=== PATIENT | female | born 1950 | race Caucasian/White ===

== ENCOUNTER 2019-11-24 20:51 | Inpatient (IN) | payer MEDICARE, SELFPAY ==
[2019-11-24 20:53] VITALS: BP 109/80; BP 123/68; PULSE 79; PULSE 89; RESP 24; TEMP 35.9; O2SAT 100; O2SAT 96; BMI 34.1
--- NOTE | 2019-11-24 21:02 | EKG12_ITS ---
Test Reason : SOB Blood Pressure : / mmHG Vent. Rate : 091 BPM Atrial Rate : 070 BPM P-R Int : 000 ms QRS Dur : 078 ms QT Int : 456 ms P-R-T Axes : 000 -06 016 degrees QTc Int : 560 ms Normal Sinus Rhythm With First Degree AV Block Low voltage QRS Nonspecific ST and T wave abnormality Prolonged QT Abnormal ECG Confirmed by FLYNN FRIED ([id number]), editorial director DARRION GARCIA ([id number]) on 11/28/2019 9:44:36 AM Referred By: SEAN Confirmed By:FLYNN FRIED
--- NOTE | 2019-11-24 21:03 | ED.DCSUM_ITS ---
History of Present Illness Chief Complaint: Shortness of Breath Informant: Patient Onset: - - For a while Narrative: Patient presents via EMS for evaluation for shortness of breath. Patient is a poor historian but states her shortness of breath is been ongoing for some time. Per EMS they made multiple runs to her home with weakness, shortness of breath, and falls. It sounds as though the asked EMS to bring the patient here tonight for evaluation as she has not been getting better where they normally take her. Patient is not able to tell me which hospital she normally goes to. Patient denies any pain. She denies having fever or chills. She does report shortness of breath with mild cough. She did bring a long a note from a recent doctor's visit that reports she is being treated for MRSA infection in her right ankle. She was also treated for acute kidney injury with hyperkalemia. Past Medical History - Allergies and Home Meds Allergies/Adverse Reactions: Allergies doxycycline Allergy (Verified 11/24/19 21:02) Rash lisinopril Allergy (Verified 11/24/19 21:02) Rash Primary Care Physician: NOT,DEFINED [NON-STAFF] - Past Medical History: - - MRSA infection, unable to obtain complete history as patient does not know. Lives: Spouse/ Significant Other Review of Systems General: Denies: Chills, Fever Eyes: Denies: Visual changes - bilaterally ENT: Denies: Bilateral ear pain Cardiovascular: Denies: Chest pain Respiratory: Reports: Dyspnea, Cough Gastrointestinal: Denies: Vomiting, Diarrhea Musculoskeletal: Denies: Back pain Skin: Reports: Wounds Neurological: Reports: Weakness - Generalized weakness. Denies: Headache Endocrine: Denies: Polyuria, Polydipsia Hematologic: Denies: Easy bruising Allergy: Denies: Uticaria Physical Exam Vital Signs/Narrative: Vital Signs Temp Pulse Resp BP Pulse Ox 11/24/19 20:53 96.6 F L 79 24 H 123/68 H 96 Inital Vital Signs reviewed: Yes General: Well nourished, Well developed Head: Normocephalic ENT: Moist mucous membranes Neck: Supple Cardiovascular: Regular rate, Regular rhythm Respiratory: No distress, - - Mildly coarse breath sounds bilaterally. Abdomen: Soft, Nontender Extremities: - - 1 cm round pressure ulcer on the lateral malleolus of the right ankle. 4 x 1 cm skin tear to left forearm. Neurological: Alert, Oriented x3 Psychological: Tearful Diagnostic/Tx/Re-eval Impressions Chest X-Ray 11/24/19 21:05 IMPRESSION: Elevated right hemidiaphragm. No definite acute or significant abnormality seen. Electronically Signed: Edvin Ngo MD at 21:22 EST , Service support , 11/24/19 21:05 Chest 1 View (Portable) [RAD] Stat Laboratory Results 11/24/19 11/24/19 11/24/19 21:38 21:38 21:38 WBC 7.5 RBC 2.53 L Hgb 8.4 L Hct 27.8 L MCV 109.9 H MCH 33.2 H MCHC 30.2 L RDW Std Deviation 82.0 H RDW Coeff of Dominic 20.8 H Plt Count 334 MPV 11.2 Immature Gran % (Auto) 1.100 H Neut % (Auto) 85.2 H Lymph % (Auto) 7.9 L Cloud % (Auto) 4.7 Eos % (Auto) 0.8 Baso % (Auto) 0.3 Absolute Neuts (auto) 6.4 Absolute Lymphs (auto) 0.59 L Nucleated RBC % 1.2 Differential Comment SCANNED Hypochromasia 1+ Anisocytosis 1+ Target Cells 1+ Crenated Cell RARE Sodium Cancelled Potassium Cancelled Chloride Cancelled Carbon Dioxide Cancelled Anion Gap Cancelled BUN Cancelled Creatinine Cancelled Estim Creat Clear Calc Cancelled Est GFR (MDRD) Af Amer Cancelled Est GFR (MDRD) Non-Af Cancelled BUN/Creatinine Ratio Cancelled Glucose Cancelled Calcium Cancelled Troponin I Cancelled B-Natriuretic Peptide Cancelled 11/24/19 11/24/19 22:35 22:35 WBC RBC Hgb Hct MCV MCH MCHC RDW Std Deviation RDW Coeff of Dominic Plt Count MPV Immature Gran % (Auto) Neut % (Auto) Lymph % (Auto) Cloud % (Auto) Eos % (Auto) Baso % (Auto) Absolute Neuts (auto) Absolute Lymphs (auto) Nucleated RBC % Differential Comment Hypochromasia Anisocytosis Target Cells Crenated Cell Sodium 144 Potassium 6.8 H* Chloride 124 H Carbon Dioxide 16.0 L Anion Gap 4 L BUN 64 H Creatinine 1.66 H Estim Creat Clear Calc 30.79 Est GFR (MDRD) Af Amer 40 L Est GFR (MDRD) Non-Af 33 L BUN/Creatinine Ratio 38.6 H Glucose 91 Calcium 9.2 Troponin I < 0.015 B-Natriuretic Peptide 604.1 H - EKG Initial EKG Interpretation: Sinus Rhythm - Sinus arrhythmia with first-degree AV block. No acute ST change. - Medical Decision Making I attempted to find old records on the patient. She is never been to this facility before. There are no records available to review in [facility]. Patient has been stable throughout her ED stay. Blood work does return with significantly elevated potassium at 6.8. The paperwork from the doctor's office she brought in does comment that she had recently been treated for hyperkalemia. At this time she is ordered albuterol, Kayexalate, insulin, and glucose. Patient be admitted for further treatment and evaluation. ED Disposition - Plan for ED Patient: Disposition: Acute Care Hospital [facility] Diagnosis: Hyperkalemia, Dyspnea Referrals: NOT,DEFINED [NON-STAFF] -
--- NOTE | 2019-11-24 21:05 | RAD_ITS ---
STUDY: X-RAY CHEST REASON FOR EXAM: Female, 69 years old. Short of breath. TECHNIQUE: Single AP portable view of the chest. COMPARISON: None. FINDINGS: Marked elevation of the right hemidiaphragm. Otherwise normal lung volumes. No infiltrates. No effusions. Normal size heart. Normal mediastinum and amandeep. Normal visualized pulmonary arteries. Normal visualized aortic arch and descending thoracic aorta. Normal visualized thoracic spine. There is degenerative osteoarthritis of the bilateral shoulders. There is no demonstrated abnormality of the visualized soft tissue structures of the upper abdomen. RAD/Chest 1 View (Portable) IMPRESSION: Elevated right hemidiaphragm. No definite acute or significant abnormality seen. Electronically Signed: Edvin Ngo MD at 21:22 EST , Service support ,
--- NOTE | 2019-11-24 21:06 | ED.RN ---
NO OLD EKGS IN MUSE
[2019-11-24 21:15] VITALS: BP 109/80; PULSE 83; RESP 22; O2SAT 96
[2019-11-24 21:46] LABS: Absolute Lymphocyte Count 0.59 X10^3/uL (0.83-4.51); Absolute Neutrophil Count 6.4 X10^3/uL (2.0-7.7); Basophil# 0.02 X10^3/uL; Basophil% 0.3 % (0-1); Eosinophil# 0.06 X10^3/uL; Eosinophils% 0.8 % (0-5); Hematocrit 27.8 % (37-47); Hemoglobin 8.4 g/dL (12.0-15.0); Lymphocyte # 0.59 X10^3/ul (4.0); Lymphocyte % 7.9 % (19-41); Mean Corp Hgb Conc 30.2 g/dL (32-36); Mean Corpuscular Hgb 33.2 pg (27.0-32.0); Mean Corpuscular Volume 109.9 fL (81-99); Mean Platelet Vol. 11.2 fl (6.2-12.0); Monocyte# 0.35 X10^3/uL; Monocyte% 4.7 % (0-10); NRBC Flagged by Analyzer 1.2 % (0-5); Neutrophil # 6.37 X10^3/uL (2.7-7.7); Neutrophil % 85.2 % (47-70); POSITIVE DIFFERENTIAL YES; POSITIVE MORPHOLOGY YES; Platelet Count 334 K/mm3 (150-450); RBC Distribution Width CV 20.8 % (11.6-14.6); Red Blood Count 2.53 M/mm3 (4.2-5.4); White Blood Count 7.5 K/mm3 (4.4-11.0)
[2019-11-24 22:10] LABS: Differential Indicated SCAN CRITERIA MET
[2019-11-24 22:15] VITALS: BP 130/68; PULSE 89; RESP 22; O2SAT 99
[2019-11-24 22:25] VITALS: BP 138/68; PULSE 84; RESP 18; TEMP 35.7; O2SAT 96
[2019-11-24 22:33] LABS: Anisocytosis 1+; Crenated RBC RARE; Differential Comment SCANNED; Hypochromasia 1+; Target Cells 1+
[2019-11-24 23:18] LABS: Anion Gap 4 (5-15); BUN 64 mg/dL (7-18); BUN/Creat Ratio 38.6 RATIO (10-20); Calcium,Total 9.2 mg/dL (8.5-10.1); Chloride 124 mmol/L (98-107); Creatinine, Serum 1.66 mg/dL (0.55-1.02); EST Glomerular Filtration Rate 33 mL/min (>60); Est Glom Filt Rate - Afr Amer 40 mL/min (>60); Estimated Creatinine Clearance 30.79 ml/min; Glucose 91 mg/dL (74-106); Potassium 6.8 mmol/L (3.5-5.1); Sodium Level 144 mmol/L (136-145)
--- NOTE | 2019-11-24 23:22 | ED.RN ---
CRITICAL POTASSIUM PER LAB CALL, AND PRIMARY RN AWARE
--- NOTE | 2019-11-24 23:27 | HP.PCM_ITS ---
Problem List (1) Hyperkalemia Status: Acute (2) TENZIN (acute kidney injury) Status: Acute (3) Dyspnea Status: Acute Qualifiers: Dyspnea type: unspecified Qualified Code(s): R06.00 - Dyspnea, unspecified (4) CHF (congestive heart failure) Status: Chronic Qualifiers: Heart failure type: unspecified Heart failure chronicity: chronic Qualified Code(s): I50.9 - Heart failure, unspecified (5) HTN (hypertension) Status: Chronic Qualifiers: Hypertension type: essential hypertension Qualified Code(s): I10 - Essential (primary) hypertension (6) HLD (hyperlipidemia) Status: Chronic Qualifiers: Hyperlipidemia type: unspecified Qualified Code(s): E78.5 - Hyperlipidemia, unspecified (7) Anxiety and depression Status: Chronic (8) Wound of right ankle Status: Chronic Qualifiers: Encounter type: subsequent encounter Qualified Code(s): S91.001D - Unspecified open wound, right ankle, subsequent encounter (9) Obesity (BMI 30.0-34.9) Status: Chronic History of Present Illness Date of Admission: 11/24/19 Chief Complaint: Recent hospital dx, recurrent dyspnea, weakness The patient is a 69 y/o F w/ PMHx: Obesity, GERD, Anxiety and Depression, HTN, HLD, Allergic Rhinitis, CHF Unclear type, R Ankle MRSA Ulcer, Chronic anemia who presents to the [facility] ED on 11/24/19 with history of several home visits per EMS secondary to falls, weakness and debility with a recent right ankle MRSA infection currently on Bactrim therapy as well as recent treatment for acute kidney injury and hyperkalemia with ongoing complaints of dyspnea and general malaise as well as weakness and fatigue prompting evaluation at [facility] although she normally presents to [facility] and specifically notes transition as she is not been improving and is very frustrated. Work-up in the ED included T 96.6, heart rate 79, BP 123/68, respiratory rate 24, 96% on room air, CBC with WC 7.5, hemoglobin 8.7, MCV 109.9, platelet 334 with mild left shift, BMP with potassium 6.8, chloride 124, carbon oxide 16, BUN/creatinine 64/1.66, troponin less than 0.015, BNP 604.1, chest x-ray with no obvious infiltrates or effusions, elevated right hemidiaphragm, no acute cardiopulmonary finding, EKG w/ sinus rhythm with 1 AVB with no concerning T wave changes given K level. In the ED patient administered Kayexalate, insulin, dextrose and albuterol therapy. Past Medical History Past Medical History (Chronic Problems): Chronic Problems CHF (congestive heart failure) (Chronic) HTN (hypertension) (Chronic) HLD (hyperlipidemia) (Chronic) Anxiety and depression (Chronic) Wound of right ankle (Chronic) Obesity (BMI 30.0-34.9) (Chronic) Allergies doxycycline Allergy (Verified 11/24/19 21:02) Rash lisinopril Allergy (Verified 11/24/19 21:02) Rash Home Medications: Ambulatory Orders Medication Instructions Recorded Albuterol Inhaler [Ventolin Hfa 2 puff INHALATION Q4H PRN PRN 11/24/19 (SP)] Atorvastatin Calcium [Lipitor] 20 mg PO QHS 11/24/19 Bumetanide 1 mg PO DAILY 11/24/19 Calcium Carbonate/Vitamin D3 1 ea PO DAILY 11/24/19 [Calcium 600-Vit D3 800 Caplet] Fluoxetine HCl 40 mg PO BID 11/24/19 Fluticasone 0.05% [Flonase Nasal 2 spray NASAL DAILY 11/24/19 New Site] Folic Acid 1 mg PO DAILY 11/24/19 Isosorbide Mononitrate [Imdur] 30 mg PO DAILY 11/24/19 Lactobacillus Acidophilus 1 ea PO TID 11/24/19 [Acidophilus] Montelukast [Singulair] 10 mg PO DAILY 11/24/19 Multivitamin with Minerals 1 ea PO DAILY 11/24/19 [Multiple Vitamin] Omeprazole 40 mg PO DAILY 11/24/19 Oxybutynin [Ditropan] 2.5 mg PO DAILY 11/24/19 Prednisone 2.5 mg PO DAILY 11/24/19 Sulfamethoxazole/Trimethoprim 1 ea PO BID 11/24/19 [Bactrim Ds Tablet] Surgical History: - - x1. 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 Denies: Chills, Fever, Weight Change HEENT: Denies: Head Aches, Sinus Congestion, Sinus Drainage Cardiovascular: Reports: Orthopnea. Denies: Chest Pain, Chest Pressure, Chest Tightness, Light Headedness, Palpitations, Syncope Respiratory: Reports: Cough, Shortness of Breath, Shortness of breath at rest, Shortness of breath upon exertion, Sputum production. Denies: Wheezing Gastrointestinal: Reports: Nausea. Denies: Abdominal Pain, Vomiting Genitourinary: Denies: Dysuria Musculoskeletal: Reports: Back Pain, Joint Pain, Muscle pain. Denies: Joint Tenderness Skin: Reports: Skin Changes, Wounds. Denies: Rash Neurological: Denies: Numbness, Tingling, Focal weakness Psychiatric: Reports: Anxiety, Depression. Denies: Homicidal Ideations, Suicidal Ideations Hematologic/ Lymphatic: Reports: Anemia. Denies: Easy Bruising, Easy Bleeding VTE Information - Inpt Only VTE Present on Admission: No VTE Mechan Device Prophylaxis: SCD's VTE Pharm Prophylaxis ordered?: Yes Patient Problems: Active and Suspected Problems Hyperkalemia (Acute) Dyspnea (Acute) TENZIN (acute kidney injury) (Acute) Subjective: Seated upright in the bed, fatigued appearance, very anxious and tearful with discussions. Objective: Physical Examination: General: awake, alert, oriented x 3, remains cooperative, seated upright in the ED bed, very tearful and anxious with discussions. Skin: normal color, turgor, no icterus, cyanosis except noted right lateral ankle wound, slough noted, no market well-appearing granulation tissue but no specific foul odor or discharge. HEENT: AT/NC, EOMI, PERRLA, dry MM, no carotid bruits or JVD noted. Lungs: Diminished breath sounds bilaterally, greater bases, mildly increased effort, occasional coughing during examination, no obvious rales, wheezing or rhonchi. Heart: Regular rate and rhythm; no gallop, rub audible. Abdomen: soft, obese, NTTP, ND, normal BS, no HSM. Extremities: no cyanosis, clubbing, mild bilateral ankle nonpitting. Neurological: patient awake, alert, oriented as noted; cognitive function suspect near baseline intact although very quiet and had to urge patient into discussion; pupils equally reactive to light and accomodation; cranial nerves II-XII grossly normal, moving all 4 extremities, no focal deficits, strength severely global decrease. Psychiatric: affect appears fatigued, anxious, tearful, history of depression and anxiety. - Physical Exam Vitals/I&O's: Vital Signs Temp Pulse Resp BP Pulse Ox 96.3 F L 84 18 138/68 H 96 11/24/19 22:25 11/24/19 22:25 11/24/19 22:25 11/24/19 22:25 11/24/19 22:25 Oxygen Flow Rate (L/min) 2 Oxygen Delivery Method Room Air Weight: 211 lb 10.3 oz Body Mass Index (BMI) 34.1 Laboratory Results 11/24/19 21:38: WBC 7.5, RBC 2.53 L, Hgb 8.4 L, Hct 27.8 L, MCV 109.9 H, MCH 33.2 H, MCHC 30.2 L, RDW Std Deviation 82.0 H, RDW Coeff of Dominic 20.8 H, Plt Count 334, MPV 11.2, Immature Gran % (Auto) 1.100 H, Neut % (Auto) 85.2 H, Lymph % (Auto) 7.9 L, Nash % (Auto) 4.7, Eos % (Auto) 0.8, Baso % (Auto) 0.3, Absolute Neuts (auto) 6.4, Absolute Lymphs (auto) 0.59 L, Nucleated RBC % 1.2, Differential Comment SCANNED, Hypochromasia 1+, Anisocytosis 1+, Target Cells 1+, Crenated Cell RARE 11/24/19 21:38: Sodium Cancelled, Potassium Cancelled, Chloride Cancelled, Carbon Dioxide Cancelled, Anion Gap Cancelled, BUN Cancelled, Creatinine Cancelled, Estim Creat Clear Calc Cancelled, Est GFR (MDRD) Af Amer Cancelled, Est GFR (MDRD) Non-Af Cancelled, BUN/Creatinine Ratio Cancelled, Glucose Cancelled, Calcium Cancelled, Troponin I Cancelled 11/24/19 21:38: B-Natriuretic Peptide Cancelled 11/24/19 22:35: Sodium 144, Potassium 6.8 H*, Chloride 124 H, Carbon Dioxide 16.0 L, Anion Gap 4 L, BUN 64 H, Creatinine 1.66 H, Estim Creat Clear Calc 30.79, Est GFR (MDRD) Af Amer 40 L, Est GFR (MDRD) Non-Af 33 L, BUN/Creatinine Ratio 38.6 H, Glucose 91, Calcium 9.2, Troponin I < 0.015 11/24/19 22:35: B-Natriuretic Peptide Pending Assessment/Plan All Active Problems Hyperkalemia (Acute) Dyspnea (Acute) TENZIN (acute kidney injury) (Acute) The patient is a 69 y/o F w/ PMHx: Obesity, GERD, Anxiety and Depression, HTN, HLD, Allergic Rhinitis, CHF Unclear type, R Ankle MRSA Ulcer, Chronic anemia who presents to the [facility] ED on 11/24/19 with history of several home visits per EMS secondary to falls, weakness and debility with a recent right ankle MRSA infection currently on Bactrim therapy as well as recent treatment for acute kidney injury and hyperkalemia with ongoing complaints of dyspnea and general malaise as well as weakness and fatigue. 1. Acute Hyperkalemia: Potassium 6.8, administered insulin, glucose, albuterol and Kayexalate in the ED, given recent history noted on scant records pending medical records from [place], will admit to the ICU, maintain on telemetry, request automatic nailing machine operator consultation, request Nephrology consultation, initiation on bicarb drip, continue serial BMPs. 2. Possible TENZIN versus chronic kidney disease stage III: Admission BUN/creatinine 64/1.66, unclear baseline, creatinine clearance 30.79, given acute presentation, will cautiously hydrate, obtain FeNa, obtain UA and renal US, as noted nephrology also consulted given concurrent #1. 3. Dyspnea, unclear specific etiology, possibly secondary to metabolic alterations as noted: Patient upon transition to the ICU did have significantly discolored appearing sputum upon coughing although chest x-ray with no acute findings, will request sputum culture as well as antigens and initiate regimen if significant findings. 4. CHF, unclear type: Chest x-ray with no acute cardiopulmonary findings with no obvious significant effusions, BNP elevated 604.1, troponin less than 0.015, no obvious appearance of CHF exacerbation, given acute presentation as noted #2 we will temporarily hold patient bumetanide but may need IV Lasix if progressively worsening #1, 5. Right MRSA ankle stasis ulcer: Currently on regimen of Bactrim, will hold especially given unclear renal baseline, unclear alternate susceptibilities, request facility records from prior admissions, wound nursing consultation, c ontinue dressing care, transition to Vanc with adjustment for renal function pending records, request consultation with podiatry given appearance. 6. Macrocytic anemia, unclear if chronic: Admission hemoglobin 8.4, MCV 109.9, will obtain vitamin B12, folic acid, iron panel and ferritin level, trend CBC. 7. Anxiety and depression: We will continue patient home fluoxetine regimen however if worsening renal function may necessitate alternate renal dosing. 8. Hypertension: Continue home regimen including isosorbide, holding bumetanide given suspected TENZIN, PRN hydralazine. 9. Hyperlipidemia: Continue home statin regimen. 10. DVT Prophylaxis: SCDs, heparin. 11. CODE status: Patient DINA is her and living will is currently in place per her report. Discussed CODE status at length including difference between FULL code, DNR-CCA and DNR-CC status. Following discussions about the differences in these status, requested DNR CCA, no intubation status. Advanced Care Planning Face to Face Time: 16 minutes. Code Visit Inpatient E&M: 88070 Init Hosp L3 Procedures: 11564 Advncd Care Plan 30 Min
[2019-11-24 23:28] LABS: BNP,B-Type NATRIURETIC PEPTIDE 604.1 pg/mL (0-100)
[2019-11-24 23:46] VITALS: PULSE 84; RESP 18
[2019-11-24] MEDS: Insulin Lispro 5 UNIT in Syringe 0 ML 3 UNIT IV (23:58)
[2019-11-24] MEDS: Dextrose 10%-Water 250 ML 999 ML IV (23:58)
[2019-11-24] MEDS: Sodium Polystyrene Sulfonate 15 GM/60 ML UDC 45 GM PO (23:59)
[2019-11-25] VITALS (35 sets, daily range): BP systolic 95–164; BP diastolic 51–105; PULSE 79–101; RESP 13–25; TEMP 35.9–36.4; O2SAT 94–99; BMI 32.7
--- NOTE | 2019-11-25 00:53 | US_ITS ---
STUDY: RENAL ULTRASOUND - COMPLETE REASON FOR EXAM: Female, 69 years old. TENZIN TECHNIQUE: Ultrasound evaluation of the kidneys was performed with real-time and static chavis-scale imaging. COMPARISON: None. FINDINGS: RIGHT KIDNEY: Normal location of the right kidney, which is normal in size. The right kidney measures 9.5 cm x 4.8 cm x 4.9 cm. There is a normal cortex of the right kidney. The renal cortex measures cm. There is a 2.3 cm x 2.3 cm x 2.2 cm renal cyst. There are no right renal calculi. There is no right hydronephrosis. DISTAL RIGHT URETER: There is non-visualization of the distal right ureter. There is no demonstrated right ureterovesical junction calculus. There is a visualized right ureteral jet. LEFT KIDNEY: Normal location of the left kidney, which is normal in size. The left kidney measures 10.5 cm x 5.8 cm x 5.3 cm. There is a normal cortex of the left kidney. The renal cortex measures 1.1 cm. There is no left renal mass or cyst. There are no left renal calculi. There is no left hydronephrosis. DISTAL LEFT URETER: There is non-visualization of the distal left ureter. There is no demonstrated left ureterovesical junction calculus. There is no demonstrated left ureteral jet. BLADDER: The distended urinary bladder has a volume of 290 ml. There is a normal wall thickness of the distended urinary bladder. There is no demonstrated mass within the urinary bladder. There are no demonstrated bladder calculi. US/Kidney and Bladder IMPRESSION: 2.3 cm x 2.3 cm x 2.2 cm right renal cyst. Electronically Signed: Richar Bird, at 10:30 EST , Service support ,
--- NOTE | 2019-11-25 02:03 | PCM.RX.CS ---
Consult Pharmacy has been consulted to manage selected antiobiotic: Vancomycin Type of Consult: New start Labs: Sodium 144 mmol/L (136-145) 11/24/19 22:35 Potassium 6.8 mmol/L (3.5-5.1) H* 11/24/19 22:35 Chloride 124 mmol/L (98-107) H 11/24/19 22:35 Carbon Dioxide 16.0 mmol/L (21.0-32.0) L 11/24/19 22:35 Anion Gap 4 (5-15) L 11/24/19 22:35 BUN 64 mg/dL (7-18) H 11/24/19 22:35 Creatinine 1.66 mg/dL (0.55-1.02) H 11/24/19 22:35 Est GFR (MDRD) Af Amer 40 mL/min (>60) L 11/24/19 22:35 Est GFR (MDRD) Non-Af 33 mL/min (>60) L 11/24/19 22:35 BUN/Creatinine Ratio 38.6 RATIO (10-20) H 11/24/19 22:35 Glucose 91 mg/dL (74-106) 11/24/19 22:35 Weight used for dosin.9 kg Estimated Creatinine Clearance: 37.56 Goal Trough: 10-15 mcg/mL Pharmacy Plan for Drug Dosing: Pharmacy Service will continue to monitor and adjust dosing as required. Medications Vancomycin HCl (Vancomycin) 1,000 mg in 200 mls @ 200 mls/hr IV Q24H MARKEL Vancomycin HCl 1,250 mg/ (Sodium Chloride) 275 mls @ 167 mls/hr IV X1 ONE Stop: 11/25/19 03:08 Last Admin: 11/25/19 01:56 Dose: 167 mls/hr Documented by:
[2019-11-25 03:19] LABS: Anion Gap 9 (5-15); BUN 65 mg/dL (7-18); BUN/Creat Ratio 38.7 RATIO (10-20); Calcium,Total 8.7 mg/dL (8.5-10.1); Chloride 125 mmol/L (98-107); Creatinine, Serum 1.68 mg/dL (0.55-1.02); EST Glomerular Filtration Rate 32 mL/min (>60); Est Glom Filt Rate - Afr Amer 39 mL/min (>60); Estimated Creatinine Clearance 30.42 ml/min; Glucose 80 mg/dL (74-106); Magnesium 2.2 mg/dL (1.6-2.6); Potassium 6.6 mmol/L (3.5-5.1); Sodium Level 149 mmol/L (136-145)
[2019-11-25] MEDS: Albuterol 2.5 MG/3 ML VIAL.NEB. INHALATION (04:26)
[2019-11-25] MEDS: Sodium Polystyrene Sulfonate 15 GM/60 ML UDC 30 GM PO (04:30)
[2019-11-25] MEDS: Insulin Lispro 100 UNIT/ML INSULN.PEN SC (04:31)
[2019-11-25] MEDS: Dextrose 10%-Water 250 ML 999 ML IV (04:50)
[2019-11-25 08:09] LABS: Ferritin 1694 ng/mL (8-252); Iron 44 ug/dL (50-170); Iron Binding Capacity,Total 126 ug/dL (250-450); PERCENT IRON SATURATION 34.9 % (15.0-55.0)
--- NOTE | 2019-11-25 08:13 | PCM.PN.HOSP ---
Patient Problems: Active and Suspected Problems Hyperkalemia (Acute) Dyspnea (Acute) TENZIN (acute kidney injury) (Acute) Reason for Visit: The patient is poor historian. To every question, she answers I do not know. She does not know the duration of ulcer, shortness of breath, or other symptoms. No medical record. It is hard to make clinical evaluation. Vitals/I&O's: Vital Signs Temp Pulse Resp BP Pulse Ox 96.9 F L 101 H 17 164/105 H 97 11/25/19 03:00 11/25/19 06:00 11/25/19 06:00 11/25/19 06:00 11/25/19 06:00 Oxygen Flow Rate (L/min) 2 Oxygen Delivery Method Nasal Cannula Weight: 202 lb 9.677 oz Body Mass Index (BMI) 32.7 Intake and Output for Last 24 Hours 11/23/19 11/24/19 11/25/19 23:59 23:59 23:59 Intake Total 400 / 400 Output Total 400 / 400 Balance 0 / 0 General: Oriented x3, Cooperative, Lethargic HEENT: Atraumatic, PERRLA, EOMI, Normocephalic Oral: Dry Mucosa Neck: Supple, No JVD, Negative Carotid Bruits Lungs: Diminished - Air entry is diminished in both lungs., Rales - Coarse crepitation present, Short of Breath Cardiovascular: Regular rate, Regular Rhythm, Normal S1, Normal S2, No murmurs Abdomen: Bowel Sounds Present, Soft, Non Tender, Non-Distended Extremities: Capillary Refill Less than 3 Seconds, Edema Skin: Ulcer/ Wound - Ulcer present over right leg, lateral malleolus. Seems chronic with sinus tract. Mild purulent drainage. Multiple bruises present over both lower legs. Musculoskeletal: Arthritic Changes, Muscle Wasting Neurological: Cranial nerves II-XII grossly intact, Deep Tendon Reflexes 2+/4 and Symmetrical, Neuro grossly intact Microbiology Past 72 Hours 11/25/19 01:00 Sputum, Expectorated/Coughed Gram Stain - Preliminary Laboratory Results 11/24/19 21:38: WBC 7.5, RBC 2.53 L, Hgb 8.4 L, Hct 27.8 L, MCV 109.9 H, MCH 33.2 H, MCHC 30.2 L, RDW Std Deviation 82.0 H, RDW Coeff of Dominic 20.8 H, Plt Count 334, MPV 11.2, Immature Gran % (Auto) 1.100 H, Neut % (Auto) 85.2 H, Lymph % (Auto) 7.9 L, [place] % (Auto) 4.7, Eos % (Auto) 0.8, Baso % (Auto) 0.3, Absolute Neuts (auto) 6.4, Absolute Lymphs (auto) 0.59 L, Nucleated RBC % 1.2, Differential Comment SCANNED, Hypochromasia 1+, Anisocytosis 1+, Target Cells 1+, Crenated Cell RARE 11/24/19 21:38: Sodium Cancelled, Potassium Cancelled, Chloride Cancelled, Carbon Dioxide Cancelled, Anion Gap Cancelled, BUN Cancelled, Creatinine Cancelled, Estim Creat Clear Calc Cancelled, Est GFR (MDRD) Af Amer Cancelled, Est GFR (MDRD) Non-Af Cancelled, BUN/Creatinine Ratio Cancelled, Glucose Cancelled, Calcium Cancelled, Troponin I Cancelled 11/24/19 21:38: B-Natriuretic Peptide Cancelled 11/24/19 22:35: Sodium 144, Potassium 6.8 H*, Chloride 124 H, Carbon Dioxide 16.0 L, Anion Gap 4 L, BUN 64 H, Creatinine 1.66 H, Estim Creat Clear Calc 30.79, Est GFR (MDRD) Af Amer 40 L, Est GFR (MDRD) Non-Af 33 L, BUN/Creatinine Ratio 38.6 H, Glucose 91, Calcium 9.2, Troponin I < 0.015 11/24/19 22:35: B-Natriuretic Peptide 604.1 H 11/25/19 02:35: Sodium 149 H, Potassium 6.6 H*, Chloride 125 H, Carbon Dioxide 15.0 L, Anion Gap 9, BUN 65 H, Creatinine 1.68 H, Estim Creat Clear Calc 30.42, Est GFR (MDRD) Af Amer 39 L, Est GFR (MDRD) Non-Af 32 L, BUN/Creatinine Ratio 38.7 H, Glucose 80, Calcium 8.7, Magnesium 2.2 11/25/19 02:35: Vitamin B12 Pending 11/25/19 02:35: Troponin I < 0.015 11/25/19 05:15: Iron 44 L, TIBC 126 L, Iron Saturation 34.9, Ferritin 1694 H, Folate 65.90 H 11/25/19 05:15: Troponin I < 0.015 Current Medications Acetaminophen (Tylenol) 650 mg PO Q6H PRN PRN PRN Reason: Pain Score 1-10/Temp > 100.7 F Al Hydroxide/Mg Hydroxide (Mylanta Ii) 30 ml PO Q6H PRN PRN PRN Reason: Gastric Burning Albuterol Sulfate (Ventolin Aerosols) 2.5 mg INHALATION Q2H PRN PRN PRN Reason: SOB/Wheezing Atorvastatin Calcium (Lipitor) 20 mg PO QHS MARKEL Fluoxetine HCl (Prozac) 40 mg PO BID MARKEL Fluticasone Propionate (Flonase Nasal [place]) 2 spray NASAL DAILY MARKEL Folic Acid (Folic Acid) 1 mg PO DAILYCM MARKEL Glucagon () 1 mg IM .X1 PRN PRN Reason: Hypoglycemia Guaifenesin (Robitussin) 10 ml PO Q4H PRN PRN PRN Reason: COUGH Heparin Sodium (Beef Lung) () 50 units IV UD PRN PRN Reason: PICC Line Heparin Flush Heparin Sodium (Porcine) (Heparin Na) 5,000 unit SC Q12 [facility] Hydralazine HCl (Apresoline Iv) 10 mg IV Q4H PRN PRN PRN Reason: SBP > 160 Dextrose (Dextrose 10%-Water) 250 mls @ 999 mls/hr IV .Q16M PRN; Protocol PRN Reason: HYPOGLYCEMIA Last Admin: 11/24/19 23:58 Dose: 999 mls/hr Documented by: Sodium Bicarbonate 100 meq/ (Dextrose) 1,100 mls @ 100 mls/hr IV .Q11H [facility] Last Admin: 11/25/19 01:56 Dose: 100 mls/hr Documented by: Vancomycin IV Pharmacy to Dose (1 ea/ Sodium Chloride) 500 mls @ 250 mls/hr IV X1 PRN; Protocol PRN Reason: Rx to Dose Sodium Chloride () 250 mls @ 15 mls/hr IV .[id number] PRN PRN Reason: Saline Flush Sodium Chloride () 250 mls @ 15 mls/hr IV .[id number] PRN PRN Reason: Additional IVPB Infusion Piperacillin Sod/Tazobactam (Sod 3.375 gm/ Sodium Chloride) 50 mls @ 12.5 mls/hr IV Q8 [facility] Last Admin: 11/25/19 05:17 Dose: 12.5 mls/hr Documented by: Vancomycin HCl (Vancomycin) 1,000 mg in 200 mls @ 200 mls/hr IV Q24H [facility] Dextrose (Dextrose 10%-Water) 250 mls @ 999 mls/hr IV .Q16M PRN; Protocol PRN Reason: HYPOGLYCEMIA Isosorbide Mononitrate (Imdur) 30 mg PO DAILY [facility] Lactobacillus Acidophilus (Acidophilus) 1 tablet PO TID [facility] Last Admin: 11/25/19 05:34 Dose: 1 tablet Documented by: Magnesium Hydroxide (Milk Of Magnesia) 30 ml PO DAILY PRN PRN PRN Reason: Constipation Melatonin (Melatonin) 3 mg PO QHS PRN PRN PRN Reason: INSOMNIA Montelukast Sodium (Singulair) 10 mg PO DAILY [facility] Morphine Sulfate () 2 mg IV Q3H PRN PRN PRN Reason: Pain Score 6-10/10 Nitroglycerin (Nitrostat) 0.4 mg SUBLINGUAL Q5M PRN PRN Reason: CARDIAC/CHEST PAIN Ondansetron HCl (Zofran) 4 mg IV Q8H PRN PRN PRN Reason: NAUSEA/VOMITING Oxybutynin Chloride (Ditropan) 2.5 mg PO DAILY [facility] Oxycodone HCl (Oxyir) 5 mg PO Q4H PRN PRN PRN Reason: Pain Score 4-5/10 Pantoprazole Sodium (Protonix) 40 mg PO DAILY [facility] () [facility] Prochlorperazine Edisylate (Compazine Iv) 5 mg IV Q4H PRN PRN PRN Reason: Breakthrough Nausea/Vomiting Psyllium Hydrophilic Mucilloid (Metamucil) 1 packet PO DAILY PRN PRN PRN Reason: Constipation Senna/Docusate Sodium (Senokot-S, Jane-Colace) 2 tablet PO BID PRN PRN PRN Reason: Constipation Sodium Chloride () 10 - 40 ml IV UD PRN PRN Reason: Open End PICC Flush Sodium Chloride (0.9% Nacl (Sterile) Posiflush) 10 - 40 ml IV UD PRN PRN Reason: Port access or dressing change Sodium Chloride () 10 - 40 ml IV UD PRN PRN Reason: SALINE FLUSH Throat Lozenges (Cepacol Sore Throat Lozenge) 1 lozenge MUCOUS MEM Q2H PRN PRN PRN Reason: SORE THROAT STROKE Vital Signs/Narrative: Vital Signs Pulse Resp BP Pulse Ox 11/25/19 06:00 101 H 17 164/105 H 97 11/25/19 05:00 91 23 H 95/52 L 95 11/25/19 04:25 85 25 H Medical Necessity - Tobacco Use Smoking Status: Never smoker Tobacco Use: Non-smoker Assessment/Plan All Active Problems Hyperkalemia (Acute) Dyspnea (Acute) TENZIN (acute kidney injury) (Acute) The patient is a 69 y/o F history of HTN, HLD, CHF Unclear type, R Ankle MRSA Ulcer on lateral malleolar, Chronic anemia, obesity was admitted with dyspnea, falls, generalized weakness and debility with recent right MRSA infection on Bactrim therapy. She was found to have hyperkalemia and acute kidney injury. Probably she had recent treatment for acute kidney injury. Telemetry shows low amplitude QRS waves. 1. Acute Hyperkalemia: Patient had cocktail for acute hyperkalemia. Patient also had Kayexalate. Nephrology consult appreciated not much change in potassium, 6.8, 6.6. Patient not on hemodialysis. On bicarb drip. Monitor serial BMP. 2. Possible TENZIN versus chronic kidney disease stage III with normal anion gap metabolic acidosis: Admission BUN/creatinine 64/1.66, unclear baseline, Last BUN/creatinine 65/1.68. UA, urine culture or Fena are pending. 3. Dyspnea most likely to CHF exacerbation, exact etiology and type unclear: Chest x-ray independently reviewed. Shows right hemidiaphragm elevation almost to the level of half of left hemidiaphragm. No pleural effusion but cephalization of upper lobes. BNP elevated 604. 2D echo is done in the morning. Report pending. Sputum culture pending. 4. Right MRSA ankle, possible venous ulcer, on lateral malleolus: Patient does not give history of duration, severity and course of ulcer. [employer] [place] [employer] on consult. On vancomycin. Monitor Vanco trough level. Bactrim was discontinued. Wound care consult. 6. Macrocytic anemia, most probably inflammatory anemia: Admission hemoglobin 8.4, MCV 109.9. Iron profile suggestive of anemia of chronic disease/chronic kidney disease. Ferritin 1694. Iron saturation 34%. 7. Anxiety and depression: It seems patient is depressed and does not give good response to questions. Continue fluoxetine 8. Hypertension, uncontrolled, labile: Last blood pressure 164/105. It fluctuates between 164/105 to 95/52. Continue home regimen including isosorbide, holding bumetanide given suspected TENZIN, PRN hydralazine. 9. Hyperlipidemia: Continue home statin regimen. 10. DVT Prophylaxis: SCDs, heparin. Total time of the visit including total time spent in counseling or coordination of care, (more than 50% of the total time, spent in obtaining medical information from nurses and other ancillary care providers), , review of labs and imaging is 40 minutes Code Visit Inpatient E&M: 99000 Subs Hosp L3
[2019-11-25 09:09] LABS: Vitamin B12 > 2000 pg/mL (211-911)
[2019-11-25 09:37] LABS: Absolute Neutrophil Count 7.1 X10^3/uL (2.0-7.7); Basophil# 0.03 X10^3/uL; Basophil% 0.4 % (0-1); Eosinophil# 0.08 X10^3/uL; Hematocrit 26.5 % (37-47); Hemoglobin 8.3 g/dL (12.0-15.0); Mean Corp Hgb Conc 31.3 g/dL (32-36); Mean Corpuscular Hgb 33.9 pg (27.0-32.0); Mean Corpuscular Volume 108.2 fL (81-99); Mean Platelet Vol. 11.2 fl (6.2-12.0); Monocyte# 0.54 X10^3/uL; Monocyte% 6.5 % (0-10); NRBC Flagged by Analyzer 1.4 % (0-5); Neutrophil % 85.3 % (47-70); POSITIVE DIFFERENTIAL YES; POSITIVE MORPHOLOGY YES; Platelet Count 264 K/mm3 (150-450); RBC Distribution Width CV 20.5 % (11.6-14.6); RBC Distribution Width SD 78.7 fl (35.1-43.9); Red Blood Count 2.45 M/mm3 (4.2-5.4); White Blood Count 8.3 K/mm3 (4.4-11.0)
[2019-11-25 09:52] LABS: Anion Gap 5 (5-15); BUN 66 mg/dL (7-18); BUN/Creat Ratio 41.2 RATIO (10-20); Calcium,Total 8.9 mg/dL (8.5-10.1); Chloride 124 mmol/L (98-107); EST Glomerular Filtration Rate 34 mL/min (>60); Est Glom Filt Rate - Afr Amer 41 mL/min (>60); Estimated Creatinine Clearance 31.94 ml/min; Glucose 75 mg/dL (74-106); Potassium 5.4 mmol/L (3.5-5.1); Sodium Level 147 mmol/L (136-145)
[2019-11-25 10:04] LABS: Differential Indicated SCAN CRITERIA MET
--- NOTE | 2019-11-25 10:13 | CASEMGMT ---
Social Work: ICU rounds attended. Will follow to assist as needed withe D/C planning and support to patient and family. LATONIA Garcia
--- NOTE | 2019-11-25 10:17 | PCM.CON.CC ---
Problem List (1) Hyperkalemia Status: Acute (2) TENZIN (acute kidney injury) Status: Acute (3) CHF (congestive heart failure) Status: Chronic Qualifiers: Heart failure type: unspecified Heart failure chronicity: chronic Qualified Code(s): I50.9 - Heart failure, unspecified (4) HTN (hypertension) Status: Chronic Qualifiers: Hypertension type: essential hypertension Qualified Code(s): I10 - Essential (primary) hypertension (5) HLD (hyperlipidemia) Status: Chronic Qualifiers: Hyperlipidemia type: unspecified Qualified Code(s): E78.5 - Hyperlipidemia, unspecified (6) Anxiety and depression Status: Chronic (7) Wound of right ankle Status: Chronic Qualifiers: Encounter type: subsequent encounter Qualified Code(s): S91.001D - Unspecified open wound, right ankle, subsequent encounter (8) Obesity (BMI 30.0-34.9) Status: Chronic Reason for Consult Date of Consultation: 11/25/19 Reason for Consultation: Hyperkalemia History of Present Illness: The patient is a 69 year old F, with past medical history listed below, who presented to [facility] on 11/24/2019 secondary to shortness of breath. Patient was a very poor historian on presentation. Patient's reportedly did not come to the hospital with her initially. Patient had not reported any pain, fever or chills. Patient had reported progressive shortness of breath with a mild cough. Patient reportedly was being treated for MRSA of a wound on her right ankle. Today, patient's was contacted but via phone. Patient reportedly had had decreased p.o. intake for the last 2 to 3 days. Patient was recently admitted at [facility] and had seen her routine physicians in the last week or 2. Patient was reportedly back to normal. In the ER, patient was noted to be in acute renal insufficiency with an elevated potassium of 6.8. Patient was given albuterol, Kayexalate, insulin and glucose and admitted to the intensive care unit. Patient was noted to have an elevated BNP at 604, but troponins were negative. Asked x-ray does show an elevated right hemidiaphragm. No significant leukocytosis, but a relative anemia at 8.4 was noted. Since being in the intensive care unit, patient's hemodynamic status is somewhat improved. Patient's respiratory status has improved with bicarbonate drip. Patient is currently on room air and breathing 16-20 times per minute. Patient is currently in contact precautions secondary to reported MRSA in the ankle, but this has not been confirmed. Patient's has just informed us of her last hospitalization and records are still pending. Patient is not able to provide much history and spends most of her responses moaning. Patient will occasionally shake her head yes or no, but this is unclear if she is adequately communicating the correct answer. Patient's states he will not be coming up to the hospital today. Unable to obtain a review of systems secondary to patient's mental status and lack of family at the bedside. Past Medical History Past Medical History (Chronic Problems): Chronic Problems CHF (congestive heart failure) (Chronic) HTN (hypertension) (Chronic) HLD (hyperlipidemia) (Chronic) Anxiety and depression (Chronic) Wound of right ankle (Chronic) Obesity (BMI 30.0-34.9) (Chronic) Allergies doxycycline Allergy (Verified 11/24/19 21:02) Rash lisinopril Allergy (Verified 11/24/19 21:02) Rash Home Medications: Ambulatory Orders Medication Instructions Recorded Albuterol Inhaler [Ventolin Hfa 2 puff INHALATION Q4H PRN PRN 11/24/19 (SP)] Atorvastatin Calcium [Lipitor] 20 mg PO QHS 11/24/19 Bumetanide 1 mg PO DAILY 11/24/19 Calcium Carbonate/Vitamin D3 1 ea PO DAILY 11/24/19 [Calcium 600-Vit D3 800 Caplet] Fluoxetine HCl 40 mg PO BID 11/24/19 Fluticasone 0.05% [Flonase Nasal 2 spray NASAL DAILY 11/24/19 [place]] Folic Acid 1 mg PO DAILY 11/24/19 Isosorbide Mononitrate [Imdur] 30 mg PO DAILY 11/24/19 Lactobacillus Acidophilus 1 ea PO TID 11/24/19 [Acidophilus] Montelukast [Singulair] 10 mg PO DAILY 11/24/19 Multivitamin with Minerals 1 ea PO DAILY 11/24/19 [Multiple Vitamin] Omeprazole 40 mg PO DAILY 11/24/19 Oxybutynin [Ditropan] 2.5 mg PO DAILY 11/24/19 Prednisone 2.5 mg PO DAILY 11/24/19 Sulfamethoxazole/Trimethoprim 1 ea PO BID 11/24/19 [Bactrim Ds Tablet] Surgical History: - - x1. 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 Lives: Spouse/ Significant Other Smoking Status: Never smoker Tobacco Use: Non-smoker Alcohol: None Drugs: None - *Family History Maternal History Items: High Cholesterol, Heart Disease, Hypertension Paternal History Items: High Cholesterol, Heart Disease, Hypertension Review of Systems Unable to obtain accurate/complete ROS d/t: See HPI Patient Problems: Active and Suspected Problems Hyperkalemia (Acute) Dyspnea (Acute) TENZIN (acute kidney injury) (Acute) - Physical Exam Vitals/I&O's: Vital Signs Temp Pulse Resp BP Pulse Ox 36.1 C L 101 H 17 164/105 H 97 11/25/19 03:00 11/25/19 06:00 11/25/19 06:00 11/25/19 06:00 11/25/19 06:00 Oxygen Flow Rate (L/min) 2 Oxygen Delivery Method Nasal Cannula Weight: 91.9 kg Body Mass Index (BMI) 32.7 Intake and Output for Last 24 Hours 11/23/19 11/24/19 11/25/19 23:59 23:59 23:59 Intake Total 1225.05 / 1225.05 Output Total 400 / 400 Balance 825.05 / 825.05 General: Alert, Confused, Disoriented, - - Obese. Does interact intermittently. HEENT: Atraumatic, PERRLA, EOMI, Normocephalic, - - No scleral icterus or injection noted Oral: No Gingival or Mucosal Lesions/ Ulcerations, Dry Mucosa Neck: Supple, No JVD, No Nodes, Trachea Midline Lungs: No rhonchi, No wheeze, No rales, Diminished, - - Symmetric expansion. No dullness to percussion. Cardiovascular: Regular rate, Regular Rhythm, Normal S1, Normal S2, No murmurs, No rub noted, No Gallop Abdomen: Bowel Sounds Present, Soft, Non Tender, Non-Distended Extremities: No clubbing, No cyanosis, Edema Skin: - - Multiple skin tears noted of the upper extremities. Patient does have a thin coccidial crease noted. Patient also has an ankle decubitus ulcer. See nursing documentation for exact measurements. Musculoskeletal: No Tenderness to Palpation of Joints or Extremities Lymphatic: No Cervical, Supraclavicular, or Inguinal Adenopathy Neurological: Cranial nerves II-XII grossly intact, Neuro grossly intact Psych/Mental Status: Anxious, Restless Microbiology Past 72 Hours 11/25/19 01:00 Sputum, Expectorated/Coughed Gram Stain - Preliminary Laboratory Results 11/24/19 21:38: WBC 7.5, RBC 2.53 L, Hgb 8.4 L, Hct 27.8 L, MCV 109.9 H, MCH 33.2 H, MCHC 30.2 L, RDW Std Deviation 82.0 H, RDW Coeff of Dominic 20.8 H, Plt Count 334, MPV 11.2, Immature Gran % (Auto) 1.100 H, Neut % (Auto) 85.2 H, Lymph % (Auto) 7.9 L, [place] % (Auto) 4.7, Eos % (Auto) 0.8, Baso % (Auto) 0.3, Absolute Neuts (auto) 6.4, Absolute Lymphs (auto) 0.59 L, Nucleated RBC % 1.2, Differential Comment SCANNED, Hypochromasia 1+, Anisocytosis 1+, Target Cells 1+, Crenated Cell RARE 11/24/19 21:38: Sodium Cancelled, Potassium Cancelled, Chloride Cancelled, Carbon Dioxide Cancelled, Anion Gap Cancelled, BUN Cancelled, Creatinine Cancelled, Estim Creat Clear Calc Cancelled, Est GFR (MDRD) Af Amer Cancelled, Est GFR (MDRD) Non-Af Cancelled, BUN/Creatinine Ratio Cancelled, Glucose Cancelled, Calcium Cancelled, Troponin I Cancelled 11/24/19 21:38: B-Natriuretic Peptide Cancelled 11/24/19 22:35: Sodium 144, Potassium 6.8 H*, Chloride 124 H, Carbon Dioxide 16.0 L, Anion Gap 4 L, BUN 64 H, Creatinine 1.66 H, Estim Creat Clear Calc 30.79, Est GFR (MDRD) Af Amer 40 L, Est GFR (MDRD) Non-Af 33 L, BUN/Creatinine Ratio 38.6 H, Glucose 91, Calcium 9.2, Troponin I < 0.015 11/24/19 22:35: B-Natriuretic Peptide 604.1 H 11/25/19 02:35: Sodium 149 H, Potassium 6.6 H*, Chloride 125 H, Carbon Dioxide 15.0 L, Anion Gap 9, BUN 65 H, Creatinine 1.68 H, Estim Creat Clear Calc 30.42, Est GFR (MDRD) Af Amer 39 L, Est GFR (MDRD) Non-Af 32 L, BUN/Creatinine Ratio 38.7 H, Glucose 80, Calcium 8.7, Magnesium 2.2 11/25/19 02:35: Vitamin B12 > 2000 H 11/25/19 02:35: Troponin I < 0.015 11/25/19 05:15: Iron 44 L, TIBC 126 L, Iron Saturation 34.9, Ferritin 1694 H, Folate 65.90 H 11/25/19 05:15: Troponin I < 0.015 11/25/19 09:25: WBC 8.3, RBC 2.45 L, Hgb 8.3 L, Hct 26.5 L, MCV 108.2 H, MCH 33.9 H, MCHC 31.3 L, RDW Std Deviation 78.7 H, RDW Coeff of Dominic 20.5 H, Plt Count 264, MPV 11.2, Immature Gran % (Auto) 0.800, Neut % (Auto) 85.3 H, Lymph % (Auto) 6.0 L, [place] % (Auto) 6.5, Eos % (Auto) 1.0, Baso % (Auto) 0.4, Absolute Neuts (auto) 7.1, Absolute Lymphs (auto) 0.50 L, Nucleated RBC % 1.4 11/25/19 09:25: Sodium 147 H, Potassium 5.4 H, Chloride 124 H, Carbon Dioxide 18.0 L, Anion Gap 5, BUN 66 H, Creatinine 1.60 H, Estim Creat Clear Calc 31.94, Est GFR (MDRD) Af Amer 41 L, Est GFR (MDRD) Non-Af 34 L, BUN/Creatinine Ratio 41.2 H, Glucose 75, Calcium 8.9 Current Medications Acetaminophen (Tylenol) 650 mg PO Q6H PRN PRN PRN Reason: Pain Score 1-10/Temp > 100.7 F Albuterol Sulfate (Ventolin Aerosols) 2.5 mg INHALATION Q2H PRN PRN PRN Reason: SOB/Wheezing Atorvastatin Calcium (Lipitor) 20 mg PO QHS [facility] Fluticasone Propionate (Flonase Nasal [place]) 2 spray NASAL DAILY [facility] Folic Acid (Folic Acid) 1 mg PO DAILYCM [facility] Glucagon () 1 mg IM .X1 PRN PRN Reason: Hypoglycemia Guaifenesin (Robitussin) 10 ml PO Q4H PRN PRN PRN Reason: COUGH Heparin Sodium (Beef Lung) () 50 units IV UD PRN PRN Reason: PICC Line Heparin Flush Heparin Sodium (Porcine) (Heparin Na) 5,000 unit SC Q12 [facility] Hydralazine HCl (Apresoline Iv) 10 mg IV Q4H PRN PRN PRN Reason: SBP > 160 Dextrose (Dextrose 10%-Water) 250 mls @ 999 mls/hr IV .Q16M PRN; Protocol PRN Reason: HYPOGLYCEMIA Last Infusion: 11/25/19 08:14 Dose: Infused Documented by: Sodium Bicarbonate 100 meq/ (Dextrose) 1,100 mls @ 100 mls/hr IV .Q11H [facility] Last Admin: 11/25/19 01:56 Dose: 100 mls/hr Documented by: Vancomycin IV Pharmacy to Dose (1 ea/ Sodium Chloride) 500 mls @ 250 mls/hr IV X1 PRN; Protocol PRN Reason: Rx to Dose Sodium Chloride () 250 mls @ 15 mls/hr IV .[id number] PRN PRN Reason: Saline Flush Sodium Chloride () 250 mls @ 15 mls/hr IV .[id number] PRN PRN Reason: Additional IVPB Infusion Piperacillin Sod/Tazobactam (Sod 3.375 gm/ Sodium Chloride) 50 mls @ 12.5 mls/hr IV Q8 [facility] Last Infusion: 11/25/19 09:31 Dose: Infused Documented by: Vancomycin HCl (Vancomycin) 1,000 mg in 200 mls @ 200 mls/hr IV Q24H [facility] Dextrose (Dextrose 10%-Water) 250 mls @ 999 mls/hr IV .Q16M PRN; Protocol PRN Reason: HYPOGLYCEMIA Isosorbide Mononitrate (Imdur) 30 mg PO DAILY [facility] Lactobacillus Acidophilus (Acidophilus) 1 tablet PO TID [facility] Last Admin: 11/25/19 05:34 Dose: 1 tablet Documented by: Melatonin (Melatonin) 3 mg PO QHS PRN PRN PRN Reason: INSOMNIA Montelukast Sodium (Singulair) 10 mg PO DAILY [facility] Morphine Sulfate () 2 mg IV Q3H PRN PRN PRN Reason: Pain Score 6-10/10 Nitroglycerin (Nitrostat) 0.4 mg SUBLINGUAL Q5M PRN PRN Reason: CARDIAC/CHEST PAIN Nutritional Formula ([place] - [place] Flavor) 1 packet PO BIDCM [facility] Ondansetron HCl (Zofran) 4 mg IV Q8H PRN PRN PRN Reason: NAUSEA/VOMITING Oxybutynin Chloride (Ditropan) 2.5 mg PO DAILY [facility] Oxycodone HCl (Oxyir) 5 mg PO Q4H PRN PRN PRN Reason: Pain Score 4-5/10 Pantoprazole Sodium (Protonix) 40 mg PO DAILY [facility] Paroxetine HCl (Paxil) 40 mg PO DAILY [facility] Prochlorperazine Edisylate (Compazine Iv) 5 mg IV Q4H PRN PRN PRN Reason: Breakthrough Nausea/Vomiting Psyllium Hydrophilic Mucilloid (Metamucil) 1 packet PO DAILY PRN PRN PRN Reason: Constipation Senna/Docusate Sodium (Senokot-S, Jane-Colace) 2 tablet PO BID PRN PRN PRN Reason: Constipation Sodium Chloride (0.9% Nacl (Sterile) Posiflush) 10 - 40 ml IV UD PRN PRN Reason: Port access or dressing change Throat Lozenges (Cepacol Sore Throat Lozenge) 1 lozenge MUCOUS MEM Q2H PRN PRN PRN Reason: SORE THROAT Clinical Impression(s) from Imaging Studies Chest X-Ray 11/24/19 21:05 IMPRESSION: Elevated right hemidiaphragm. No definite acute or significant abnormality seen. Electronically Signed: Edvin Ngo MD at 21:22 EST , Service support , Assessment/Plan Active and Suspected Problems Hyperkalemia (Acute) Dyspnea (Acute) TENZIN (acute kidney injury) (Acute) RECOMMENDATIONS: 1. Continue bicarbonate drip for now 2. Appreciate renal input 3. Increase activity as tolerated 4. Wound nurse for decubitus ulcers 5. Attempt to obtain old hospital records IMPRESSIONS: 1. Acute hyperkalemia secondary to acute kidney injury versus chronic kidney disease stage III Unclear baseline renal function. 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 Patient has had decreased p.o. intake and is on Bumex at home. Prerenal etiology for renal failure would explain current findings. Patient is not on an MAK inhibitor at baseline. Patient does take prednisone at baseline, so there may be an element of hypotension secondary to adrenal insufficiency leading to renal failure. Patient does appear to be improving with conservative therapy with bicarbonate administration. Nephrology has been consulted. 2. Dyspnea Unclear etiology. Patient did have a metabolic acidosis on presentation, which may be leading to dyspnea for compensation. Sputum cultures have been ordered. Patient does have right hemidiaphragm elevation, which may be chronic. This may also be secondary to atelectasis. 3. Probable congestive heart failure No old records are available for review. Will obtain old records from [facility]. Patient does have an elevated BNP at 604, but troponins are negative. No ectopy noted on telemetry. 4. 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 Wound nurse to address current findings. 5. Anxiety/depression/hypertension/hyperlipidemia/poor historian/obesity Complicates care, management, recovery and prognosis. Patient is reportedly a DNR Comfort Care arrest without intubation. Patient okay to continue with baseline medications. Blood pressure has been marginal at times, but overall acceptable. Code Visit Inpatient E&M: 54701 Init Hosp L3
[2019-11-25 10:20] LABS: Anisocytosis 2+; Differential Comment SCANNED; Hypochromasia 2+; Macrocytosis 2+; Target Cells 1+
--- NOTE | 2019-11-25 10:21 | CON.PCM_ITS ---
Consultation - Renal 11/25/19 PCP/ Referring MD: Requesting physician: Shahla Kohler Primary care physician: Dr Pollack Reason for Consultation:: TENZIN, hyperkalemia - History of Present Illness History of Present Illness: The patient is a 69 year old F who presented to ED via squad for increased weakness, frequent falls, and shortness of breath. She remains confused since admission and is not able to provide any history. Her spouse provided history. She has deterioration of bere past 9 months. She was discharged to home from [facility] in [place] about 3 weeks ago with home health. She has been in and out of four [place] past nine months and continues to get weaker. She was seen in [place] ER prior to transfer to [facility] with collapsed lung. CXR on admission to [facility] showed elevated right hemidiaphragm. He is unclear on what she was treated for at [facility] in [place]. Note from recent dr vargas reports treatment for MRSA right ankle infection with Bactrim. She was also on prednisone and bumex according to home med list. Pt spouse states she has been in and out of the hospital with pneumonia in the past. She was handling her medications at home as well as her husbands prior to hospitalization until recently. She reports to be more lucid in the past than what she appears to be now. She has been able to stand and pivot but progressively weak past several months. She has a history of diabetes diet controlled, hypertension, anxiety, depression. According to the spouse, she has no history of heart disease. She has a history of hyperkalemia on Veltassa. Potassium was elevated at 6.8 on admit improved to 5.4 with medical mgmt. She has been seen by a indoor landscaper/gardener in [place] Dr Brady. He does not know any details of her kidney disease. Baseline creatinine unknown. Creatinine on admit 1.68 to 1.60 today with iv hydration. Respiratory panel negative. She has metabolic acidosis with hypernatremia. Renal US pending, - Allergies Allergies: Allergies doxycycline Allergy (Verified 11/24/19 21:02) Rash lisinopril Allergy (Verified 11/24/19 21:02) Rash - Current Medications Current Medications: Current Medications Acetaminophen (Tylenol) 650 mg PO Q6H PRN PRN PRN Reason: Pain Score 1-10/Temp > 100.7 F Albuterol Sulfate (Ventolin Aerosols) 2.5 mg INHALATION Q2H PRN PRN PRN Reason: SOB/Wheezing Atorvastatin Calcium (Lipitor) 20 mg PO QHS [facility] Fluticasone Propionate (Flonase Nasal [place]) 2 spray NASAL DAILY MARKEL Folic Acid (Folic Acid) 1 mg PO DAILYCM [facility] Glucagon () 1 mg IM .X1 PRN PRN Reason: Hypoglycemia Guaifenesin (Robitussin) 10 ml PO Q4H PRN PRN PRN Reason: COUGH Heparin Sodium (Beef Lung) () 50 units IV UD PRN PRN Reason: PICC Line Heparin Flush Heparin Sodium (Porcine) (Heparin Na) 5,000 unit SC Q12 MARKEL Hydralazine HCl (Apresoline Iv) 10 mg IV Q4H PRN PRN PRN Reason: SBP > 160 Dextrose (Dextrose 10%-Water) 250 mls @ 999 mls/hr IV .Q16M PRN; Protocol PRN Reason: HYPOGLYCEMIA Last Infusion: 11/25/19 08:14 Dose: Infused Documented by: Sodium Bicarbonate 100 meq/ (Dextrose) 1,100 mls @ 100 mls/hr IV .Q11H [facility] Last Admin: 11/25/19 01:56 Dose: 100 mls/hr Documented by: Vancomycin IV Pharmacy to Dose (1 ea/ Sodium Chloride) 500 mls @ 250 mls/hr IV X1 PRN; Protocol PRN Reason: Rx to Dose Sodium Chloride () 250 mls @ 15 mls/hr IV .[id number] PRN PRN Reason: Saline Flush Sodium Chloride () 250 mls @ 15 mls/hr IV .[id number] PRN PRN Reason: Additional IVPB Infusion Piperacillin Sod/Tazobactam (Sod 3.375 gm/ Sodium Chloride) 50 mls @ 12.5 mls/hr IV Q8 [facility] Last Infusion: 11/25/19 09:31 Dose: Infused Documented by: Vancomycin HCl (Vancomycin) 1,000 mg in 200 mls @ 200 mls/hr IV Q24H [facility] Dextrose (Dextrose 10%-Water) 250 mls @ 999 mls/hr IV .Q16M PRN; Protocol PRN Reason: HYPOGLYCEMIA Isosorbide Mononitrate (Imdur) 30 mg PO DAILY [facility] Lactobacillus Acidophilus (Acidophilus) 1 tablet PO TID [facility] Last Admin: 11/25/19 05:34 Dose: 1 tablet Documented by: Melatonin (Melatonin) 3 mg PO QHS PRN PRN PRN Reason: INSOMNIA Montelukast Sodium (Singulair) 10 mg PO DAILY [facility] Morphine Sulfate () 2 mg IV Q3H PRN PRN PRN Reason: Pain Score 6-10/10 Nitroglycerin (Nitrostat) 0.4 mg SUBLINGUAL Q5M PRN PRN Reason: CARDIAC/CHEST PAIN Nutritional Formula (Jameson - Odum Flavor) 1 packet PO BIDCM [facility] Ondansetron HCl (Zofran) 4 mg IV Q8H PRN PRN PRN Reason: NAUSEA/VOMITING Oxybutynin Chloride (Ditropan) 2.5 mg PO DAILY [facility] Oxycodone HCl (Oxyir) 5 mg PO Q4H PRN PRN PRN Reason: Pain Score 4-5/10 Pantoprazole Sodium (Protonix) 40 mg PO DAILY [facility] Paroxetine HCl (Paxil) 40 mg PO DAILY [facility] Prednisone () [facility] Prochlorperazine Edisylate (Compazine Iv) 5 mg IV Q4H PRN PRN PRN Reason: Breakthrough Nausea/Vomiting Psyllium Hydrophilic Mucilloid (Metamucil) 1 packet PO DAILY PRN PRN PRN Reason: Constipation Senna/Docusate Sodium (Senokot-S, Jane-Colace) 2 tablet PO BID PRN PRN PRN Reason: Constipation Sodium Chloride (0.9% Nacl (Sterile) Posiflush) 10 - 40 ml IV UD PRN PRN Reason: Port access or dressing change Throat Lozenges (Cepacol Sore Throat Lozenge) 1 lozenge MUCOUS MEM Q2H PRN PRN PRN Reason: SORE THROAT - Past Medical History Past Medical History (Chronic Problems): Chronic Problems CHF (congestive heart failure) (Chronic) HTN (hypertension) (Chronic) HLD (hyperlipidemia) (Chronic) Anxiety and depression (Chronic) Wound of right ankle (Chronic) Obesity (BMI 30.0-34.9) (Chronic) - Past Surgical History Surgical History: - - x1. - Social History Marital Status: Smoking Status: Never smoker Alcohol: None Drugs: None - Family History Maternal History Items: High Cholesterol, Heart Disease, Hypertension Paternal History Items: High Cholesterol, Heart Disease, Hypertension Review of Systems Constitutional: Reports: Anorexia, Weakness, Fatigue. Denies: Chills, Fever Cardiovascular: Denies: Chest Pain, Syncope Gastrointestinal: Denies: Abdominal Pain, Diarrhea, Nausea, Vomiting Musculoskeletal: Reports: - - rt ankle infection on bactrim Neurological: Reports: Balance problems, - - gen weakness, falls Psychiatric: Reports: Anxiety, Depression Hematologic/ Lymphatic: Reports: Anemia, Hx of blood clot Unable to obtain accurate/complete ROS d/t: history obtained from pt spouse Patient Problems: Active and Suspected Problems Hyperkalemia (Acute) Dyspnea (Acute) TENZIN (acute kidney injury) (Acute) - Physical Exam Vitals/I&O's: Vital Signs Temp Pulse Resp BP Pulse Ox 96.9 F L 101 H 17 164/105 H 97 11/25/19 03:00 11/25/19 06:00 11/25/19 06:00 11/25/19 06:00 11/25/19 06:00 Oxygen Flow Rate (L/min) 2 Oxygen Delivery Method Nasal Cannula Weight: 91.9 kg Body Mass Index (BMI) 32.7 Intake and Output for Last 24 Hours 11/23/19 11/24/19 11/25/19 23:59 23:59 23:59 Intake Total 1225.05 / 1225.05 Output Total 400 / 400 Balance 825.05 / 825.05 General: No apparent distress, Confused, Disoriented, Non-Cooperative Oral: Dry Mucosa Lungs: Clear to auscultation Cardiovascular: Irregular Rate Abdomen: Bowel Sounds Present, Soft, Non Tender, Non-Distended Extremities: No edema Skin: - - rt ankle lesion Musculoskeletal: No Muscle Wasting Neurological: - - no tremor, confused Psych/Mental Status: - - confused, poor historian Microbiology Past 72 Hours 11/25/19 01:00 Sputum, Expectorated/Coughed Gram Stain - Preliminary Laboratory Results 11/24/19 21:38: WBC 7.5, RBC 2.53 L, Hgb 8.4 L, Hct 27.8 L, MCV 109.9 H, MCH 33.2 H, MCHC 30.2 L, RDW Std Deviation 82.0 H, RDW Coeff of Dominic 20.8 H, Plt Count 334, MPV 11.2, Immature Gran % (Auto) 1.100 H, Neut % (Auto) 85.2 H, Lymph % (Auto) 7.9 L, Brule % (Auto) 4.7, Eos % (Auto) 0.8, Baso % (Auto) 0.3, Absolute Neuts (auto) 6.4, Absolute Lymphs (auto) 0.59 L, Nucleated RBC % 1.2, Differential Comment SCANNED, Hypochromasia 1+, Anisocytosis 1+, Target Cells 1+, Crenated Cell RARE 11/24/19 21:38: Sodium Cancelled, Potassium Cancelled, Chloride Cancelled, Carbon Dioxide Cancelled, Anion Gap Cancelled, BUN Cancelled, Creatinine Cancelled, Estim Creat Clear Calc Cancelled, Est GFR (MDRD) Af Amer Cancelled, Est GFR (MDRD) Non-Af Cancelled, BUN/Creatinine Ratio Cancelled, Glucose Cancelled, Calcium Cancelled, Troponin I Cancelled 11/24/19 21:38: B-Natriuretic Peptide Cancelled 11/24/19 22:35: Sodium 144, Potassium 6.8 H*, Chloride 124 H, Carbon Dioxide 16.0 L, Anion Gap 4 L, BUN 64 H, Creatinine 1.66 H, Estim Creat Clear Calc 30.79, Est GFR (MDRD) Af Amer 40 L, Est GFR (MDRD) Non-Af 33 L, BUN/Creatinine Ratio 38.6 H, Glucose 91, Calcium 9.2, Troponin I < 0.015 11/24/19 22:35: B-Natriuretic Peptide 604.1 H 11/25/19 02:35: Sodium 149 H, Potassium 6.6 H*, Chloride 125 H, Carbon Dioxide 15.0 L, Anion Gap 9, BUN 65 H, Creatinine 1.68 H, Estim Creat Clear Calc 30.42, Est GFR (MDRD) Af Amer 39 L, Est GFR (MDRD) Non-Af 32 L, BUN/Creatinine Ratio 38.7 H, Glucose 80, Calcium 8.7, Magnesium 2.2 11/25/19 02:35: Vitamin B12 > 2000 H 11/25/19 02:35: Troponin I < 0.015 11/25/19 05:15: Iron 44 L, TIBC 126 L, Iron Saturation 34.9, Ferritin 1694 H, Folate 65.90 H 11/25/19 05:15: Troponin I < 0.015 11/25/19 09:25: WBC 8.3, RBC 2.45 L, Hgb 8.3 L, Hct 26.5 L, MCV 108.2 H, MCH 33.9 H, MCHC 31.3 L, RDW Std Deviation 78.7 H, RDW Coeff of Dominic 20.5 H, Plt Count 264, MPV 11.2, Immature Gran % (Auto) 0.800, Neut % (Auto) 85.3 H, Lymph % (Auto) 6.0 L, Brule % (Auto) 6.5, Eos % (Auto) 1.0, Baso % (Auto) 0.4, Absolute Neuts (auto) 7.1, Absolute Lymphs (auto) 0.50 L, Nucleated RBC % 1.4, Differential Comment SCANNED, Hypochromasia 2+, Anisocytosis 2+, Macrocytosis 2+, Target Cells 1+ 11/25/19 09:25: Sodium 147 H, Potassium 5.4 H, Chloride 124 H, Carbon Dioxide 18.0 L, Anion Gap 5, BUN 66 H, Creatinine 1.60 H, Estim Creat Clear Calc 31.94, Est GFR (MDRD) Af Amer 41 L, Est GFR (MDRD) Non-Af 34 L, BUN/Creatinine Ratio 41.2 H, Glucose 75, Calcium 8.9 Clinical Impression(s) from Imaging Studies Chest X-Ray 11/24/19 21:05 IMPRESSION: Elevated right hemidiaphragm. No definite acute or significant abnormality seen. Electronically Signed: Edvin Ngo MD at 21:22 EST , Service support , Ankle X-Ray 11/25/19 10:22 IMPRESSION: Osteopenia of the visualized bony structures. Soft tissue swelling with a soft tissue ulceration overlying the lateral malleolus measuring 8.7 mm x 4 mm. Electronically Signed: Richar Bird at 15:33 EST , Service support , Current Medications Acetaminophen (Tylenol) 650 mg PO Q6H PRN PRN PRN Reason: Pain Score 1-10/Temp > 100.7 F Albuterol Sulfate (Ventolin Aerosols) 2.5 mg INHALATION Q2H PRN PRN PRN Reason: SOB/Wheezing Atorvastatin Calcium (Lipitor) 20 mg PO QHS [facility] Fluticasone Propionate (Flonase Nasal [place]) 2 spray NASAL DAILY MARK[facility] Folic Acid (Folic Acid) 1 mg PO DAILYCM [facility] Glucagon () 1 mg IM .X1 PRN PRN Reason: Hypoglycemia Guaifenesin (Robitussin) 10 ml PO Q4H PRN PRN PRN Reason: COUGH Heparin Sodium (Beef Lung) () 50 units IV UD PRN PRN Reason: PICC Line Heparin Flush Heparin Sodium (Porcine) (Heparin Na) 5,000 unit SC Q12 [facility] Hydralazine HCl (Apresoline Iv) 10 mg IV Q4H PRN PRN PRN Reason: SBP > 160 Dextrose (Dextrose 10%-Water) 250 mls @ 999 mls/hr IV .Q16M PRN; Protocol PRN Reason: HYPOGLYCEMIA Last Infusion: 11/25/19 08:14 Dose: Infused Documented by: Sodium Bicarbonate 100 meq/ (Dextrose) 1,100 mls @ 100 mls/hr IV .Q11H [facility] Last Admin: 11/25/19 01:56 Dose: 100 mls/hr Documented by: Vancomycin IV Pharmacy to Dose (1 ea/ Sodium Chloride) 500 mls @ 250 mls/hr IV X1 PRN; Protocol PRN Reason: Rx to Dose Sodium Chloride () 250 mls @ 15 mls/hr IV .[id number] PRN PRN Reason: Saline Flush Sodium Chloride () 250 mls @ 15 mls/hr IV .[id number] PRN PRN Reason: Additional IVPB Infusion Piperacillin Sod/Tazobactam (Sod 3.375 gm/ Sodium Chloride) 50 mls @ 12.5 mls/hr IV Q8 [facility] Last Infusion: 11/25/19 09:31 Dose: Infused Documented by: Vancomycin HCl (Vancomycin) 1,000 mg in 200 mls @ 200 mls/hr IV Q24H [facility] Dextrose (Dextrose 10%-Water) 250 mls @ 999 mls/hr IV .Q16M PRN; Protocol PRN Reason: HYPOGLYCEMIA Isosorbide Mononitrate (Imdur) 30 mg PO DAILY [facility] Lactobacillus Acidophilus (Acidophilus) 1 tablet PO TID [facility] Last Admin: 11/25/19 05:34 Dose: 1 tablet Documented by: Melatonin (Melatonin) 3 mg PO QHS PRN PRN PRN Reason: INSOMNIA Montelukast Sodium (Singulair) 10 mg PO DAILY [facility] Morphine Sulfate () 2 mg IV Q3H PRN PRN PRN Reason: Pain Score 6-10/10 Nitroglycerin (Nitrostat) 0.4 mg SUBLINGUAL Q5M PRN PRN Reason: CARDIAC/CHEST PAIN Nutritional Formula (Jameson - Odum Flavor) [facility] Ondansetron HCl (Zofran) 4 mg IV Q8H PRN PRN PRN Reason: NAUSEA/VOMITING Oxybutynin Chloride (Ditropan) 2.5 mg PO DAILY [facility] Oxycodone HCl (Oxyir) 5 mg PO Q4H PRN PRN PRN Reason: Pain Score 4-5/10 Pantoprazole Sodium (Protonix) 40 mg PO DAILY [facility] Paroxetine HCl (Paxil) 40 mg PO DAILY [facility] Prednisone () 2.[facility] Prochlorperazine Edisylate (Compazine Iv) 5 mg IV Q4H PRN PRN PRN Reason: Breakthrough Nausea/Vomiting Psyllium Hydrophilic Mucilloid (Metamucil) 1 packet PO DAILY PRN PRN PRN Reason: Constipation Senna/Docusate Sodium (Senokot-S, Jane-Colace) 2 tablet PO BID PRN PRN PRN Reason: Constipation Sodium Chloride (0.9% Nacl (Sterile) Posiflush) 10 - 40 ml IV UD PRN PRN Reason: Port access or dressing change Throat Lozenges (Cepacol Sore Throat Lozenge) 1 lozenge MUCOUS MEM Q2H PRN PRN PRN Reason: SORE THROAT Assessment/Plan All Active Problems Hyperkalemia (Acute) Dyspnea (Acute) TENZIN (acute kidney injury) (Acute) 1. TENZIN with unknown baseline creatinine. Check UA, FENA. Continue with iv hydration. Renal US pending. Creatinine 1.68 on admit improved to 1.60 today. Suspect TENZIN from dehydration with hx poor intake at home, diuretics on bumex at home according to medication list. 2. Acute hyperkalemia. Questionable history of chronic hyperkalemia on Veltassa in the past. Will try to contact primary indoor landscaper/gardener DR. Encarnacion in [place]. 3. Diet controlled diabetes 4. Confusion primary service mgmt 5. Rt ankle infection podiatry consulted 6. iron def anemia consider iv iron 7. NAG metabolic acidosis.
--- NOTE | 2019-11-25 10:22 | RAD_ITS ---
STUDY: X-RAY - RIGHT ANKLE REASON FOR EXAM: Female, 69 years old. Ulcer. TECHNIQUE: 3 view(s) of the ankle. COMPARISON: None. FINDINGS: Demineralization of the tibia and fibula. Normal medial and lateral malleoli. Normal tibiotalar articulation and ankle mortise. Plantar spur. The visualized subtalar, talonavicular, calcaneocuboid and tarsal articulations are normal. Soft tissue swelling. There is a 8.7 mm x 4 mm soft tissue defect overlying the lateral malleolus. Atherosclerotic calcification. RAD/Ankle min 3 Views IMPRESSION: Osteopenia of the visualized bony structures. Soft tissue swelling with a soft tissue ulceration overlying the lateral malleolus measuring 8.7 mm x 4 mm. Electronically Signed: Richar Bird, at 15:33 EST , Service support ,
--- NOTE | 2019-11-25 10:24 | CASEMGMT ---
Addendum entered by Manish Waggoner 11/25/19 15:02: Call received from Monisha @ [facility]. They can resume SN/PT/OT on dc. will need dc instructions faxed, or if dc plan changes to notify them. Kandy ROBERTSON Original Note: RN CM Assessment Note Presentation: Hyperkalemia, TENZIN, Dyspnea Intro role of CM and purpose of RN CM assessment to patient's via phone. Demographics, PCP and Pharmacy verified. states pt has been disabled since 2012 and he has taken care of her since. States she only stands/pivots and he does all care taking for her. Per , pt is confused at baseline. Pt's seems to have mild difficulty with memory and repeats himself frequently. Reviewed case with Dr Melendez. PCP: Dr. Diane Pollack, [facility] . Specialists: states pt sees [facility] not sure of names Preferred Pharmacy: [facility] Retail Insurance: [facility] Prescription Benefit: yes LNOK: [employer] grant Living Arrangements: Lives in one story home with ramp. has been caregiver since 2012. states pt only pivots, stands. Uses BSC, wheelchair and does not walk. assists pt to shower using shower bench and is able to pivot pt from WC to car. Pt needs assistance with ADL's, cookig, cleaning. Transportation: drives DME: BSC, transfer bench for shower, wheelchair, grab bars, walker, lift chair, bedpan, cooking, cleaning, sliding board for car. No oxygen or Cpap [facility]: [facility]- SN PT/OT. call to agency to notify of admission. Requested DC instructions from last hospitalization be faxed. PH: FX: Patient DC goals: undetermined DC PLAN: undetermined. Pt is disabled at baseline, but may benefit from SNF placement for PT/OT, wound care. Awaiting PT/OT notes. Kandy ROBERTSON
[2019-11-25] MEDS: Fluticasone 0.05% 1 SPRAY NASAL.SRY 2 SPRAY NASAL (10:49)
[2019-11-25] MEDS: Pantoprazole Sodium 40 MG Tablet PO (10:50)
[2019-11-25] MEDS: Oxybutynin 5 MG Tablet 2.5 MG PO (10:50)
[2019-11-25] MEDS: Montelukast 10 MG Tablet PO (10:50)
[2019-11-25] MEDS: predniSONE 5 MG Tablet 2.5 MG PO (10:50)
[2019-11-25] MEDS: Folic Acid 1 MG Tablet PO (10:50)
[2019-11-25] MEDS: Isosorbide Mononitrate 30 MG Tablet PO (10:50)
[2019-11-25] MEDS: Heparin Injection (Vial) 5,000 UNIT/ML VIAL 5000 UNIT SC ×2 (10:51→21:09)
[2019-11-25] MEDS: Paroxetine 20 MG Tablet 40 MG PO (11:06)
[2019-11-25 12:46] LABS: Mucous, Urine 0 SEEN /hpf (<or=2+); Red Blood Cells-Urine 0 SEEN /hpf (0-5); Squamous Epithelial Cells - UA 0 SEEN /hpf (5-10); White Blood Cells 0 SEEN /hpf (0-5)
[2019-11-25 12:48] LABS: Color, Urine Yellow (Yellow); Glucose, Dipstick Normal (Normal); Ketone-Dipstick Negative (Negative); Leukocyte Esterase-Dipstick Negative /ul (Negative); Nitrite-Dipstick Positive (Negative); Occult Blood-Urine 25 /ul (Negative); Protein-Dipstick Negative (Negative); Urine Clarity Sl. Cloudy (Clear); Urine Urobilinogen Normal (Normal)
[2019-11-25 12:52] LABS: Urine Bilirubin Dipstick 1 mg/dL (Negative)
[2019-11-25 12:56] LABS: Urine Sodium 104 mmol/L (Not Establ.)
[2019-11-25 13:09] LABS: Bacteria 3+ /hpf (None Seen)
--- NOTE | 2019-11-25 14:17 | RAD_ITS ---
STUDY: X-RAY - LEFT FOOT CLINICAL: Female, 69 years old. ULCER LEFT THIRD TOE TECHNIQUE: 4 view(s) of the foot. COMPARISON: None. FINDINGS: Diffuse moderate degenerative changes. Diffuse demineralization. Forefoot soft tissue swelling. No definitive evidence of osteomyelitis. No acute fracture or dislocation. RAD/Foot min 3 Views IMPRESSION: As above Electronically Signed: Merrick Cmaargo DO at 16:18 EST Tel , Service support ,
--- NOTE | 2019-11-25 14:20 | CON.PCM_ITS ---
Reason for Consult Date of Consultation: 11/25/19 Reason for Consultation: Foot/ankle ulcers History of Present Illness: The patient is a 69 year old female w/ multiple medical problems including but not limited to hyperkalemia, TENZIN vs chronic kidney disease, CHF, anemia, DVT, and pressure ulcerations, was seen today for right ankle ulcer as well as left 3rd toe ulceration. Patient not able to answer questions at this time. I spoke with patient's . Patient's relates right ankle ulcer and left 3rd toe ulcer has been present for ~8 months, he relates wounds are getting better. He relates home nursing has been coming out for dressing changes. He relates patient saw Infectious Disease, Dr. Cespedes, for right ankle MRSA infection and was started on Bactrim this past Monday. WBC normal. Right ankle xrays and left foot xrays pending. Patient afebrile. Past Medical History Past Medical History (Chronic Problems): Chronic Problems CHF (congestive heart failure) (Chronic) HTN (hypertension) (Chronic) HLD (hyperlipidemia) (Chronic) Anxiety and depression (Chronic) Wound of right ankle (Chronic) Obesity (BMI 30.0-34.9) (Chronic) Allergies doxycycline Allergy (Verified 11/24/19 21:02) Rash lisinopril Allergy (Verified 11/24/19 21:02) Rash Home Medications: Ambulatory Orders Medication Instructions Recorded Albuterol Inhaler [Ventolin Hfa 2 puff INHALATION Q4H PRN PRN 11/24/19 (SP)] Atorvastatin Calcium [Lipitor] 20 mg PO QHS 11/24/19 Bumetanide 1 mg PO DAILY 11/24/19 Calcium Carbonate/Vitamin D3 1 ea PO DAILY 11/24/19 [Calcium 600-Vit D3 800 Caplet] Fluoxetine HCl 40 mg PO BID 11/24/19 Fluticasone 0.05% [Flonase Nasal 2 spray NASAL DAILY 11/24/19 [place]] Folic Acid 1 mg PO DAILY 11/24/19 Isosorbide Mononitrate [Imdur] 30 mg PO DAILY 11/24/19 Lactobacillus Acidophilus 1 ea PO TID 11/24/19 [Acidophilus] Montelukast [Singulair] 10 mg PO DAILY 11/24/19 Multivitamin with Minerals 1 ea PO DAILY 11/24/19 [Multiple Vitamin] Omeprazole 40 mg PO DAILY 11/24/19 Oxybutynin [Ditropan] 2.5 mg PO DAILY 11/24/19 Prednisone 2.5 mg PO DAILY 11/24/19 Sulfamethoxazole/Trimethoprim 1 ea PO BID 11/24/19 [Bactrim Ds Tablet] Surgical History: - - x1. Psychiatric History: Anxiety, Depression ANIMAL TECH History: No pertinent ANIMAL TECH history Lives: Spouse/ Significant Other Smoking Status: Never smoker Tobacco Use: Non-smoker Alcohol: None Drugs: None - *Family History Maternal History Items: High Cholesterol, Heart Disease, Hypertension Paternal History Items: High Cholesterol, Heart Disease, Hypertension Review of Systems Gastrointestinal: Reports: Diarrhea. Denies: Nausea, Vomiting Musculoskeletal: Reports: Foot Pain, Muscle pain Skin: Reports: Wounds Patient Problems: Active and Suspected Problems Hyperkalemia (Acute) Dyspnea (Acute) TENZIN (acute kidney injury) (Acute) - Physical Exam Vitals/I&O's: Vital Signs Temp Pulse Resp BP Pulse Ox 97.1 F L 91 16 112/60 98 11/25/19 12:00 11/25/19 13:00 11/25/19 13:00 11/25/19 13:00 11/25/19 13:30 Oxygen Flow Rate (L/min) 2 Oxygen Delivery Method Room Air Weight: 91.9 kg Body Mass Index (BMI) 32.7 Intake and Output for Last 24 Hours 11/23/19 11/24/19 11/25/19 23:59 23:59 23:59 Intake Total 2525.05 / 2525.05 Output Total 750 / 750 Balance 1775.05 / 1775.05 General: - - Patient laying in bed, unable to answer questions Extremities: No cyanosis, Capillary Refill Less than 3 Seconds, No Calf Tenderness, Peripheral Pulses Normal, - - Ulceration to the lateral ankle with granular tissue, down to deep subcutaneous tissue, no probe to bone or deeper tissue, margins intact w/ no undermining. Ulceration dorsal 3rd toe left foot with some superficial nonviable tissue, this ulceration is down to bone and joint of the 3rd toe, otherwise margins viable and intact. There is no maloder, no fluctuance, no purulence, no crepitus, no visible abscess, no cellulitis to the ulceration sites or rest of the foot/ankle bilateral. Skin: No rashes - to the foot/ankle bilateral. Musculoskeletal: No Tenderness to Palpation of Joints or Extremities - foot/ankle bilateral, No Muscle Wasting - foot/ankle bilateral, Tenderness - tenderness to the ulceration left 3rd toe, - - contracture of lesser toes c/w hammer toes bilateral. Neurological: - Microbiology Past 72 Hours 11/25/19 12:35 Urine Catheter - Catheter Streptococcus pneumoniae Antigen (M - Final 11/25/19 12:35 Urine Catheter - Catheter Legionella Antigen - Final 11/25/19 01:00 Sputum, Expectorated/Coughed Gram Stain - Final Laboratory Results 11/24/19 21:38: WBC 7.5, RBC 2.53 L, Hgb 8.4 L, Hct 27.8 L, MCV 109.9 H, MCH 33.2 H, MCHC 30.2 L, RDW Std Deviation 82.0 H, RDW Coeff of Dominic 20.8 H, Plt Count 334, MPV 11.2, Immature Gran % (Auto) 1.100 H, Neut % (Auto) 85.2 H, Lymph % (Auto) 7.9 L, [place] % (Auto) 4.7, Eos % (Auto) 0.8, Baso % (Auto) 0.3, Absolute Neuts (auto) 6.4, Absolute Lymphs (auto) 0.59 L, Nucleated RBC % 1.2, Differential Comment SCANNED, Hypochromasia 1+, Anisocytosis 1+, Target Cells 1+, Crenated Cell RARE 11/24/19 21:38: Sodium Cancelled, Potassium Cancelled, Chloride Cancelled, Carbon Dioxide Cancelled, Anion Gap Cancelled, BUN Cancelled, Creatinine Cancelled, Estim Creat Clear Calc Cancelled, Est GFR (MDRD) Af Amer Cancelled, Est GFR (MDRD) Non-Af Cancelled, BUN/Creatinine Ratio Cancelled, Glucose Cancelled, Calcium Cancelled, Troponin I Cancelled 11/24/19 21:38: B-Natriuretic Peptide Cancelled 11/24/19 22:35: Sodium 144, Potassium 6.8 H*, Chloride 124 H, Carbon Dioxide 16.0 L, Anion Gap 4 L, BUN 64 H, Creatinine 1.66 H, Estim Creat Clear Calc 30.79, Est GFR (MDRD) Af Amer 40 L, Est GFR (MDRD) Non-Af 33 L, BUN/Creatinine Ratio 38.6 H, Glucose 91, Calcium 9.2, Troponin I < 0.015 11/24/19 22:35: B-Natriuretic Peptide 604.1 H 11/25/19 02:35: Sodium 149 H, Potassium 6.6 H*, Chloride 125 H, Carbon Dioxide 15.0 L, Anion Gap 9, BUN 65 H, Creatinine 1.68 H, Estim Creat Clear Calc 30.42, Est GFR (MDRD) Af Amer 39 L, Est GFR (MDRD) Non-Af 32 L, BUN/Creatinine Ratio 38.7 H, Glucose 80, Calcium 8.7, Magnesium 2.2 11/25/19 02:35: Vitamin B12 > 2000 H 11/25/19 02:35: Troponin I < 0.015 11/25/19 05:15: Iron 44 L, TIBC 126 L, Iron Saturation 34.9, Ferritin 1694 H, Folate 65.90 H 11/25/19 05:15: Troponin I < 0.015 11/25/19 09:25: WBC 8.3, RBC 2.45 L, Hgb 8.3 L, Hct 26.5 L, MCV 108.2 H, MCH 33.9 H, MCHC 31.3 L, RDW Std Deviation 78.7 H, RDW Coeff of Dominic 20.5 H, Plt Count 264, MPV 11.2, Immature Gran % (Auto) 0.800, Neut % (Auto) 85.3 H, Lymph % (Auto) 6.0 L, [place] % (Auto) 6.5, Eos % (Auto) 1.0, Baso % (Auto) 0.4, Absolute Neuts (auto) 7.1, Absolute Lymphs (auto) 0.50 L, Nucleated RBC % 1.4, Differenti al Comment SCANNED, Hypochromasia 2+, Anisocytosis 2+, Macrocytosis 2+, Target Cells 1+ 11/25/19 09:25: Sodium 147 H, Potassium 5.4 H, Chloride 124 H, Carbon Dioxide 18.0 L, Anion Gap 5, BUN 66 H, Creatinine 1.60 H, Estim Creat Clear Calc 31.94, Est GFR (MDRD) Af Amer 41 L, Est GFR (MDRD) Non-Af 34 L, BUN/Creatinine Ratio 41.2 H, Glucose 75, Calcium 8.9 11/25/19 12:35: Urine Creatinine 43.10 11/25/19 12:35: Ur Random Sodium 104 11/25/19 12:35: Urine Color Yellow, Urine Clarity Sl. Cloudy, Urine pH 5.0, Ur Specific [place] 1.010, Urine Protein Negative, Urine Glucose (UA) Normal, Urine Ketones Negative, Urine Occult Blood 25 H, Urine Nitrite Positive H, Urine Bilirubin 1 H, Urine Urobilinogen Normal, Ur Leukocyte Esterase Negative, Urine RBC 0 SEEN, Urine WBC 0 SEEN, Ur Squamous Epith Cells 0 SEEN, Urine Bacteria 3+, Urine Mucus 0 SEEN Current Medications Acetaminophen (Tylenol) 650 mg PO Q6H PRN PRN PRN Reason: Pain Score 1-10/Temp > 100.7 F Albuterol Sulfate (Ventolin Aerosols) 2.5 mg INHALATION Q2H PRN PRN PRN Reason: SOB/Wheezing Atorvastatin Calcium (Lipitor) 20 mg PO QHS [facility] Calamine/Phenol (Calmoseptine Ointment) 1 applic TOPICAL TID [facility]; Protocol Fluticasone Propionate (Flonase Nasal [place]) 2 spray NASAL DAILY [facility] Last Admin: 11/25/19 10:49 Dose: 2 spray Documented by: Folic Acid (Folic Acid) 1 mg PO DAILYCM [facility] Last Admin: 11/25/19 10:50 Dose: 1 mg Documented by: Glucagon () 1 mg IM .X1 PRN PRN Reason: Hypoglycemia Guaifenesin (Robitussin) 10 ml PO Q4H PRN PRN PRN Reason: COUGH Heparin Sodium (Beef Lung) () 50 units IV UD PRN PRN Reason: PICC Line Heparin Flush Heparin Sodium (Porcine) (Heparin Na) 5,000 unit SC Q12 [facility] Last Admin: 11/25/19 10:51 Dose: 5,000 unit Documented by: Hydralazine HCl (Apresoline Iv) 10 mg IV Q4H PRN PRN PRN Reason: SBP > 160 Sodium Bicarbonate 100 meq/ (Dextrose) 1,100 mls @ 100 mls/hr IV .Q11H [facility] Last Admin: 11/25/19 13:23 Dose: 100 mls/hr Documented by: Vancomycin IV Pharmacy to Dose (1 ea/ Sodium Chloride) 500 mls @ 250 mls/hr IV X1 PRN; Protocol PRN Reason: Rx to Dose Sodium Chloride () 250 mls @ 15 mls/hr IV .[id number] PRN PRN Reason: Saline Flush Sodium Chloride () 250 mls @ 15 mls/hr IV .[id number] PRN PRN Reason: Additional IVPB Infusion Piperacillin Sod/Tazobactam (Sod 3.375 gm/ Sodium Chloride) 50 mls @ 12.5 mls/hr IV Q8 [facility] Last Infusion: 11/25/19 09:31 Dose: Infused Documented by: Vancomycin HCl (Vancomycin) 1,000 mg in 200 mls @ 200 mls/hr IV Q24H [facility] Dextrose (Dextrose 10%-Water) 250 mls @ 999 mls/hr IV .Q16M PRN; Protocol PRN Reason: HYPOGLYCEMIA Isosorbide Mononitrate (Imdur) 30 mg PO DAILY [facility] Last Admin: 11/25/19 10:50 Dose: 30 mg Documented by: Lactobacillus Acidophilus (Acidophilus) 1 tablet PO TID [facility] Last Admin: 11/25/19 05:34 Dose: 1 tablet Documented by: Melatonin (Melatonin) 3 mg PO QHS PRN PRN PRN Reason: INSOMNIA Montelukast Sodium (Singulair) 10 mg PO DAILY [facility] Last Admin: 11/25/19 10:50 Dose: 10 mg Documented by: Morphine Sulfate () 2 mg IV Q3H PRN PRN PRN Reason: Pain Score 6-10/10 Nitroglycerin (Nitrostat) 0.4 mg SUBLINGUAL Q5M PRN PRN Reason: CARDIAC/CHEST PAIN Nutritional Formula ([place] - [place] Flavor) [facility] Nystatin (Mycostatin Powder) 1 applic TOPICAL BID [facility]; Protocol Ondansetron HCl (Zofran) 4 mg IV Q8H PRN PRN PRN Reason: NAUSEA/VOMITING Oxybutynin Chloride (Ditropan) 2.5 mg PO DAILY [facility] Last Admin: 11/25/19 10:50 Dose: 2.5 mg Documented by: Oxycodone HCl (Oxyir) 5 mg PO Q4H PRN PRN PRN Reason: Pain Score 4-5/10 Pantoprazole Sodium (Protonix) 40 mg PO DAILY [facility] Last Admin: 11/25/19 10:50 Dose: 40 mg Documented by: Paroxetine HCl (Paxil) 40 mg PO DAILY [facility] Last Admin: 11/25/19 11:06 Dose: 40 mg Documented by: Prednisone () 2.5 mg PO DAILYCM [facility] Last Admin: 11/25/19 10:50 Dose: 2.5 mg Documented by: Prochlorperazine Edisylate (Compazine Iv) 5 mg IV Q4H PRN PRN PRN Reason: Breakthrough Nausea/Vomiting Psyllium Hydrophilic Mucilloid (Metamucil) 1 packet PO DAILY PRN PRN PRN Reason: Constipation Senna/Docusate Sodium (Senokot-S, Jane-Colace) 2 tablet PO BID PRN PRN PRN Reason: Constipation Sodium Chloride (0.9% Nacl (Sterile) Posiflush) 10 - 40 ml IV UD PRN PRN Reason: Port access or dressing change Throat Lozenges (Cepacol Sore Throat Lozenge) 1 lozenge MUCOUS MEM Q2H PRN PRN PRN Reason: SORE THROAT Assessment/Plan All Active Problems Hyperkalemia (Acute) Dyspnea (Acute) TENZIN (acute kidney injury) (Acute) Ulceration right lateral ankle down to deep subcutaneous tissue layer Ulceration left dorsal 3rd toe down to bone/joint (PIPJ) Hammer toes Multiple co-morbidities Reviewed diagnostic data. There is no acute evidence of infection, no acute/emergent surgery needed at this time for foot/ankle. Right ankle and left foot xrays ordered for further evaluation. Will consider further workup via MRI for further evaluation. Patient is on Vancomycin at this time. Patient was following with Infectious Disease as outpatient. Consider ID consultation. Will request records from Dr. Cespedes (Infectious Disease in [place], [place]). Noninvasive lower extremity arterial studies ordered for further evaluation of arterial flow. Wound care right ankle: Aquacel ag w/ overlying dressing - change daily. Wound care left 3rd toe: Selective debridement was performed removing superficial nonviable tissue using a 10 blade, post debridement wound measured 6mm x 9mm and down to PIPJ and bone. Aquacel Ag w/ overlying dressing - change daily. Keep ulcerations offloaded at all times. Patient received offloading foam boots today which she is to wear at all times when off feet. Thank you for consultation. Podiatry will continue to follow.
[2019-11-25] MEDS: Menthol/Lanolin/Calamine/Znox 113 GM Tube 1 APPLIC TOPICAL ×2 (14:32→21:09)
--- NOTE | 2019-11-25 15:15 | NURSING ---
wound photo: right lateral ankle
--- NOTE | 2019-11-25 15:17 | NURSING ---
wound photo: left medial knee
--- NOTE | 2019-11-25 15:17 | NURSING ---
wound photo: left 3rd toe
--- NOTE | 2019-11-25 16:10 | MRI_ITS ---
STUDY: MRI LEFT FOREFOOT WITHOUT CONTRAST REASON FOR EXAM: Female, 69 years old. LEFT FOOT -- sm open wound top of 3rd toe, debridement today TECHNIQUE: Standardized fat and water weighted pulse sequences were obtained in all 3 orthogonal planes. COMPARISON: None. FINDINGS: Normal metatarsophalangeal joint of the hallux. Normal tibial and fibular sesamoids, with normal sesamoids-first metatarsal articulations. Normal interphalangeal joint of the hallux. Normal proximal and distal phalanges of the great toe. Normal medial and lateral heads of the flexor hallucis brevis tendons. Normal flexor and extensor hallucis longus tendons. Normal second through fifth metatarsophalangeal (MTP) joints. Normal interphalangeal joints of the second through fifth toes. Normal proximal, middle and distal phalanges of the second through fifth toes. Normal first through fourth intermetatarsal spaces. Normal flexor and extensor tendons of the second through fifth toes. Normal visualized metatarsi. There is diffuse atrophy of the intrinsic muscles of the forefoot consisten twith a peripheral neuropathy. There is no demonstrated soft tissue abnormality. MRI/Lower Ext/No Jt/w/o IMPRESSION: No MR evidence of osteomyelitis or abscess. Electronically Signed: Juarez Doherty MD at 8:58 EST Tel , Service support ,
--- NOTE | 2019-11-25 16:11 | MRI_ITS ---
STUDY: MRI RIGHT ANKLE WITHOUT CONTRAST REASON FOR EXAM: Female, 69 years old. CHRONIC LATERAL ANKLE ULCER -- debridement today, lateral mallelous TECHNIQUE: Standardized fat and water weighted pulse sequences were obtained in all 3 orthogonal planes. COMPARISON: X-ray 11/25/2019 FINDINGS: Ulcer of the soft tissues superficial to lateral malleolus the fibula with surrounding soft tissue swelling consistent with cellulitis. No bony destruction or marrow edema to suggest osteomyelitis. Normal posterior tibialis tendon. Normal flexor digitorum longus tendon. Normal flexor hallucis longus tendon. Normal peroneus longus and brevis tendons. Normal tibialis anterior tendon. Normal extensor hallucis longus tendon. Normal extensor digitorum longus tendons. Normal Achilles tendon and teno-osseous insertion. Normal plantar fascia. Normal plantar calcaneal tubercles. Normal intrinsic muscles of the rearfoot. Normal distal tibiofibular syndesmotic ligamentous complex. Normal lateral ligamentous complex. Normal subtalar ligaments and sinus tarsi. Normal deltoid ligamentous complexes. Normal plantar calcaneonavicular (spring) ligament. Normal tibiotalar articulation. Normal talar dome. Normal subtalar articulations. Normal talonavicular articulation. Normal calcaneocuboid articulation. Normal navicular-cuneiform articulations. MRI/Lower Ext Joint Only (Routine) IMPRESSION: Cellulitis and ulcer of the lateral soft tissues of the superficial to the lateral malleolus the fibula but no MR evidence of osteomyelitis or abscess. Electronically Signed: Juarez Doherty MD at 8:53 EST Tel , Service support ,
[2019-11-25 18:05] LABS: Anion Gap 4 (5-15); BUN 52 mg/dL (7-18); BUN/Creat Ratio 35.1 RATIO (10-20); Calcium,Total 8.1 mg/dL (8.5-10.1); Chloride 121 mmol/L (98-107); Creatinine, Serum 1.48 mg/dL (0.55-1.02); EST Glomerular Filtration Rate 37 mL/min (>60); Est Glom Filt Rate - Afr Amer 45 mL/min (>60); Estimated Creatinine Clearance 34.53 ml/min; Glucose 102 mg/dL (74-106); Potassium 4.8 mmol/L (3.5-5.1); Sodium Level 147 mmol/L (136-145)
--- NOTE | 2019-11-25 19:55 | NURSING ---
Back from MRI.
[2019-11-25] MEDS: Nystatin Powder 15gm Bottle 1 APPLIC TOPICAL (21:09)
[2019-11-25] MEDS: Atorvastatin Calcium 20 MG Tablet PO (21:09)
[2019-11-25] MEDS: Morphine 2 MG/ML Syringe IV (23:09)
[2019-11-25] MEDS: 0.9 % NaCl (Sterile) Posiflush 10 mL IV (23:11)
[2019-11-26] VITALS (21 sets, daily range): BP systolic 103–133; BP diastolic 52–66; PULSE 72–115; RESP 12–20; TEMP 36.5–37.1; O2SAT 92–95
[2019-11-26] MEDS: oxyCODONE 5 MG Tablet PO ×3 (01:03→10:47)
[2019-11-26] MEDS: Vancomycin IV 1,000 MG/200 ML BAG 200 MG IV (02:20)
[2019-11-26] MEDS: Morphine 2 MG/ML Syringe IV (02:23)
[2019-11-26] MEDS: 0.9% Saline Lock 10 ML Syringe IV ×4 (02:25→16:53)
[2019-11-26 04:27] LABS: Absolute Lymphocyte Count 0.57 X10^3/uL (0.83-4.51); Absolute Neutrophil Count 4.3 X10^3/uL (2.0-7.7); Basophil# 0.04 X10^3/uL; Basophil% 0.7 % (0-1); Eosinophil# 0.11 X10^3/uL; Hematocrit 20.4 % (37-47); Hemoglobin 6.4 g/dL (12.0-15.0); Lymphocyte # 0.57 X10^3/ul (4.0); Lymphocyte % 10.2 % (19-41); Mean Corp Hgb Conc 31.4 g/dL (32-36); Mean Corpuscular Hgb 32.7 pg (27.0-32.0); Mean Corpuscular Volume 104.1 fL (81-99); Mean Platelet Vol. 10.9 fl (6.2-12.0); Monocyte# 0.57 X10^3/uL; Monocyte% 10.2 % (0-10); NRBC Flagged by Analyzer 1.6 % (0-5); Neutrophil # 4.26 X10^3/uL (2.7-7.7); Neutrophil % 76.2 % (47-70); POSITIVE DIFFERENTIAL YES; POSITIVE MORPHOLOGY YES; Platelet Count 240 K/mm3 (150-450); RBC Distribution Width CV 20.3 % (11.6-14.6); RBC Distribution Width SD 74.8 fl (35.1-43.9); Red Blood Count 1.96 M/mm3 (4.2-5.4); White Blood Count 5.6 K/mm3 (4.4-11.0)
[2019-11-26 04:30] LABS: Anion Gap 2 (5-15); BUN 47 mg/dL (7-18); BUN/Creat Ratio 36.7 RATIO (10-20); Calcium,Total 7.6 mg/dL (8.5-10.1); Chloride 118 mmol/L (98-107); Creatinine, Serum 1.28 mg/dL (0.55-1.02); EST Glomerular Filtration Rate 44 mL/min (>60); Est Glom Filt Rate - Afr Amer 53 mL/min (>60); Estimated Creatinine Clearance 39.93 ml/min; Glucose 92 mg/dL (74-106); Magnesium 1.9 mg/dL (1.6-2.6); Phosphorus 2.6 mg/dL (2.5-4.9); Potassium 4.1 mmol/L (3.5-5.1); Sodium Level 145 mmol/L (136-145)
[2019-11-26 04:31] LABS: Differential Indicated SCAN CRITERIA MET
[2019-11-26 05:00] LABS: Differential Comment SCANNED; Hypochromasia 2+; Macrocytosis 3+; Target Cells 2+
[2019-11-26] MEDS: Menthol/Lanolin/Calamine/Znox 113 GM Tube 1 APPLIC TOPICAL ×3 (05:21→21:59)
--- NOTE | 2019-11-26 06:35 | NURSING ---
Attempted to call pt's to obtain consent for blood transfusion. Left message to call unit.
--- NOTE | 2019-11-26 07:15 | PN_ITS ---
Subjective: Patient did well overnight. Patient continues to have minimal interaction, but according to nursing has been uncomfortable throughout the evening. Patient has received some oxycodone and morphine. Patient does have a significantly excoriated coccyx and buttocks. Objective: Multiple x-rays completed yesterday of lower extremities. MRIs are completed, but interpretation is currently pending. General: Alert, Non-Cooperative, - - Mild to moderate distress. Patient not actively following commands, but appears to comprehend questioning. HEENT: Atraumatic, PERRLA, EOMI, Normocephalic, - - No scleral icterus or injection noted Oral: Moist Mucosa, No Gingival or Mucosal Lesions/ Ulcerations, - - Crowded posterior pharynx Neck: Supple, No JVD, No Nodes, Trachea Midline Lungs: No rhonchi, No wheeze, No rales, Diminished, - - Fair effort. Symmetric expansion. Cardiovascular: Regular rate, Regular Rhythm, Normal S1, Normal S2, No murmurs, No rub noted, No Gallop Abdomen: Bowel Sounds Present, Soft, Non Tender, Non-Distended, Obese Extremities: No cyanosis, Capillary Refill Less than 3 Seconds, Edema Skin: - - Multiple wounds noted. See nursing documentation Musculoskeletal: No Tenderness to Palpation of Joints or Extremities, No Muscle Wasting Lymphatic: No Cervical, Supraclavicular, or Inguinal Adenopathy Neurological: Cranial nerves II-XII grossly intact, Neuro grossly intact, Motor Exam 5/5 strength throughout Psych/Mental Status: Anxious, Restless Vital Signs Temp Pulse Resp BP Pulse Ox 36.9 C 87 12 119/53 L 93 11/26/19 06:00 11/26/19 06:00 11/26/19 06:00 11/26/19 06:00 11/26/19 06:00 Oxygen Flow Rate (L/min) 2 Oxygen Delivery Method Room Air Weight: 92.8 kg Body Mass Index (BMI) 32.7 Intake and Output for Last 24 Hours 11/24/19 11/25/19 11/26/19 23:59 23:59 23:59 Intake Total 3449.43 / 3449.43 585.62 / 585.62 Output Total 1450 / 1450 350 / 350 Balance 1998.43 / 1998.43 235.62 / 235.62 Labs (Last 48 Hours) 02/11/24/19 11/24/19 21:38 21:38 21:38 WBC 7.5 RBC 2.53 L Hgb 8.4 L Hct 27.8 L MCV 109.9 H MCH 33.2 H MCHC 30.2 L RDW Std Deviation 82.0 H RDW Coeff of Dominic 20.8 H Plt Count 334 MPV 11.2 Immature Gran % (Auto) 1.100 H Neut % (Auto) 85.2 H Lymph % (Auto) 7.9 L Crane % (Auto) 4.7 Eos % (Auto) 0.8 Baso % (Auto) 0.3 Absolute Neuts (auto) 6.4 Absolute Lymphs (auto) 0.59 L Nucleated RBC % 1.2 Differential Comment SCANNED Hypochromasia 1+ Anisocytosis 1+ Macrocytosis Target Cells 1+ Crenated Cell RARE Sodium Cancelled Potassium Cancelled Chloride Cancelled Carbon Dioxide Cancelled Anion Gap Cancelled BUN Cancelled Creatinine Cancelled Estim Creat Clear Calc Cancelled Est GFR (MDRD) Af Amer Cancelled Est GFR (MDRD) Non-Af Cancelled BUN/Creatinine Ratio Cancelled Glucose Cancelled Calcium Cancelled Phosphorus Magnesium Iron TIBC Iron Saturation Ferritin Troponin I Cancelled B-Natriuretic Peptide Cancelled Vitamin B12 Folate Urine Color Urine Clarity Urine pH Ur Specific [place] Urine Protein Urine Glucose (UA) Urine Ketones Urine Occult Blood Urine Nitrite Urine Bilirubin Urine Urobilinogen Ur Leukocyte Esterase Urine RBC Urine WBC Ur Squamous Epith Cells Urine Bacteria Urine Mucus Ur Random Sodium Urine Creatinine Blood Type Antibody Screen Crossmatch 11/24/19 11/24/19 11/25/19 22:35 22:35 02:35 WBC RBC Hgb Hct MCV MCH MCHC RDW Std Deviation RDW Coeff of Dominic Plt Count MPV Immature Gran % (Auto) Neut % (Auto) Lymph % (Auto) Crane % (Auto) Eos % (Auto) Baso % (Auto) Absolute Neuts (auto) Absolute Lymphs (auto) Nucleated RBC % Differential Comment Hypochromasia Anisocytosis Macrocytosis Target Cells Crenated Cell Sodium 144 149 H Potassium 6.8 H* 6.6 H* Chloride 124 H 125 H Carbon Dioxide 16.0 L 15.0 L Anion Gap 4 L 9 BUN 64 H 65 H Creatinine 1.66 H 1.68 H Estim Creat Clear Calc 30.79 30.42 Est GFR (MDRD) Af Amer 40 L 39 L Est GFR (MDRD) Non-Af 33 L 32 L BUN/Creatinine Ratio 38.6 H 38.7 H Glucose 91 80 Calcium 9.2 8.7 Phosphorus Magnesium 2.2 Iron TIBC Iron Saturation Ferritin Troponin I < 0.015 B-Natriuretic Peptide 604.1 H Vitamin B12 Folate Urine Color Urine Clarity Urine pH Ur Specific [place] Urine Protein Urine Glucose (UA) Urine Ketones Urine Occult Blood Urine Nitrite Urine Bilirubin Urine Urobilinogen Ur Leukocyte Esterase Urine RBC Urine WBC Ur Squamous Epith Cells Urine Bacteria Urine Mucus Ur Random Sodium Urine Creatinine Blood Type Antibody Screen Crossmatch 11/25/19 11/25/19 11/25/19 02:35 02:35 05:15 WBC RBC Hgb Hct MCV MCH MCHC RDW Std Deviation RDW Coeff of Dominic Plt Count MPV Immature Gran % (Auto) Neut % (Auto) Lymph % (Auto) Crane % (Auto) Eos % (Auto) Baso % (Auto) Absolute Neuts (auto) Absolute Lymphs (auto) Nucleated RBC % Differential Comment Hypochromasia Anisocytosis Macrocytosis Target Cells Crenated Cell Sodium Potassium Chloride Carbon Dioxide Anion Gap BUN Creatinine Estim Creat Clear Calc Est GFR (MDRD) Af Amer Est GFR (MDRD) Non-Af BUN/Creatinine Ratio Glucose Calcium Phosphorus Magnesium Iron 44 L TIBC 126 L Iron Saturation 34.9 Ferritin 1694 H Troponin I < 0.015 B-Natriuretic Peptide Vitamin B12 > 2000 H Folate 65.90 H Urine Color Urine Clarity Urine pH Ur Specific [place] Urine Protein Urine Glucose (UA) Urine Ketones Urine Occult Blood Urine Nitrite Urine Bilirubin Urine Urobilinogen Ur Leukocyte Esterase Urine RBC Urine WBC Ur Squamous Epith Cells Urine Bacteria Urine Mucus Ur Random Sodium Urine Creatinine Blood Type Antibody Screen Crossmatch 11/25/19 11/25/19 11/25/19 05:15 09:25 09:25 WBC 8.3 RBC 2.45 L Hgb 8.3 L Hct 26.5 L MCV 108.2 H MCH 33.9 H MCHC 31.3 L RDW Std Deviation 78.7 H RDW Coeff of Dominic 20.5 H Plt Count 264 MPV 11.2 Immature Gran % (Auto) 0.800 Neut % (Auto) 85.3 H Lymph % (Auto) 6.0 L Crane % (Auto) 6.5 Eos % (Auto) 1.0 Baso % (Auto) 0.4 Absolute Neuts (auto) 7.1 Absolute Lymphs (auto) 0.50 L Nucleated RBC % 1.4 Differential Comment SCANNED Hypochromasia 2+ Anisocytosis 2+ Macrocytosis 2+ Target Cells 1+ Crenated Cell Sodium 147 H Potassium 5.4 H Chloride 124 H Carbon Dioxide 18.0 L Anion Gap 5 BUN 66 H Creatinine 1.60 H Estim Creat Clear Calc 31.94 Est GFR (MDRD) Af Amer 41 L Est GFR (MDRD) Non-Af 34 L BUN/Creatinine Ratio 41.2 H Glucose 75 Calcium 8.9 Phosphorus Magnesium Iron TIBC Iron Saturation Ferritin Troponin I < 0.015 B-Natriuretic Peptide Vitamin B12 Folate Urine Color Urine Clarity Urine pH Ur Specific [place] Urine Protein Urine Glucose (UA) Urine Ketones Urine Occult Blood Urine Nitrite Urine Bilirubin Urine Urobilinogen Ur Leukocyte Esterase Urine RBC Urine WBC Ur Squamous Epith Cells Urine Bacteria Urine Mucus Ur Random Sodium Urine Creatinine Blood Type Antibody Screen Crossmatch 11/25/19 11/25/19 11/25/19 12:35 12:35 12:35 WBC RBC Hgb Hct MCV MCH MCHC RDW Std Deviation RDW Coeff of Dominic Plt Count MPV Immature Gran % (Auto) Neut % (Auto) Lymph % (Auto) Crane % (Auto) Eos % (Auto) Baso % (Auto) Absolute Neuts (auto) Absolute Lymphs (auto) Nucleated RBC % Differential Comment Hypochromasia Anisocytosis Macrocytosis Target Cells Crenated Cell Sodium Potassium Chloride Carbon Dioxide Anion Gap BUN Creatinine Estim Creat Clear Calc Est GFR (MDRD) Af Amer Est GFR (MDRD) Non-Af BUN/Creatinine Ratio Glucose Calcium Phosphorus Magnesium Iron TIBC Iron Saturation Ferritin Troponin I B-Natriuretic Peptide Vitamin B12 Folate Urine Color Yellow Urine Clarity Sl. Cloudy Urine pH 5.0 Ur Specific [place] 1.010 Urine Protein Negative Urine Glucose (UA) Normal Urine Ketones Negative Urine Occult Blood 25 H Urine Nitrite Positive H Urine Bilirubin 1 H Urine Urobilinogen Normal Ur Leukocyte Esterase Negative Urine RBC 0 SEEN Urine WBC 0 SEEN Ur Squamous Epith Cells 0 SEEN Urine Bacteria 3+ Urine Mucus 0 SEEN Ur Random Sodium 104 Urine Creatinine 43.10 Blood Type Antibody Screen Crossmatch 11/25/19 11/26/19 11/26/19 17:20 04:10 04:10 WBC 5.6 RBC 1.96 L Hgb 6.4 L Hct 20.4 L MCV 104.1 H MCH 32.7 H MCHC 31.4 L RDW Std Deviation 74.8 H RDW Coeff of Dominic 20.3 H Plt Count 240 MPV 10.9 Immature Gran % (Auto) 0.700 Neut % (Auto) 76.2 H Lymph % (Auto) 10.2 L Crane % (Auto) 10.2 H Eos % (Auto) 2.0 Baso % (Auto) 0.7 Absolute Neuts (auto) 4.3 Absolute Lymphs (auto) 0.57 L Nucleated RBC % 1.6 Differential Comment SCANNED Hypochromasia 2+ Anisocytosis Macrocytosis 3+ Target Cells 2+ Crenated Cell Sodium 147 H 145 Potassium 4.8 4.1 Chloride 121 H 118 H Carbon Dioxide 22.0 25.0 Anion Gap 4 L 2 L BUN 52 H 47 H Creatinine 1.48 H 1.28 H Estim Creat Clear Calc 34.53 39.93 Est GFR (MDRD) Af Amer 45 L 53 L Est GFR (MDRD) Non-Af 37 L 44 L BUN/Creatinine Ratio 35.1 H 36.7 H Glucose 102 92 Calcium 8.1 L 7.6 L Phosphorus 2.6 Magnesium 1.9 Iron TIBC Iron Saturation Ferritin Troponin I B-Natriuretic Peptide Vitamin B12 Folate Urine Color Urine Clarity Urine pH Ur Specific [place] Urine Protein Urine Glucose (UA) Urine Ketones Urine Occult Blood Urine Nitrite Urine Bilirubin Urine Urobilinogen Ur Leukocyte Esterase Urine RBC Urine WBC Ur Squamous Epith Cells Urine Bacteria Urine Mucus Ur Random Sodium Urine Creatinine Blood Type Antibody Screen Crossmatch 11/26/19 06:25 WBC RBC Hgb Hct MCV MCH MCHC RDW Std Deviation RDW Coeff of Dominic Plt Count MPV Immature Gran % (Auto) Neut % (Auto) Lymph % (Auto) Crane % (Auto) Eos % (Auto) Baso % (Auto) Absolute Neuts (auto) Absolute Lymphs (auto) Nucleated RBC % Differential Comment Hypochromasia Anisocytosis Macrocytosis Target Cells Crenated Cell Sodium Potassium Chloride Carbon Dioxide Anion Gap BUN Creatinine Estim Creat Clear Calc Est GFR (MDRD) Af Amer Est GFR (MDRD) Non-Af BUN/Creatinine Ratio Glucose Calcium Phosphorus Magnesium Iron TIBC Iron Saturation Ferritin Troponin I B-Natriuretic Peptide Vitamin B12 Folate Urine Color Urine Clarity Urine pH Ur Specific [place] Urine Protein Urine Glucose (UA) Urine Ketones Urine Occult Blood Urine Nitrite Urine Bilirubin Urine Urobilinogen Ur Leukocyte Esterase Urine RBC Urine WBC Ur Squamous Epith Cells Urine Bacteria Urine Mucus Ur Random Sodium Urine Creatinine Blood Type Pending Antibody Screen Pending Crossmatch See Detail Microbiology 11/25/19 12:35 Urine Catheter - Catheter Streptococcus pneumoniae Antigen (M - Final 11/25/19 12:35 Urine Catheter - Catheter Legionella Antigen - Final 11/25/19 01:00 Sputum, Expectorated/Coughed Gram Stain - Final Clinical Impression(s) from Imaging Studies Renal Ultrasound 11/25/19 00:53 IMPRESSION: 2.3 cm x 2.3 cm x 2.2 cm right renal cyst. Electronically Signed: Richar Bird, at 10:30 EST , Service support , Ankle X-Ray 11/25/19 10:22 IMPRESSION: Osteopenia of the visualized bony structures. Soft tissue swelling with a soft tissue ulceration overlying the lateral malleolus measuring 8.7 mm x 4 mm. Electronically Signed: Richar Bird, at 15:33 EST , Service support , Foot X-Ray 11/25/19 14:17 IMPRESSION: As above Electronically Signed: Merrick Camargo DO at 16:18 EST Tel , Service support , Medical Necessity - Tobacco Use Smoking Status: Never smoker Tobacco Use: Non-smoker Assessment/Plan All Active Problems Hyperkalemia (Acute) Dyspnea (Acute) TENZIN (acute kidney injury) (Acute) RECOMMENDATIONS: 1. Discontinue bicarbonate drip 2. Appreciate renal input 3. Increase activity as tolerated 4. Wound nurse for decubitus ulcers 5. Okay to leave the intensive care unit from my perspective 6. Hemodynamically stable on room air. Will sign off from a critical care perspective IMPRESSIONS: 1. Acute hyperkalemia secondary to acute kidney injury versus chronic kidney disease stage III Unclear baseline renal function. 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 Patient has had decreased p.o. intake and is on Bumex at home. Patient has responded well to bicarbonate drip. Bicarb is back to normal and renal function is improving. Will discontinue bicarbonate drip. Will defer to renal if IV fluids are recommended. Patient is tolerating room air and has remained hemodynamically stable. 2. Dyspnea Likely secondary to failure to compensate for metabolic acidosis. Patient did have a metabolic acidosis on presentation, which may be leading to dyspnea for compensation. Sputum cultures have been ordered. Patient does have right hemidiaphragm elevation, which may be chronic. This may also be secondary to atelectasis. 3. Probable congestive heart failure No old records are available for review. Will obtain old records from [facility]. Patient does have an elevated BNP at 604, but troponins are negative. No ectopy noted on telemetry. Patient currently tolerating room air. 4. 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 Wound nurse to address current findings. MRI of the lower extremities are currently pending for evaluation of osteomyelitis 5. Anxiety/depression/hypertension/hyperlipidemia/poor historian/obesity Complicates care, management, recovery and prognosis. Patient is reportedly a DNR Comfort Care arrest without intubation. Patient okay to continue with baseline medications. Blood pressure of been acceptable. Code Visit Inpatient E&M: [id number] [facility] L3
--- NOTE | 2019-11-26 08:22 | PN_ITS ---
Patient Problems: Active and Suspected Problems Hyperkalemia (Acute) Dyspnea (Acute) TENZIN (acute kidney injury) (Acute) Reason for Visit: Patient moans and sometimes cry, cannot verbalize about pain or sadness or any other history. No hypoxia or tachypnea. Blood pressure is stable. Vitals/I&O's: Vital Signs Temp Pulse Resp BP Pulse Ox 98.7 F 88 14 116/53 L 92 11/26/19 07:00 11/26/19 07:05 11/26/19 07:00 11/26/19 07:00 11/26/19 07:00 Oxygen Flow Rate (L/min) 2 Oxygen Delivery Method Room Air Weight: 204 lb 9.423 oz Body Mass Index (BMI) 32.7 Intake and Output for Last 24 Hours 11/24/19 11/25/19 11/26/19 23:59 23:59 23:59 Intake Total 3449.43 / 3449.43 585.62 / 585.62 Output Total 1450 / 1450 350 / 350 Balance 1998.43 / 1998. 235.62 / 235.62 General: Confused, Disoriented, Lethargic HEENT: Atraumatic, PERRLA, EOMI, Normocephalic Oral: Dry Mucosa Neck: Supple, No JVD, Negative Carotid Bruits, - - Scar joleen over suprasternal notch Lungs: Diminished - Air entry diminished bilaterally, Rhonchi - Bilateral inspiratory and expiratory rhonchi. Cardiovascular: Regular rate, Regular Rhythm, Normal S1, Normal S2, No murmurs Abdomen: Bowel Sounds Present, Soft, Non Tender, Non-Distended Extremities: Capillary Refill Less than 3 Seconds, Edema Skin: Ulcer/ Wound - Ulcer over the lateral malleolus in the right leg. Chronic with sinus tract. Purulent discharge minimal Ulcer on the left third toe is dry, chronic without discharge Musculoskeletal: Arthritic Changes, Muscle Wasting, Tenderness - Tenderness in lower legs, nonspecific Neurological: Deep Tendon Reflexes 2+/4 and Symmetrical, Neuro grossly intact, - - Weakness in both lower extremities Not able to obtain complete examination because of patient not following command Microbiology Past 72 Hours 11/25/19 12:35 Urine Catheter - Catheter Streptococcus pneumoniae Antigen (M - Final 11/25/19 12:35 Urine Catheter - Catheter Legionella Antigen - Final 11/25/19 01:00 Sputum, Expectorated/Coughed Gram Stain - Final Laboratory Results 11/25/19 02:35: Vitamin B12 > 2000 H 11/25/19 09:25: WBC 8.3, RBC 2.45 L, Hgb 8.3 L, Hct 26.5 L, MCV 108.2 H, MCH 33.9 H, MCHC 31.3 L, RDW Std Deviation 78.7 H, RDW Coeff of Dominic 20.5 H, Plt Count 264, MPV 11.2, Immature Gran % (Auto) 0.800, Neut % (Auto) 85.3 H, Lymph % (Auto) 6.0 L, [place] % (Auto) 6.5, Eos % (Auto) 1.0, Baso % (Auto) 0.4, Absolute Neuts (auto) 7.1, Absolute Lymphs (auto) 0.50 L, Nucleated RBC % 1.4, Differential Comment SCANNED, Hypochromasia 2+, Anisocytosis 2+, Macrocytosis 2+, Target Cells 1+ 11/25/19 09:25: Sodium 147 H, Potassium 5.4 H, Chloride 124 H, Carbon Dioxide 18.0 L, Anion Gap 5, BUN 66 H, Creatinine 1.60 H, Estim Creat Clear Calc 31.94, Est GFR (MDRD) Af Amer 41 L, Est GFR (MDRD) Non-Af 34 L, BUN/Creatinine Ratio 41.2 H, Glucose 75, Calcium 8.9 11/25/19 12:35: Urine Creatinine 43.10 11/25/19 12:35: Ur Random Sodium 104 11/25/19 12:35: Urine Color Yellow, Urine Clarity Sl. Cloudy, Urine pH 5.0, Ur Specific [place] 1.010, Urine Protein Negative, Urine Glucose (UA) Normal, Urine Ketones Negative, Urine Occult Blood 25 H, Urine Nitrite Positive H, Urine Bilirubin 1 H, Urine Urobilinogen Normal, Ur Leukocyte Esterase Negative, Urine RBC 0 SEEN, Urine WBC 0 SEEN, Ur Squamous Epith Cells 0 SEEN, Urine Bacteria 3+, Urine Mucus 0 SEEN 11/25/19 17:20: Sodium 147 H, Potassium 4.8, Chloride 121 H, Carbon Dioxide 22.0, Anion Gap 4 L, BUN 52 H, Creatinine 1.48 H, Estim Creat Clear Calc 34.53, Est GFR (MDRD) Af Amer 45 L, Est GFR (MDRD) Non-Af 37 L, BUN/Creatinine Ratio 35.1 H, Glucose 102, Calcium 8.1 L 11/26/19 04:10: WBC 5.6, RBC 1.96 L, Hgb 6.4 L, Hct 20.4 L, MCV 104.1 H, MCH 32.7 H, MCHC 31.4 L, RDW Std Deviation 74.8 H, RDW Coeff of Dominic 20.3 H, Plt Count 240, MPV 10.9, Immature Gran % (Auto) 0.700, Neut % (Auto) 76.2 H, Lymph % (Auto) 10.2 L, [place] % (Auto) 10.2 H, Eos % (Auto) 2.0, Baso % (Auto) 0.7, Absolute Neuts (auto) 4.3, Absolute Lymphs (auto) 0.57 L, Nucleated RBC % 1.6, Differential Comment SCANNED, Hypochromasia 2+, Macrocytosis 3+, Target Cells 2+ 11/26/19 04:10: Sodium 145, Potassium 4.1, Chloride 118 H, Carbon Dioxide 25.0, Anion Gap 2 L, BUN 47 H, Creatinine 1.28 H, Estim Creat Clear Calc 39.93, Est GFR (MDRD) Af Amer 53 L, Est GFR (MDRD) Non-Af 44 L, BUN/Creatinine Ratio 36.7 H , Glucose 92, Calcium 7.6 L, Phosphorus 2.6, Magnesium 1.9 11/26/19 06:25: Blood Type O POSITIVE, Antibody Screen NEGATIVE, Crossmatch See Detail Current Medications Acetaminophen (Tylenol) 650 mg PO Q6H PRN PRN PRN Reason: Pain Score 1-10/Temp > 100.7 F Albuterol Sulfate (Ventolin Aerosols) 2.5 mg INHALATION Q2H PRN PRN PRN Reason: SOB/Wheezing Atorvastatin Calcium (Lipitor) 20 mg PO QHS MARKEL Last Admin: 11/25/19 21:09 Dose: 20 mg Documented by: Calamine/Phenol (Calmoseptine Ointment) 1 applic TOPICAL TID MARKEL; Protocol Last Admin: 11/26/19 05:21 Dose: 1 applicatio Documented by: Fluticasone Propionate (Flonase Nasal [place]) 2 spray NASAL DAILY [facility] Last Admin: 11/25/19 10:49 Dose: 2 spray Documented by: Folic Acid (Folic Acid) 1 mg PO DAILYCM [facility] Last Admin: 11/25/19 10:50 Dose: 1 mg Documented by: Glucagon () 1 mg IM .X1 PRN PRN Reason: Hypoglycemia Guaifenesin (Robitussin) 10 ml PO Q4H PRN PRN PRN Reason: COUGH Heparin Sodium (Beef Lung) () 50 units IV UD PRN PRN Reason: PICC Line Heparin Flush Heparin Sodium (Beef Lung) () 50 units IV UD PRN PRN Reason: PICC Line Heparin Flush Heparin Sodium (Porcine) (Heparin Na) 5,000 unit SC Q12 [facility] Last Admin: 11/25/19 21:09 Dose: 5,000 unit Documented by: Hydralazine HCl (Apresoline Iv) 10 mg IV Q4H PRN PRN PRN Reason: SBP > 160 Vancomycin IV Pharmacy to Dose (1 ea/ Sodium Chloride) 500 mls @ 250 mls/hr IV X1 PRN; Protocol PRN Reason: Rx to Dose Sodium Chloride () 250 mls @ 15 mls/hr IV .[id number] PRN PRN Reason: Saline Flush Sodium Chloride () 250 mls @ 15 mls/hr IV .[id number] PRN PRN Reason: Additional IVPB Infusion Piperacillin Sod/Tazobactam (Sod 3.375 gm/ Sodium Chloride) 50 mls @ 12.5 mls/hr IV Q8 [facility] Last Admin: 11/26/19 05:17 Dose: 12.5 mls/hr Documented by: Vancomycin HCl (Vancomycin) 1,000 mg in 200 mls @ 200 mls/hr IV Q24H [facility] Last Infusion: 11/26/19 03:20 Dose: Infused Documented by: Dextrose (Dextrose 10%-Water) 250 mls @ 999 mls/hr IV .Q16M PRN; Protocol PRN Reason: HYPOGLYCEMIA Isosorbide Mononitrate (Imdur) 30 mg PO DAILY [facility] Last Admin: 11/25/19 10:50 Dose: 30 mg Documented by: Lactobacillus Acidophilus (Acidophilus) 1 tablet PO TID [facility] Last Admin: 11/26/19 05:18 Dose: 1 tablet Documented by: Melatonin (Melatonin) 3 mg PO QHS PRN PRN PRN Reason: INSOMNIA Montelukast Sodium (Singulair) 10 mg PO DAILY [facility] Last Admin: 11/25/19 10:50 Dose: 10 mg Documented by: Morphine Sulfate () 2 mg IV Q3H PRN PRN PRN Reason: Pain Score 6-10/10 Last Admin: 11/26/19 02:23 Dose: 2 mg Documented by: Nitroglycerin (Nitrostat) 0.4 mg SUBLINGUAL Q5M PRN PRN Reason: CARDIAC/CHEST PAIN Nutritional Formula ([place] - [place] Flavor) [facility] Last Admin: 11/25/19 17:29 Dose: Not Given Documented by: Nutritional Formula (Lactose Free) (Glucerna Shake) 120 ml PO 4X/DAY [facility] Nystatin (Mycostatin Powder) 1 applic TOPICAL BID [facility]; Protocol Last Admin: 11/25/19 21:09 Dose: 1 applicatio Documented by: Ondansetron HCl (Zofran) 4 mg IV Q8H PRN PRN PRN Reason: NAUSEA/VOMITING Oxybutynin Chloride (Ditropan) 2.5 mg PO DAILY [facility] Last Admin: 11/25/19 10:50 Dose: 2.5 mg Documented by: Oxycodone HCl (Oxyir) 5 mg PO Q4H PRN PRN PRN Reason: Pain Score 4-5/10 Last Admin: 11/26/19 05:18 Dose: 5 mg Documented by: Pantoprazole Sodium (Protonix) 40 mg PO DAILY [facility] Last Admin: 11/25/19 10:50 Dose: 40 mg Documented by: Paroxetine HCl (Paxil) 40 mg PO DAILY [facility] Last Admin: 11/25/19 11:06 Dose: 40 mg Documented by: Prednisone () [facility] Last Admin: 11/25/19 10:50 Dose: 2.5 mg Documented by: Prochlorperazine Edisylate (Compazine Iv) 5 mg IV Q4H PRN PRN PRN Reason: Breakthrough Nausea/Vomiting Psyllium Hydrophilic Mucilloid (Metamucil) 1 packet PO DAILY PRN PRN PRN Reason: Constipation Senna/Docusate Sodium (Senokot-S, Jane-Colace) 2 tablet PO BID PRN PRN PRN Reason: Constipation Sodium Chloride (0.9% Nacl (Sterile) Posiflush) 10 - 40 ml IV UD PRN PRN Reason: Port access or dressing change Last Admin: 11/25/19 23:11 Dose: 10 ml Documented by: Sodium Chloride () 10 - 40 ml IV UD PRN PRN Reason: Open End PICC Flush Last Admin: 11/26/19 05:18 Dose: 20 ml Documented by: Sodium Chloride (0.9% Nacl (Sterile) Posiflush) 10 - 40 ml IV UD PRN PRN Reason: Port access or dressing change Throat Lozenges (Cepacol Sore Throat Lozenge) 1 lozenge MUCOUS MEM Q2H PRN PRN PRN Reason: SORE THROAT STROKE Vital Signs/Narrative: Vital Signs Temp Pulse Resp BP Pulse Ox 11/26/19 07:05 88 11/26/19 07:00 98.7 F 84 14 116/53 L 92 11/26/19 06:52 93 11/26/19 06:00 98.5 F 87 12 119/53 L 93 11/26/19 05:00 98.5 F 90 14 120/66 94 Medical Necessity - Tobacco Use Smoking Status: Never smoker Tobacco Use: Non-smoker Assessment/Plan All Active Problems Hyperkalemia (Acute) Dyspnea (Acute) TENZIN (acute kidney injury) (Acute) The patient is a 69 y/o F history of HTN, HLD, CHF Unclear type, R Ankle MRSA Ulcer on lateral malleolar, Chronic anemia, obesity was admitted with dyspnea, falls, generalized weakness and debility with recent right MRSA infection on Bactrim therapy. She was found to have hyperkalemia and acute kidney injury. Probably she had recent treatment for acute kidney injury. Telemetry shows low amplitude QRS waves. 1. Acute Hyperkalemia: Patient had cocktail for acute hyperkalemia. Patient also had Kayexalate. Nephrology consult appreciated. Not much change in potassium, 6.8, 6.6. Patient not on hemodialysis. On bicarb drip. 11/26: Bicarb drip discontinued as per color specialist, it seems patient has followed Dr. Cristobal in [facility]. Patient has history of chronic hyperkalemia on Veltassa in the past. 2. Possible TENZIN with unknown baseline creatinine with normal anion gap metabolic acidosis with possible UTI/cystitis with chronic urinary incontinence: Admission BUN/creatinine 64/1.66, unclear baseline, Last BUN/creatinine 65/1.68. UA, urine culture or Fena are pending. 11/26: BUN/creatinine improving. Sodium 145. K4.1. Bicarb 25. Bicarb drip is discontinued. UA shows 3+ bacteria, 0 WBC, 0 RBC, nitrite positive. Urine sodium 104, creatinine 43. Nalini 2.4% suggestive of ATN/AIN although AIN less likely. Patient is on chronic prednisone at home but not on diuretics. Urine culture preliminary gram-negative pankaj lactose ear nose throat physician, more than 100,000 colonies. Empirically on antibiotic. 3. Dyspnea most likely to CHF exacerbation, exact etiology and type unclear: Chest x-ray independently reviewed. Shows right hemidiaphragm elevation almost to the level of half of left hemidiaphragm. No pleural effusion but cephalization of upper lobes. BNP elevated 604. 2D echo is done in the morning. Report pending. Sputum culture pending. 11/26: Sputum culture, preliminary shows gram-negative rods possible Pseudomonas species. Patient seen by ID. Continue Vanco and Zosyn 4. Right MRSA ankle, possible venous ulcer, on lateral malleolus: Patient does not give history of duration, severity and course of ulcer. Microbiology Instructor on consult. On vancomycin. Monitor Vanco trough level. Bactrim was discontinued. Wound care consult. 11/26: Wound culture shows coagulase-negative staph, preliminary. 6. Macrocytic anemia, most probably inflammatory anemia: Admission hemoglobin 8.4, MCV 109.9. Iron profile suggestive of anemia of chronic disease/chronic kidney disease. Ferritin 1694. Iron saturation 34%. 7. Anxiety and depression: It seems patient is depressed and does not give good response to questions. Continue fluoxetine 8. Hypertension, uncontrolled, labile: Last blood pressure 164/105. It fluctuates between 164/105 to 95/52. Continue home regimen including isosorbide, holding bumetanide given suspected TENZIN, PRN hydralazine. 9. Hyperlipidemia: Continue home statin regimen. 10. DVT Prophylaxis: SCDs, heparin. Total time of the visit including total time spent in counseling or coordination of care, (more than 50% of the total time, spent in obtaining medical information from nurses and other ancillary care providers), , review of labs and imaging is 40 minutes Code Visit Inpatient E&M: 35032 [facility] L3
[2019-11-26] MEDS: Nystatin Powder 15gm Bottle 1 APPLIC TOPICAL ×2 (08:23→21:59)
[2019-11-26] MEDS: predniSONE 5 MG Tablet 2.5 MG PO (08:23)
[2019-11-26] MEDS: Pantoprazole Sodium 40 MG Tablet PO (08:24)
[2019-11-26] MEDS: Paroxetine 20 MG Tablet 40 MG PO (08:24)
[2019-11-26] MEDS: Isosorbide Mononitrate 30 MG Tablet PO (08:24)
[2019-11-26] MEDS: Oxybutynin 5 MG Tablet 2.5 MG PO (08:24)
[2019-11-26] MEDS: Montelukast 10 MG Tablet PO (08:24)
[2019-11-26] MEDS: Heparin Injection (Vial) 5,000 UNIT/ML VIAL 5000 UNIT SC ×2 (08:24→21:58)
[2019-11-26] MEDS: Folic Acid 1 MG Tablet PO (08:24)
[2019-11-26] MEDS: Fluticasone 0.05% 1 SPRAY NASAL.SRY 2 SPRAY NASAL (08:25)
--- NOTE | 2019-11-26 09:52 | CASEMGMT ---
RN CM Note: participated in ICU interdisciplinary rounds. MRI pending of lower extremity. Pt may transfer from ICU today. Discussed possible need for SNF on dc per physician/PT recommendation. Pt will need wound care. If MRI + for osteo, further treatment may be needed prior to dc. -Referral and update to [facility] for possible SNF placement on dc. Kandy AUGUSTN RN AC
--- NOTE | 2019-11-26 10:29 | PCM.HP.ID ---
Problem List (1) Wound of right ankle Status: Chronic Qualifiers: Encounter type: subsequent encounter Qualified Code(s): S91.001D - Unspecified open wound, right ankle, subsequent encounter Reason for Consult: mrsa Consulted by: Dr. Rios History of Present Illness: The patient is a 69 year old F with CKD, chronic R ankle ulcer, presented 11/24 with weakness, TENZIN, hyperkalemia. Admitted to [facility] with dyspnea, TENZIN. Had been on mcc suppressive bactrim which was stopped at discharge. Followed up with ID Dr. Cespedes on 11/18 per the DI. Bactrim reportedly was restarted. Now admitted here to the icu on vanc/zosyn. Pt unable to provide history. Seen by podiatry, pulm. MRIs of BLE showed no osteo. Sputum now with Pseudomonas-like. Ucx with GNR. ROS unobtainable due to mental status - Medical History Past Medical History (Chronic Problems): Chronic Problems CHF (congestive heart failure) (Chronic) HTN (hypertension) (Chronic) HLD (hyperlipidemia) (Chronic) Anxiety and depression (Chronic) Wound of right ankle (Chronic) Obesity (BMI 30.0-34.9) (Chronic) Allergies/Adverse Reactions: Allergies doxycycline Allergy (Verified 11/24/19 21:02) Rash lisinopril Allergy (Verified 11/24/19 21:02) Rash Home Medications: Ambulatory Orders Medication Instructions Recorded Albuterol Inhaler [Ventolin Hfa 2 puff INHALATION Q4H PRN PRN 11/24/19 (SP)] Atorvastatin Calcium [Lipitor] 20 mg PO QHS 11/24/19 Bumetanide 1 mg PO DAILY 11/24/19 Calcium Carbonate/Vitamin D3 1 ea PO DAILY 11/24/19 [Calcium 600-Vit D3 800 [place]] Fluoxetine HCl 40 mg PO BID 11/24/19 Fluticasone 0.05% [Flonase Nasal 2 spray NASAL DAILY 11/24/19 [place]] Folic Acid 1 mg PO DAILY 11/24/19 Isosorbide Mononitrate [Imdur] 30 mg PO DAILY 11/24/19 Lactobacillus Acidophilus 1 ea PO TID 11/24/19 [Acidophilus] Montelukast [Singulair] 10 mg PO DAILY 11/24/19 Multivitamin with Minerals 1 ea PO DAILY 11/24/19 [Multiple Vitamin] Omeprazole 40 mg PO DAILY 11/24/19 Oxybutynin [Ditropan] 2.5 mg PO DAILY 11/24/19 Prednisone 2.5 mg PO DAILY 11/24/19 Sulfamethoxazole/Trimethoprim 1 ea PO BID 11/24/19 [Bactrim Ds Tablet] - Social History Tobacco Use: non-smoker Vital Signs Temp Pulse Resp BP Pulse Ox 98.7 F 90 20 H 128/54 H 94 11/26/19 09:52 11/26/19 10:00 11/26/19 10:00 11/26/19 10:00 11/26/19 10:00 Oxygen Flow Rate (L/min) 2 Oxygen Delivery Method Room Air Weight: 92.8 kg Body Mass Index (BMI) 32.7 Microbiology Past 72 Hours 11/25/19 12:35 Urine Culture - Preliminary Urine Catheter - Catheter GNR lactose order management specialist 11/25/19 17:20 Gram Stain - Final Wound - Left Foot 11/25/19 01:00 Gram Stain - Final Sputum, Expectorated/Coughed Respiratory Culture - Preliminary GNR Poss Pseudomonas sp 11/25/19 12:35 Streptococcus pneumoniae Antigen (M - Final Urine Catheter - Catheter 11/25/19 12:35 Legionella Antigen - Final Urine Catheter - Catheter Laboratory Tests Past 24 Hrs 11/25/19 11/25/19 11/25/19 12:35 12:35 12:35 WBC RBC Hgb Hct MCV MCH MCHC RDW Std Deviation RDW Coeff of Dominic Plt Count MPV Immature Gran % (Auto) Neut % (Auto) Lymph % (Auto) [place] % (Auto) Eos % (Auto) Baso % (Auto) Absolute Neuts (auto) Absolute Lymphs (auto) Nucleated RBC % Differential Comment Hypochromasia Macrocytosis Target Cells Sodium Potassium Chloride Carbon Dioxide Anion Gap BUN Creatinine Estim Creat Clear Calc Est GFR (MDRD) Af Amer Est GFR (MDRD) Non-Af BUN/Creatinine Ratio Glucose Calcium Phosphorus Magnesium Urine Color Yellow Urine Clarity Sl. Cloudy Urine pH 5.0 Ur Specific [place] 1.010 Urine Protein Negative Urine Glucose (UA) Normal Urine Ketones Negative Urine Occult Blood 25 H Urine Nitrite Positive H Urine Bilirubin 1 H Urine Urobilinogen Normal Ur Leukocyte Esterase Negative Urine RBC 0 SEEN Urine WBC 0 SEEN Ur Squamous Epith Cells 0 SEEN Urine Bacteria 3+ Urine Mucus 0 SEEN Ur Random Sodium 104 Urine Creatinine 43.10 Blood Type Antibody Screen Crossmatch 11/25/19 11/26/19 11/26/19 17:20 04:10 04:10 WBC 5.6 RBC 1.96 L Hgb 6.4 L Hct 20.4 L MCV 104.1 H MCH 32.7 H MCHC 31.4 L RDW Std Deviation 74.8 H RDW Coeff of Dominic 20.3 H Plt Count 240 MPV 10.9 Immature Gran % (Auto) 0.700 Neut % (Auto) 76.2 H Lymph % (Auto) 10.2 L [place] % (Auto) 10.2 H Eos % (Auto) 2.0 Baso % (Auto) 0.7 Absolute Neuts (auto) 4.3 Absolute Lymphs (auto) 0.57 L Nucleated RBC % 1.6 Differential Comment SCANNED Hypochromasia 2+ Macrocytosis 3+ Target Cells 2+ Sodium 147 H 145 Potassium 4.8 4.1 Chloride 121 H 118 H Carbon Dioxide 22.0 25.0 Anion Gap 4 L 2 L BUN 52 H 47 H Creatinine 1.48 H 1.28 H Estim Creat Clear Calc 34.53 39.93 Est GFR (MDRD) Af Amer 45 L 53 L Est GFR (MDRD) Non-Af 37 L 44 L BUN/Creatinine Ratio 35.1 H 36.7 H Glucose 102 92 Calcium 8.1 L 7.6 L Phosphorus 2.6 Magnesium 1.9 Urine Color Urine Clarity Urine pH Ur Specific [place] Urine Protein Urine Glucose (UA) Urine Ketones Urine Occult Blood Urine Nitrite Urine Bilirubin Urine Urobilinogen Ur Leukocyte Esterase Urine RBC Urine WBC Ur Squamous Epith Cells Urine Bacteria Urine Mucus Ur Random Sodium Urine Creatinine Blood Type Antibody Screen Crossmatch 11/26/19 06:25 WBC RBC Hgb Hct MCV MCH MCHC RDW Std Deviation RDW Coeff of Dominic Plt Count MPV Immature Gran % (Auto) Neut % (Auto) Lymph % (Auto) [place] % (Auto) Eos % (Auto) Baso % (Auto) Absolute Neuts (auto) Absolute Lymphs (auto) Nucleated RBC % Differential Comment Hypochromasia Macrocytosis Target Cells Sodium Potassium Chloride Carbon Dioxide Anion Gap BUN Creatinine Estim Creat Clear Calc Est GFR (MDRD) Af Amer Est GFR (MDRD) Non-Af BUN/Creatinine Ratio Glucose Calcium Phosphorus Magnesium Urine Color Urine Clarity Urine pH Ur Specific [place] Urine Protein Urine Glucose (UA) Urine Ketones Urine Occult Blood Urine Nitrite Urine Bilirubin Urine Urobilinogen Ur Leukocyte Esterase Urine RBC Urine WBC Ur Squamous Epith Cells Urine Bacteria Urine Mucus Ur Random Sodium Urine Creatinine Blood Type O POSITIVE Antibody Screen NEGATIVE Crossmatch See Detail - Other Studies Radiology: [] reviewed Other Studies: [] Route of nutrition/ use of supplements: [] Nutritional Intake: [] IV Site: [] Aquino Catheter: [] - Physical Exam General: No apparent distress, Non-Cooperative HEENT: Atraumatic, PERRLA, EOMI Neck: Supple, No Nodes Lungs: Clear to auscultation, Normal air movement Cardiovascular: Regular rate, Regular Rhythm Abdomen: Soft, Non Tender, Non-Distended Extremities: Edema Skin: Ulcer/ Wound - reviewed photos, R ankle ulcer not red, L 3rd toe dry ulcer IV Site: PICC, without redness Musculoskeletal: No Tenderness to Palpation of Joints or Extremities - Assessment/Plan Antibiotics: [] Assessment/Plan: [] Active and Suspected Problems Hyperkalemia (Acute) Dyspnea (Acute) TENZIN (acute kidney injury) (Acute) Chronic R ankle ulcer - MRI neg for osteo in BLE. H/o MRSA. Does not appear to have active infection. Bactrim may have contributed to hyperkalemia on admit, would not restart. (+) sputum cx - Normal wbc, no fever here, lungs sound clear, cxr relatively clear. Sputum does have heavy purulence and heavy GNR seen on gram stain. Now cx (+) PsA-like. Cont vanc/zosyn for now. Ucx also with GNR but UA neg for wbc. Will follow, thank you, d/w nursing.
[2019-11-26] MEDS: Acetaminophen 325 MG Tablet 650 MG PO (10:46)
--- NOTE | 2019-11-26 11:13 | CASEMGMT ---
Social Work SW received referral from RNCM. Phone call placed to pt spouse and discussed discharge plan. Mr. Lobo states pt is currently receiving services from [facility] and someone is at their home almost every day. The RN comes 3x week for wound care and PT and OT are in frequently as well. Spouse stating that since January 2019 pt has been to [facility] in [place] twice and to [facility]. Spouse states that everytime she comes home she is worse than she was previously and he is very hesitant to put pt back in a facility. At this time pt spouse feels like current home health is adequate and he is providing care for her at home. Support provided to pt spouse. Will continue to follow for d/c planning. MARK Lundy
--- NOTE | 2019-11-26 15:41 | NURSING ---
spoke with Peter and the pts name was spelled wrong. the correct spelling of the pts name is Ute and not Nadine which was how her ICU records are labeled. new wrist bands and labels with correct spelling of her name were printed.
--- NOTE | 2019-11-26 15:55 | CT_ITS ---
STUDY: CT BRAIN WITHOUT CONTRAST REASON FOR EXAM: Female, 69 years old. ALTERED MENTAL STATUS, FREQUENT FALLS, WEAKNESS, DEBILITY, CHF, HTN, HLD, PT NOT RESPONSIVE RADIATION DOSAGE (If Supplied By Facility): CTDIvol = ( 44.99 ) mGy, DLP = ( 779.24 ) mGycm TECHNIQUE: Transaxial CT imaging of the brain was performed without administration of intravenous contrast material. Individualized dose optimization techniques were used for this CT. COMPARISON: No relevant priors. FINDINGS: Normal soft tissue structures. There is hyperostosis frontalis internus. Normal size ventricles and extra-axial spaces for the patient''s age. Normal white matter tracts of the cerebral hemispheres. Normal basal ganglia and thalami. Normal brainstem. Normal cerebellum. There is no intracranial hemorrhage. There are no findings of an acute ischemic infarction. There is mucoperiosteal inflammatory disease of the paranasal sinuses consistent with moderate chronic sinusitis. CT/Brain/Head without Contrast IMPRESSION: Normal unenhanced CT scan of the brain. Electronically Signed: Juarez Doherty MD at 16:59 EST Tel , Service support ,
--- NOTE | 2019-11-26 16:19 | PN.RENAL_ITS ---
Patient Problems: Active and Suspected Problems Hyperkalemia (Acute) Dyspnea (Acute) TENZIN (acute kidney injury) (Acute) Subjective: Transferred out of intensive care unit today. Renal function improving. Patient tearful poor historian. Following commands. Scheduled for CT of the head this afternoon - Physical Exam Vitals/I&O's: Vital Signs Temp Pulse Resp BP Pulse Ox 98.6 F 87 18 122/63 H 93 11/26/19 11:00 11/26/19 11:00 11/26/19 11:00 11/26/19 11:00 11/26/19 11:00 Oxygen Flow Rate (L/min) 2 Oxygen Delivery Method Room Air Weight: 92.8 kg Body Mass Index (BMI) 32.7 Intake and Output for Last 24 Hours 11/24/19 11/25/19 11/26/19 23:59 23:59 23:59 Intake Total 3449.43 / 3449.43 1155.62 / 1155.62 Output Total 1450 / 1450 600 / 600 Balance 1998.43 / 1998.43 555.62 / 555.62 General: Alert, - - Awake, tearful Neck: Supple Lungs: Clear to auscultation - Anteriorly Cardiovascular: Regular rate Abdomen: Bowel Sounds Present, Soft, Non Tender, Non-Distended Extremities: No edema Skin: - - Right ankle wound wrapped Musculoskeletal: No Muscle Wasting Psych/Mental Status: Depressed - Tearful Microbiology Past 72 Hours 11/25/19 17:20 Wound - Left Foot Gram Stain - Final 11/25/19 17:20 Wound - Left Foot Wound Culture - Final Coag Negative Staph 11/25/19 12:35 Urine Catheter - Catheter Urine Culture - Preliminary GNR lactose senior credit officer 11/25/19 01:00 Sputum, Expectorated/Coughed Gram Stain - Final 11/25/19 01:00 Sputum, Expectorated/Coughed Respiratory Culture - Preliminary GNR Poss Pseudomonas sp 11/25/19 12:35 Urine Catheter - Catheter Streptococcus pneumoniae Antigen (M - Final 11/25/19 12:35 Urine Catheter - Catheter Legionella Antigen - Final Laboratory Results 11/25/19 17:20: Sodium 147 H, Potassium 4.8, Chloride 121 H, Carbon Dioxide 22.0, Anion Gap 4 L, BUN 52 H, Creatinine 1.48 H, Estim Creat Clear Calc 34.53, Est GFR (MDRD) Af Amer 45 L, Est GFR (MDRD) Non-Af 37 L, BUN/Creatinine Ratio 35.1 H, Glucose 102, Calcium 8.1 L 11/26/19 04:10: WBC 5.6, RBC 1.96 L, Hgb 6.4 L, Hct 20.4 L, MCV 104.1 H, MCH 32.7 H, MCHC 31.4 L, RDW Std Deviation 74.8 H, RDW Coeff of Dominic 20.3 H, Plt Count 240, MPV 10.9, Immature Gran % (Auto) 0.700, Neut % (Auto) 76.2 H, Lymph % (Auto) 10.2 L, [place] % (Auto) 10.2 H, Eos % (Auto) 2.0, Baso % (Auto) 0.7, Absolute Neuts (auto) 4.3, Absolute Lymphs (auto) 0.57 L, Nucleated RBC % 1.6, Differential Comment SCANNED, Hypochromasia 2+, Macrocytosis 3+, Target Cells 2+ 11/26/19 04:10: Sodium 145, Potassium 4.1, Chloride 118 H, Carbon Dioxide 25.0, Anion Gap 2 L, BUN 47 H, Creatinine 1.28 H, Estim Creat Clear Calc 39.93, Est GFR (MDRD) Af Amer 53 L, Est GFR (MDRD) Non-Af 44 L, BUN/Creatinine Ratio 36.7 H , Glucose 92, Calcium 7.6 L, Phosphorus 2.6, Magnesium 1.9 11/26/19 06:25: Blood Type O POSITIVE, Antibody Screen NEGATIVE, Crossmatch See Detail Current Medications Acetaminophen (Tylenol) 650 mg PO Q6H PRN PRN PRN Reason: Pain Score 1-10/Temp > 100.7 F Last Admin: 11/26/19 10:46 Dose: 650 mg Documented by: Albuterol Sulfate (Ventolin Aerosols) 2.5 mg INHALATION Q2H PRN PRN PRN Reason: SOB/Wheezing Atorvastatin Calcium (Lipitor) 20 mg PO QHS [facility] Last Admin: 11/25/19 21:09 Dose: 20 mg Documented by: Calamine/Phenol (Calmoseptine Ointment) 1 applic TOPICAL TID [facility]; Protocol Last Admin: 11/26/19 14:05 Dose: 1 applicatio Documented by: Fluticasone Propionate (Flonase Nasal [place]) 2 spray NASAL DAILY [facility] Last Admin: 11/26/19 08:25 Dose: 2 spray Documented by: Folic Acid (Folic Acid) 1 mg PO DAILYCM [facility] Last Admin: 11/26/19 08:24 Dose: 1 mg Documented by: Glucagon () 1 mg IM .X1 PRN PRN Reason: Hypoglycemia Guaifenesin (Robitussin) 10 ml PO Q4H PRN PRN PRN Reason: COUGH Heparin Sodium (Beef Lung) () 50 units IV UD PRN PRN Reason: PICC Line Heparin Flush Heparin Sodium (Beef Lung) () 50 units IV UD PRN PRN Reason: PICC Line Heparin Flush Heparin Sodium (Porcine) (Heparin Na) 5,000 unit SC Q12 [facility] Last Admin: 11/26/19 08:24 Dose: 5,000 unit Documented by: Hydralazine HCl (Apresoline Iv) 10 mg IV Q4H PRN PRN PRN Reason: SBP > 160 Vancomycin IV Pharmacy to Dose (1 ea/ Sodium Chloride) 500 mls @ 250 mls/hr IV X1 PRN; Protocol PRN Reason: Rx to Dose Sodium Chloride () 250 mls @ 15 mls/hr IV .[id number] PRN PRN Reason: Saline Flush Sodium Chloride () 250 mls @ 15 mls/hr IV .[id number] PRN PRN Reason: Additional IVPB Infusion Piperacillin Sod/Tazobactam (Sod 3.375 gm/ Sodium Chloride) 50 mls @ 12.5 mls/hr IV Q8 [facility] Last Admin: 11/26/19 14:04 Dose: 12.5 mls/hr Documented by: Vancomycin HCl (Vancomycin) 1,000 mg in 200 mls @ 200 mls/hr IV Q24H [facility] Last Infusion: 11/26/19 03:20 Dose: Infused Documented by: Dextrose (Dextrose 10%-Water) 250 mls @ 999 mls/hr IV .Q16M PRN; Protocol PRN Reason: HYPOGLYCEMIA Isosorbide Mononitrate (Imdur) 30 mg PO DAILY [facility] Last Admin: 11/26/19 08:24 Dose: 30 mg Documented by: Lactobacillus Acidophilus (Acidophilus) 1 tablet PO TID [facility] Last Admin: 11/26/19 14:05 Dose: 1 tablet Documented by: Melatonin (Melatonin) 3 mg PO QHS PRN PRN PRN Reason: INSOMNIA Montelukast Sodium (Singulair) 10 mg PO DAILY [facility] Last Admin: 11/26/19 08:24 Dose: 10 mg Documented by: Morphine Sulfate () 2 mg IV Q3H PRN PRN PRN Reason: Pain Score 6-10/10 Last Admin: 11/26/19 02:23 Dose: 2 mg Documented by: Nitroglycerin (Nitrostat) 0.4 mg SUBLINGUAL Q5M PRN PRN Reason: CARDIAC/CHEST PAIN Nutritional Formula ([place] - [place] Flavor) [facility] Last Admin: 11/26/19 08:24 Dose: 1 packet Documented by: Nutritional Formula (Lactose Free) (Glucerna Shake) 120 ml PO 4X/DAY [facility] Last Admin: 11/26/19 14:05 Dose: Not Given Documented by: Nystatin (Mycostatin Powder) 1 applic TOPICAL BID [facility]; Protocol Last Admin: 11/26/19 08:23 Dose: 1 applicatio Documented by: Ondansetron HCl (Zofran) 4 mg IV Q8H PRN PRN PRN Reason: NAUSEA/VOMITING Oxybutynin Chloride (Ditropan) 2.5 mg PO DAILY [facility] Last Admin: 11/26/19 08:24 Dose: 2.5 mg Documented by: Oxycodone HCl (Oxyir) 5 mg PO Q4H PRN PRN PRN Reason: Pain Score 4-5/10 Last Admin: 11/26/19 10:47 Dose: 5 mg Documented by: Pantoprazole Sodium (Protonix) 40 mg PO DAILY [facility] Last Admin: 11/26/19 08:24 Dose: 40 mg Documented by: Paroxetine HCl (Paxil) 40 mg PO DAILY [facility] Last Admin: 11/26/19 08:24 Dose: 40 mg Documented by: Prednisone () [facility] Last Admin: 11/26/19 08:23 Dose: 2.5 mg Documented by: Prochlorperazine Edisylate (Compazine Iv) 5 mg IV Q4H PRN PRN PRN Reason: Breakthrough Nausea/Vomiting Psyllium Hydrophilic Mucilloid (Metamucil) 1 packet PO DAILY PRN PRN PRN Reason: Constipation Senna/Docusate Sodium (Senokot-S, Jane-Colace) 2 tablet PO BID PRN PRN PRN Reason: Constipation Sodium Chloride (0.9% Nacl (Sterile) Posiflush) 10 - 40 ml IV UD PRN PRN Reason: Port access or dressing change Last Admin: 11/25/19 23:11 Dose: 10 ml Documented by: Sodium Chloride () 10 - 40 ml IV UD PRN PRN Reason: Open End PICC Flush Last Admin: 11/26/19 16:10 Dose: 20 ml Documented by: Sodium Chloride (0.9% Nacl (Sterile) Posiflush) 10 - 40 ml IV UD PRN PRN Reason: Port access or dressing change Throat Lozenges (Cepacol Sore Throat Lozenge) 1 lozenge MUCOUS MEM Q2H PRN PRN PRN Reason: SORE THROAT Medical Necessity - Tobacco Use Smoking Status: Never smoker Tobacco Use: Non-smoker Assessment/Plan All Active Problems Hyperkalemia (Acute) Dyspnea (Acute) TENZIN (acute kidney injury) (Acute) 1. TENZIN with unknown baseline creatinine. Creatinine improved from 1.68-1.2 today. Urine output improving with IV hydration. Baseline creatinine unknown. We will continue to monitor. Renal ultrasound shows sound essentially unremarkable except for a simple renal cyst on right kidney. Continue to hold diuretics 2. Acute hyperkalemia resolved. Questionable history of chronic hyperkalemia on [place] in the past. Will try to contact primary business operations manager DR. Encarnacion in [place]. 3. Diet controlled diabetes 4. Confusion CT head today 5. Rt ankle infection podiatry consulted. Currently on IV Vanco. Recommend to check levels prior to re-dosing. Renal dose Zosyn 6. iron def anemia consider iv iron. Received PRBC 1 unit today. 7. NAG metabolic acidosis resolved.
[2019-11-26 17:16] LABS: Hematocrit 24.9 % (37-47)
--- NOTE | 2019-11-26 17:22 | PCA ---
brought pts up from ground floor and told him that we are wearing gowns and gloves in her room and he stated i have taken care of her for 9 months and i am not wearing it. I let karolyn/rn know and nia/patternmaker grader know.
--- NOTE | 2019-11-26 17:52 | PN_ITS ---
Patient Problems: Active and Suspected Problems Hyperkalemia (Acute) Dyspnea (Acute) TENZIN (acute kidney injury) (Acute) Subjective: Patient has had MRI right ankle and left foot. She has been transferred out of the ICU. Was evaluated by Dr. Be from ID service. - Physical Exam Vitals/I&O's: Vital Signs Temp Pulse Resp BP Pulse Ox 97.7 F L 92 18 126/54 H 93 11/26/19 16:16 11/26/19 16:16 11/26/19 16:16 11/26/19 16:16 11/26/19 16:16 Oxygen Flow Rate (L/min) 2 Oxygen Delivery Method Room Air Weight: 92.8 kg Body Mass Index (BMI) 32.7 Intake and Output for Last 24 Hours 11/24/19 11/25/19 11/26/19 23:59 23:59 23:59 Intake Total 3449.43 / 3449.43 1155.62 / 1155.62 Output Total 1450 / 1450 850 / 850 Balance 1998.43 / 1998.43 305.62 / 305.62 Microbiology Past 72 Hours 11/25/19 17:20 Wound - Left Foot Gram Stain - Final 11/25/19 17:20 Wound - Left Foot Wound Culture - Final Coag Negative Staph 11/25/19 12:35 Urine Catheter - Catheter Urine Culture - Preliminary GNR lactose soa integration architect 11/25/19 01:00 Sputum, Expectorated/Coughed Gram Stain - Final 11/25/19 01:00 Sputum, Expectorated/Coughed Respiratory Culture - Prelim inary GNR Poss Pseudomonas sp 11/25/19 12:35 Urine Catheter - Catheter Streptococcus pneumoniae Antigen (M - Final 11/25/19 12:35 Urine Catheter - Catheter Legionella Antigen - Final Laboratory Results 11/25/19 17:20: Sodium 147 H, Potassium 4.8, Chloride 121 H, Carbon Dioxide 22.0, Anion Gap 4 L, BUN 52 H, Creatinine 1.48 H, Estim Creat Clear Calc 34.53, Est GFR (MDRD) Af Amer 45 L, Est GFR (MDRD) Non-Af 37 L, BUN/Creatinine Ratio 35.1 H, Glucose 102, Calcium 8.1 L 11/26/19 04:10: WBC 5.6, RBC 1.96 L, Hgb 6.4 L, Hct 20.4 L, MCV 104.1 H, MCH 32.7 H, MCHC 31.4 L, RDW Std Deviation 74.8 H, RDW Coeff of Dominic 20.3 H, Plt Count 240, MPV 10.9, Immature Gran % (Auto) 0.700, Neut % (Auto) 76.2 H, Lymph % (Auto) 10.2 L, [place] % (Auto) 10.2 H, Eos % (Auto) 2.0, Baso % (Auto) 0.7, Absolute Neuts (auto) 4.3, Absolute Lymphs (auto) 0.57 L, Nucleated RBC % 1.6, Differential Comment SCANNED, Hypochromasia 2+, Macrocytosis 3+, Target Cells 2+ 11/26/19 04:10: Sodium 145, Potassium 4.1, Chloride 118 H, Carbon Dioxide 25.0, Anion Gap 2 L, BUN 47 H, Creatinine 1.28 H, Estim Creat Clear Calc 39.93, Est G FR (MDRD) Af Amer 53 L, Est GFR (MDRD) Non-Af 44 L, BUN/Creatinine Ratio 36.7 H, Glucose 92, Calcium 7.6 L, Phosphorus 2.6, Magnesium 1.9 11/26/19 06:25: Blood Type O POSITIVE, Antibody Screen NEGATIVE, Crossmatch See Detail 11/26/19 16:55: Hgb 8.0 L, Hct 24.9 L Current Medications Acetaminophen (Tylenol) 650 mg PO Q6H PRN PRN PRN Reason: Pain Score 1-10/Temp > 100.7 F Last Admin: 11/26/19 10:46 Dose: 650 mg Documented by: Albuterol Sulfate (Ventolin Aerosols) 2.5 mg INHALATION Q2H PRN PRN PRN Reason: SOB/Wheezing Atorvastatin Calcium (Lipitor) 20 mg PO QHS [facility] Last Admin: 11/25/19 21:09 Dose: 20 mg Documented by: Calamine/Phenol (Calmoseptine Ointment) 1 applic TOPICAL TID [facility]; Protocol Last Admin: 11/26/19 14:05 Dose: 1 applicatio Documented by: Fluticasone Propionate (Flonase Nasal [place]) 2 spray NASAL DAILY [facility] Last Admin: 11/26/19 08:25 Dose: 2 spray Documented by: Folic Acid (Folic Acid) 1 mg PO DAILYCM [facility] Last Admin: 11/26/19 08:24 Dose: 1 mg Documented by: Glucagon () 1 mg IM .X1 PRN PRN Reason: Hypoglycemia Guaifenesin (Robitussin) 10 ml PO Q4H PRN PRN PRN Reason: COUGH Heparin Sodium (Beef Lung) () 50 units IV UD PRN PRN Reason: PICC Line Heparin Flush Heparin Sodium (Beef Lung) () 50 units IV UD PRN PRN Reason: PICC Line Heparin Flush Heparin Sodium (Porcine) (Heparin Na) 5,000 unit SC Q12 [facility] Last Admin: 11/26/19 08:24 Dose: 5,000 unit Documented by: Hydralazine HCl (Apresoline Iv) 10 mg IV Q4H PRN PRN PRN Reason: SBP > 160 Vancomycin IV Pharmacy to Dose (1 ea/ Sodium Chloride) 500 mls @ 250 mls/hr IV X1 PRN; Protocol PRN Reason: Rx to Dose Sodium Chloride () 250 mls @ 15 mls/hr IV .[id number] PRN PRN Reason: Saline Flush Sodium Chloride () 250 mls @ 15 mls/hr IV .[id number] PRN PRN Reason: Additional IVPB Infusion Piperacillin Sod/Tazobactam (Sod 3.375 gm/ Sodium Chloride) 50 mls @ 12.5 mls/hr IV Q8 [facility] Last Admin: 11/26/19 14:04 Dose: 12.5 mls/hr Documented by: Vancomycin HCl (Vancomycin) 1,000 mg in 200 mls @ 200 mls/hr IV Q24H [facility] Last Infusion: 11/26/19 03:20 Dose: Infused Documented by: Dextrose (Dextrose 10%-Water) 250 mls @ 999 mls/hr IV .Q16M PRN; Protocol PRN Reason: HYPOGLYCEMIA Isosorbide Mononitrate (Imdur) 30 mg PO DAILY [facility] Last Admin: 11/26/19 08:24 Dose: 30 mg Documented by: Lactobacillus Acidophilus (Acidophilus) 1 tablet PO TID [facility] Last Admin: 11/26/19 14:05 Dose: 1 tablet Documented by: Melatonin (Melatonin) 3 mg PO QHS PRN PRN PRN Reason: INSOMNIA Montelukast Sodium (Singulair) 10 mg PO DAILY [facility] Last Admin: 11/26/19 08:24 Dose: 10 mg Documented by: Morphine Sulfate () 2 mg IV Q3H PRN PRN PRN Reason: Pain Score 6-10/10 Last Admin: 11/26/19 02:23 Dose: 2 mg Documented by: Nitroglycerin (Nitrostat) 0.4 mg SUBLINGUAL Q5M PRN PRN Reason: CARDIAC/CHEST PAIN Nutritional Formula ([place] - [place] Flavor) [facility] Last Admin: 11/26/19 16:24 Dose: Not Given Documented by: Nutritional Formula (Lactose Free) (Glucerna Shake) 120 ml PO 4X/DAY [facility] Last Admin: 11/26/19 17:40 Dose: Not Given Documented by: Nystatin (Mycostatin Powder) 1 applic TOPICAL BID [facility]; Protocol Last Admin: 11/26/19 08:23 Dose: 1 applicatio Documented by: Ondansetron HCl (Zofran) 4 mg IV Q8H PRN PRN PRN Reason: NAUSEA/VOMITING Oxybutynin Chloride (Ditropan) 2.5 mg PO DAILY [facility] Last Admin: 11/26/19 08:24 Dose: 2.5 mg Documented by: Oxycodone HCl (Oxyir) 5 mg PO Q4H PRN PRN PRN Reason: Pain Score 4-5/10 Last Admin: 11/26/19 10:47 Dose: 5 mg Documented by: Pantoprazole Sodium (Protonix) 40 mg PO DAILY [facility] Last Admin: 11/26/19 08:24 Dose: 40 mg Documented by: Paroxetine HCl (Paxil) 40 mg PO DAILY [facility] Last Admin: 11/26/19 08:24 Dose: 40 mg Documented by: [facility] () [facility] Last Admin: 11/26/19 08:23 Dose: 2.5 mg Documented by: Prochlorperazine Edisylate (Compazine Iv) 5 mg IV Q4H PRN PRN PRN Reason: Breakthrough Nausea/Vomiting Psyllium Hydrophilic Mucilloid (Metamucil) 1 packet PO DAILY PRN PRN PRN Reason: Constipation Senna/Docusate Sodium (Senokot-S, Jane-Colace) 2 tablet PO BID PRN PRN PRN Reason: Constipation Sodium Chloride (0.9% Nacl (Sterile) Posiflush) 10 - 40 ml IV UD PRN PRN Reason: Port access or dressing change Last Admin: 11/25/19 23:11 Dose: 10 ml Documented by: Sodium Chloride () 10 - 40 ml IV UD PRN PRN Reason: Open End PICC Flush Last Admin: 11/26/19 16:53 Dose: 20 ml Documented by: Sodium Chloride (0.9% Nacl (Sterile) Posiflush) 10 - 40 ml IV UD PRN PRN Reason: Port access or dressing change Throat Lozenges (Cepacol Sore Throat Lozenge) 1 lozenge MUCOUS MEM Q2H PRN PRN PRN Reason: SORE THROAT Medical Necessity - Tobacco Use Smoking Status: Never smoker Tobacco Use: Non-smoker Assessment/Plan All Active Problems Hyperkalemia (Acute) Dyspnea (Acute) TENZIN (acute kidney injury) (Acute) Ulceration right lateral ankle down to deep subcutaneous tissue layer Ulceration left dorsal 3rd toe down to bone/joint (PIPJ) Hammer toes Multiple co-morbidities Reviewed diagnostic data. No acute evidence of infection to ankle or foot at this time. Reviewed MRI images and radiology reports - no evidence of right ankle osteomyelitis or left foot osteomyelitis. Reviewed Dr. Be's notes and no need for antibiotics from foot/ankle standpoint at this time. Noninvasive lower extremity arterial studies ordered for further evaluation of arterial flow - however I was informed by sterile processing technologist that this was not able to be completed due to patient being on contact precautions for MRSA - there is no evidence of acute ischemia and will need to re order once contact precautions has been lifted. Wound care right ankle: Aquacel ag w/ overlying dressing - change daily. Wound care left 3rd toe: Aquacel Ag w/ overlying dressing - change daily. Keep ulcerations offloaded at all times. Patient received offloading foam boots today which she is to wear at all times when off feet. Podiatry will continue to follow 1-2 times weekly, patient to follow up at wound center within 1 week after discharge for continued wound care.
[2019-11-26] MEDS: Atorvastatin Calcium 20 MG Tablet PO (21:58)
[2019-11-27] VITALS (7 sets, daily range): BP systolic 129–149; BP diastolic 70–87; PULSE 88–101; RESP 16–20; TEMP 36.7–37.1; O2SAT 93–98
[2019-11-27] MEDS: Vancomycin IV 1,000 MG/200 ML BAG 200 MG IV (01:58)
--- NOTE | 2019-11-27 03:40 | PCM.RX.CS ---
Consult Pharmacy has been consulted to manage selected antiobiotic: Vancomycin Type of Consult: Follow-up Labs: Sodium 145 mmol/L (136-145) 11/26/19 04:10 Potassium 4.1 mmol/L (3.5-5.1) 11/26/19 04:10 Chloride 118 mmol/L (98-107) H 11/26/19 04:10 Carbon Dioxide 25.0 mmol/L (21.0-32.0) 11/26/19 04:10 Anion Gap 2 (5-15) L 11/26/19 04:10 BUN 47 mg/dL (7-18) H 11/26/19 04:10 Creatinine 1.28 mg/dL (0.55-1.02) H 11/26/19 04:10 Est GFR (MDRD) Af Amer 53 mL/min (>60) L 11/26/19 04:10 Est GFR (MDRD) Non-Af 44 mL/min (>60) L 11/26/19 04:10 BUN/Creatinine Ratio 36.7 RATIO (10-20) H 11/26/19 04:10 Glucose 92 mg/dL (74-106) 11/26/19 04:10 Microbiology: Microbiology 11/25/19 17:20 Wound - Left Foot Gram Stain - Final 11/25/19 17:20 Wound - Left Foot Wound Culture - Final Coag Negative Staph 11/25/19 12:35 Urine Catheter - Catheter Urine Culture - Preliminary GNR lactose assistant manager retail 11/25/19 01:00 Sputum, Expectorated/Coughed Gram Stain - Final 11/25/19 01:00 Sputum, Expectorated/Coughed Respiratory Culture - Preliminary GNR Poss Pseudomonas sp 11/25/19 12:35 Urine Catheter - Catheter Streptococcus pneumoniae Antigen (M - Final 11/25/19 12:35 Urine Catheter - Catheter Legionella Antigen - Final Goal Trough: 10-15 mcg/mL Pharmacy Plan for Drug Dosing: Pharmacy Service will continue to monitor and adjust dosing as required. TROUGH NOT DRAWN BY LAB, DOSE GIVEN, REDRAW TROUGH BEFORE NEXT DOSE 11/28 @ 0130 Follow-Up Labs: Trough Vancomycin Labs to be done on [date and time ordered]: 11/28 @ 0130
[2019-11-27] MEDS: Menthol/Lanolin/Calamine/Znox 113 GM Tube 1 APPLIC TOPICAL ×3 (06:19→22:29)
--- NOTE | 2019-11-27 07:03 | MRI_ITS ---
STUDY: MRI BRAIN WITHOUT CONTRAST REASON FOR EXAM: Female, 69 years old. ALTERED MENTAL STATE, confusion, lethargic, disoriented TECHNIQUE: Standardized multiplanar fat and water weighted pulse sequences were obtained. COMPARISON: CT to FINDINGS: Normal size of the ventricles and extra-axial spaces for the patient''s age. Normal white matter tracts of the supratentorial brain. There is no evidence for recent intracranial ischemia or other cause of cytotoxic edema on diffusion weighted imaging (DWI). Normal T2* images of the brain without demonstrated susceptibility artifact. There is no demonstrated hemosiderin stain. Normal bilateral basal ganglia. Normal thalami. There is no extra-axial fluid accumulation. Normal flow voids within the major intracranial circulation suggesting patency by spin echo criteria. Normal sella turcica, pituitary gland, infundibular stalk, optic chiasm and hypothalamus. Normal tectal plate and pineal gland. Normal midbrain, marisa and medulla. Normal cerebellum. Normal basal cisterns. Normal bilateral temporal bones. Normal bilateral internal auditory canals. No demonstrated orbital abnormality, within the constraints of a routine brain study. There is mucoperiosteal inflammatory disease of the paranasal sinuses consistent with moderate chronic sinusitis. Air-fluid level in the left frontal sinus consistent with acute sinusitis. Normal calvarium and skull base. Normal visualized soft tissue structures. Normal visualized upper cervical spine. MRI/Brain without Contrast IMPRESSION: Normal unenhanced MRI of the brain. Acute left frontal sinusitis. Electronically Signed: Juarez Doherty MD at 9:58 EST Tel , Service support ,
[2019-11-27 08:00] LABS: Absolute Lymphocyte Count 0.44 X10^3/uL (0.83-4.51); Absolute Neutrophil Count 4.7 X10^3/uL (2.0-7.7); Basophil# 0.05 X10^3/uL; Basophil% 0.9 % (0-1); Eosinophil# 0.16 X10^3/uL; Eosinophils% 2.7 % (0-5); Hematocrit 25.4 % (37-47); Lymphocyte # 0.44 X10^3/ul (4.0); Lymphocyte % 7.5 % (19-41); Mean Corp Hgb Conc 31.5 g/dL (32-36); Mean Corpuscular Hgb 33.6 pg (27.0-32.0); Mean Corpuscular Volume 106.7 fL (81-99); Mean Platelet Vol. 11.6 fl (6.2-12.0); Monocyte# 0.48 X10^3/uL; Monocyte% 8.2 % (0-10); NRBC Flagged by Analyzer 1.4 % (0-5); Neutrophil # 4.71 X10^3/uL (2.7-7.7); POSITIVE DIFFERENTIAL YES; POSITIVE MORPHOLOGY YES; Platelet Count 217 K/mm3 (150-450); RBC Distribution Width CV 20.9 % (11.6-14.6); RBC Distribution Width SD 79.2 fl (35.1-43.9); Red Blood Count 2.38 M/mm3 (4.2-5.4); White Blood Count 5.9 K/mm3 (4.4-11.0)
[2019-11-27 08:28] LABS: ALB/GLOB Ratio 0.4 RATIO (0.9-2.4); AST(SGOT) 27 U/L (15-37); Alanine Aminotransfer ALT/SGPT 22 U/L (13-56); Albumin, Serum 1.4 g/dL (3.2-5.0); Alkaline Phosphatase 253 U/L (45-117); Anion Gap 6 (5-15); BUN 45 mg/dL (7-18); BUN/Creat Ratio 32.4 RATIO (10-20); Calcium,Total 7.6 mg/dL (8.5-10.1); Chloride 120 mmol/L (98-107); Creatinine, Serum 1.39 mg/dL (0.55-1.02); EST Glomerular Filtration Rate 40 mL/min (>60); Est Glom Filt Rate - Afr Amer 49 mL/min (>60); Estimated Creatinine Clearance 36.77 ml/min; Glucose 87 mg/dL (74-106); Potassium 4.5 mmol/L (3.5-5.1); Protein, Total 5.4 g/dL (6.4-8.2); Sodium Level 148 mmol/L (136-145)
[2019-11-27 09:02] LABS: Differential Indicated SCAN CRITERIA MET
[2019-11-27 09:24] LABS: Target Cells 1+
--- NOTE | 2019-11-27 09:52 | PCM.PN.HOSP ---
Patient Problems: Active and Suspected Problems Hyperkalemia (Acute) Dyspnea (Acute) TENZIN (acute kidney injury) (Acute) Reason for Visit: Shortness of breath, altered mental status, chronic leg wound. Objective: Seen and examined. I talked to the patient's at 6 PM on 11/26/2019 and today in morning Patient cannot tell her name but cannot tell date of , age, time of day and place therefore disoriented to time, place, and situation. As per the neurological status was good 5 days before, prior to admission. She has been in the [facility] 4 times in a usp. She was treated with Bactrim for chronic leg ulcer but this was discontinued secondary to hyperkalemia. She also seen by traffic control technician Dr. Susu DAVE on CKD and hyperkalemia and is on Veltassa CT scan brain without contrast was done yesterday does not show acute change. Vitals/I&O's: Vital Signs Temp Pulse Resp BP Pulse Ox 98.2 F 96 16 149/87 H 97 11/27/19 08:05 11/27/19 08:05 11/27/19 08:05 11/27/19 08:05 11/27/19 08:05 Oxygen Flow Rate (L/min) 2 Oxygen Delivery Method Room Air Weight: 201 lb 8.04 oz Body Mass Index (BMI) 32.7 Intake and Output for Last 24 Hours 11/25/19 11/26/19 11/27/19 23:59 23:59 23:59 Intake Total 3449.43 / 3449.43 1205.62 / 1205.62 250 / 250 Output Total 1450 / 1450 850 / 850 650 / 650 Balance / 355.62 / 355.62 -400 / -400 General: Confused, Disoriented, Lethargic, - - GCS scale 14 HEENT: Atraumatic, PERRLA, EOMI, Normocephalic Oral: No Gingival or Mucosal Lesions/ Ulcerations, Dry Mucosa, - - Thick dry crust on the soft palate. Neck: Supple, No JVD, Negative Carotid Bruits Lungs: No rhonchi, No wheeze, No rales, Diminished - Air entry diminished bilaterally Cardiovascular: Regular rate, Regular Rhythm, Normal S1, Normal S2, No murmurs Abdomen: Bowel Sounds Present, Soft, Non Tender, Non-Distended Extremities: Capillary Refill Less than 3 Seconds, Edema Skin: Ulcer/ Wound - Ulcer on the lateral malleolus of right leg and small left third toe Musculoskeletal: Arthritic Changes, Muscle Wasting, Tenderness - Mild tenderness of right leg. Neurological: Deep Tendon Reflexes 2+/4 and Symmetrical, - - Complete neuro exam unobtainable as patient confused and lethargic. Follows simple commands like opening/closing eyes and head Microbiology Past 72 Hours 11/25/19 01:00 Sputum, Expectorated/Coughed Gram Stain - Final 11/25/19 01:00 Sputum, Expectorated/Coughed Respiratory Culture - Final Pseudomonas aeroginosa Morganella morganii sp morgani 11/25/19 17:20 Wound - Left Foot Gram Stain - Final 11/25/19 17:20 Wound - Left Foot Wound Culture - Final Coag Negative Staph 11/25/19 12:35 Urine Catheter - Catheter Urine Culture - Preliminary GNR lactose supervisor blast furnace auxiliaries 11/25/19 12:35 Urine Catheter - Catheter Streptococcus pneumoniae Antigen (M - Final 11/25/19 12:35 Urine Catheter - Catheter Legionella Antigen - Final Laboratory Results 11/26/19 06:25: Crossmatch See Detail 11/26/19 16:55: Hgb 8.0 L, Hct 24.9 L 11/27/19 06:30: WBC 5.9, RBC 2.38 L, Hgb 8.0 L, Hct 25.4 L, MCV 106.7 H, MCH 33.6 H, MCHC 31.5 L, RDW Std Deviation 79.2 H, RDW Coeff of Dominic 20.9 H, Plt Count 217, MPV 11.6, Immature Gran % (Auto) 0.700, Neut % (Auto) 80.0 H, Lymph % (Auto) 7.5 L, [place] % (Auto) 8.2, Eos % (Auto) 2.7, Baso % (Auto) 0.9, Absolute Neuts (auto) 4.7, Absolute Lymphs (auto) 0.44 L, Nucleated RBC % 1.4, Differential Comment COMMENT, Target Cells 1+ 11/27/19 06:30: Sodium 148 H, Potassium 4.5, Chloride 120 H, Carbon Dioxide 22.0, Anion Gap 6, BUN 45 H, Creatinine 1.39 H, Estim Creat Clear Calc 36.77, Est GFR (MDRD) Af Amer 49 L, Est GFR (MDRD) Non-Af 40 L, BUN/Creatinine Ratio 32.4 H, Glucose 87, Calcium 7.6 L, Total Bilirubin 0.40, AST 27, ALT 22, Alkaline Phosphatase 253 H, Total Protein 5.4 L, Albumin 1.4 L, Globulin 4.0, Albumin/Globulin Ratio 0.4 L Current Medications Acetaminophen (Tylenol) 650 mg PO Q6H PRN PRN PRN Reason: Pain Score 1-10/Temp > 100.7 F Last Admin: 11/26/19 10:46 Dose: 650 mg Documented by: Albuterol Sulfate (Ventolin Aerosols) 2.5 mg INHALATION Q2H PRN PRN PRN Reason: SOB/Wheezing Atorvastatin Calcium (Lipitor) 20 mg PO QHS [facility] Last Admin: 11/26/19 21:58 Dose: 20 mg Documented by: Calamine/Phenol (Calmoseptine Ointment) 1 applic TOPICAL TID [facility]; Protocol Last Admin: 11/27/19 06:19 Dose: 1 applicatio Documented by: Fluticasone Propionate (Flonase Nasal [place]) 2 spray NASAL DAILY [facility] Last Admin: 11/26/19 08:25 Dose: 2 spray Documented by: Folic Acid (Folic Acid) 1 mg PO DAILYCM [facility] Last Admin: 11/26/19 08:24 Dose: 1 mg Documented by: Glucagon () 1 mg IM .X1 PRN PRN Reason: Hypoglycemia Guaifenesin (Robitussin) 10 ml PO Q4H PRN PRN PRN Reason: COUGH Heparin Sodium (Beef Lung) () 50 units IV UD PRN PRN Reason: PICC Line Heparin Flush Heparin Sodium (Beef Lung) () 50 units IV UD PRN PRN Reason: PICC Line Heparin Flush Heparin Sodium (Porcine) (Heparin Na) 5,000 unit SC Q12 [facility] Last Admin: 11/26/19 21:58 Dose: 5,000 unit Documented by: Hydralazine HCl (Apresoline Iv) 10 mg IV Q4H PRN PRN PRN Reason: SBP > 160 Vancomycin IV Pharmacy to Dose (1 ea/ Sodium Chloride) 500 mls @ 250 mls/hr IV X1 PRN; Protocol PRN Reason: Rx to Dose Sodium Chloride () 250 mls @ 15 mls/hr IV .[id number] PRN PRN Reason: Saline Flush Sodium Chloride () 250 mls @ 15 mls/hr IV .[id number] PRN PRN Reason: Additional IVPB Infusion Piperacillin Sod/Tazobactam (Sod 3.375 gm/ Sodium Chloride) 50 mls @ 12.5 mls/hr IV Q8 [facility] Last Admin: 11/27/19 06:19 Dose: 12.5 mls/hr Documented by: Vancomycin HCl (Vancomycin) 1,000 mg in 200 mls @ 200 mls/hr IV Q24H [facility] Last Infusion: 11/27/19 03:47 Dose: Infused Documented by: Dextrose (Dextrose 10%-Water) 250 mls @ 999 mls/hr IV .Q16M PRN; Protocol PRN Reason: HYPOGLYCEMIA Dextrose/Sodium Chloride () 1,000 mls @ 75 mls/hr IV .[id number] [facility] Isosorbide Mononitrate (Imdur) 30 mg PO DAILY [facility] Last Admin: 11/26/19 08:24 Dose: 30 mg Documented by: Lactobacillus Acidophilus (Acidophilus) 1 tablet PO TID [facility] Last Admin: 11/27/19 06:19 Dose: Not Given Documented by: Melatonin (Melatonin) 3 mg PO QHS PRN PRN PRN Reason: INSOMNIA Montelukast Sodium (Singulair) 10 mg PO DAILY [facility] Last Admin: 11/26/19 08:24 Dose: 10 mg Documented by: Morphine Sulfate () 2 mg IV Q3H PRN PRN PRN Reason: Pain Score 6-10/10 Last Admin: 11/26/19 02:23 Dose: 2 mg Documented by: Nitroglycerin (Nitrostat) 0.4 mg SUBLINGUAL Q5M PRN PRN Reason: CARDIAC/CHEST PAIN Nutritional Formula ([place] - [place] Flavor) 1 packet PO BIDCM [facility] Last Admin: 11/26/19 16:24 Dose: Not Given Documented by: Nutritional Formula (Lactose Free) (Glucerna Shake) 120 ml PO 4X/DAY [facility] Last Admin: 11/26/19 21:58 Dose: Not Given Documented by: Nystatin (Mycostatin Powder) 1 applic TOPICAL BID [facility]; Protocol Last Admin: 11/26/19 21:59 Dose: 1 applicatio Documented by: Ondansetron HCl (Zofran) 4 mg IV Q8H PRN PRN PRN Reason: NAUSEA/VOMITING Oxybutynin Chloride (Ditropan) 2.5 mg PO DAILY [facility] Last Admin: 11/26/19 08:24 Dose: 2.5 mg Documented by: Oxycodone HCl (Oxyir) 5 mg PO Q4H PRN PRN PRN Reason: Pain Score 4-5/10 Last Admin: 11/26/19 10:47 Dose: 5 mg Documented by: Pantoprazole Sodium (Protonix) 40 mg PO DAILY [facility] Last Admin: 11/26/19 08:24 Dose: 40 mg Documented by: Paroxetine HCl (Paxil) 40 mg PO DAILY [facility] Last Admin: 11/26/19 08:24 Dose: 40 mg Documented by: [facility] () [facility] Last Admin: 11/26/19 08:23 Dose: 2.5 mg Documented by: Prochlorperazine Edisylate (Compazine Iv) 5 mg IV Q4H PRN PRN PRN Reason: Breakthrough Nausea/Vomiting Psyllium Hydrophilic Mucilloid (Metamucil) 1 packet PO DAILY PRN PRN PRN Reason: Constipation Senna/Docusate Sodium (Senokot-S, Jane-Colace) 2 tablet PO BID PRN PRN PRN Reason: Constipation Sodium Chloride (0.9% Nacl (Sterile) Posiflush) 10 - 40 ml IV UD PRN PRN Reason: Port access or dressing change Last Admin: 11/25/19 23:11 Dose: 10 ml Documented by: Sodium Chloride () 10 - 40 ml IV UD PRN PRN Reason: Open End PICC Flush Last Admin: 11/26/19 16:53 Dose: 20 ml Documented by: Sodium Chloride (0.9% Nacl (Sterile) Posiflush) 10 - 40 ml IV UD PRN PRN Reason: Port access or dressing change Throat Lozenges (Cepacol Sore Throat Lozenge) 1 lozenge MUCOUS MEM Q2H PRN PRN PRN Reason: SORE THROAT STROKE Vital Signs/Narrative: Vital Signs Temp Pulse Resp BP Pulse Ox 11/27/19 08:05 98.2 F 96 16 149/87 H 97 Medical Necessity - Tobacco Use Smoking Status: Never smoker Tobacco Use: Non-smoker Assessment/Plan All Active Problems Hyperkalemia (Acute) Dyspnea (Acute) TENZIN (acute kidney injury) (Acute) The patient is a 69 y/o F history of HTN, HLD, CHF Unclear type, R Ankle MRSA Ulcer on lateral malleolar, Chronic anemia, obesity was admitted with dyspnea, falls, generalized weakness and debility with recent right MRSA infection on Bactrim therapy. She was found to have hyperkalemia and acute kidney injury. Probably she had recent treatment for acute kidney injury. Telemetry shows low amplitude QRS waves. 1. Acute Hyperkalemia: Patient had cocktail for acute hyperkalemia. Patient also had Kayexalate. Nephrology consult appreciated. Not much change in potassium, 6.8, 6.6. Patient not on hemodialysis. On bicarb drip. 11/26: Bicarb drip discontinued as per traffic control technician, it seems patient has followed Dr. Cristobal in [facility]. Patient has history of chronic hyperkalemia on Veltassa in the past. 2. Possible TENZIN with unknown baseline creatinine with normal anion gap metabolic acidosis with possible UTI/cystitis with chronic urinary incontinence: Admission BUN/creatinine 64/1.66, unclear baseline, Last BUN/creatinine 65/1.68. UA, urine culture or Fena are pending. 11/26: BUN/creatinine improving. Sodium 145. K4.1. Bicarb 25. Bicarb drip is discontinued. UA shows 3+ bacteria, 0 WBC, 0 RBC, nitrite positive. Urine sodium 104, creatinine 43. Nalini 2.4% suggestive of ATN/AIN although AIN less likely. Patient is on chronic prednisone at home but not on diuretics. 11/27: Kidney function did not show worsening. Mild fluctuation in BUN/creatinine. 11/27: Sputum cultures growing Pseudomonas, 3+ and MDR Morganella morganii. Wound left foot rare growth, coagulase-negative staph. Preliminary urine culture Klebsiella more than 100,000 colonies, ESBL positive, sensitive to ertapenem, most probably colonization. Urine culture preliminary gram-negative pankaj lactose supervisor blast furnace auxiliaries, more than 100,000 colonies; but UA is negative, WBCs 0, nitrite positive. Discussed with ID and thinks most probably colonization. She has been on and off antibiotic for abou 6 to 9 months in our hospital. We will stop all antibiotic. 3. Dyspnea most likely to CHF exacerbation, exact etiology and type unclear: Chest x-ray independently reviewed. Shows right hemidiaphragm elevation almost to the level of half of left hemidiaphragm. No pleural effusion but cephalization of upper lobes. BNP elevated 604. 11/27: 2D echo ordered 4. Right MRSA ankle, possible venous ulcer, on lateral malleolus: Patient does not give history of duration, severity and course of ulcer. Escalator Attendant on consult. On vancomycin. Monitor Vanco trough level. Bactrim was discontinued. Wound care consult. 11/27: Wound culture shows coagulase-negative staph, preliminary. MRI reviewed. Does not show evidence of osteomyelitis but superficial ulcer, near lateral malleolus of right leg. 6. Macrocytic anemia, most probably inflammatory anemia: Admission hemoglobin 8.4, MCV 109.9. Iron profile suggestive of anemia of chronic disease/chronic kidney disease. Ferritin 1694. Iron saturation 34%. 11/27: H&H is stable at 8.0/25.4. Does not need RBC transfusion. 7. Acute encephalopathy: GCS 14. Patient mostly nonverbal but answers her name. CT chest without contrast no acute change. MRI brain does not show acute change. Teleneurology consult was done and discussed with neurologist. Seems mostly metabolic encephalopathy. No need for EEG. Anxiety and depression: It seems patient is depressed and does not give good response to questions. Continue fluoxetine 8. Hypertension, uncontrolled, labile: Last blood pressure 164/105. It fluctuates between 164/105 to 95/52. Continue home regimen including isosorbide, holding bumetanide given suspected TENZIN, PRN hydralazine. 9. Hyperlipidemia: Continue home statin regimen. 10. DVT Prophylaxis: SCDs, heparin. Total time of the visit including total time spent in counseling or coordination of care, (more than 50% of the total time, spent in obtaining medical information from nurses and other ancillary care providers), coordination of care with different consultants, ID, traffic control technician, neurologist, clinical updates to the , review of labs and imaging is 40 minutes Microbiology Past 72 Hours 11/25/19 01:00 Sputum, Expectorated/Coughed Gram Stain - Final 11/25/19 01:00 Sputum, Expectorated/Coughed Respiratory Culture - Final Pseudomonas aeroginosa Morganella morganii sp morgani 11/25/19 17:20 Wound - Left Foot Gram Stain - Final 11/25/19 17:20 Wound - Left Foot Wound Culture - Final Coag Negative Staph 11/25/19 12:35 Urine Catheter - Catheter Urine Culture - Preliminary GNR lactose supervisor blast furnace auxiliaries 11/25/19 12:35 Urine Catheter - Catheter Streptococcus pneumoniae Antigen (M - Final 11/25/19 12:35 Urine Catheter - Catheter Legionella Antigen - Final Laboratory Results 11/26/19 06:25: Crossmatch See Detail 11/26/19 16:55: Hgb 8.0 L, Hct 24.9 L 11/27/19 06:30: WBC 5.9, RBC 2.38 L, Hgb 8.0 L, Hct 25.4 L, MCV 106.7 H, MCH 33.6 H, MCHC 31.5 L, RDW Std Deviation 79.2 H, RDW Coeff of Dominic 20.9 H, Plt Count 217, MPV 11.6, Immature Gran % (Auto) 0.700, Neut % (Auto) 80.0 H, Lymph % (Auto) 7.5 L, [place] % (Auto) 8.2, Eos % (Auto) 2.7, Baso % (Auto) 0.9, Absolute Neuts (auto) 4.7, Absolute Lymphs (auto) 0.44 L, Nucleated RBC % 1.4, Differential Comment COMMENT, Target Cells 1+ 11/27/19 06:30: Sodium 148 H, Potassium 4.5, Chloride 120 H, Carbon Dioxide 22.0, Anion Gap 6, BUN 45 H, Creatinine 1.39 H, Estim Creat Clear Calc 36.77, Est GFR (MDRD) Af Amer 49 L, Est GFR (MDRD) Non-Af 40 L, BUN/Creatinine Ratio 32.4 H, Glucose 87, Calcium 7.6 L, Total Bilirubin 0.40, AST 27, ALT 22, Alkaline Phosphatase 253 H, Total Protein 5.4 L, Albumin 1.4 L, Globulin 4.0, Albumin/Globulin Ratio 0.4 L Clinical Impression(s) from Imaging Studies Chest X-Ray 11/24/19 21:05 IMPRESSION: Elevated right hemidiaphragm. No definite acute or significant abnormality seen. Renal Ultrasound 11/25/19 00:53 IMPRESSION: 2.3 cm x 2.3 cm x 2.2 cm right renal cyst. Ankle X-Ray 11/25/19 10:22 IMPRESSION: Osteopenia of the visualized bony structures. Soft tissue swelling with a soft tissue ulceration overlying the lateral malleolus measuring 8.7 mm x 4 mm. Foot X-Ray 11/25/19 14:17 IMPRESSION: As above Lower Extremity MRI 11/25/19 16:10 IMPRESSION: No MR evidence of osteomyelitis or abscess. Lower Extremity MRI 11/25/19 16:11 IMPRESSION: Cellulitis and ulcer of the lateral soft tissues of the superficial to the lateral malleolus the fibula but no MR evidence of osteomyelitis or abscess. Brain CT 11/26/19 15:55 IMPRESSION: Normal unenhanced CT scan of the brain. Electronically Signed: Juarez Doherty MD at 16:59 EST Tel , Service support , Brain MRI 11/27/19 07:03 IMPRESSION: Normal unenhanced MRI of the brain. Acute left frontal sinusitis. Code Visit Inpatient E&M: 54888 Subs Hosp L3
[2019-11-27] MEDS: Glucerna Shake 120 ML LIQUID PO ×2 (12:36→18:04)
[2019-11-27] MEDS: Paroxetine 20 MG Tablet 40 MG PO (12:37)
[2019-11-27] MEDS: Pantoprazole Sodium 40 MG Tablet PO (12:37)
[2019-11-27] MEDS: predniSONE 5 MG Tablet 2.5 MG PO (12:37)
[2019-11-27] MEDS: Heparin Injection (Vial) 5,000 UNIT/ML VIAL 5000 UNIT SC ×2 (12:37→22:27)
[2019-11-27] MEDS: Montelukast 10 MG Tablet PO (12:37)
[2019-11-27] MEDS: Folic Acid 1 MG Tablet PO (12:37)
[2019-11-27] MEDS: Oxybutynin 5 MG Tablet 2.5 MG PO (12:37)
[2019-11-27] MEDS: Dext 5%-0.45% NS 1,000 ML 75 ML IV (12:38)
[2019-11-27] MEDS: Isosorbide Mononitrate 30 MG Tablet PO (12:55)
[2019-11-27] MEDS: Fluticasone 0.05% 1 SPRAY NASAL.SRY 2 SPRAY NASAL (12:55)
[2019-11-27] MEDS: Nystatin Powder 15gm Bottle 1 APPLIC TOPICAL ×2 (12:56→22:29)
--- NOTE | 2019-11-27 14:27 | CASEMGMT ---
Addendum entered by Maria C Bustos 11/27/19 16:20: CAROLANN received call from [facility] in TCU stating per the initial report pt has about 30 days left for SNF. CAROLANN updated [facility] that per conversations with pt's pt will be at SNF for very short term and then return home. Addendum entered by Maria C Bustos 11/27/19 16:12: CAROLANN received call from [facility] in TCU stating she is able to accept pt on TCU when medically cleared. CAROLANN back in to speak with pt's Peter. SW updated Peter on acceptance to TCU. CAROLANN asked Peter about pt's previous SNF placements. Peter states pt was in [facility] in September and left there at the end of September. Peter states that pt has not been into a SNF since pt was discharged home from [facility] in September. Peter states it has been months since pt has been to a SNF as he doesn't like the care pt gets at SNF. CAROLANN did update Peter that if pt is in copay days under Medicare then pt will be responsible for copay. Peter states understanding. Peter does tend to repeat himself through the conversationa with this worker. CAROLANN placed a call to [facility] in TCU and updated her on above information. Plan: Likely TCU once medically cleared. Original Note: Social Work Note CAROLANN met with pt and pt's Peter. CAROLANN introduced self and role at [facility]. Pt is confused at baseline. CAROLANN spoke with Peter regarding discharge plans. Peter states that if pt is able to stand/pivot then he prefers to take pt home. CAROLANN asked Peter if he would be agreeable to SNF for pt if pt is not able to stand/pivot and Peter states he would consider [facility] or [facility]. Peter gave this worker permission to make referrals to both places in the event SNF is needed. Peter also states that he has been trying to get pt Medicaid for a few months and it hasn't been approved yet. CAROLANN placed a call to [facility] and spoke with Simin. Simin states pt was at [facility] at the end of September and she is not sure if pt has used all of Medicare days or not. Simin states that at this time, she is not able to accept pt. SW placed a call to referral line and provided referral for TCU. CAROLANN waiting for call back. Plan: TBD. Home if pt is able to stand/pivot. If not able to stand/pivot plan is SNF. Maria C Bustos TRAY SETTER, AUTOMOBILE REPAIR SERVICE ESTIMATOR
--- NOTE | 2019-11-27 14:39 | PCM.PN.REN ---
Patient Problems: Active and Suspected Problems Hyperkalemia (Acute) Dyspnea (Acute) TENZIN (acute kidney injury) (Acute) Subjective: more responsive today, aspiration precautions. Sodium, creatinine slightly elevated. will start gentle hydration. Pt spouse at bedside. Denies SOB. - Physical Exam Vitals/I&O's: Vital Signs Temp Pulse Resp BP Pulse Ox 98.2 F 96 18 149/87 H 97 11/27/19 08:05 11/27/19 08:05 11/27/19 10:00 11/27/19 08:05 11/27/19 08:05 Oxygen Flow Rate (L/min) 2 Oxygen Delivery Method Room Air Weight: 91.4 kg Body Mass Index (BMI) 32.7 Intake and Output for Last 24 Hours 11/25/19 11/26/19 11/27/19 23:59 23:59 23:59 Intake Total 3449.43 / 3449.43 1205.62 / 1205.62 250 / 250 Output Total 1450 / 1450 850 / 850 650 / 650 Balance 43 / 355.62 / 355.62 -400 / -400 General: Alert, Oriented x3, Cooperative, No apparent distress, - - drowsy Oral: Dry Mucosa Lungs: Clear to auscultation Cardiovascular: Regular rate, No rub noted Abdomen: Bowel Sounds Present, Soft, Non Tender Extremities: - - mild BUE swelling, third spacing from hypoalbuminemia Musculoskeletal: - - gen weakness, debilitated Psych/Mental Status: Flat Affect, Alert and oriented to time, place, person, mood and affect Microbiology Past 72 Hours 11/25/19 12:35 Urine Catheter - Catheter Urine Culture - Preliminary Klebsiella pneumoniae sp pneum 11/25/19 01:00 Sputum, Expectorated/Coughed Gram Stain - Final 11/25/19 01:00 Sputum, Expectorated/Coughed Respiratory Culture - Final Pseudomonas aeroginosa Morganella morganii sp morgani 11/25/19 17:20 Wound - Left Foot Gram Stain - Final 11/25/19 17:20 Wound - Left Foot Wound Culture - Final Coag Negative Staph 11/25/19 12:35 Urine Catheter - Catheter Streptococcus pneumoniae Antigen (M - Final 11/25/19 12:35 Urine Catheter - Catheter Legionella Antigen - Final Laboratory Results 11/26/19 16:55: Hgb 8.0 L, Hct 24.9 L 02/19/20 06:30: WBC 5.9, RBC 2.38 L, Hgb 8.0 L, Hct 25.4 L, MCV 106.7 H, MCH 33.6 H, MCHC 31.5 L, RDW Std Deviation 79.2 H, RDW Coeff of Dominic 20.9 H, Plt Count 217, MPV 11.6, Immature Gran % (Auto) 0.700, Neut % (Auto) 80.0 H, Lymph % (Auto) 7.5 L, [place] % (Auto) 8.2, Eos % (Auto) 2.7, Baso % (Auto) 0.9, Absolute Neuts (auto) 4.7, Absolute Lymphs (auto) 0.44 L, Nucleated RBC % 1.4, Differential Comment COMMENT, Target Cells 1+ 11/27/19 06:30: Sodium 148 H, Potassium 4.5, Chloride 120 H, Carbon Dioxide 22.0, Anion Gap 6, BUN 45 H, Creatinine 1.39 H, Estim Creat Clear Calc 36.77, Est GFR (MDRD) Af Amer 49 L, Est GFR (MDRD) Non-Af 40 L, BUN/Creatinine Ratio 32.4 H, Glucose 87, Calcium 7.6 L, Total Bilirubin 0.40, AST 27, ALT 22, Alkaline Phosphatase 253 H, Total Protein 5.4 L, Albumin 1.4 L, Globulin 4.0, Albumin/Globulin Ratio 0.4 L Current Medications Acetaminophen (Tylenol) 650 mg PO Q6H PRN PRN PRN Reason: Pain Score 1-10/Temp > 100.7 F Last Admin: 11/26/19 10:46 Dose: 650 mg Documented by: Albuterol Sulfate (Ventolin Aerosols) 2.5 mg INHALATION Q2H PRN PRN PRN Reason: SOB/Wheezing Atorvastatin Calcium (Lipitor) 20 mg PO QHS [facility] Last Admin: 11/26/19 21:58 Dose: 20 mg Documented by: Calamine/Phenol (Calmoseptine Ointment) 1 applic TOPICAL TID [facility]; Protocol Last Admin: 11/27/19 12:35 Dose: 1 applicatio Documented by: Fluticasone Propionate (Flonase Nasal [place]) 2 spray NASAL DAILY [facility] Last Admin: 11/27/19 12:55 Dose: 2 spray Documented by: Folic Acid (Folic Acid) 1 mg PO DAILYCM [facility] Last Admin: 11/27/19 12:37 Dose: 1 mg Documented by: Glucagon () 1 mg IM .X1 PRN PRN Reason: Hypoglycemia Guaifenesin (Robitussin) 10 ml PO Q4H PRN PRN PRN Reason: COUGH Heparin Sodium (Beef Lung) () 50 units IV UD PRN PRN Reason: PICC Line Heparin Flush Heparin Sodium (Beef Lung) () 50 units IV UD PRN PRN Reason: PICC Line Heparin Flush Heparin Sodium (Porcine) (Heparin Na) 5,000 unit SC Q12 [facility] Last Admin: 11/27/19 12:37 Dose: 5,000 unit Documented by: Hydralazine HCl (Apresoline Iv) 10 mg IV Q4H PRN PRN PRN Reason: SBP > 160 Vancomycin IV Pharmacy to Dose (1 ea/ Sodium Chloride) 500 mls @ 250 mls/hr IV X1 PRN; Protocol PRN Reason: Rx to Dose Sodium Chloride () 250 mls @ 15 mls/hr IV .[id number] PRN PRN Reason: Saline Flush Sodium Chloride () 250 mls @ 15 mls/hr IV .[id number] PRN PRN Reason: Additional IVPB Infusion Piperacillin Sod/Tazobactam (Sod 3.375 gm/ Sodium Chloride) 50 mls @ 12.5 mls/hr IV Q8 [facility] Last Admin: 11/27/19 06:19 Dose: 12.5 mls/hr Documented by: Vancomycin HCl (Vancomycin) 1,000 mg in 200 mls @ 200 mls/hr IV Q24H [facility] Last Infusion: 11/27/19 03:47 Dose: Infused Documented by: Dextrose (Dextrose 10%-Water) 250 mls @ 999 mls/hr IV .Q16M PRN; Protocol PRN Reason: HYPOGLYCEMIA Dextrose/Sodium Chloride () 1,000 mls @ 75 mls/hr IV .[id number] [facility] Last Admin: 11/27/19 12:38 Dose: 75 mls/hr Documented by: Isosorbide Mononitrate (Imdur) 30 mg PO DAILY [facility] Last Admin: 11/27/19 12:55 Dose: 30 mg Documented by: Lactobacillus Acidophilus (Acidophilus) 1 tablet PO TID [facility] Last Admin: 11/27/19 12:37 Dose: 1 tablet Documented by: Melatonin (Melatonin) 3 mg PO QHS PRN PRN PRN Reason: INSOMNIA Montelukast Sodium (Singulair) 10 mg PO DAILY [facility] Last Admin: 11/27/19 12:37 Dose: 10 mg Documented by: Morphine Sulfate () 2 mg IV Q3H PRN PRN PRN Reason: Pain Score 6-10/10 Last Admin: 11/26/19 02:23 Dose: 2 mg Documented by: Nitroglycerin (Nitrostat) 0.4 mg SUBLINGUAL Q5M PRN PRN Reason: CARDIAC/CHEST PAIN Nutritional [facility] (Jameson - Early Fl[facility]) [facility] Last Admin: 11/27/19 12:35 Dose: 1 packet Documented by: Nutritional Formula (Lactose Free) (Glucerna Shake) 120 ml PO 4X/DAY [facility] Last Admin: 11/27/19 12:36 Dose: 120 ml Documented by: Nystatin (Mycostatin Powder) 1 applic TOPICAL BID [facility]; Protocol Last Admin: 11/27/19 12:56 Dose: 1 applicatio Documented by: Ondansetron HCl (Zofran) 4 mg IV Q8H PRN PRN PRN Reason: NAUSEA/VOMITING Oxybutynin Chloride (Ditropan) 2.5 mg PO DAILY [facility] Last Admin: 11/27/19 12:37 Dose: 2.5 mg Documented by: Oxycodone HCl (Oxyir) 5 mg PO Q4H PRN PRN PRN Reason: Pain Score 4-5/10 Last Admin: 11/26/19 10:47 Dose: 5 mg Documented by: Pantoprazole Sodium (Protonix) 40 mg PO DAILY [facility] Last Admin: 11/27/19 12:37 Dose: 40 mg Documented by: Paroxetine HCl (Paxil) 40 mg PO DAILY [facility] Last Admin: 11/27/19 12:37 Dose: 40 mg Documented by: Prednisone () [facility] Last Admin: 11/27/19 12:37 Dose: 2.5 mg Documented by: Prochlorperazine Edisylate (Compazine Iv) 5 mg IV Q4H PRN PRN PRN Reason: Breakthrough Nausea/Vomiting Psyllium Hydrophilic Mucilloid (Metamucil) 1 packet PO DAILY PRN PRN PRN Reason: Constipation Senna/Docusate Sodium (Senokot-S, Jane-Colace) 2 tablet PO BID PRN PRN PRN Reason: Constipation Sodium Chloride (0.9% Nacl (Sterile) Posiflush) 10 - 40 ml IV UD PRN PRN Reason: Port access or dressing change Last Admin: 11/25/19 23:11 Dose: 10 ml Documented by: Sodium Chloride () 10 - 40 ml IV UD PRN PRN Reason: Open End PICC Flush Last Admin: 11/26/19 16:53 Dose: 20 ml Documented by: Sodium Chloride (0.9% Nacl (Sterile) Posiflush) 10 - 40 ml IV UD PRN PRN Reason: Port access or dressing change Throat Lozenges (Cepacol Sore Throat Lozenge) 1 lozenge MUCOUS MEM Q2H PRN PRN PRN Reason: SORE THROAT Medical Necessity - Tobacco Use Smoking Status: Never smoker Tobacco Use: Non-smoker Assessment/Plan All Active Problems Hyperkalemia (Acute) Dyspnea (Acute) TENZIN (acute kidney injury) (Acute) 1. TENZIN with unknown baseline creatinine. Creatinine 1.3 today. Start gentle hydration. Continue to hold diuretics. Avoid Bactrim 2. Acute hyperkalemia resolved. 3. Diet controlled diabetes 4. Confusion CT head unremarkable. MRI head pending 5. Rt ankle infection podiatry consulted. Currently on IV Vanco. check levels prior to re-dosing. Renal dose Zosyn 6. iron def anemia Received PRBC yesterday 7. NAG metabolic acidosis resolved. 8. Debilitation
--- NOTE | 2019-11-27 15:06 | ECHOD_ITS ---
Reason For Study: Heart Failure Procedure This was a 2D Doppler, Color Flow transthoracic echocardiogram. Exam performed portable in patient room. Left Ventricle Normal LV size. The estimated ejection fraction is 65 %. No evidence for diastolic dysfunction. No regional wall motion abnormalities noted. Right Ventricle Normal RV size. Normal systolic function. Atria The left atrium is moderately enlarged. Normal right atrium. No doppler evidence for ASD. Mitral Valve There is moderate mitral annular calcification. There is no mitral valve stenosis. Moderate (2+) mitral valve insufficiency. Tricuspid Valve There is no tricuspid stenosis. Trivial tricuspid valve insufficiency. Pulmonary artery systolic pressure is 35 mmHg. Aortic Valve Trisinus/trileaflet aortic valve. Aortic sclerosis, no stenosis. There is no aortic stenosis. No aortic valve insufficiency. Pulmonic Valve There is no pulmonic valvular stenosis. No pulmonic valve insufficiency. Great Vessels Normal aortic root. Pericardium/Pleural No pericardial effusion. MMode/2D Measurements & Calculations LVIDd: 4.8 cm IVSd: 1.3 cm Ao root diam: 3.5 cm LVIDs: 2.4 cm LVPWd: 1.4 cm RVDd: 3.6 cm FS: 48.7 % LAV(MOD-bp): 92.9 ml LA A4 area: 26.6 cm2 RA A4 area: 15.9 cm2 LAV(MOD-bp) Indexed: 46.3 ml/m2 LAV(MOD-sp2): 88.0 ml LAV(MOD-sp4): 80.2 ml Time Measurements MV dec time: 0.20 sec Doppler Measurements & Calculations MV E max thor: 81.1 cm/sec Lat Peak E' Thor: 12.8 cm/sec Med Peak E' Thor: 9.3 cm/sec MV A max thor: 110.0 cm/sec E/E' lat: 6.3 E/E' med: 8.7 MV E/A: 0.74 MV V2 max: 142.5 cm/sec MV P1/2t max thor: 119.4 cm/sec Ao V2 max: 176.6 cm/sec MV max P.1 mmHg MV P1/2t: 63.6 msec Ao max P.5 mmHg MV V2 mean: 80.6 cm/sec MV dec slope: 550.2 cm/sec2 MV mean P.1 mmHg MVA(P1/2t): 3.5 cm2 MV V2 VTI: 34.4 cm LV V1 max: 121.2 cm/sec PA V2 max: 109.8 cm/sec TR max thor: 263.4 cm/sec LV V1 max P.9 mmHg TR max P.7 mmHg Interpretation Summary The estimated ejection fraction is 65 %. No evidence for diastolic dysfunction. The left atrium is moderately enlarged. There is moderate mitral annular calcification. Moderate (2+) mitral valve insufficiency. Aortic sclerosis, no stenosis. Ordering Physician: Gerardo Rios Performed By: [place] RCS
--- NOTE | 2019-11-27 16:23 | PCM.PN.ID ---
Patient Problems: Active and Suspected Problems Hyperkalemia (Acute) Dyspnea (Acute) TENZIN (acute kidney injury) (Acute) Subjective: Feeling a little better, no fever, at bedside. Some chronic cough. - Physical Exam Vitals/I&O's: Vital Signs Temp Pulse Resp BP Pulse Ox 98.2 F 96 18 149/87 H 97 11/27/19 08:05 11/27/19 08:05 11/27/19 10:00 11/27/19 08:05 11/27/19 08:05 Oxygen Flow Rate (L/min) 2 Oxygen Delivery Method Room Air Weight: 91.4 kg Body Mass Index (BMI) 32.7 Intake and Output for Last 24 Hours 11/25/19 11/26/19 11/27/19 23:59 23:59 23:59 Intake Total 3449.43 / 3449.43 1205.62 / 1205.62 300 / 300 Output Total 1450 / 1450 850 / 850 650 / 650 Balance 43 / 355.62 / 355.62 -350 / -350 General: No apparent distress, Lethargic Lungs: Clear to auscultation, Normal air movement Cardiovascular: Regular rate, Regular Rhythm Abdomen: Soft, Non Tender, Non-Distended Skin: No rashes Microbiology Past 72 Hours 11/25/19 12:35 Urine Catheter - Catheter Urine Culture - Preliminary Klebsiella pneumoniae sp pneum 11/25/19 01:00 Sputum, Expectorated/Coughed Gram Stain - Final 11/25/19 01:00 Sputum, Expectorated/Coughed Respiratory Culture - Final Pseudomonas aeroginosa Morganella morganii sp morgani 11/25/19 17:20 Wound - Left Foot Gram Stain - Final 11/25/19 17:20 Wound - Left Foot Wound Culture - Final Coag Negative Staph 11/25/19 12:35 Urine Catheter - Catheter Streptococcus pneumoniae Antigen (M - Final 11/25/19 12:35 Urine Catheter - Catheter Legionella Antigen - Final Laboratory Results 11/26/19 16:55: Hgb 8.0 L, Hct 24.9 L 11/27/19 06:30: WBC 5.9, RBC 2.38 L, Hgb 8.0 L, Hct 25.4 L, MCV 106.7 H, MCH 33.6 H, MCHC 31.5 L, RDW Std Deviation 79.2 H, RDW Coeff of Dominic 20.9 H, Plt Count 217, MPV 11.6, Immature Gran % (Auto) 0.700, Neut % (Auto) 80.0 H, Lymph % (Auto) 7.5 L, [place] % (Auto) 8.2, Eos % (Auto) 2.7, Baso % (Auto) 0.9, Absolute Neuts (auto) 4.7, Absolute Lymphs (auto) 0.44 L, Nucleated RBC % 1.4, Differential Comment COMMENT, Target Cells 1+ 11/27/19 06:30: Sodium 148 H, Potassium 4.5, Chloride 120 H, Carbon Dioxide 22.0, Anion Gap 6, BUN 45 H, Creatinine 1.39 H, Estim Creat Clear Calc 36.77, Est GFR (MDRD) Af Amer 49 L, Est GFR (MDRD) Non-Af 40 L, BUN/Creatinine Ratio 32.4 H, Glucose 87, Calcium 7.6 L, Total Bilirubin 0.40, AST 27, ALT 22, Alkaline Phosphatase 253 H, Total Protein 5.4 L, Albumin 1.4 L, Globulin 4.0, Albumin/Globulin Ratio 0.4 L Current Medications Acetaminophen (Tylenol) 650 mg PO Q6H PRN PRN PRN Reason: Pain Score 1-10/Temp > 100.7 F Last Admin: 11/26/19 10:46 Dose: 650 mg Documented by: Albuterol Sulfate (Ventolin Aerosols) 2.5 mg INHALATION Q2H PRN PRN PRN Reason: SOB/Wheezing Atorvastatin Calcium (Lipitor) 20 mg PO QHS [facility] Last Admin: 11/26/19 21:58 Dose: 20 mg Documented by: Calamine/Phenol (Calmoseptine Ointment) 1 applic TOPICAL TID [facility]; Protocol Last Admin: 11/27/19 12:35 Dose: 1 applicatio Documented by: Fluticasone Propionate (Flonase Nasal [place]) 2 spray NASAL DAILY [facility] Last Admin: 11/27/19 12:55 Dose: 2 spray Documented by: Folic Acid ([facility] Acid) [facility] Last Admin: 11/27/19 12:37 Dose: 1 mg Documented by: Glucagon () 1 mg IM .X1 PRN PRN Reason: Hypoglycemia Guaifenesin (Robitussin) 10 ml PO Q4H PRN PRN PRN Reason: COUGH Heparin Sodium (Beef Lung) () 50 units IV UD PRN PRN Reason: PICC Line Heparin Flush Heparin Sodium (Beef Lung) () 50 units IV UD PRN PRN Reason: PICC Line Heparin Flush Heparin Sodium (Porcine) (Heparin Na) 5,000 unit SC Q12 [facility] Last Admin: 11/27/19 12:37 Dose: 5,000 unit Documented by: Hydralazine HCl (Apresoline Iv) 10 mg IV Q4H PRN PRN PRN Reason: SBP > 160 Sodium Chloride () 250 mls @ 15 mls/hr IV .[id number] PRN PRN Reason: Saline Flush Sodium Chloride () 250 mls @ 15 mls/hr IV .[id number] PRN PRN Reason: Additional IVPB Infusion Dextrose (Dextrose 10%-Water) 250 mls @ 999 mls/hr IV .Q16M PRN; Protocol PRN Reason: HYPOGLYCEMIA Dextrose/Sodium Chloride () 1,000 mls @ 75 mls/hr IV .[id number] [facility] Last Admin: 11/27/19 12:38 Dose: 75 mls/hr Documented by: Isosorbide Mononitrate (Imdur) 30 mg PO DAILY [facility] Last Admin: 11/27/19 12:55 Dose: 30 mg Documented by: Lactobacillus Acidophilus (Acidophilus) 1 tablet PO TID [facility] Last Admin: 11/27/19 12:37 Dose: 1 tablet Documented by: Melatonin (Melatonin) 3 mg PO QHS PRN PRN PRN Reason: INSOMNIA Montelukast Sodium (Singulair) 10 mg PO DAILY [facility] Last Admin: 11/27/19 12:37 Dose: 10 mg Documented by: Morphine Sulfate () 2 mg IV Q3H PRN PRN PRN Reason: Pain Score 6-10/10 Last Admin: 11/26/19 02:23 Dose: 2 mg Documented by: Nitroglycerin (Nitrostat) 0.4 mg SUBLINGUAL Q5M PRN PRN Reason: CARDIAC/CHEST PAIN Nutritional Formula (Jameson - [place] Flavor) 1 packet PO BIDCM [facility] Last Admin: 11/27/19 12:35 Dose: 1 packet Documented by: Nutritional Formula (Lactose Free) (Glucerna Shake) 120 ml PO 4X/DAY [facility] Last Admin: 11/27/19 14:50 Dose: Not Given Documented by: Nystatin (Mycostatin Powder) 1 applic TOPICAL BID [facility]; Protocol Last Admin: 11/27/19 12:56 Dose: 1 applicatio Documented by: Ondansetron HCl (Zofran) 4 mg IV Q8H PRN PRN PRN Reason: NAUSEA/VOMITING Oxybutynin Chloride (Ditropan) 2.5 mg PO DAILY [facility] Last Admin: 11/27/19 12:37 Dose: 2.5 mg Documented by: Oxycodone HCl (Oxyir) 5 mg PO Q4H PRN PRN PRN Reason: Pain Score 4-5/10 Last Admin: 11/26/19 10:47 Dose: 5 mg Documented by: Pantoprazole Sodium (Protonix) 40 mg PO DAILY [facility] Last Admin: 11/27/19 12:37 Dose: 40 mg Documented by: Paroxetine HCl (Paxil) 40 mg PO DAILY [facility] Last Admin: 11/27/19 12:37 Dose: 40 mg Documented by: Prednisone () [facility] Last Admin: 11/27/19 12:37 Dose: 2.5 mg Documented by: Prochlorperazine Edisylate (Compazine Iv) 5 mg IV Q4H PRN PRN PRN Reason: Breakthrough Nausea/Vomiting Psyllium Hydrophilic Mucilloid (Metamucil) 1 packet PO DAILY PRN PRN PRN Reason: Constipation Senna/Docusate Sodium (Senokot-S, Jane-Colace) 2 tablet PO BID PRN PRN PRN Reason: Constipation Sodium Chloride (0.9% Nacl (Sterile) Posiflush) 10 - 40 ml IV UD PRN PRN Reason: Port access or dressing change Last Admin: 11/25/19 23:11 Dose: 10 ml Documented by: Sodium Chloride () 10 - 40 ml IV UD PRN PRN Reason: Open End PICC Flush Last Admin: 11/26/19 16:53 Dose: 20 ml Documented by: Sodium Chloride (0.9% Nacl (Sterile) Posiflush) 10 - 40 ml IV UD PRN PRN Reason: Port access or dressing change Throat Lozenges (Cepacol Sore Throat Lozenge) 1 lozenge MUCOUS MEM Q2H PRN PRN PRN Reason: SORE THROAT Medical Necessity - Tobacco Use Smoking Status: Never smoker Tobacco Use: Non-smoker Route of nutrition/ use of supplements: [] Nutritional Intake: [] IV Site: [] Aquino Catheter: [] - Assessment/Plan Antibiotics: [] Assessment/Plan: [] Active and Suspected Problems Hyperkalemia (Acute) Dyspnea (Acute) TENZIN (acute kidney injury) (Acute) Chronic R ankle ulcer - MRI neg for osteo in BLE. H/o MRSA. Does not appear to have active infection. Bactrim may have contributed to hyperkalemia on admit, would not restart. (+) sputum cx with MDR Pseudomonas - Normal wbc, no fever here, lungs sound clear, cxr relatively clear. Sputum does have heavy purulence and heavy GNR seen on gram stain. UA normal, but Ucx with MDR klebsiella. Has been on vanc/zosyn, neither of which work on her PsA or Klebs. Overall improving despite her resistant organisms, suspect colonization. Would stop abx and monitor. Will follow, d/w Dr. Rios
[2019-11-27] MEDS: Atorvastatin Calcium 20 MG Tablet PO (22:26)
[2019-11-28] VITALS (7 sets, daily range): BP systolic 139–159; BP diastolic 73–88; PULSE 59–87; RESP 16–18; TEMP 35.8–36.8; O2SAT 94–100
[2019-11-28] MEDS: Dext 5%-0.45% NS 1,000 ML 75 ML IV (04:01)
[2019-11-28 05:10] LABS: Vancomycin, Trough Level 15.4 ug/mL (5.0-15.0)
[2019-11-28 05:11] LABS: Albumin, Serum 1.3 g/dL (3.2-5.0); BUN 31 mg/dL (7-18); BUN/Creat Ratio 29.2 RATIO (10-20); Calcium,Total 7.6 mg/dL (8.5-10.1); Chloride 118 mmol/L (98-107); Creatinine, Serum 1.06 mg/dL (0.55-1.02); EST Glomerular Filtration Rate 55 mL/min (>60); Est Glom Filt Rate - Afr Amer 66 mL/min (>60); Estimated Creatinine Clearance 48.21 ml/min; Glucose 116 mg/dL (74-106); Phosphorus 2.6 mg/dL (2.5-4.9); Potassium 4.4 mmol/L (3.5-5.1); Sodium Level 144 mmol/L (136-145)
[2019-11-28] MEDS: Menthol/Lanolin/Calamine/Znox 113 GM Tube 1 APPLIC TOPICAL ×3 (06:53→21:10)
[2019-11-28] MEDS: Paroxetine 20 MG Tablet 40 MG PO (08:29)
[2019-11-28] MEDS: Pantoprazole Sodium 40 MG Tablet PO (08:29)
[2019-11-28] MEDS: Oxybutynin 5 MG Tablet 2.5 MG PO (08:29)
[2019-11-28] MEDS: Folic Acid 1 MG Tablet PO (08:30)
[2019-11-28] MEDS: predniSONE 5 MG Tablet 2.5 MG PO (08:30)
[2019-11-28] MEDS: Montelukast 10 MG Tablet PO (08:30)
[2019-11-28] MEDS: Isosorbide Mononitrate 30 MG Tablet PO (08:30)
[2019-11-28] MEDS: Nystatin Powder 15gm Bottle 1 APPLIC TOPICAL ×2 (08:30→21:10)
[2019-11-28] MEDS: Fluticasone 0.05% 1 SPRAY NASAL.SRY 2 SPRAY NASAL (08:31)
[2019-11-28] MEDS: Heparin Injection (Vial) 5,000 UNIT/ML VIAL 5000 UNIT SC ×2 (08:33→21:06)
--- NOTE | 2019-11-28 11:45 | TREXTCAR_ITS ---
- Diet 11/25/19 10:21 Diet: Cardiac: Calorie-Controlled Food consistency:: Puree Liquid Consistency:: Regular/Thin Dietary Modifications:: Low Potassium Restriction Is pt able to select menu?: Yes Diet Comments: Cardiac / low sodium, 1:1 feed only when alert-stop if s/s diet intolerance How many daily calories?: 1800 calorie - Routine Orders/Code Status Suppository Type: Dulcolax 10mg Suppository Frequency: Daily PRN Routine Lab Work: CBC, BMP [facility] - Wound(s) Left forearm Wound Type: Skin Tear coccyx Wound Type: incontinence associated dermatitis right lateral ankle Wound Type: Pressure Injury Dressing Change: AntiMicrobial (Aquacel AG, etc) left 3rd toe Wound Type: Pressure Injury Dressing Change: AntiMicrobial (Aquacel AG, etc) left medial knee Wound Type: Pressure Injury Dressing Change: Mepilex under folds Wound Type: yeast/rash - Therapies Weight Bearing: Weight bearing as tolerated Extremity Affected:: Bilateral Lower Physical Therapy: Eval and Treat Occupational Therapy: Eval and Treat Speech Therapy: Eval and Treat - Allergies/Procedures Done in Hospital Allergies/Adverse Reactions: Allergies doxycycline Allergy (Verified 11/24/19 21:02) Rash lisinopril Allergy (Verified 11/24/19 21:02) Rash - Type of Care/Length of Stay Estimated LOS: Convalescent Care Less Than 30 days Type of Care Needed: Skilled Rehab Potential: Good Prognosis: Good - Additional Orders/Day of Discharge Day of Discharge: 11/28/19 - Dietary and Speech Recommendations Dietitian Recommendations/Changes: Continue cardiac, 1800 calorie controlled, low potassium diet as ordered. Will monitor for need to liberalize diet pending PO intake. Continue Jameson BID and Glucerna w/medpass. - Follow Up Care Primary Care Physician: NOT,DEFINED [NON-STAFF] - Please Follow Up With: Ivy Melendez DO When: in 1-2 weeks for CKD stage 3 Please Follow Up With: Ronnie Edwards MD When: in 2 weeks with Martha Rajan Please Follow Up With: Venkatesh Mills DPM When: in 1-2 weeks for leg ulcer Please Follow Up With: Willie Be MD When: for wound colonization as need
--- NOTE | 2019-11-28 12:05 | DS.PCM_ITS ---
Discharge Date and Diagnosis - Problem List Patient Problems: Active and Suspected Problems Hyperkalemia (Acute) Dyspnea (Acute) TENZIN (acute kidney injury) (Acute) Date of Admission: 11/24/19 Date of Discharge: 11/28/19 - Primary Discharge Diagnosis Active and Suspected Problems Hyperkalemia (Acute) Dyspnea (Acute) TENZIN (acute kidney injury) (Acute) - Secondary Discharge Diagnosis Chronic Problems CHF (congestive heart failure) (Chronic) HTN (hypertension) (Chronic) HLD (hyperlipidemia) (Chronic) Anxiety and depression (Chronic) Wound of right ankle (Chronic) Obesity (BMI 30.0-34.9) (Chronic) Hospital Course and Treatment Consultations 11/25/19 00:53 Consult: Onc/Wound/prepress operator Routine Comment: Summary of Care Provided: The patient is a 69 year old F [] Patient Problems: Active and Suspected Problems Hyperkalemia (Acute) Dyspnea (Acute) TENZIN (acute kidney injury) (Acute) - Physical Exam Vitals/I&O's: Vital Signs Temp Pulse Resp BP Pulse Ox 98.2 F 69 16 156/88 H 94 11/28/19 07:47 11/28/19 08:40 11/28/19 08:40 11/28/19 07:47 11/28/19 08:40 Oxygen Flow Rate (L/min) 2 Oxygen Delivery Method Room Air Weight: 202 lb 9.677 oz Body Mass Index (BMI) 32.7 Intake and Output for Last 24 Hours 11/26/19 11/27/19 11/28/19 23:59 23:59 23:59 Intake Total 1205.62 / 1205.62 1200 / 1500 1907.5 / 1907.5 Output Total 850 / 850 1300 / 1550 750 / 750 Balance 355.62 / 355.62 -100 / -50 1157.5 / 1157.5 Microbiology Past 72 Hours 11/25/19 12:35 Urine Catheter - Catheter Urine Culture - Final Klebsiella pneumoniae 11/25/19 01:00 Sputum, Expectorated/Coughed Gram Stain - Final 11/25/19 01:00 Sputum, Expectorated/Coughed Respiratory Culture - Final Pseudomonas aeroginosa Morganella morganii sp morgani 11/25/19 17:20 Wound - Left Foot Gram Stain - Final 11/25/19 17:20 Wound - Left Foot Wound Culture - Final Coag Negative Staph 11/25/19 12:35 Urine Catheter - Catheter Streptococcus pneumoniae Antigen (M - Final 11/25/19 12:35 Urine Catheter - Catheter Legionella Antigen - Final Laboratory Results 11/28/19 04:38: Vancomycin Trough 15.4 H 11/28/19 04:38: Sodium 144, Potassium 4.4, Chloride 118 H, Carbon Dioxide 19.0 L , BUN 31 H, Creatinine 1.06 H, Estim Creat Clear Calc 48.21, Est GFR (MDRD) Af Amer 66, Est GFR (MDRD) Non-Af 55 L, BUN/Creatinine Ratio 29.2 H, Glucose 116 H, Calcium 7.6 L, Phosphorus 2.6, Albumin 1.3 L Current Medications Acetaminophen (Tylenol) 650 mg PO Q6H PRN PRN PRN Reason: Pain Score 1-10/Temp > 100.7 F Last Admin: 11/26/19 10:46 Dose: 650 mg Documented by: Albuterol Sulfate (Ventolin Aerosols) 2.5 mg INHALATION Q2H PRN PRN PRN Reason: SOB/Wheezing Atorvastatin Calcium (Lipitor) 20 mg PO QHS [facility] Last Admin: 11/27/19 22:26 Dose: 20 mg Documented by: Calamine/Phenol (Calmoseptine Ointment) 1 applic TOPICAL TID [facility]; Protocol Last Admin: 11/28/19 06:53 Dose: 1 applicatio Documented by: Fluticasone Propionate (Flonase Nasal [place]) 2 spray NASAL DAILY [facility] Last Admin: 11/28/19 08:31 Dose: 2 spray Documented by: [facility] Last Admin: 11/28/19 08:30 Dose: 1 mg Documented by: Glucagon () 1 mg IM .X1 PRN PRN Reason: Hypoglycemia Guaifenesin (Robitussin) 10 ml PO Q4H PRN PRN PRN Reason: COUGH Heparin Sodium (Beef Lung) () 50 units IV UD PRN PRN Reason: PICC Line Heparin Flush Heparin Sodium (Beef Lung) () 50 units IV UD PRN PRN Reason: PICC Line Heparin Flush Heparin Sodium (Porcine) (Heparin Na) 5,000 unit SC Q12 [facility] Last Admin: 11/28/19 08:33 Dose: 5,000 unit Documented by: Hydralazine HCl (Apresoline Iv) 10 mg IV Q4H PRN PRN PRN Reason: SBP > 160 Sodium Chloride () 250 mls @ 15 mls/hr IV .[id number] PRN PRN Reason: Saline Flush Sodium Chloride () 250 mls @ 15 mls/hr IV .[id number] PRN PRN Reason: Additional IVPB Infusion Dextrose (Dextrose 10%-Water) 250 mls @ 999 mls/hr IV .Q16M PRN; Protocol PRN Reason: HYPOGLYCEMIA Isosorbide Mononitrate (Imdur) 30 mg PO DAILY [facility] Last Admin: 11/28/19 08:30 Dose: 30 mg Documented by: Lactobacillus Acidophilus (Acidophilus) 1 tablet PO TID [facility] Last Admin: 11/28/19 06:53 Dose: 1 tablet Documented by: Melatonin (Melatonin) 3 mg PO QHS PRN PRN PRN Reason: INSOMNIA Montelukast Sodium (Singulair) 10 mg PO DAILY [facility] Last Admin: 11/28/19 08:30 Dose: 10 mg Documented by: Morphine Sulfate () 2 mg IV Q3H PRN PRN PRN Reason: Pain Score 6-10/10 Last Admin: 11/26/19 02:23 Dose: 2 mg Documented by: Nitroglycerin (Nitrostat) 0.4 mg SUBLINGUAL Q5M PRN PRN Reason: CARDIAC/CHEST PAIN Nutritional Formula (Jameson - [place] Flavor) [facility] Last Admin: 11/28/19 08:53 Dose: Not Given Documented by: Nutritional Formula (Lactose Free) (Glucerna Shake) 120 ml PO 4X/DAY [facility] Last Admin: 11/28/19 08:34 Dose: Not Given Documented by: Nystatin (Mycostatin Powder) 1 applic TOPICAL BID [facility]; Protocol Last Admin: 11/28/19 08:30 Dose: 1 applicatio Documented by: Ondansetron HCl (Zofran) 4 mg IV Q8H PRN PRN PRN Reason: NAUSEA/VOMITING Oxybutynin Chloride (Ditropan) 2.5 mg PO DAILY [facility] Last Admin: 11/28/19 08:29 Dose: 2.5 mg Documented by: Oxycodone HCl (Oxyir) 5 mg PO Q4H PRN PRN PRN Reason: Pain Score 4-5/10 Last Admin: 11/26/19 10:47 Dose: 5 mg Documented by: Pantoprazole Sodium (Protonix) 40 mg PO DAILY [facility] Last Admin: 11/28/19 08:29 Dose: 40 mg Documented by: Paroxetine HCl (Paxil) 40 mg PO DAILY [facility] Last Admin: 11/28/19 08:29 Dose: 40 mg Documented by: Prednisone () [facility] Last Admin: 11/28/19 08:30 Dose: 2.5 mg Documented by: Prochlorperazine Edisylate (Compazine Iv) 5 mg IV Q4H PRN PRN PRN Reason: Breakthrough Nausea/Vomiting Psyllium Hydrophilic Mucilloid (Metamucil) 1 packet PO DAILY PRN PRN PRN Reason: Constipation Senna/Docusate Sodium (Senokot-S, Jane-Colace) 2 tablet PO BID PRN PRN PRN Reason: Constipation Sodium Chloride (0.9% Nacl (Sterile) Posiflush) 10 - 40 ml IV UD PRN PRN Reason: Port access or dressing change Last Admin: 11/25/19 23:11 Dose: 10 ml Documented by: Sodium Chloride () 10 - 40 ml IV UD PRN PRN Reason: Open End PICC Flush Last Admin: 11/26/19 16:53 Dose: 20 ml Documented by: Sodium Chloride (0.9% Nacl (Sterile) Posiflush) 10 - 40 ml IV UD PRN PRN Reason: Port access or dressing change Throat Lozenges (Cepacol Sore Throat Lozenge) 1 lozenge MUCOUS MEM Q2H PRN PRN PRN Reason: SORE THROAT Home Medications: Medications to take at Discharge Albuterol Inhaler [Ventolin Hfa] 2 puff INHALATION Q4H PRN PRN 11/24/19 Atorvastatin Calcium [Lipitor] 20 mg PO QHS 11/24/19 Calcium Carbonate/Vitamin D3 [Calcium 600-Vit D3 800 Caplet] 1 ea PO DAILY 11/24/19 Fluticasone 0.05% [Flonase Nasal [place]] 2 spray NASAL DAILY 11/24/19 Folic Acid 1 mg PO DAILY 11/24/19 Isosorbide Mononitrate [Imdur] 30 mg PO DAILY 11/24/19 Lactobacillus Acidophilus [Acidophilus] 1 ea PO TID 11/24/19 Montelukast [Singulair] 10 mg PO DAILY 11/24/19 Multivitamin with Minerals [Multiple Vitamin] 1 ea PO DAILY 11/24/19 Omeprazole 40 mg PO DAILY 11/24/19 Oxybutynin [Ditropan] 2.5 mg PO DAILY 11/24/19 Prednisone 2.5 mg PO DAILY 11/24/19 Acetaminophen [Tylenol Tablet] 650 mg PO Q6H PRN PRN tab 11/28/19 Guaifenesin [Mucinex] 1,200 mg PO BID #14 tab.er.12h 11/28/19 Nutritional Supplement [Jameson - ORANGE FLAVOR] 1 packet PO BIDCM packet 11/28/19 Nystatin Powder [Mycostatin Powder] 1 applic TOPICAL BID bottle 11/28/19 Paroxetine [Paxil] 40 mg PO DAILY tab 11/28/19 Psyllium [Metamucil] 1 packet PO DAILY PRN PRN packet 11/28/19 Senna/Docusate Sodium [Senokot-S] 2 tab PO BID PRN PRN tab 11/28/19 Following Prescrptions Were Given to Patient: Guaifenesin [Mucinex] 1,200 mg PO BID #14 tab.er.12h Transmission Status: Pending to [facility] Primary Care Physician: NOT,DEFINED [NON-STAFF] - Please Follow Up With: Ivy Melendez DO When: in 1-2 weeks for CKD stage 3 Please Follow Up With: Ronnie Edwards MD When: in 2 weeks with Martha Rajan Please Follow Up With: Venkatesh Mills DPM When: in 1-2 weeks for leg ulcer Please Follow Up With: Willie Be MD When: for wound colonization as need Medical Necessity - Tobacco Use Smoking Status: Never smoker Tobacco Use: Non-smoker
--- NOTE | 2019-11-28 13:40 | CASEMGMT ---
Social Work Note CAROLANN received call from [facility] in TCU stating she has no beds available until Monday now. CAROLANN placed a call to pt's Peter and updated him that pt is medically ready for discharge today but TCU has no beds available until Monday now. CAROLANN updated Peter that pt was able to transfer to chair today but per PT/OT it took two people to get pt to the chair. Peter states he is only one person and can't take pt home at this time and thought everything was lined up for pt to go to TCU. CAROLANN apologized to Peter and informed Peter that this worker was informed yesterday that TCU would have a bed available today as well. CAROLANN informed Peter that this worker can ask if physician can keep pt until a bed opens up on TCU but if physician is not willing to do so then he will need to pick a different SNF. Peter states he doesn't want pt going to SNF in the community. CAROLANN placed a text to physician. Physician willing to keep pt until bed opens up on TCU. CAROLANN placed a call to Peter and updated him that physician is keeping pt until a bed opens up on TCU. Peter states understanding. CAROLANN placed a call to [facility] in TCU and left message that pt is staying at [facility] until a bed opens up on TCU. Plan: TCU when bed available Maria C Bustos MSW, REDUCING SALON ATTENDANT
--- NOTE | 2019-11-28 13:46 | PN_ITS ---
Patient Problems: Active and Suspected Problems Hyperkalemia (Acute) Dyspnea (Acute) TENZIN (acute kidney injury) (Acute) Reason for Visit: Multiple problems including altered mental status, acute kidney injury on CKD, leg ulcer Objective: Patient does not have fever or chills since admission. No hypothermia. No tachycardia. She is awake, alert and oriented x3. She answers questions appropriately. She follows simple commands and had good comprehension. Back to her baseline mental status. Vitals/I&O's: Vital Signs Temp Pulse Resp BP Pulse Ox 98.2 F 69 16 156/88 H 94 11/28/19 07:47 11/28/19 08:40 11/28/19 08:40 11/28/19 07:47 11/28/19 08:40 Oxygen Flow Rate (L/min) 2 Oxygen Delivery Method Room Air Weight: 202 lb 9.677 oz Body Mass Index (BMI) 32.7 Intake and Output for Last 24 Hours 11/26/19 11/27/19 11/28/19 23:59 23:59 23:59 Intake Total 1205.62 / 1205.62 1200 / 1500 1907.5 / 1907.5 Output Total 850 / 850 1300 / 1550 750 / 750 Balance 355.62 / 355.62 -100 / -50 1157.5 / 1157.5 General: Alert, Oriented x3, Cooperative HEENT: Atraumatic, PERRLA, EOMI, Normocephalic Neck: Supple, No JVD, Negative Carotid Bruits Lungs: Clear to auscultation, Rales - Coarse Rales, Rhonchi, - - Mild cough. Cardiovascular: Regular rate, Regular Rhythm, Normal S1, Normal S2, No murmurs Abdomen: Bowel Sounds Present, Soft, Non Tender, Non-Distended Extremities: Capillary Refill Less than 3 Seconds, Edema Skin: Ulcer/ Wound - Ulcer on the lateral malleolus of right leg and small left third toe Musculoskeletal: No Tenderness to Palpation of Joints or Extremities, Arthritic Changes, Muscle Wasting Neurological: Cranial nerves II-XII grossly intact, Deep Tendon Reflexes 2+/4 and Symmetrical, Neuro grossly intact, - - Muscle strength is 4+/5, generalized in both upper and lower extremity suggestive of generalized muscle weakness possible poor nutritional status Psych/Mental Status: Normal Affect, Appropriate Microbiology Past 72 Hours 11/25/19 12:35 Urine Catheter - Catheter Urine Culture - Final Klebsiella pneumoniae 11/25/19 01:00 Sputum, Expectorated/Coughed Gram Stain - Final 11/25/19 01:00 Sputum, Expectorated/Coughed Respiratory Culture - Final Pseudomonas aeroginosa Morganella morganii sp morgani 11/25/19 17:20 Wound - Left Foot Gram Stain - Final 11/25/19 17:20 Wound - Left Foot Wound Culture - Final Coag Negative Staph 11/25/19 12:35 Urine Catheter - Catheter Streptococcus pneumoniae Antigen (M - Final 11/25/19 12:35 Urine Catheter - Catheter Legionella Antigen - Final Laboratory Results 11/28/19 04:38: Vancomycin Trough 15.4 H 11/28/19 04:38: Sodium 144, Potassium 4.4, Chloride 118 H, Carbon Dioxide 19.0 L , BUN 31 H, Creatinine 1.06 H, Estim Creat Clear Calc 48.21, Est GFR (MDRD) Af Amer 66, Est GFR (MDRD) Non-Af 55 L, BUN/Creatinine Ratio 29.2 H, Glucose 116 H, Calcium 7.6 L, Phosphorus 2.6, Albumin 1.3 L Current Medications Acetaminophen (Tylenol) 650 mg PO Q6H PRN PRN PRN Reason: Pain Score 1-10/Temp > 100.7 F Last Admin: 11/26/19 10:46 Dose: 650 mg Documented by: Albuterol Sulfate (Ventolin Aerosols) 2.5 mg INHALATION Q2H PRN PRN PRN Reason: SOB/Wheezing Atorvastatin Calcium (Lipitor) 20 mg PO QHS [facility] Last Admin: 11/27/19 22:26 Dose: 20 mg Documented by: Calamine/Phenol (Calmoseptine Ointment) 1 applic TOPICAL TID [facility]; Protocol Last Admin: 11/28/19 06:53 Dose: 1 applicatio Documented by: Fluticasone Propionate (Flonase Nasal [place]) 2 spray NASAL DAILY [facility] Last Admin: 11/28/19 08:31 Dose: 2 spray Documented by: [facility]) [facility] Last Admin: 11/28/19 08:30 Dose: 1 mg Documented by: Glucagon () 1 mg IM .X1 PRN PRN Reason: Hypoglycemia Guaifenesin (Robitussin) 10 ml PO Q4H PRN PRN PRN Reason: COUGH Heparin Sodium (Beef Lung) () 50 units IV UD PRN PRN Reason: PICC Line Heparin Flush Heparin Sodium (Beef Lung) () 50 units IV UD PRN PRN Reason: PICC Line Heparin Flush Heparin Sodium (Porcine) (Heparin Na) 5,000 unit SC Q12 [facility] Last Admin: 11/28/19 08:33 Dose: 5,000 unit Documented by: Hydralazine HCl (Apresoline Iv) 10 mg IV Q4H PRN PRN PRN Reason: SBP > 160 Sodium Chloride () 250 mls @ 15 mls/hr IV .[id number] PRN PRN Reason: Saline Flush Sodium Chloride () 250 mls @ 15 mls/hr IV .[id number] PRN PRN Reason: Additional IVPB Infusion Dextrose (Dextrose 10%-Water) 250 mls @ 999 mls/hr IV .Q16M PRN; Protocol PRN Reason: HYPOGLYCEMIA Isosorbide Mononitrate (Imdur) 30 mg PO DAILY [facility] Last Admin: 11/28/19 08:30 Dose: 30 mg Documented by: Lactobacillus Acidophilus (Acidophilus) 1 tablet PO TID [facility] Last Admin: 11/28/19 06:53 Dose: 1 tablet Documented by: Melatonin (Melatonin) 3 mg PO QHS PRN PRN PRN Reason: INSOMNIA Montelukast Sodium (Singulair) 10 mg PO DAILY [facility] Last Admin: 11/28/19 08:30 Dose: 10 mg Documented by: Morphine Sulfate () 2 mg IV Q3H PRN PRN PRN Reason: Pain Score 6-10/10 Last Admin: 11/26/19 02:23 Dose: 2 mg Documented by: Nitroglycerin (Nitrostat) 0.4 mg SUBLINGUAL Q5M PRN PRN Reason: CARDIAC/CHEST PAIN Nutritional Formula (Jameson - [place] Flavor) 1 packet PO BIDCM [facility] Last Admin: 11/28/19 08:53 Dose: Not Given Documented by: Nutritional Formula (Lactose Free) (Glucerna Shake) 120 ml PO 4X/DAY [facility] Last Admin: 11/28/19 08:34 Dose: Not Given Documented by: Nystatin (Mycostatin Powder) 1 applic TOPICAL BID [facility]; Protocol Last Admin: 11/28/19 08:30 Dose: 1 applicatio Documented by: Ondansetron HCl (Zofran) 4 mg IV Q8H PRN PRN PRN Reason: NAUSEA/VOMITING Oxybutynin Chloride (Ditropan) 2.5 mg PO DAILY [facility] Last Admin: 11/28/19 08:29 Dose: 2.5 mg Documented by: Oxycodone HCl (Oxyir) 5 mg PO Q4H PRN PRN PRN Reason: Pain Score 4-5/10 Last Admin: 11/26/19 10:47 Dose: 5 mg Documented by: Pantoprazole Sodium (Protonix) 40 mg PO DAILY [facility] Last Admin: 11/28/19 08:29 Dose: 40 mg Documented by: Paroxetine HCl (Paxil) 40 mg PO DAILY [facility] Last Admin: 11/28/19 08:29 Dose: 40 mg Documented by: [facility] () [facility] Last Admin: 11/28/19 08:30 Dose: 2.5 mg Documented by: Prochlorperazine Edisylate (Compazine Iv) 5 mg IV Q4H PRN PRN PRN Reason: Breakthrough Nausea/Vomiting Psyllium Hydrophilic Mucilloid (Metamucil) 1 packet PO DAILY PRN PRN PRN Reason: Constipation Senna/Docusate Sodium (Senokot-S, Jane-Colace) 2 tablet PO BID PRN PRN PRN Reason: Constipation Sodium Chloride (0.9% Nacl (Sterile) Posiflush) 10 - 40 ml IV UD PRN PRN Reason: Port access or dressing change Last Admin: 11/25/19 23:11 Dose: 10 ml Documented by: Sodium Chloride () 10 - 40 ml IV UD PRN PRN Reason: Open End PICC Flush Last Admin: 11/26/19 16:53 Dose: 20 ml Documented by: Sodium Chloride (0.9% Nacl (Sterile) Posiflush) 10 - 40 ml IV UD PRN PRN Reason: Port access or dressing change Throat Lozenges (Cepacol Sore Throat Lozenge) 1 lozenge MUCOUS MEM Q2H PRN PRN PRN Reason: SORE THROAT Medical Necessity - Tobacco Use Smoking Status: Never smoker Tobacco Use: Non-smoker Assessment/Plan All Active Problems Hyperkalemia (Acute) Dyspnea (Acute) TENZIN (acute kidney injury) (Acute) The patient is a 69 y/o F history of HTN, HLD, CHF Unclear type, R Ankle MRSA Ulcer on lateral malleolar, Chronic anemia, obesity was admitted with dyspnea, falls, generalized weakness and debility with recent right MRSA infection on Bactrim therapy. She was found to have hyperkalemia and acute kidney injury. Probably she had recent treatment for acute kidney injury. Telemetry shows low amplitude QRS waves. 1. Acute Hyperkalemia: Patient had cocktail for acute hyperkalemia. Patient also had Kayexalate. Nephrology consult appreciated. Not much change in potassium, 6.8, 6.6. Patient not on hemodialysis. On bicarb drip. 11/26: Bicarb drip discontinued as per automatic engraver, it seems patient has followed Dr. Cristobal in [facility]. Patient has history of chronic hyperkalemia on Veltassa in the past. 2. Possible TENZIN with unknown baseline creatinine with normal anion gap metabolic acidosis with possible UTI/cystitis with chronic urinary incontinence: Admission BUN/creatinine 64/1.66, unclear baseline, Last BUN/creatinine 65/1.68. UA, urine culture or Fena are pending. Patient was on bicarb drip and was discontinued 11/27: Sputum cultures growing Pseudomonas, 3+ and MDR Morganella morganii. Wound left foot rare growth, coagulase-negative staph. Preliminary urine culture Klebsiella more than 100,000 colonies, ESBL positive, sensitive to ertapenem, most probably colonization. Urine culture preliminary gram-negative pankaj lactose acoustical tile carpenters supervisor, more than 100,000 colonies; but UA is negative, WBCs 0, nitrite positive. Discussed with ID and thinks most probably colonization. She has been on and off antibiotic for abou 6 to 9 months in our hospital. We will stop all antibiotic. 11/28: As mentioned above antibiotic was discontinued yesterday. Patient did not had any fever or chills. On Mucinex and chest physiotherapy 3. Dyspnea most likely to CHF exacerbation, exact etiology and type unclear: Chest x-ray independently reviewed. Shows right hemidiaphragm elevation almost to the level of half of left hemidiaphragm. No pleural effusion but cephalization of upper lobes. BNP elevated 604. 11/27: 2D echo ordered 11/28 echo shows complete but is not reported yet. 4. Right MRSA ankle, possible venous ulcer, on lateral malleolus: Patient does not give history of duration, severity and course of ulcer. Wastewater Treatment Operator on consult. On vancomycin. Monitor Vanco trough level. Bactrim was discontinued. Wound care consult. 11/27: Wound culture shows coagulase-negative staph, preliminary. MRI reviewed. Does not show evidence of osteomyelitis but superficial ulcer, near lateral malleolus of right leg. 6. Macrocytic anemia, most probably inflammatory anemia: Admission hemoglobin 8.4, MCV 109.9. Iron profile suggestive of anemia of chronic disease/chronic kidney disease. Ferritin 1694. Iron saturation 34%. 11/27: H&H is stable at 8.0/25.4. Does not need RBC transfusion. 7. Acute encephalopathy: GCS 14. Patient mostly nonverbal but answers her name. CT chest without contrast no acute change. MRI brain does not show acute change. Teleneurology consult was done and discussed with neurologist. Seems mostly metabolic encephalopathy. No need for EEG. Anxiety and depression: It seems patient is depressed and does not give good response to questions. Continue fluoxetine 8. Hypertension, uncontrolled, labile: Last blood pressure 164/105. It fluctuates between 164/105 to 95/52. Continue home regimen including isosorbide, holding bumetanide given suspected TENZIN, PRN hydralazine. 9. Hyperlipidemia: Continue home statin regimen. 10. DVT Prophylaxis: SCDs, heparin. Discharge meds reconciliation done. Patient was supposed to go to TCU but currently bed is not available. Discharge once bed is available. Total time of the visit including total time spent in counseling or coordination of care, (more than 50% of the total time, spent in obtaining medical information from nurses and other ancillary care providers), coordination of care with different consultants, ID, automatic engraver, neurologist, clinical updates to the , review of labs and imaging is 30 minutes Microbiology Past 72 Hours 11/25/19 01:00 Sputum, Expectorated/Coughed Gram Stain - Final 11/25/19 01:00 Sputum, Expectorated/Coughed Respiratory Culture - Final Pseudomonas aeroginosa Morganella morganii sp morgani 11/25/19 17:20 Wound - Left Foot Gram Stain - Final 11/25/19 17:20 Wound - Left Foot Wound Culture - Final Coag Negative Staph 11/25/19 12:35 Urine Catheter - Catheter Urine Culture - Preliminary GNR lactose acoustical tile carpenters supervisor 11/25/19 12:35 Urine Catheter - Catheter Streptococcus pneumoniae Antigen (M - Final 11/25/19 12:35 Urine Catheter - Catheter Legionella Antigen - Final Laboratory Results 11/26/19 06:25: Crossmatch See Detail 11/26/19 16:55: Hgb 8.0 L, Hct 24.9 L 11/27/19 06:30: WBC 5.9, RBC 2.38 L, Hgb 8.0 L, Hct 25.4 L, MCV 106.7 H, MCH 33.6 H, MCHC 31.5 L, RDW Std Deviation 79.2 H, RDW Coeff of Dominic 20.9 H, Plt Count 217, MPV 11.6, Immature Gran % (Auto) 0.700, Neut % (Auto) 80.0 H, Lymph % (Auto) 7.5 L, [place] % (Auto) 8.2, Eos % (Auto) 2.7, Baso % (Auto) 0.9, Absolute Neuts (auto) 4.7, Absolute Lymphs (auto) 0.44 L, Nucleated RBC % 1.4, Differential Comment COMMENT, Target Cells 1+ 11/27/19 06:30: Sodium 148 H, Potassium 4.5, Chloride 120 H, Carbon Dioxide 22.0, Anion Gap 6, BUN 45 H, Creatinine 1.39 H, Estim Creat Clear Calc 36.77, Est GFR (MDRD) Af Amer 49 L, Est GFR (MDRD) Non-Af 40 L, BUN/Creatinine Ratio 32.4 H, Glucose 87, Calcium 7.6 L, Total Bilirubin 0.40, AST 27, ALT 22, Alkaline Phosphatase 253 H, Total Protein 5.4 L, Albumin 1.4 L, Globulin 4.0, Albumin/Globulin Ratio 0.4 L Clinical Impression(s) from Imaging Studies Chest X-Ray 11/24/19 21:05 IMPRESSION: Elevated right hemidiaphragm. No definite acute or significant abnormality seen. Renal Ultrasound 11/25/19 00:53 IMPRESSION: 2.3 cm x 2.3 cm x 2.2 cm right renal cyst. Ankle X-Ray 11/25/19 10:22 IMPRESSION: Osteopenia of the visualized bony structures. Soft tissue swelling with a soft tissue ulceration overlying the lateral malleolus measuring 8.7 mm x 4 mm. Foot X-Ray 11/25/19 14:17 IMPRESSION: As above Lower Extremity MRI 11/25/19 16:10 IMPRESSION: No MR evidence of osteomyelitis or abscess. Lower Extremity MRI 11/25/19 16:11 IMPRESSION: Cellulitis and ulcer of the lateral soft tissues of the superficial to the lateral malleolus the fibula but no MR evidence of osteomyelitis or abscess. Brain CT 11/26/19 15:55 IMPRESSION: Normal unenhanced CT scan of the brain. Electronically Signed: Juarez Doherty MD at 16:59 EST Tel , Service support , Brain MRI 11/27/19 07:03 IMPRESSION: Normal unenhanced MRI of the brain. Acute left frontal sinusitis. Code Visit Inpatient E&M: 15481 Subs Hosp L3
[2019-11-28] MEDS: guaiFENesin 10 ML UDC (200MG/10ML) PO ×3 (14:37→21:05)
--- NOTE | 2019-11-28 14:55 | PCM.PN.ID ---
Patient Problems: Active and Suspected Problems Hyperkalemia (Acute) Dyspnea (Acute) TENZIN (acute kidney injury) (Acute) Subjective: Feeling better, much more awake, no fever, denies SOB, no abd pain - Physical Exam Vitals/I&O's: Vital Signs Temp Pulse Resp BP Pulse Ox 97.8 F 80 16 159/85 H 100 11/28/19 13:47 11/28/19 13:47 11/28/19 13:47 11/28/19 13:47 11/28/19 13:47 Oxygen Flow Rate (L/min) 2 Oxygen Delivery Method Room Air Weight: 91.9 kg Body Mass Index (BMI) 32.7 Intake and Output for Last 24 Hours 11/26/19 11/27/19 11/28/19 23:59 23:59 23:59 Intake Total 1205.62 / 1205.62 1200 / 1500 1907.5 / 1907.5 Output Total 850 / 850 1300 / 1550 1250 / 1250 Balance 355.62 / 355.62 -100 / -50 657.5 / 657.5 General: Alert, Cooperative, No apparent distress Lungs: Clear to auscultation, Normal air movement Cardiovascular: Regular rate, Regular Rhythm Abdomen: Soft, Non Tender, Non-Distended Skin: No rashes - no new rash Microbiology Past 72 Hours 11/25/19 12:35 Urine Catheter - Catheter Urine Culture - Final Klebsiella pneumoniae 11/25/19 01:00 Sputum, Expectorated/Coughed Gram Stain - Final 11/25/19 01:00 Sputum, Expectorated/Coughed Respiratory Culture - Final Pseudomonas aeroginosa Morganella morganii sp morgani 11/25/19 17:20 Wound - Left Foot Gram Stain - Final 11/25/19 17:20 Wound - Left Foot Wound Culture - Final Coag Negative Staph 11/25/19 12:35 Urine Catheter - Catheter Streptococcus pneumoniae Antigen (M - Final 11/25/19 12:35 Urine Catheter - Catheter Legionella Antigen - Final Laboratory Results 11/28/19 04:38: Vancomycin Trough 15.4 H 11/28/19 04:38: Sodium 144, Potassium 4.4, Chloride 118 H, Carbon Dioxide 19.0 L, BUN 31 H, Creatinine 1.06 H, Estim Creat Clear Calc 48.21, Est GFR (MDRD) Af Amer 66, Est GFR (MDRD) Non-Af 55 L, BUN/Creatinine Ratio 29.2 H, Glucose 116 H, Calcium 7.6 L, Phosphorus 2.6, Albumin 1.3 L Current Medications Acetaminophen (Tylenol) 650 mg PO Q6H PRN PRN PRN Reason: Pain Score 1-10/Temp > 100.7 F Last Admin: 11/26/19 10:46 Dose: 650 mg Documented by: Albuterol Sulfate (Ventolin Aerosols) 2.5 mg INHALATION Q2H PRN PRN PRN Reason: SOB/Wheezing Atorvastatin Calcium (Lipitor) 20 mg PO QHS [facility] Last Admin: 11/27/19 22:26 Dose: 20 mg Documented by: Calamine/Phenol (Calmoseptine Ointment) 1 applic TOPICAL TID [facility]; Protocol Last Admin: 11/28/19 14:37 Dose: 1 applicatio Documented by: Fluticasone Propionate (Flonase Nasal [place]) 2 spray NASAL DAILY [facility] Last Admin: 11/28/19 08:31 Dose: 2 spray Documented by: Folic Acid (Folic Acid) 1 mg PO DAILYCM [facility] Last Admin: 11/28/19 08:30 Dose: 1 mg Documented by: Glucagon () 1 mg IM .X1 PRN PRN Reason: Hypoglycemia Guaifenesin (Robitussin) 10 ml PO Q4H [facility] Last Admin: 11/28/19 14:37 Dose: 10 ml Documented by: Heparin Sodium (Beef Lung) () 50 units IV UD PRN PRN Reason: PICC Line Heparin Flush Heparin Sodium (Beef Lung) () 50 units IV UD PRN PRN Reason: PICC Line Heparin Flush Heparin Sodium (Porcine) (Heparin Na) 5,000 unit SC Q12 [facility] Last Admin: 11/28/19 08:33 Dose: 5,000 unit Documented by: Hydralazine HCl (Apresoline Iv) 10 mg IV Q4H PRN PRN PRN Reason: SBP > 160 Sodium Chloride () 250 mls @ 15 mls/hr IV .[id number] PRN PRN Reason: Saline Flush Sodium Chloride () 250 mls @ 15 mls/hr IV .[id number] PRN PRN Reason: Additional IVPB Infusion Dextrose (Dextrose 10%-Water) 250 mls @ 999 mls/hr IV .Q16M PRN; Protocol PRN Reason: HYPOGLYCEMIA Isosorbide Mononitrate (Imdur) 30 mg PO DAILY [facility] Last Admin: 11/28/19 08:30 Dose: 30 mg Documented by: Lactobacillus Acidophilus (Acidophilus) 1 tablet PO TID [facility] Last Admin: 11/28/19 14:37 Dose: 1 tablet Documented by: Melatonin (Melatonin) 3 mg PO QHS PRN PRN PRN Reason: INSOMNIA Montelukast Sodium (Singulair) 10 mg PO DAILY [facility] Last Admin: 11/28/19 08:30 Dose: 10 mg Documented by: Morphine Sulfate () 2 mg IV Q3H PRN PRN PRN Reason: Pain Score 6-10/10 Last Admin: 11/26/19 02:23 Dose: 2 mg Documented by: Nitroglycerin (Nitrostat) 0.4 mg SUBLINGUAL Q5M PRN PRN Reason: CARDIAC/CHEST PAIN Nutritional Formula ([place] - [place] [facility]) [facility] Last Admin: 11/28/19 08:53 Dose: Not Given Documented by: Nutritional Formula (Lactose Free) (Glucerna Shake) 120 ml PO 4X/DAY [facility] Last Admin: 11/28/19 14:22 Dose: Not Given Documented by: Nystatin (Mycostatin Powder) 1 applic TOPICAL BID [facility]; Protocol Last Admin: 11/28/19 08:30 Dose: 1 applicatio Documented by: Ondansetron HCl (Zofran) 4 mg IV Q8H PRN PRN PRN Reason: NAUSEA/VOMITING Oxybutynin Chloride (Ditropan) 2.5 mg PO DAILY [facility] Last Admin: 11/28/19 08:29 Dose: 2.5 mg Documented by: Oxycodone HCl (Oxyir) 5 mg PO Q4H PRN PRN PRN Reason: Pain Score 4-5/10 Last Admin: 11/26/19 10:47 Dose: 5 mg Documented by: Pantoprazole Sodium (Protonix) 40 mg PO DAILY [facility] Last Admin: 11/28/19 08:29 Dose: 40 mg Documented by: Paroxetine HCl (Paxil) 40 mg PO DAILY [facility] Last Admin: 11/28/19 08:29 Dose: 40 mg Documented by: [facility] () [facility] Last Admin: 11/28/19 08:30 Dose: 2.5 mg Documented by: Prochlorperazine Edisylate (Compazine Iv) 5 mg IV Q4H PRN PRN PRN Reason: Breakthrough Nausea/Vomiting Psyllium Hydrophilic Mucilloid (Metamucil) 1 packet PO DAILY PRN PRN PRN Reason: Constipation Senna/Docusate Sodium (Senokot-S, Jane-Colace) 2 tablet PO BID PRN PRN PRN Reason: Constipation Sodium Chloride (0.9% Nacl (Sterile) Posiflush) 10 - 40 ml IV UD PRN PRN Reason: Port access or dressing change Last Admin: 11/25/19 23:11 Dose: 10 ml Documented by: Sodium Chloride () 10 - 40 ml IV UD PRN PRN Reason: Open End PICC Flush Last Admin: 11/26/19 16:53 Dose: 20 ml Documented by: Sodium Chloride (0.9% Nacl (Sterile) Posiflush) 10 - 40 ml IV UD PRN PRN Reason: Port access or dressing change Throat Lozenges (Cepacol Sore Throat Lozenge) 1 lozenge MUCOUS MEM Q2H PRN PRN PRN Reason: SORE THROAT Medical Necessity - Tobacco Use Smoking Status: Never smoker Tobacco Use: Non-smoker Route of nutrition/ use of supplements: [] Nutritional Intake: [] IV Site: [] Aquino Catheter: [] - Assessment/Plan Antibiotics: [] Assessment/Plan: [] Active and Suspected Problems Hyperkalemia (Acute) Dyspnea (Acute) TENZIN (acute kidney injury) (Acute) Chronic R ankle ulcer - MRI neg for osteo in BLE. H/o MRSA. Does not appear to have active infection. Bactrim may have contributed to hyperkalemia on admit, would not restart. (+) sputum cx with MDR Pseudomonas - Normal wbc, no fever here, lungs sound clear, cxr relatively clear. Sputum does have heavy purulence and heavy GNR seen on gram stain. UA normal, but Ucx with MDR klebsiella. Had been on vanc/zosyn, neither of which work on her PsA or Klebs. Overall improving despite her resistant organisms, suspect colonization. Stopped abx 11/27. Mental status much improved today. Will follow
--- NOTE | 2019-11-28 15:46 | PN.RENAL_ITS ---
Patient Problems: Active and Suspected Problems Hyperkalemia (Acute) Dyspnea (Acute) TENZIN (acute kidney injury) (Acute) Subjective: Much more awake, responsive, answers to questions appropriately. Eating on her own pur?ed diet with assistance. - Physical Exam Vitals/I&O's: Vital Signs Temp Pulse Resp BP Pulse Ox 97.8 F 80 16 159/85 H 100 11/28/19 13:47 11/28/19 13:47 11/28/19 13:47 11/28/19 13:47 11/28/19 13:47 Oxygen Flow Rate (L/min) 2 Oxygen Delivery Method Room Air Weight: 91.9 kg Body Mass Index (BMI) 32.7 Intake and Output for Last 24 Hours 11/26/19 11/27/19 11/28/19 23:59 23:59 23:59 Intake Total 1205.62 / 1205.62 1200 / 1500 1907.5 / 1907.5 Output Total 850 / 850 1300 / 1550 1250 / 1250 Balance 355.62 / 355.62 -100 / -50 657.5 / 657.5 General: Alert, Oriented x3, Cooperative, No apparent distress Lungs: Clear to auscultation Cardiovascular: Regular rate Extremities: No edema Psych/Mental Status: Normal Affect, Appropriate, Alert and oriented to time, place, person, mood and affect Microbiology Past 72 Hours 11/25/19 12:35 Urine Catheter - Catheter Urine Culture - Final Klebsiella pneumoniae 11/25/19 01:00 Sputum, Expectorated/Coughed Gram Stain - Final 11/25/19 01:00 Sputum, Expectorated/Coughed Respiratory Culture - Final Pseudomonas aeroginosa Morganella morganii sp morgani 11/25/19 17:20 Wound - Left Foot Gram Stain - Final 11/25/19 17:20 Wound - Left Foot Wound Culture - Final Coag Negative Staph 11/25/19 12:35 Urine Catheter - Catheter Streptococcus pneumoniae Antigen (M - Final 11/25/19 12:35 Urine Catheter - Catheter Legionella Antigen - Final Laboratory Results 11/28/19 04:38: Vancomycin Trough 15.4 H 11/28/19 04:38: Sodium 144, Potassium 4.4, Chloride 118 H, Carbon Dioxide 19.0 L , BUN 31 H, Creatinine 1.06 H, Estim Creat Clear Calc 48.21, Est GFR (MDRD) Af Amer 66, Est GFR (MDRD) Non-Af 55 L, BUN/Creatinine Ratio 29.2 H, Glucose 116 H, Calcium 7.6 L, Phosphorus 2.6, Albumin 1.3 L Current Medications Acetaminophen (Tylenol) 650 mg PO Q6H PRN PRN PRN Reason: Pain Score 1-10/Temp > 100.7 F Last Admin: 11/26/19 10:46 Dose: 650 mg Documented by: Albuterol Sulfate (Ventolin Aerosols) 2.5 mg INHALATION Q2H PRN PRN PRN Reason: SOB/Wheezing Atorvastatin Calcium (Lipitor) 20 mg PO QHS [facility] Last Admin: 11/27/19 22:26 Dose: 20 mg Documented by: Calamine/Phenol (Calmoseptine Ointment) 1 applic TOPICAL TID [facility]; Protocol Last Admin: 11/28/19 14:37 Dose: 1 applicatio Documented by: Fluticasone Propionate (Flonase Nasal [place]) 2 spray NASAL DAILY [facility] Last Admin: 11/28/19 08:31 Dose: 2 spray Documented by: Folic Acid (Folic Acid) 1 mg PO DAILYCM [facility] Last Admin: 11/28/19 08:30 Dose: 1 mg Documented by: Glucagon () 1 mg IM .X1 PRN PRN Reason: Hypoglycemia Guaifenesin (Robitussin) 10 ml PO Q4H [facility] Last Admin: 11/28/19 14:37 Dose: 10 ml Documented by: Heparin Sodium (Beef Lung) () 50 units IV UD PRN PRN Reason: PICC Line Heparin Flush Heparin Sodium (Beef Lung) () 50 units IV UD PRN PRN Reason: PICC Line Heparin Flush Heparin Sodium (Porcine) (Heparin Na) 5,000 unit SC Q12 [facility] Last Admin: 11/28/19 08:33 Dose: 5,000 unit Documented by: Hydralazine HCl (Apresoline Iv) 10 mg IV Q4H PRN PRN PRN Reason: SBP > 160 Sodium Chloride () 250 mls @ 15 mls/hr IV .[id number] PRN PRN Reason: Saline Flush Sodium Chloride () 250 mls @ 15 mls/hr IV .[id number] PRN PRN Reason: Additional IVPB Infusion Dextrose (Dextrose 10%-Water) 250 mls @ 999 mls/hr IV .Q16M PRN; Protocol PRN Reason: HYPOGLYCEMIA Isosorbide Mononitrate (Imdur) 30 mg PO DAILY [facility] Last Admin: 11/28/19 08:30 Dose: 30 mg Documented by: Lactobacillus Acidophilus (Acidophilus) 1 tablet PO TID [facility] Last Admin: 11/28/19 14:37 Dose: 1 tablet Documented by: Melatonin (Melatonin) 3 mg PO QHS PRN PRN PRN Reason: INSOMNIA Montelukast Sodium (Singulair) 10 mg PO DAILY [facility] Last Admin: 11/28/19 08:30 Dose: 10 mg Documented by: Morphine Sulfate () 2 mg IV Q3H PRN PRN PRN Reason: Pain Score 6-10/10 Last Admin: 11/26/19 02:23 Dose: 2 mg Documented by: Nitroglycerin (Nitrostat) 0.4 mg SUBLINGUAL Q5M PRN PRN Reason: CARDIAC/CHEST PAIN Nutritional Formula ([place] - [place] Flavor) [facility] Last Admin: 11/28/19 08:53 Dose: Not Given Documented by: Nutritional Formula (Lactose Free) (Glucerna Shake) 120 ml PO 4X/DAY [facility] Last Admin: 11/28/19 14:22 Dose: Not Given Documented by: Nystatin (Mycostatin Powder) 1 applic TOPICAL BID [facility]; Protocol Last Admin: 11/28/19 08:30 Dose: 1 applicatio Documented by: Ondansetron HCl (Zofran) 4 mg IV Q8H PRN PRN PRN Reason: NAUSEA/VOMITING Oxybutynin Chloride (Ditropan) 2.5 mg PO DAILY [facility] Last Admin: 11/28/19 08:29 Dose: 2.5 mg Documented by: Oxycodone HCl (Oxyir) 5 mg PO Q4H PRN PRN PRN Reason: Pain Score 4-5/10 Last Admin: 11/26/19 10:47 Dose: 5 mg Documented by: Pantoprazole Sodium (Protonix) 40 mg PO DAILY [facility] Last Admin: 11/28/19 08:29 Dose: 40 mg Documented by: Paroxetine HCl (Paxil) 40 mg PO DAILY [facility] Last Admin: 11/28/19 08:29 Dose: 40 mg Documented by: Prednis[facility] () [facility] Last Admin: 11/28/19 08:30 Dose: 2.5 mg Documented by: Prochlorperazine Edisylate (Compazine Iv) 5 mg IV Q4H PRN PRN PRN Reason: Breakthrough Nausea/Vomiting Psyllium Hydrophilic Mucilloid (Metamucil) 1 packet PO DAILY PRN PRN PRN Reason: Constipation Senna/Docusate Sodium (Senokot-S, Jane-Colace) 2 tablet PO BID PRN PRN PRN Reason: Constipation Sodium Chloride (0.9% Nacl (Sterile) Posiflush) 10 - 40 ml IV UD PRN PRN Reason: Port access or dressing change Last Admin: 11/25/19 23:11 Dose: 10 ml Documented by: Sodium Chloride () 10 - 40 ml IV UD PRN PRN Reason: Open End PICC Flush Last Admin: 11/26/19 16:53 Dose: 20 ml Documented by: Sodium Chloride (0.9% Nacl (Sterile) Posiflush) 10 - 40 ml IV UD PRN PRN Reason: Port access or dressing change Throat Lozenges (Cepacol Sore Throat Lozenge) 1 lozenge MUCOUS MEM Q2H PRN PRN PRN Reason: SORE THROAT Medical Necessity - Tobacco Use Smoking Status: Never smoker Tobacco Use: Non-smoker Assessment/Plan All Active Problems Hyperkalemia (Acute) Dyspnea (Acute) TENZIN (acute kidney injury) (Acute) 1. TENZIN due to diuretic therapy, Celebrex, Bactrim. Creatinine improved to 1.0 today. Okay to stop gentle hydration. Patient tolerating pur?ed diet well. 2. Acute hyperkalemia resolved. 3. Diet controlled diabetes 4. Confusion CT head unremarkable. 5. Rt ankle infection ID following 6. iron def anemia PRBC given 7. NAG metabolic acidosis resolved. 8. Debilitation transfer to [facility] for rehab 9. Severe protein calorie malnutrition. Recommend protein supplements, protein powder in her pur?ed diet.
[2019-11-28] MEDS: Atorvastatin Calcium 20 MG Tablet PO (21:02)
[2019-11-29 02:07] VITALS: BP 148/76; PULSE 57; RESP 18; TEMP 35.8
[2019-11-29] MEDS: guaiFENesin 10 ML UDC (200MG/10ML) PO ×6 (02:10→22:42)
[2019-11-29] MEDS: Menthol/Lanolin/Calamine/Znox 113 GM Tube 1 APPLIC TOPICAL ×3 (05:50→22:42)
[2019-11-29 05:57] VITALS: TEMP 36.2
[2019-11-29 06:40] VITALS: TEMP 36.3
[2019-11-29] MEDS: Folic Acid 1 MG Tablet PO (08:43)
[2019-11-29] MEDS: predniSONE 5 MG Tablet 2.5 MG PO (08:43)
[2019-11-29 08:55] VITALS: BP 136/82; PULSE 87; RESP 18; TEMP 35.9; O2SAT 95
--- NOTE | 2019-11-29 09:01 | CASEMGMT ---
Addendum entered by Maria C Bustos 11/29/19 09:47: CAROLANN received call from [facility] in TCU confirming she is able to accept pt tomorrow (Monday). Original Note: Social Work Note Pt can discharge to TCU Monday. CAROLANN placed a call to [facility] in TCU and left message confirming pt can discharge to TCU Monday. CAROLANN placed green sheet on chart. Physician updated. Plan: TCU Monday Maria C Bustos MSW, [employer]
[2019-11-29] MEDS: Montelukast 10 MG Tablet PO (09:04)
[2019-11-29] MEDS: Isosorbide Mononitrate 30 MG Tablet PO (09:04)
[2019-11-29] MEDS: Oxybutynin 5 MG Tablet 2.5 MG PO (09:04)
[2019-11-29] MEDS: Paroxetine 20 MG Tablet 40 MG PO (09:04)
[2019-11-29] MEDS: Pantoprazole Sodium 40 MG Tablet PO (09:04)
[2019-11-29] MEDS: Heparin Injection (Vial) 5,000 UNIT/ML VIAL 5000 UNIT SC ×2 (09:05→22:46)
[2019-11-29] MEDS: Fluticasone 0.05% 1 SPRAY NASAL.SRY 2 SPRAY NASAL (09:06)
[2019-11-29] MEDS: Nystatin Powder 15gm Bottle 1 APPLIC TOPICAL ×2 (09:06→22:50)
--- NOTE | 2019-11-29 10:24 | CASEMGMT ---
ANAND GARCIA NOTE: Call placed to [facility] and spoke to Rasheeda. She was notified that plan is for pt to go to TCU @ discharge. Barrie REILLY RN CM
--- NOTE | 2019-11-29 11:45 | PCM.PN.HOSP ---
Patient Problems: Active and Suspected Problems Hyperkalemia (Acute) Dyspnea (Acute) TENZIN (acute kidney injury) (Acute) Subjective: Patient seen and examined. She was lying comfortably in bed and had no complaints. She denies fever, chills, nausea vomiting or diarrhea. Review of systems otherwise negative. Labs and vitals reviewed. Vitals/I&O's: Vital Signs Temp Pulse Resp BP Pulse Ox 96.6 F L 87 18 136/82 H 95 11/29/19 08:55 11/29/19 08:55 11/29/19 08:55 11/29/19 08:55 11/29/19 08:55 Oxygen Flow Rate (L/min) 2 Oxygen Delivery Method Room Air Weight: 204 lb 9.423 oz Body Mass Index (BMI) 32.7 Intake and Output for Last 24 Hours 11/27/19 11/28/19 11/29/19 23:59 23:59 23:59 Intake Total 1200 / 1500 2521.25 / 2521.25 300 / 300 Output Total 1300 / 1550 1350 / 1350 400 / 400 Balance -100 / -50 1171.25 / 1171.25 -100 / -100 General: Alert, Oriented x3, Cooperative, No apparent distress HEENT: Atraumatic, PERRLA, EOMI, Normocephalic Oral: Moist Mucosa Neck: Supple, No JVD, Negative Carotid Bruits, Negative Hepatojugular Reflux, No Nodes Lungs: Clear to auscultation, Normal air movement, No rhonchi, No wheeze, No rales Cardiovascular: Regular rate, Regular Rhythm, Normal S1, Normal S2, No murmurs Abdomen: Bowel Sounds Present, Soft, Non Tender, Non-Distended, No Hepato-splenomegaly Extremities: No clubbing, No cyanosis, No edema, Capillary Refill Less than 3 Seconds, - - 1+ bipedal pitting edema Skin: No rashes, No breakdown Musculoskeletal: No Tenderness to Palpation of Joints or Extremities Lymphatic: No Cervical, Supraclavicular, or Inguinal Adenopathy Neurological: Cranial nerves II-XII grossly intact, Neuro grossly intact, Motor Exam 5/5 strength throughout Psych/Mental Status: Normal Affect, Appropriate, Alert and oriented to time, place, person, mood and affect Microbiology Past 72 Hours 11/25/19 12:35 Urine Catheter - Catheter Urine Culture - Final Klebsiella pneumoniae 11/25/19 01:00 Sputum, Expectorated/Coughed Gram Stain - Final 11/25/19 01:00 Sputum, Expectorated/Coughed Respiratory Culture - Final Pseudomonas aeroginosa Morganella morganii sp morgani 11/25/19 17:20 Wound - Left Foot Gram Stain - Final 11/25/19 17:20 Wound - Left Foot Wound Culture - Final Coag Negative Staph Diagnostic Data Chest X-Ray 11/24/19 21:05 IMPRESSION: Elevated right hemidiaphragm. No definite acute or significant abnormality seen. Electronically Signed: Edvin Ngo MD at 21:22 EST , Service support , Renal Ultrasound 11/25/19 00:53 IMPRESSION: 2.3 cm x 2.3 cm x 2.2 cm right renal cyst. Electronically Signed: Richar Bird, at 10:30 EST , Service support , Ankle X-Ray 11/25/19 10:22 IMPRESSION: Osteopenia of the visualized bony structures. Soft tissue swelling with a soft tissue ulceration overlying the lateral malleolus measuring 8.7 mm x 4 mm. Electronically Signed: Richar Bird, at 15:33 EST , Service support , Foot X-Ray 11/25/19 14:17 IMPRESSION: As above Electronically Signed: Merrick Camargo DO at 16:18 EST Tel , Service support , Lower Extremity MRI 11/25/19 16:11 IMPRESSION: Cellulitis and ulcer of the lateral soft tissues of the superficial to the lateral malleolus the fibula but no MR evidence of osteomyelitis or abscess. Electronically Signed: Juarez Doherty MD at 8:53 EST Tel , Service support , Brain CT 11/26/19 15:55 IMPRESSION: Normal unenhanced CT scan of the brain. Electronically Signed: Juarez Doherty MD at 16:59 EST Tel , Service support , Brain MRI 11/27/19 07:03 IMPRESSION: Normal unenhanced MRI of the brain. Acute left frontal sinusitis. Electronically Signed: Juarez Doherty MD at 9:58 EST Tel , Service support , Current Medications Acetaminophen (Tylenol) 650 mg PO Q6H PRN PRN PRN Reason: Pain Score 1-10/Temp > 100.7 F Last Admin: 11/26/19 10:46 Dose: 650 mg Documented by: Albuterol Sulfate (Ventolin Aerosols) 2.5 mg INHALATION Q2H PRN PRN PRN Reason: SOB/Wheezing Atorvastatin Calcium (Lipitor) 20 mg PO QHS [facility] Last Admin: 11/28/19 21:02 Dose: 20 mg Documented by: Calamine/Phenol (Calmoseptine Ointment) 1 applic TOPICAL TID [facility]; Protocol Last Admin: 11/29/19 05:50 Dose: 1 applicatio Documented by: Fluticasone Propionate (Flonase Nasal [place]) 2 spray NASAL DAILY [facility] Last Admin: 11/29/19 09:06 Dose: 2 spray Documented by: [facility] Last Admin: 11/29/19 08:43 Dose: 1 mg Documented by: Glucagon () 1 mg IM .X1 PRN PRN Reason: Hypoglycemia Guaifenesin (Robitussin) 10 ml PO Q4H [facility] Last Admin: 11/29/19 09:12 Dose: 10 ml Documented by: Heparin Sodium (Beef Lung) () 50 units IV UD PRN PRN Reason: PICC Line Heparin Flush Heparin Sodium (Beef Lung) () 50 units IV UD PRN PRN Reason: PICC Line Heparin Flush Heparin Sodium (Porcine) (Heparin Na) 5,000 unit SC Q12 [facility] Last Admin: 11/29/19 09:05 Dose: 5,000 unit Documented by: Hydralazine HCl (Apresoline Iv) 10 mg IV Q4H PRN PRN PRN Reason: SBP > 160 Sodium Chloride () 250 mls @ 15 mls/hr IV .[id number] PRN PRN Reason: Saline Flush Sodium Chloride () 250 mls @ 15 mls/hr IV .[id number] PRN PRN Reason: Additional IVPB Infusion Dextrose (Dextrose 10%-Water) 250 mls @ 999 mls/hr IV .Q16M PRN; Protocol PRN Reason: HYPOGLYCEMIA Isosorbide Mononitrate (Imdur) 30 mg PO DAILY [facility] Last Admin: 11/29/19 09:04 Dose: 30 mg Documented by: Lactobacillus Acidophilus (Acidophilus) 1 tablet PO TID [facility] Last Admin: 11/29/19 05:50 Dose: 1 tablet Documented by: Melatonin (Melatonin) 3 mg PO QHS PRN PRN PRN Reason: INSOMNIA Montelukast Sodium (Singulair) 10 mg PO DAILY [facility] Last Admin: 11/29/19 09:04 Dose: 10 mg Documented by: Morphine Sulfate () 2 mg IV Q3H PRN PRN PRN Reason: Pain Score 6-10/10 Last Admin: 11/26/19 02:23 Dose: 2 mg Documented by: Nitroglycerin (Nitrostat) 0.4 mg SUBLINGUAL Q5M PRN PRN Reason: CARDIAC/CHEST PAIN Nutritional Formula (Jameson - [place] Flavor) 1 packet PO BIDCM [facility] Last Admin: 11/29/19 08:43 Dose: 1 packet Documented by: Nystatin (Mycostatin Powder) 1 applic TOPICAL BID [facility]; Protocol Last Admin: 11/29/19 09:06 Dose: 1 applicatio Documented by: Ondansetron HCl (Zofran) 4 mg IV Q8H PRN PRN PRN Reason: NAUSEA/VOMITING Oxybutynin Chloride (Ditropan) 2.5 mg PO DAILY [facility] Last Admin: 11/29/19 09:04 Dose: 2.5 mg Documented by: Oxycodone HCl (Oxyir) 5 mg PO Q4H PRN PRN PRN Reason: Pain Score 4-5/10 Last Admin: 11/26/19 10:47 Dose: 5 mg Documented by: Pantoprazole Sodium (Protonix) 40 mg PO DAILY [facility] Last Admin: 11/29/19 09:04 Dose: 40 mg Documented by: Paroxetine HCl (Paxil) 40 mg PO DAILY [facility] Last Admin: 11/29/19 09:04 Dose: 40 mg Documented by: [facility] () [facility] Last Admin: 11/29/19 08:43 Dose: 2.5 mg Documented by: Prochlorperazine Edisylate (Compazine Iv) 5 mg IV Q4H PRN PRN PRN Reason: Breakthrough Nausea/Vomiting Psyllium Hydrophilic Mucilloid (Metamucil) 1 packet PO DAILY PRN PRN PRN Reason: Constipation Senna/Docusate Sodium (Senokot-S, Jane-Colace) 2 tablet PO BID PRN PRN PRN Reason: Constipation Sodium Chloride (0.9% Nacl (Sterile) Posiflush) 10 - 40 ml IV UD PRN PRN Reason: Port access or dressing change Last Admin: 11/25/19 23:11 Dose: 10 ml Documented by: Sodium Chloride () 10 - 40 ml IV UD PRN PRN Reason: Open End PICC Flush Last Admin: 11/26/19 16:53 Dose: 20 ml Documented by: Sodium Chloride (0.9% Nacl (Sterile) Posiflush) 10 - 40 ml IV UD PRN PRN Reason: Port access or dressing change Throat Lozenges (Cepacol Sore Throat Lozenge) 1 lozenge MUCOUS MEM Q2H PRN PRN PRN Reason: SORE THROAT STROKE Vital Signs/Narrative: Vital Signs Temp Pulse Resp BP Pulse Ox 11/29/19 08:55 96.6 F L 87 18 136/82 H 95 Medical Necessity - Tobacco Use Smoking Status: Never smoker Tobacco Use: Non-smoker Assessment/Plan All Active Problems Hyperkalemia (Acute) Dyspnea (Acute) TENZIN (acute kidney injury) (Acute) 1. Acute hyperkalemia; resolved. Nephrology on board. Bicarb drip stopped per nephrology 2. TENZIN: Creatinine is 1.66 on admission. Down to 1.06. Will monitor. Nephrology on board. 3. acute on chronic CHF exacerbation BNP was 604. D echo showed EF of 65% with no evidence of diastolic dysfunction and no regional wall motion abnormalities noted with RVSP of 35 mmHg. Left atrium moderately enlarged. diuresis on hold o/a of TENZIN 4. Right ankle venous ulcer Ulcers on lateral malleolus. Cultured MRSA. On vancomycin. Podiatry on board. Wound care on board. MRI was negative for osteomyelitis. 5. Positive sputum and urine cultures Sputum culture with Pseudomonas and Morganella morganii. Wound also cultured coagulase-negative staph and urine culture Klebsiella. Antibiotics were stopped after discussion with ID and it was thought to be due to colonization. Patient stable. Will monitor. 6. Microcytic anemia: Iron studies showed evidence of anemia of chronic disease with ferritin elevated at 1694. Will monitor. 7. Acute metabolic encephalopathy: Resolved. Patient is alert and oriented and able to carry on normal conversation. MRI was negative and tele-neurology done and thought it was likely due to metabolic encephalopathy. 8. Hypertension: Control is improved and is 136/82 today. Only on Imdur. Bumetanide was held on admission due to TENZIN. On IV hydralazine PRN. Blood pressure trends upwards, will consider starting amlodipine. 9. Anxiety and depression: On fluoxetine 10. Hyperlipidemia: On statin DVT prophylaxis: lovenox Disposition: Discharged to TCU when bed available. Code Visit Inpatient E&M: 89358 Subs Hosp L2
[2019-11-29 15:27] VITALS: BP 138/74; PULSE 82; RESP 16; TEMP 36.9; O2SAT 96
[2019-11-29 21:28] VITALS: BP 109/64; PULSE 72; RESP 18; TEMP 36.5; O2SAT 96
[2019-11-29] MEDS: Atorvastatin Calcium 20 MG Tablet PO (22:42)
[2019-11-29] MEDS: oxyCODONE 5 MG Tablet PO (22:43)
[2019-11-29] MEDS: MELATONIN 3 MG TABLET PO (22:44)
[2019-11-30] MEDS: guaiFENesin 10 ML UDC (200MG/10ML) PO ×2 (03:00→06:25)
[2019-11-30 03:12] VITALS: BP 110/67; PULSE 74; RESP 18; TEMP 36.9; O2SAT 95
[2019-11-30] MEDS: Menthol/Lanolin/Calamine/Znox 113 GM Tube 1 APPLIC TOPICAL ×2 (06:26→15:58)
[2019-11-30] MEDS: 0.9% Saline Lock 10 ML Syringe IV (06:48)
[2019-11-30] MEDS: predniSONE 5 MG Tablet 2.5 MG PO (08:15)
[2019-11-30] MEDS: Folic Acid 1 MG Tablet PO (08:15)
[2019-11-30 09:00] VITALS: BP 114/69; PULSE 80; RESP 18; TEMP 36.3; O2SAT 95
--- NOTE | 2019-11-30 09:24 | PCM.DC.SUM ---
Discharge Date and Diagnosis - Problem List Patient Problems: Active and Suspected Problems Hyperkalemia (Acute) Dyspnea (Acute) TENZIN (acute kidney injury) (Acute) Date of Admission: 11/24/19 Date of Discharge: 11/30/19 - Primary Discharge Diagnosis Active and Suspected Problems Hyperkalemia (Acute) Dyspnea (Acute) TENZIN (acute kidney injury) (Acute) acute on chronic HFpEF - Secondary Discharge Diagnosis Chronic Problems CHF (congestive heart failure) (Chronic) HTN (hypertension) (Chronic) HLD (hyperlipidemia) (Chronic) Anxiety and depression (Chronic) Wound of right ankle (Chronic) Obesity (BMI 30.0-34.9) (Chronic) Hospital Course and Treatment Imaging Results: Diagnostic Data Chest X-Ray 11/24/19 21:05 IMPRESSION: Elevated right hemidiaphragm. No definite acute or significant abnormality seen. Electronically Signed: Edvin Ngo MD at 21:22 EST , Service support , Renal Ultrasound 11/25/19 00:53 IMPRESSION: 2.3 cm x 2.3 cm x 2.2 cm right renal cyst. Electronically Signed: Richar Bird, at 10:30 EST , Service support , Ankle X-Ray 11/25/19 10:22 IMPRESSION: Osteopenia of the visualized bony structures. Soft tissue swelling with a soft tissue ulceration overlying the lateral malleolus measuring 8.7 mm x 4 mm. Electronically Signed: Richar Bird, at 15:33 EST , Service support , Foot X-Ray 11/25/19 14:17 IMPRESSION: As above Electronically Signed: Merrick Camargo DO at 16:18 EST Tel , Service support , Lower Extremity MRI 11/25/19 16:11 IMPRESSION: Cellulitis and ulcer of the lateral soft tissues of the superficial to the lateral malleolus the fibula but no MR evidence of osteomyelitis or abscess. Electronically Signed: Juarez Doherty MD at 8:53 EST Tel , Service support , Brain CT 11/26/19 15:55 IMPRESSION: Normal unenhanced CT scan of the brain. Electronically Signed: Juarez Doherty MD at 16:59 EST Tel , Service support , Brain MRI 11/27/19 07:03 IMPRESSION: Normal unenhanced MRI of the brain. Acute left frontal sinusitis. Electronically Signed: Juarez Doherty MD at 9:58 EST Tel , Service support , Consultations 11/25/19 00:53 Consult: Onc/Wound/development vice president Routine Comment: Critical care- Dr Edwards Podiatry- Dr Mills Infectious Disease- Dr Be Operations: None Procedures: None Summary of Care Provided: The patient is a 69 year old F with an extensive past medical history as outlined was admitted through the ED on 11/24/2019 with a complaint of shortness of breath. Had been progressively worsening with an associated mild cough. She had been having decreased intake for the last 2 to 3 days prior to admission. On admission in the ED, she was noted to be in TENZIN and also had hyperkalemia with potassium of 6.8. BNP was 604 but troponins were negative. Chest x-ray showed elevated right hemidiaphragm. She was admitted to the ICU and managed for hyperkalemia and TENZIN on CKD with non-anion gap metabolic acidosis. She was given the cocktail for acute hyperkalemia and also had Kayexalate. Nephrology was consulted. Podiatry was consulted on account of history of right ankle wound with MRSA. She was started on bicarb drip per nephrology. ID was consulted on account of positive sputum and urine cultures growing Pseudomonas and Morganella as well as coagulase-negative staph and Klebsiella. She was started on IV vancomycin and Zosyn but these were currently stopped after review by ID as it was thought that this was likely due to contamination. MRI of the brain done was negative for any acute intracranial process and this was done on account of acute metabolic encephalopathy. Tele-neurology was consulted and they felt that this was likely due to metabolic encephalopathy. Patient's course was also complicated by acute on chronic heart failure with preserved ejection fraction. BNP was 604 and 2D echo done showed EF of 65% with no evidence of diastolic dysfunction no regional wall motion abnormalities noted. Patient symptoms gradually improved and creatinine trended down to 1.06. She remained stable and was discharged to a senior care on 11/30/2019. She is follow-up with her primary care doctor, nephrology and pulmonology. Patient was seen and examined prior to discharge. She felt much better and had no complaints. She denied any shortness of breath, fever chills, abdominal pain, diarrhea vomiting. Review of symptoms otherwise negative. Labs and vitals reviewed. Home medications reviewed and reconciled. o/e: Vital Signs Height 5 ft 6 in Weight: 200 lb 13.458 oz Weight in Pounds 200.8 lbs Pulse Ox 95 Temperature 97.3 F Pulse Rate 80 Respiratory Rate 18 Blood Pressure [BP] 128/54 Blood Pressure 114/69 Blood Pressure Position [BP] Semi-Fowlers Blood Pressure Position Semi-Fowlers [] General: Alert, Oriented x3, Cooperative, No apparent distress HEENT: Atraumatic, PERRLA, EOMI, Normocephalic Oral: Moist Mucosa Neck: Supple, No JVD, Negative Carotid Bruits, Negative Hepatojugular Reflux, No Nodes Lungs: Clear to auscultation, Normal air movement, No rhonchi, No wheeze, No rales Cardiovascular: Regular rate, Regular Rhythm, Normal S1, Normal S2, No murmurs Abdomen: Bowel Sounds Present, Soft, Non Tender, Non-Distended, No Hepato-splenomegaly Extremities: No clubbing, No cyanosis, No edema, Capillary Refill Less than 3 Seconds, - - 1+ bipedal pitting edema Skin: No rashes, No breakdown Musculoskeletal: No Tenderness to Palpation of Joints or Extremities Lymphatic: No Cervical, Supraclavicular, or Inguinal Adenopathy Neurological: Cranial nerves II-XII grossly intact, Neuro grossly intact, Motor Exam 5/5 strength throughout Psych/Mental Status: Normal Affect, Appropriate, Alert and oriented to time, place, person, mood and affect Plan as above. She is also to follow up with podiatry. Patient Problems: Active and Suspected Problems Hyperkalemia (Acute) Dyspnea (Acute) TENZIN (acute kidney injury) (Acute) - Physical Exam Vitals/I&O's: Vital Signs Temp Pulse Resp BP Pulse Ox 98.5 F 74 18 110/67 95 11/30/19 03:12 11/30/19 03:12 11/30/19 03:12 11/30/19 03:12 11/30/19 03:12 Oxygen Flow Rate (L/min) 2 Oxygen Delivery Method Room Air Weight: 200 lb 13.458 oz Body Mass Index (BMI) 32.7 Intake and Output for Last 24 Hours 11/28/19 11/29/19 11/30/19 23:59 23:59 23:59 Intake Total 2521.25 / 2521.25 900 / 1100 400 / 400 Output Total 1350 / 1350 600 / 900 400 / 400 Balance 1171.25 / 1171.25 300 / 200 0 / 0 Microbiology Past 72 Hours 11/25/19 12:35 Urine Catheter - Catheter Urine Culture - Final Klebsiella pneumoniae 11/25/19 01:00 Sputum, Expectorated/Coughed Gram Stain - Final 11/25/19 01:00 Sputum, Expectorated/Coughed Respiratory Culture - Final Pseudomonas aeroginosa Morganella morganii sp morgani Current Medications Acetaminophen (Tylenol) 650 mg PO Q6H PRN PRN PRN Reason: Pain Score 1-10/Temp > 100.7 F Last Admin: 11/26/19 10:46 Dose: 650 mg Documented by: Albuterol Sulfate (Ventolin Aerosols) 2.5 mg INHALATION Q2H PRN PRN PRN Reason: SOB/Wheezing Atorvastatin Calcium (Lipitor) 20 mg PO QHS [facility] Last Admin: 11/29/19 22:42 Dose: 20 mg Documented by: Calamine/Phenol (Calmoseptine Ointment) 1 applic TOPICAL TID [facility]; Protocol Last Admin: 11/30/19 06:26 Dose: 1 applicatio Documented by: Emollient Ointment (Eucerin Intensive Repair) 1 applic TOPICAL 4X/DAY PRN PRN; Protocol PRN Reason: DRY SKIN Fluticasone Propionate (Flonase Nasal [place]) 2 spray NASAL DAILY [facility] Last Admin: 11/29/19 09:06 Dose: 2 spray Documented by: Folic Acid (Folic Acid) 1 mg PO DAILYCM [facility] Last Admin: 11/30/19 08:15 Dose: 1 mg Documented by: Glucagon () 1 mg IM .X1 PRN PRN Reason: Hypoglycemia Guaifenesin (Robitussin) 10 ml PO Q4H [facility] Last Admin: 11/30/19 06:25 Dose: 10 ml Documented by: Heparin Sodium (Beef Lung) () 50 units IV UD PRN PRN Reason: PICC Line Heparin Flush Heparin Sodium (Beef Lung) () 50 units IV UD PRN PRN Reason: PICC Line Heparin Flush Heparin Sodium (Porcine) (Heparin Na) 5,000 unit SC Q12 [facility] Last Admin: 11/29/19 22:46 Dose: 5,000 unit Documented by: Hydralazine HCl (Apresoline Iv) 10 mg IV Q4H PRN PRN PRN Reason: SBP > 160 Sodium Chloride () 250 mls @ 15 mls/hr IV .[id number] PRN PRN Reason: Saline Flush Sodium Chloride () 250 mls @ 15 mls/hr IV .[id number] PRN PRN Reason: Additional IVPB Infusion Dextrose (Dextrose 10%-Water) 250 mls @ 999 mls/hr IV .Q16M PRN; Protocol PRN Reason: HYPOGLYCEMIA Isosorbide Mononitrate (Imdur) 30 mg PO DAILY [facility] Last Admin: 11/29/19 09:04 Dose: 30 mg Documented by: Lactobacillus Acidophilus (Acidophilus) 1 tablet PO TID [facility] Last Admin: 11/30/19 06:25 Dose: 1 tablet Documented by: Melatonin (Melatonin) 3 mg PO QHS PRN PRN PRN Reason: INSOMNIA Last Admin: 11/29/19 22:44 Dose: 3 mg Documented by: Montelukast Sodium (Singulair) 10 mg PO DAILY [facility] Last Admin: 11/29/19 09:04 Dose: 10 mg Documented by: Morphine Sulfate () 2 mg IV Q3H PRN PRN PRN Reason: Pain Score 6-10/10 Last Admin: 11/26/19 02:23 Dose: 2 mg Documented by: Nitroglycerin (Nitrostat) 0.4 mg SUBLINGUAL Q5M PRN PRN Reason: CARDIAC/CHEST PAIN Nutritional Formula ([place] - [place] Flavor) [facility] Last Admin: 11/30/19 08:15 Dose: 1 packet Documented by: Nystatin (Mycostatin Powder) 1 applic TOPICAL BID [facility]; Protocol Last Admin: 11/29/19 22:50 Dose: 1 applicatio Documented by: Ondansetron HCl (Zofran) 4 mg IV Q8H PRN PRN PRN Reason: NAUSEA/VOMITING Oxybutynin Chloride (Ditropan) 2.5 mg PO DAILY [facility] Last Admin: 11/29/19 09:04 Dose: 2.5 mg Documented by: Oxycodone HCl (Oxyir) 5 mg PO Q4H PRN PRN PRN Reason: Pain Score 4-5/10 Last Admin: 11/29/19 22:43 Dose: 5 mg Documented by: Pantoprazole Sodium (Protonix) 40 mg PO DAILY [facility] Last Admin: 11/29/19 09:04 Dose: 40 mg Documented by: Paroxetine HCl (Paxil) 40 mg PO DAILY [facility] Last Admin: 11/29/19 09:04 Dose: 40 mg Documented by: [facility] () [facility] Last Admin: 11/30/19 08:15 Dose: 2.5 mg Documented by: Prochlorperazine Edisylate (Compazine Iv) 5 mg IV Q4H PRN PRN PRN Reason: Breakthrough Nausea/Vomiting Psyllium Hydrophilic Mucilloid (Metamucil) 1 packet PO DAILY PRN PRN PRN Reason: Constipation Senna/Docusate Sodium (Senokot-S, [place]-Colace) 2 tablet PO BID PRN PRN PRN Reason: Constipation Sodium Chloride (0.9% Nacl (Sterile) Posiflush) 10 - 40 ml IV UD PRN PRN Reason: Port access or dressing change Last Admin: 11/25/19 23:11 Dose: 10 ml Documented by: Sodium Chloride () 10 - 40 ml IV UD PRN PRN Reason: Open End PICC Flush Last Admin: 11/30/19 06:48 Dose: 10 ml Documented by: Sodium Chloride (0.9% Nacl (Sterile) Posiflush) 10 - 40 ml IV UD PRN PRN Reason: Port access or dressing change Throat Lozenges (Cepacol Sore Throat Lozenge) 1 lozenge MUCOUS MEM Q2H PRN PRN PRN Reason: SORE THROAT Discharge Diet: Low fat/ Low Cholesterol Weight Bearing Status: Weight bearing as tolerated Call your doctor if you observe: Fever of 101 or Higher, Shortness of breath, Dizziness, Fainting spells, Swelling in the ankles, - - confusion Home Medications: Medications to take at Discharge Albuterol Inhaler [Ventolin Hfa] 2 puff INHALATION Q4H PRN PRN 11/24/19 Atorvastatin Calcium [Lipitor] 20 mg PO QHS 11/24/19 Calcium Carbonate/Vitamin D3 [Calcium 600-Vit D3 800 Caplet] 1 ea PO DAILY 11/24/19 Fluticasone 0.05% [Flonase Nasal [place]] 2 spray NASAL DAILY 11/24/19 Folic Acid 1 mg PO DAILY 11/24/19 Isosorbide Mononitrate [Imdur] 30 mg PO DAILY 11/24/19 Lactobacillus Acidophilus [Acidophilus] 1 ea PO TID 11/24/19 Montelukast [Singulair] 10 mg PO DAILY 11/24/19 Multivitamin with Minerals [Multiple Vitamin] 1 ea PO DAILY 11/24/19 Omeprazole 40 mg PO DAILY 11/24/19 Oxybutynin [Ditropan] 2.5 mg PO DAILY 11/24/19 Prednisone 2.5 mg PO DAILY 11/24/19 Acetaminophen [Tylenol Tablet] 650 mg PO Q6H PRN PRN tab 11/28/19 Guaifenesin [Mucinex] 1,200 mg PO BID #14 tab.er.12h 11/28/19 Nutritional Supplement [Jameson - [place]ANGE FLAVOR] 1 packet PO BIDCM packet 11/28/19 Nystatin Powder [Mycostatin Powder] 1 applic TOPICAL BID bottle 11/28/19 Paroxetine [Paxil] 40 mg PO DAILY tab 11/28/19 Psyllium [Metamucil] 1 packet PO DAILY PRN PRN packet 11/28/19 Senna/Docusate Sodium [Senokot-S] 2 tab PO BID PRN PRN tab 11/28/19 Following Prescrptions Were Given to Patient: Guaifenesin [Mucinex] 1,200 mg PO BID #14 tab.er.12h Transmission Status: Received by [facility] Primary Care Physician: NOT,DEFINED [NON-STAFF] - Please Follow Up With: Ivy Melendez DO When: in 1-2 weeks for CKD stage 3 Please Follow Up With: Ronnie Edwards MD When: in 2 weeks with Martha Rajan Please Follow Up With: Venkatesh Mills DPM When: in 1-2 weeks for leg ulcer Please Follow Up With: Willie Be MD When: for wound colonization as need Disposition: Halfway facility Minutes spent on discharge:: 45 Patient Condition:: Fair Medical Necessity - Tobacco Use Smoking Status: Never smoker Tobacco Use: Non-smoker Meaningful Use Info Meaningful Use Diagnoses (Choose all that apply): CHF - CHF MAK/ARB ordered at discharge?: No Reason MAK/ARB not ordered?: Hyperkalemia Documented LVEF (%): 65 Code Visit Inpatient E&M: 28895 Disch Hosp
--- NOTE | 2019-11-30 09:25 | PCM.TXEXTCAR ---
- Diet 11/25/19 10:21 Diet: Cardiac: Calorie-Controlled Food consistency:: Mechanical Soft/Ground Liquid Consistency:: Regular/Thin Dietary Modifications:: Low Potassium Restriction Is pt able to select menu?: Yes Diet Comments: Cardiac / low sodium, 1:1 feed only when alert-stop if s/s diet intolerance How many daily calories?: 1800 calorie - Routine Orders/Code Status Suppository Type: Dulcolax 10mg Suppository Frequency: Daily PRN Routine Lab Work: CBC, BMP [facility] - Wound(s) Left forearm Wound Type: Skin Tear coccyx Wound Type: Pressure Injury right lateral ankle Wound Type: Pressure Injury Dressing Change: AntiMicrobial (Aquacel AG, etc) left 3rd toe Wound Type: Pressure Injury Dressing Change: AntiMicrobial (Aquacel AG, etc) left medial knee Wound Type: Pressure Injury Dressing Change: Mepilex under folds Wound Type: rash - Therapies Weight Bearing: Weight bearing as tolerated Extremity Affected:: Bilateral Lower Physical Therapy: Eval and Treat Occupational Therapy: Eval and Treat Speech Therapy: Eval and Treat - Allergies/Procedures Done in Hospital Allergies/Adverse Reactions: Allergies doxycycline Allergy (Verified 11/24/19 21:02) Rash lisinopril Allergy (Verified 11/24/19 21:02) Rash Procedures: None - Type of Care/Length of Stay Estimated LOS: Convalescent Care Less Than 30 days Type of Care Needed: Skilled Rehab Potential: Good Prognosis: Good - Additional Orders/Day of Discharge Day of Discharge: 11/28/19 - Dietary and Speech Recommendations Dietitian Recommendations/Changes: Continue cardiac, 1800 calorie controlled, low potassium diet as ordered -w/ consistency per MATCH MARKER. Will d/c glucerna w/ medpass and provide 1 scoop beneprotein w/ meals instead at pt too full to drink supplements b/wn meals. Continue Jameson BID to help w/ skin healing. - Follow Up Care Primary Care Physician: NOT,DEFINED [NON-STAFF] - Please Follow Up With: Ivy Melendez DO When: in 1-2 weeks for CKD stage 3 Please Follow Up With: Ronnie Edwards MD When: in 2 weeks with Martha Rajan Please Follow Up With: Venkatesh Mills DPM When: in 1-2 weeks for leg ulcer Please Follow Up With: Willie Be MD When: for wound colonization as need
[2019-11-30] MEDS: Montelukast 10 MG Tablet PO (10:43)
[2019-11-30] MEDS: Paroxetine 20 MG Tablet 40 MG PO (10:44)
[2019-11-30] MEDS: Oxybutynin 5 MG Tablet 2.5 MG PO (10:44)
[2019-11-30] MEDS: Nystatin Powder 15gm Bottle 1 APPLIC TOPICAL (10:44)
[2019-11-30] MEDS: Heparin Injection (Vial) 5,000 UNIT/ML VIAL 5000 UNIT SC (10:44)
[2019-11-30] MEDS: Isosorbide Mononitrate 30 MG Tablet PO (10:44)
[2019-11-30] MEDS: Fluticasone 0.05% 1 SPRAY NASAL.SRY 2 SPRAY NASAL (10:45)
[2019-11-30 11:04] LABS: Hemoglobin 8.5 g/dL (12.0-15.0); Mean Corp Hgb Conc 30.4 g/dL (32-36); Mean Corpuscular Hgb 32.2 pg (27.0-32.0); Mean Corpuscular Volume 106.1 fL (81-99); Mean Platelet Vol. 11.3 fl (6.2-12.0); POSITIVE MORPHOLOGY YES; Platelet Count 167 K/mm3 (150-450); RBC Distribution Width CV 20.9 % (11.6-14.6); Red Blood Count 2.64 M/mm3 (4.2-5.4); White Blood Count 6.9 K/mm3 (4.4-11.0)
[2019-11-30 11:07] LABS: Albumin, Serum 1.4 g/dL (3.2-5.0); BUN 36 mg/dL (7-18); BUN/Creat Ratio 35.3 RATIO (10-20); Chloride 115 mmol/L (98-107); Creatinine, Serum 1.02 mg/dL (0.55-1.02); EST Glomerular Filtration Rate 57 mL/min (>60); Est Glom Filt Rate - Afr Amer 69 mL/min (>60); Glucose 149 mg/dL (74-106); Phosphorus 2.8 mg/dL (2.5-4.9); Potassium 4.8 mmol/L (3.5-5.1); Sodium Level 143 mmol/L (136-145)
[2019-11-30 11:23] LABS: Scan Indicated on CBC? Y/N YES- FLAGS NOTED
[2019-11-30] MEDS: Pantoprazole Sodium 40 MG Tablet PO (13:04)
--- NOTE | 2019-11-30 14:18 | PCM.PN.REN ---
Patient Problems: Active and Suspected Problems Hyperkalemia (Acute) Dyspnea (Acute) TENZIN (acute kidney injury) (Acute) Subjective: alert, oriented, responding appropriately. Renal fxn stable. - Physical Exam Vitals/I&O's: Vital Signs Temp Pulse Resp BP Pulse Ox 97.3 F L 80 18 114/69 95 11/30/19 09:00 11/30/19 09:00 11/30/19 09:00 11/30/19 09:00 11/30/19 09:00 Oxygen Flow Rate (L/min) 2 Oxygen Delivery Method Room Air Weight: 91.1 kg Body Mass Index (BMI) 32.7 Intake and Output for Last 24 Hours 11/28/19 11/29/19 11/30/19 23:59 23:59 23:59 Intake Total 2521.25 / 2521.25 900 / 1100 600 / 600 Output Total 1350 / 1350 600 / 900 650 / 650 Balance 1171.25 / 1171.25 300 / 200 -50 / -50 General: Alert, Oriented x3, Cooperative, No apparent distress Lungs: Clear to auscultation Cardiovascular: Regular rate Psych/Mental Status: Alert and oriented to time, place, person, mood and affect Microbiology Past 72 Hours 11/25/19 12:35 Urine Catheter - Catheter Urine Culture - Final Klebsiella pneumoniae Laboratory Results 11/30/19 10:45: WBC 6.9, RBC 2.64 L, Hgb 8.5 L, Hct 28.0 L, MCV 106.1 H, MCH 32.2 H, MCHC 30.4 L, RDW Std Deviation 80.0 H, RDW Coeff of Dominic 20.9 H, Plt Count 167, MPV 11.3, Differential Comment 11/30/19 10:45: Sodium 143, Potassium 4.8, Chloride 115 H, Carbon Dioxide 26.0, BUN 36 H, Creatinine 1.02, Estim Creat Clear Calc 50.10, Est GFR (MDRD) Af Amer 69, Est GFR (MDRD) Non-Af 57 L, BUN/Creatinine Ratio 35.3 H, Glucose 149 H, Calcium 8.0 L, Phosphorus 2.8, Albumin 1.4 L Current Medications Acetaminophen (Tylenol) 650 mg PO Q6H PRN PRN PRN Reason: Pain Score 1-10/Temp > 100.7 F Last Admin: 11/26/19 10:46 Dose: 650 mg Documented by: Albuterol Sulfate (Ventolin Aerosols) 2.5 mg INHALATION Q2H PRN PRN PRN Reason: SOB/Wheezing Atorvastatin Calcium (Lipitor) 20 mg PO QHS [facility] Last Admin: 11/29/19 22:42 Dose: 20 mg Documented by: Calamine/Phenol (Calmoseptine Ointment) 1 applic TOPICAL TID [facility]; Protocol Last Admin: 11/30/19 06:26 Dose: 1 applicatio Documented by: Emollient Ointment (Eucerin Intensive Repair) 1 applic TOPICAL 4X/DAY PRN PRN; Protocol PRN Reason: DRY SKIN Fluticasone Propionate (Flonase Nasal [place]) 2 spray NASAL DAILY [facility] Last Admin: 11/30/19 10:45 Dose: 2 spray Documented by: Folic Acid (Folic Acid) 1 mg PO DAILYCM [facility] Last Admin: 11/30/19 08:15 Dose: 1 mg Documented by: Glucagon () 1 mg IM .X1 PRN PRN Reason: Hypoglycemia Guaifenesin (Robitussin) 10 ml PO Q4H [facility] Last Admin: 11/30/19 13:04 Dose: Not Given Documented by: Heparin Sodium (Beef Lung) () 50 units IV UD PRN PRN Reason: PICC Line Heparin Flush Heparin Sodium (Beef Lung) () 50 units IV UD PRN PRN Reason: PICC Line Heparin Flush Heparin Sodium (Porcine) (Heparin Na) 5,000 unit SC Q12 [facility] Last Admin: 11/30/19 10:44 Dose: 5,000 unit Documented by: Hydralazine HCl (Apresoline Iv) 10 mg IV Q4H PRN PRN PRN Reason: SBP > 160 Sodium Chloride () 250 mls @ 15 mls/hr IV .[id number] PRN PRN Reason: Saline Flush Sodium Chloride () 250 mls @ 15 mls/hr IV .[id number] PRN PRN Reason: Additional IVPB Infusion Dextrose (Dextrose 10%-Water) 250 mls @ 999 mls/hr IV .Q16M PRN; Protocol PRN Reason: HYPOGLYCEMIA Isosorbide Mononitrate (Imdur) 30 mg PO DAILY [facility] Last Admin: 11/30/19 10:44 Dose: 30 mg Documented by: Lactobacillus Acidophilus (Acidophilus) 1 tablet PO TID [facility] Last Admin: 11/30/19 06:25 Dose: 1 tablet Documented by: Melatonin (Melatonin) 3 mg PO QHS PRN PRN PRN Reason: INSOMNIA Last Admin: 11/29/19 22:44 Dose: 3 mg Documented by: Montelukast Sodium (Singulair) 10 mg PO DAILY [facility] Last Admin: 11/30/19 10:43 Dose: 10 mg Documented by: Morphine Sulfate () 2 mg IV Q3H PRN PRN PRN Reason: Pain Score 6-10/10 Last Admin: 11/26/19 02:23 Dose: 2 mg Documented by: Nitroglycerin (Nitrostat) 0.4 mg SUBLINGUAL Q5M PRN PRN Reason: CARDIAC/CHEST PAIN Nutritional [facility] (Jameson - [place] [facility]) [facility] Last Admin: 11/30/19 08:15 Dose: 1 packet Documented by: Nystatin (Mycostatin Powder) 1 applic TOPICAL BID [facility]; Protocol Last Admin: 11/30/19 10:44 Dose: 1 applicatio Documented by: Ondansetron HCl (Zofran) 4 mg IV Q8H PRN PRN PRN Reason: NAUSEA/VOMITING Oxybutynin Chloride (Ditropan) 2.5 mg PO DAILY [facility] Last Admin: 11/30/19 10:44 Dose: 2.5 mg Documented by: Oxycodone HCl (Oxyir) 5 mg PO Q4H PRN PRN PRN Reason: Pain Score 4-5/10 Last Admin: 11/29/19 22:43 Dose: 5 mg Documented by: Pantoprazole Sodium (Protonix) 40 mg PO DAILY [facility] Last Admin: 11/30/19 13:04 Dose: 40 mg Documented by: Paroxetine HCl (Paxil) 40 mg PO DAILY [facility] Last Admin: 11/30/19 10:44 Dose: 40 mg Documented by: [facility] () [facility] Last Admin: 11/30/19 08:15 Dose: 2.5 mg Documented by: Prochlorperazine Edisylate (Compazine Iv) 5 mg IV Q4H PRN PRN PRN Reason: Breakthrough Nausea/Vomiting Psyllium Hydrophilic Mucilloid (Metamucil) 1 packet PO DAILY PRN PRN PRN Reason: Constipation Senna/Docusate Sodium (Senokot-S, Jane-Colace) 2 tablet PO BID PRN PRN PRN Reason: Constipation Sodium Chloride (0.9% Nacl (Sterile) Posiflush) 10 - 40 ml IV UD PRN PRN Reason: Port access or dressing change Last Admin: 11/25/19 23:11 Dose: 10 ml Documented by: Sodium Chloride () 10 - 40 ml IV UD PRN PRN Reason: Open End PICC Flush Last Admin: 11/30/19 06:48 Dose: 10 ml Documented by: Sodium Chloride (0.9% Nacl (Sterile) Posiflush) 10 - 40 ml IV UD PRN PRN Reason: Port access or dressing change Throat Lozenges (Cepacol Sore Throat Lozenge) 1 lozenge MUCOUS MEM Q2H PRN PRN PRN Reason: SORE THROAT Medical Necessity - Tobacco Use Smoking Status: Never smoker Tobacco Use: Non-smoker Assessment/Plan All Active Problems Hyperkalemia (Acute) Dyspnea (Acute) TENZIN (acute kidney injury) (Acute) 1. TENZIN due to diuretic therapy, Celebrex, Bactrim. Creatinine stable at 1.0 2. Acute hyperkalemia resolved. 3. Diet controlled diabetes 4. Confusion resolved 5. Rt ankle infection ID following 6. iron def anemia PRBC given 7. [facility]ilitation [facility] 8. Severe protein calorie malnutrition. Recommend protein supplements, protein powder in her pur?ed diet.
[2019-11-30] MEDS: oxyCODONE 5 MG Tablet PO (16:02)
[2019-11-30 16:04] VITALS: BP 116/71; PULSE 87; RESP 18; TEMP 36.4; O2SAT 94
== END 2019-11-30 16:40 | disposition skilled nursing facility (03) | DRG 640 ==
LOC: ED 23:34 → ICU 11-25 00:10 → MS3 11-26 15:40
PROVIDERS: Internal Medicine; Internal Medicine Critical Care Medicine; Internal Medicine Nephrology; Admitting Provider Family Medicine; Emergency Provider Emergency Medicine; Visit Provider Student in an Organized Health Care Education/Training Program
DX: E87.5 Hyperkalemia (principal); I50.33 Acute on chronic diastolic (congestive) heart failure; G93.41 Metabolic encephalopathy; E43 Unspecified severe protein-calorie malnutrition; I13.0 Hypertensive heart and chronic kidney disease with heart failure and stage 1 through stage 4 chronic kidney disease, or unspecified chronic kidney disease; N17.9 Acute kidney failure, unspecified; L97.318 Non-pressure chronic ulcer of right ankle with other specified severity; L97.526 Non-pressure chronic ulcer of other part of left foot with bone involvement without evidence of necrosis; E87.2 Acidosis; E87.0 Hyperosmolality and hypernatremia; F32.9 Major depressive disorder, single episode, unspecified; F41.9 Anxiety disorder, unspecified; E78.5 Hyperlipidemia, unspecified; E66.9 Obesity, unspecified; K21.9 Gastro-esophageal reflux disease without esophagitis; Z79.899 Other long term (current) drug therapy; Z79.2 Long term (current) use of antibiotics; Z68.34 Body mass index [BMI] 34.0-34.9, adult; D53.9 Nutritional anemia, unspecified; Z66 Do not resuscitate; D50.9 Iron deficiency anemia, unspecified; Z79.52 Long term (current) use of systemic steroids; B96.5 Pseudomonas (aeruginosa) (mallei) (pseudomallei) as the cause of diseases classified elsewhere; N28.1 Cyst of kidney, acquired; R53.81 Other malaise; Z86.14 Personal history of Methicillin resistant Staphylococcus aureus infection; N18.9 Chronic kidney disease, unspecified; E11.22 Type 2 diabetes mellitus with diabetic chronic kidney disease; E11.621 Type 2 diabetes mellitus with foot ulcer; T50.2X5A Adverse effect of carbonic-anhydrase inhibitors, benzothiadiazides and other diuretics, initial encounter; T39.395A Adverse effect of other nonsteroidal anti-inflammatory drugs [NSAID], initial encounter; T36.8X5A Adverse effect of other systemic antibiotics, initial encounter; B96.1 Klebsiella pneumoniae [K. pneumoniae] as the cause of diseases classified elsewhere; D63.1 Anemia in chronic kidney disease
CPT/HCPCS: 36415; 36569; 70450; 70551; 71045; 73610; 73630; 73718; 73721; 76770; 80048; 80053; 80069; 80202; 81001; 82570; 82607; 82728; 82746; 83540; 83550; 83735; 83880; 84100; 84300; 84484; 85014; 85018; 85025; 85027; 86850; 86900; 86901; 86920; 86922; 87070; 87077; 87086; 87088; 87184; 87186; 87205; 87449; 92526; 92610; 93005; 93306; 94640; 97110; 97163; 97167; 97530; 97535; 97802; 97803; 99251; 99285; J7050; P9040; Q9957; A4216; G0463; J7799

== ENCOUNTER 2019-11-30 16:59 | Inpatient (IN) | payer MEDICARE, SELFPAY ==
[2019-11-25 00:30] VITALS: BMI 32.7
[2019-11-30 17:18] VITALS: BMI 30.9
[2019-11-30 17:19] VITALS: BP 118/69; PULSE 53; RESP 22; TEMP 36.2; O2SAT 94
--- NOTE | 2019-11-30 17:54 | HP.PCM_ITS ---
Problem List (1) Debility Status: Acute (2) Shortness of breath Status: Acute (3) Fall Status: Acute (4) Weakness Status: Acute (5) MRSA (methicillin resistant staph aureus) culture positive Status: Chronic (6) Chronic diastolic (congestive) heart failure Status: Chronic (7) Depression Status: Chronic (8) Anxiety Status: Chronic (9) Body mass index (bmi) 30.0-30.9, adult Status: Chronic (10) Allergic rhinitis Status: Chronic (11) Asthma Status: Chronic (12) GERD (gastroesophageal reflux disease) Status: Chronic (13) OAB (overactive bladder) Status: Chronic (14) Iron deficiency anemia Status: Chronic (15) Hyperkalemia Status: Acute (16) TENZIN (acute kidney injury) Status: Acute (17) HTN (hypertension) Status: Chronic Qualifiers: (18) HLD (hyperlipidemia) Status: Chronic Qualifiers: (19) Wound of right ankle Status: Chronic Qualifiers: (20) Dysphagia Status: Acute History of Present Illness Date of Admission: 11/30/19 Chief Complaint: Here for rehabilitatoin, strengthening, prior to discharge home with . The patient is a 69 year old Female with below past medical history presented to [facility] Emergency Department 11/24/2019 with shortness of breath. 11/24/2019 EKG normal sinus rhythm with 1st degree AV block, low voltage QRS, nonspecific ST&T wave abnormality, prolonged QT. 11/24/2019 Chest X-ray showed elevated right hemidiaphragm. Shortness of breath for a while, multiple EMS runs for shortness of breath, weakness, falls. Short of breath, mild cough. MRSA infection right ankle, acute kidney injury, hyperkalemia K 6.8. Albuterol, Kayexalate, Insulin, glucose given for K 6.8. 11/24/2019 Admit to Hospital. Bicarb drip, consult Nephrology for hyperkalemia. Gentle IV fluids, consult Nephrology for acute kidney injury. Hold Bumex due to acute kidney injury. Vancomycin for MRSA right ankle. Evaluate macrocytic anemia. 11/25/2019 Renal ultrasound showed right renal cyst. 11/25/2019 Dr. Edwards recommended continuing bicarb drip, Increase activity as t olerated. 11/25/2019 Dr. Melendez acute kidney injury secondary to dehydration. History of hyperkalemia on [place], sees accounts receivable processor as outpatient. Consider IV iron for iron deficiency anemia. 11/25/2019 X-ray right ankle lateral malleolus ulcer with soft tissue swelling. 11/25/2019 X-ray right foot showed arthritis. 11/25/2019 Dr. Mills thought no acute infection, continue Vancomycin for now. Aquacel for wound care. 11/25/2019 MRI right ankle showed right ankle cellulitis, negative for osteomyelitis. 11/26/2019 Dr. Be recommended no more bactrim. Vancomycin/Zosyn for pseudomonas aeruginosa like organism in sputum. 11/26/2019 CT brain normal. 11/27/2019 MRI brain, normal, acute left frontal sinusitis. Hyperkalemia chronic. Acute kidney injury stable. Sputum culture, urine culture colonization, stop antibiotics. Metabolic encephalopathy, teleneurology consulted. 11/27/2019 Echo EF 65% Negative for diastolic dysfunction. 11/28/2019 K 4.4. 11/29/2019 Cr 1.06. Diuresis on hold due to acute kidney injury. Vancomycin for right ankle ulcer.. Acute encephalopathy resolved. 11/30/2019 Admit to TCU with debility, here for rehabilitation, strengthening, prior to discharge home with . Past Medical History Past Medical History (Chronic Problems): Chronic Problems CHF (congestive heart failure) (Chronic) HTN (hypertension) (Chronic) HLD (hyperlipidemia) (Chronic) Anxiety and depression (Chronic) Wound of right ankle (Chronic) Obesity (BMI 30.0-34.9) (Chronic) MRSA (methicillin resistant staph aureus) culture positive (Chronic) Chronic diastolic (congestive) heart failure (Chronic) Depression (Chronic) Anxiety (Chronic) Body mass index (bmi) 30.0-30.9, adult (Chronic) Allergic rhinitis (Chronic) Asthma (Chronic) GERD (gastroesophageal reflux disease) (Chronic) OAB (overactive bladder) (Chronic) Iron deficiency anemia (Chronic) Allergies doxycycline Allergy (Verified 11/24/19 21:02) Rash lisinopril Allergy (Verified 11/24/19 21:02) Rash Home Medications: Ambulatory Orders Medication Instructions Recorded Albuterol Inhaler [Ventolin Hfa] 2 puff INHALATION Q4H PRN PRN 11/24/19 Atorvastatin Calcium [Lipitor] 20 mg PO QHS 11/24/19 Calcium Carbonate/Vitamin D3 1 ea PO DAILY 11/24/19 [Calcium 600-Vit D3 800 Caplet] Fluticasone 0.05% [Flonase Nasal 2 spray NASAL DAILY 11/24/19 [place]] Folic Acid 1 mg PO DAILY 11/24/19 Isosorbide Mononitrate [Imdur] 30 mg PO DAILY 11/24/19 Lactobacillus Acidophilus 1 ea PO TID 11/24/19 [Acidophilus] Montelukast [Singulair] 10 mg PO DAILY 11/24/19 Multivitamin with Minerals 1 ea PO DAILY 11/24/19 [Multiple Vitamin] Omeprazole 40 mg PO DAILY 11/24/19 Oxybutynin [Ditropan] 2.5 mg PO DAILY 11/24/19 Prednisone 2.5 mg PO DAILY 11/24/19 Acetaminophen [Tylenol Tablet] 650 mg PO Q6H PRN PRN tab 11/28/19 Psyllium [Metamucil] 1 packet PO DAILY PRN PRN packet 11/28/19 Senna/Docusate Sodium [Senokot-S] 2 tab PO BID PRN PRN tab 11/28/19 Guaifenesin [Mucinex] 1,200 mg PO BID 11/30/19 Nutritional Supplement [Jameson - 1 packet PO BIDCM 11/30/19 [place] FLAVOR] Nystatin Powder [Mycostatin Powder] 1 applic TOPICAL BID 11/30/19 Paroxetine [Paxil] 40 mg PO DAILY 11/30/19 Surgical History: - - x1. 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 Lives: Spouse/ Significant Other Smoking Status: Never smoker Tobacco Use: Non-smoker, Cigarettes Drugs: None - *Family History Maternal History Items: High Cholesterol, Heart Disease, Hypertension Paternal History Items: High Cholesterol, Heart Disease, Hypertension Review of Systems Constitutional: Denies: Chills, Fever, Weight Change HEENT: Denies: Head Aches, Sinus Congestion, Sinus Drainage Cardiovascular: Denies: Chest Pain, Palpitations Respiratory: Denies: Cough, Shortness of breath at rest, Sputum production Gastrointestinal: Denies: Abdominal Pain, Nausea, Vomiting Genitourinary: Denies: Dysuria Musculoskeletal: Denies: Joint Pain, Joint Tenderness Skin: Reports: - - Buttock pain.. Denies: Rash, Wounds Neurological: Denies: Numbness, Tingling, Focal weakness Psychiatric: Denies: Anxiety, Depression, Homicidal Ideations, Suicidal Ideations Hematologic/ Lymphatic: Denies: Easy Bruising, Easy Bleeding VTE Information - Inpt Only VTE Present on Admission: No VTE Mechan Device Prophylaxis: Knee High ALEC Hose VTE Pharm Prophylaxis ordered?: Yes Patient Problems: Active and Suspected Problems Debility (Acute) Shortness of breath (Acute) Fall (Acute) Weakness (Acute) Dysphagia (Acute) - Physical Exam Vitals/I&O's: Vital Signs Temp Pulse Resp BP Pulse Ox 97.1 F L 53 L 22 H 118/69 94 11/30/19 17:19 11/30/19 17:19 11/30/19 17:19 11/30/19 17:19 11/30/19 17:19 Oxygen Delivery Method Room Air Weight: 86.806 kg Body Mass Index (BMI) 30.9 General: Alert, Oriented x3, Cooperative HEENT: Atraumatic, PERRLA, EOMI, Normocephalic Neck: Supple, No JVD, Negative Carotid Bruits Lungs: Clear to auscultation, Normal air movement Cardiovascular: Regular rate, No murmurs Abdomen: Bowel Sounds Present, Soft, Non Tender Extremities: No edema, Capillary Refill Less than 3 Seconds, - - Bilateral lower extremity MAK wrap, right ankle dressed. Skin: No rashes, No breakdown Musculoskeletal: No Tenderness to Palpation of Joints or Extremities Neurological: Cranial nerves II-XII grossly intact Psych/Mental Status: Normal Affect, Appropriate Current Medications Acetaminophen (Tylenol) 650 mg PO Q6H PRN PRN PRN Reason: Pain Score 1-10/Temp > 100.7 F Albuterol Sulfate (Ventolin Hfa (Sp)) 2 puff INHALATION Q4H PRN PRN PRN Reason: WHEEZING Atorvastatin Calcium (Lipitor) 20 mg PO QHS [facility] Calamine/Phenol (Calmoseptine Ointment) 1 applic TOPICAL 0600,2200 [facility]; P rotocol Fluticasone Propionate (Flonase Nasal [place]) 2 spray NASAL DAILY [facility] Folic Acid (Folic Acid) 1 mg PO DAILY [facility] Guaifenesin (Mucinex) 1,200 mg PO BID [facility] Isosorbide Mononitrate (Imdur) 30 mg PO DAILY [facility] Montelukast Sodium (Singulair) 10 mg PO QHS [facility] Nutritional Formula (Jameson - [place] Flavor) 1 packet PO BIDCM [facility] Nystatin (Mycostatin Powder) 1 applic TOPICAL BID [facility]; Protocol Oxybutynin Chloride (Ditropan) 2.5 mg PO DAILY [facility] Pantoprazole Sodium (Protonix) 40 mg PO DAILY [facility] Paroxetine HCl (Paxil) 40 mg PO DAILY [facility] Prednisone () 2.5 mg PO DAILYCM [facility] Psyllium Hydrophilic Mucilloid (Metamucil) 1 packet PO DAILY PRN PRN PRN Reason: Constipation Senna/Docusate Sodium (Senokot-S, Jane-Colace) 2 tablet PO BID PRN PRN PRN Reason: Constipation Tuberculin PPD (Tubersol, Aplisol, Ppd) 5 tu ID [id number] ONE Stop: 12/01/19 10:01 Tuberculin PPD (Tubersol, Aplisol, Ppd) 5 tu ID [id number] ONE Stop: 12/08/19 10:01 Assessment/Plan All Active Problems Hyperkalemia (Acute) Dyspnea (Acute) TENZIN (acute kidney injury) (Acute) Debility (Acute) Shortness of breath (Acute) Fall (Acute) Weakness (Acute) Dysphagia (Acute) 69 year old female with below past medical history hospitalized for hyperkalemia, acute kidney injury, complicated by right ankle ulcer, colonization of both sputum, urine, admitted to TCU with debility, here for rehabilitation, strengthening, prior to discharge home with . * Debility - PT/OT. * Dysphagia - ST. * Pain - Tylenol 1000MG Q6H PRN pain (1-3), Oxycodone 5MG Q4H PRN pain (4-10) * Bowel - Miralax 17GM daily, Senna/colace 1 tablet BID, Dulcolax 10MG daily PRN. * Adult immunization - Administer Prevnar 13, Pneumovax 23, Fluzone as appropriate. * DVT prophylaxis - Lovenox 40MG SC daily. * Asthma - Albuterol 2MG Q4H PRN, Singulair 10MG daily, Prednisone 2.5MG daily. * Hyperlipidemia - Atorvastatin 20MG QHS. * Allergic Rhinitis - Flonase 2 sprays daily. * Folate deficiency - Folic Acid 1MG daily. * Congestion - Mucinex 1200MG BID. * Coronary Artery Disease - Imdur 30MG daily. * Skin irritation - Calmoseptine BID. * Right ankle ulcer - Jameson 1 packet twice daily, Consult wound nurse. * Tinea Corporis - Nystatin power BID. * Overactive bladder - Oxybutynin 2.5MG daily. * GERD - Pantoprazole 40MG daily. * Depression - Paxil 40MG daily.
[2019-11-30] MEDS: guaiFENesin 1,200 MG Tablet 1200 MG PO (21:29)
[2019-11-30] MEDS: Atorvastatin Calcium 20 MG Tablet PO (21:35)
[2019-11-30] MEDS: Montelukast 10 MG Tablet PO (21:35)
[2019-11-30] MEDS: Menthol/Lanolin/Calamine/Znox 113 GM Tube 1 APPLIC TOPICAL (21:36)
[2019-11-30] MEDS: Nystatin Powder 15gm Bottle 1 APPLIC TOPICAL (21:36)
[2019-12-01] MEDS: Polyethylene Glycol 3350 17 GM PACKET PO (05:01)
[2019-12-01] MEDS: Fluticasone 0.05% 1 SPRAY NASAL.SRY 2 SPRAY NASAL (05:01)
[2019-12-01] MEDS: Paroxetine 20 MG Tablet 40 MG PO (05:02)
[2019-12-01] MEDS: Enoxaparin 40 MG/0.4 ML Syringe SC (05:02)
[2019-12-01] MEDS: Oxybutynin 5 MG Tablet 2.5 MG PO (05:02)
[2019-12-01] MEDS: Isosorbide Mononitrate 30 MG Tablet PO (05:02)
[2019-12-01] MEDS: Pantoprazole Sodium 40 MG Tablet PO (05:02)
[2019-12-01] MEDS: Folic Acid 1 MG Tablet PO (05:02)
[2019-12-01] MEDS: Senna/Docusate Sodium 1 Tablet PO (05:02)
[2019-12-01] MEDS: Nystatin Powder 15gm Bottle 1 APPLIC TOPICAL ×2 (05:07→18:04)
[2019-12-01] MEDS: Menthol/Lanolin/Calamine/Znox 113 GM Tube 1 APPLIC TOPICAL ×2 (05:07→21:32)
[2019-12-01] MEDS: guaiFENesin 1,200 MG Tablet 1200 MG PO ×2 (05:12→18:04)
--- NOTE | 2019-12-01 05:26 | NURSING ---
Pt blood draw this AM. Pt refusing to be stuck my lab d/t numerous bruises and non pitting edema to bilateral arms. Unable to flush or get blood return from Red lumen. Pt stating it was like that before coming to unit yesterday. Able to flush Purple lumen and draw blood. Pt denied pain or discomfort. Will update Dr. Harris.
[2019-12-01 05:33] LABS: Absolute Lymphocyte Count 0.88 X10^3/uL (0.83-4.51); Absolute Neutrophil Count 4.2 X10^3/uL (2.0-7.7); Basophil# 0.05 X10^3/uL; Basophil% 0.8 % (0-1); Eosinophil# 0.18 X10^3/uL; Hematocrit 24.7 % (37-47); Hemoglobin 7.7 g/dL (12.0-15.0); Lymphocyte # 0.88 X10^3/ul (4.0); Lymphocyte % 14.8 % (19-41); Mean Corp Hgb Conc 31.2 g/dL (32-36); Mean Corpuscular Hgb 32.6 pg (27.0-32.0); Mean Corpuscular Volume 104.7 fL (81-99); Mean Platelet Vol. 11.9 fl (6.2-12.0); Monocyte# 0.66 X10^3/uL; Monocyte% 11.1 % (0-10); NRBC Flagged by Analyzer 0 % (0-5); Neutrophil # 4.15 X10^3/uL (2.7-7.7); Neutrophil % 69.8 % (47-70); POSITIVE MORPHOLOGY YES; Platelet Count 148 K/mm3 (150-450); RBC Distribution Width CV 20.3 % (11.6-14.6); RBC Distribution Width SD 77.2 fl (35.1-43.9); Red Blood Count 2.36 M/mm3 (4.2-5.4)
[2019-12-01 05:50] LABS: Differential Indicated SCAN CRITERIA MET
[2019-12-01 06:01] LABS: Anion Gap 2 (5-15); BUN 36 mg/dL (7-18); BUN/Creat Ratio 37.5 RATIO (10-20); Calcium,Total 7.8 mg/dL (8.5-10.1); Chloride 114 mmol/L (98-107); Creatinine, Serum 0.96 mg/dL (0.55-1.02); EST Glomerular Filtration Rate 61 mL/min (>60); Est Glom Filt Rate - Afr Amer 74 mL/min (>60); Estimated Creatinine Clearance 53.23 ml/min; Glucose 104 mg/dL (74-106); Potassium 4.5 mmol/L (3.5-5.1); Sodium Level 142 mmol/L (136-145)
[2019-12-01 06:09] LABS: Differential Comment SCANNED; Hypochromasia 1+
[2019-12-01 06:10] LABS: Macrocytosis 2+; Target Cells 1+
[2019-12-01] MEDS: predniSONE 5 MG Tablet 2.5 MG PO (08:38)
[2019-12-01] MEDS: Iron Polysaccharide Complex 150 MG CAPSULE PO (08:39)
[2019-12-01] MEDS: 0.9% Saline Lock 10 ML Syringe IV ×2 (12:00→15:41)
[2019-12-01] MEDS: Tuberculin,Purif.prot.deriv. 50 TU/ML Vial 5 ML ID (12:00)
[2019-12-01 15:04] VITALS: BP 114/58; PULSE 75; RESP 18; TEMP 37.1; O2SAT 93
[2019-12-01] MEDS: Alteplase 2 MG/2 ML Vial IV (15:34)
--- NOTE | 2019-12-01 17:04 | NURSING ---
here at bedside. informed him of the cathflo that was placed in the PICC. understood. also refusing to wear gown, mask and gloves for isolation protocol
--- NOTE | 2019-12-01 18:21 | NURSING ---
Addendum entered by Lynn Alston 12/01/19 22:08: Order to D/C line. Dual PICC removed. Tip intact. Marked at 45cm. Pt denied pain or discomfort. Petroleum jelly, 2x2 and [id number] dressing applied. Educated pt on remaining flat for about an hour and limit movement to arm. Pt agreeable. Resting in bed with call light in reach. Original Note: late entry 1540 cathflo was placed in the purple port d/t not being able to draw or flush both red and purple line. 1610 after 30mins from cathflo placed was able to pull off blood return- which came out in a sluggish fashion. when flushed after 4ml waste was a hard push to infuse iv flush. unable to move the red line. Household Appliances Service Technician came up and tried also to flush line. call will be placed to Dr. Harris to see if we still need PICC line.
[2019-12-01] MEDS: Atorvastatin Calcium 20 MG Tablet PO (21:29)
[2019-12-01] MEDS: Montelukast 10 MG Tablet PO (21:29)
[2019-12-02] MEDS: Acetaminophen 500 MG Tablet 1000 MG PO ×3 (00:24→23:55)
[2019-12-02 06:10] LABS: Hematocrit 25.8 % (37-47); Hemoglobin 8.2 g/dL (12.0-15.0)
[2019-12-02] MEDS: Isosorbide Mononitrate 30 MG Tablet PO (06:22)
[2019-12-02] MEDS: Oxybutynin 5 MG Tablet 2.5 MG PO (06:22)
[2019-12-02] MEDS: guaiFENesin 1,200 MG Tablet 1200 MG PO ×2 (06:22→16:56)
[2019-12-02] MEDS: Folic Acid 1 MG Tablet PO (06:22)
[2019-12-02] MEDS: Senna/Docusate Sodium 1 Tablet PO (06:22)
[2019-12-02] MEDS: Paroxetine 20 MG Tablet 40 MG PO (06:22)
[2019-12-02] MEDS: Pantoprazole Sodium 40 MG Tablet PO (06:22)
[2019-12-02] MEDS: Nystatin Powder 15gm Bottle 1 APPLIC TOPICAL ×2 (06:27→16:56)
[2019-12-02] MEDS: Menthol/Lanolin/Calamine/Znox 113 GM Tube 1 APPLIC TOPICAL ×2 (06:27→20:40)
[2019-12-02] MEDS: Fluticasone 0.05% 1 SPRAY NASAL.SRY 2 SPRAY NASAL (06:28)
[2019-12-02] MEDS: predniSONE 5 MG Tablet 2.5 MG PO (08:48)
[2019-12-02] MEDS: Iron Polysaccharide Complex 150 MG CAPSULE PO (08:49)
[2019-12-02] MEDS: oxyCODONE 5 MG Tablet PO ×3 (12:16→23:57)
[2019-12-02 14:29] VITALS: BP 125/68; PULSE 84; RESP 18; TEMP 35.8; O2SAT 97
--- NOTE | 2019-12-02 15:33 | NURSING ---
Nursing had just changed the dressings to bilateral feet. will assess wounds tomorrow.
[2019-12-02] MEDS: Paroxetine 20 MG Tablet PO (16:57)
[2019-12-02] MEDS: Atorvastatin Calcium 20 MG Tablet PO (20:40)
[2019-12-02] MEDS: Montelukast 10 MG Tablet PO (20:40)
[2019-12-03] MEDS: Menthol/Lanolin/Calamine/Znox 113 GM Tube 1 APPLIC TOPICAL ×2 (06:02→22:03)
[2019-12-03] MEDS: Nystatin Powder 15gm Bottle 1 APPLIC TOPICAL ×2 (06:03→16:52)
[2019-12-03] MEDS: Fluticasone 0.05% 1 SPRAY NASAL.SRY 2 SPRAY NASAL (08:04)
[2019-12-03] MEDS: Paroxetine 20 MG Tablet PO ×2 (08:05→16:52)
[2019-12-03] MEDS: Iron Polysaccharide Complex 150 MG CAPSULE PO (08:05)
[2019-12-03] MEDS: Isosorbide Mononitrate 30 MG Tablet PO (08:05)
[2019-12-03] MEDS: Folic Acid 1 MG Tablet PO (08:05)
[2019-12-03] MEDS: Oxybutynin 5 MG Tablet 2.5 MG PO (08:05)
[2019-12-03] MEDS: Pantoprazole Sodium 40 MG Tablet PO (08:06)
[2019-12-03] MEDS: Senna/Docusate Sodium 1 Tablet PO ×2 (08:06→16:52)
[2019-12-03] MEDS: predniSONE 5 MG Tablet 2.5 MG PO (08:06)
[2019-12-03] MEDS: guaiFENesin 1,200 MG Tablet 1200 MG PO ×2 (08:06→16:52)
--- NOTE | 2019-12-03 09:59 | PHA.CONS_ITS ---
<Paige Perez - Last Filed: 12/03/19 09:59> Progress Note - Pharmacy Subjective: TCU Admission Objective: Allergies doxycycline Allergy (Verified 11/24/19 21:02) Rash lisinopril Allergy (Verified 11/24/19 21:02) Rash Current Medications Generic Name Dose Route Start Last Admin Trade Name Freq PRN Reason Stop Dose Admin Acetaminophen 1,000 mg 11/30/19 18:26 12/02/19 23:55 Tylenol PO 1,000 mg Q6H PRN PRN Administration Pain Score 1-3/10 Albuterol Sulfate 2 mg 11/30/19 17:58 Ventolin Aerosols INHALATION Q4H PRN PRN WHEEZING Atorvastatin Calcium 20 mg 11/30/19 22:00 12/02/19 20:40 Lipitor PO 20 mg QHS [facility] Administration Bisacodyl 10 mg 11/30/19 18:20 Dulcolax PO DAILY PRN Constipation Calamine/Phenol 1 applic 11/30/19 22:00 12/03/19 06:02 Calmoseptine Ointment TOPICAL 1 applicatio 0600,2200 [facility] Administration Protocol Fluticasone Propionate 2 spray 12/03/19 08:00 12/03/19 08:04 Flonase Nasal [place] NASAL 2 spray DAILY@0800 [facility] Administration Folic Acid 1 mg 12/03/19 08:00 12/03/19 08:05 Folic Acid PO 1 mg DAILYCM [facility] Administration Guaifenesin 1,200 mg 12/03/19 08:00 12/03/19 08:06 Mucinex PO 1,200 mg BID@0800,1800 [facility] Administration Heparin Sodium (Beef Lung) 50 units 11/30/19 18:15 IV UD PRN PICC Line Heparin Flush Isosorbide Mononitrate 30 mg 12/03/19 08:00 12/03/19 08:05 Imdur PO 30 mg DAILY@0800 [facility] Administration Montelukast Sodium 10 mg 11/30/19 22:00 12/02/19 20:40 Singulair PO 10 mg QHS [facility] Administration Nutritional Formula 1 packet 12/01/19 08:00 12/03/19 08:05 Jameson - Craven Flavor PO 1 packet BIDCM [facility] Administration Nystatin 1 applic 11/30/19 18:00 12/03/19 06:03 Mycostatin Powder TOPICAL 1 applicatio BID [facility] Administration Protocol Oxybutynin Chloride 2.5 mg 12/03/19 08:00 12/03/19 08:05 Ditropan PO 2.5 mg DAILY@0800 [facility] Administration Oxycodone HCl 5 mg 12/02/19 08:14 12/02/19 23:57 Oxyir PO 5 mg Q4H PRN PRN Administration Pain Score 4-10/10 Pantoprazole Sodium 40 mg 12/03/19 08:00 12/03/19 08:06 Protonix PO 40 mg DAILY@0800 [facility] Administration Paroxetine HCl 20 mg 12/02/19 18:00 12/03/19 08:05 Paxil PO 20 mg BID [facility] Administration Polyethylene Glycol 17 gm 12/01/19 06:00 12/03/19 06:03 Miralax PO Not Given DAILY [facility] Polysaccharide Iron Complex 150 mg 12/01/19 08:00 12/03/19 08:05 Ferrex 150 PO 150 mg DAILYCM [facility] Administration Prednisone 2.5 mg 12/01/19 08:00 12/03/19 08:06 PO 2.5 mg DAILYCM [facility] Administration Senna/Docusate Sodium 1 tablet 12/03/19 08:00 12/03/19 08:06 Senokot-S, Jane-Colace PO 1 tablet BID@0800,1800 [facility] Administration Sodium Chloride 10 - 40 ml 11/30/19 18:15 12/01/19 15:41 IV 10 ml UD PRN Administration Open End PICC Flush Sodium Chloride 10 - 40 ml 11/30/19 18:15 0.9% Nacl (Sterile) Posiflush IV UD PRN Port access or dressing change Tuberculin PPD 5 tu 12/08/19 10:00 Tubersol, Aplisol, Ppd ID 12/08/19 10:01 X1 ONE Problem List Debility (Acute) Shortness of breath (Acute) Fall (Acute) Weakness (Acute) MRSA (methicillin resistant staph aureus) culture positive (Chronic) Chronic diastolic (congestive) heart failure (Chronic) Depression (Chronic) Anxiety (Chronic) Body mass index (bmi) 30.0-30.9, adult (Chronic) Allergic rhinitis (Chronic) Asthma (Chronic) GERD (gastroesophageal reflux disease) (Chronic) OAB (overactive bladder) (Chronic) Iron deficiency anemia (Chronic) Dysphagia (Acute) Vital Signs Temp Pulse Resp BP Pulse Ox 96.5 F L 84 18 125/68 H 97 12/02/19 14:29 12/02/19 14:29 12/02/19 14:29 12/02/19 14:29 12/02/19 14:29 Oxygen Delivery Method Room Air Weight: 86.806 kg Body Mass Index (BMI) 30.9 Sodium 142 mmol/L (136-145) 12/01/19 05:20 Potassium 4.5 mmol/L (3.5-5.1) 12/01/19 05:20 Chloride 114 mmol/L (98-107) H 12/01/19 05:20 Carbon Dioxide 26.0 mmol/L (21.0-32.0) 12/01/19 05:20 Anion Gap 2 (5-15) L 12/01/19 05:20 BUN 36 mg/dL (7-18) H 12/01/19 05:20 Creatinine 0.96 mg/dL (0.55-1.02) 12/01/19 05:20 Est GFR (MDRD) Af Amer 74 mL/min (>60) 12/01/19 05:20 Est GFR (MDRD) Non-Af 61 mL/min (>60) 12/01/19 05:20 BUN/Creatinine Ratio 37.5 RATIO (10-20) H 12/01/19 05:20 Glucose 104 mg/dL (74-106) 12/01/19 05:20 Assessment/Plan: 1. Pain: acetaminophen 1000mg PO Q6H PRN pain (1-3/10) and oxycodone 5mg PO Q4H PRN pain (4-10/10). Please continue to monitor for increased pain, PRN usage and constipation. 2. CAD: isosorbide mononitrate 30mg PO daily. Please continue to monitor BP and for chest pain. 3. Hyperlipidemia: atorvastatin 20mg PO QHS. I did not see a lipid panel in the patient's chart. Please consider ordering one now and then annually as clinically appropriate. Thanks. 4. Asthma: albuterol 2mg inhalation Q4H PRN wheezing, prednisone 2.5mg PO DAILYCM, and montelukast 10mg PO QHS. Please continue to monitor for wheezing, swelling, and decreased WBC. 5. Overactive bladder: oxybutynin 2.5mg PO daily. Please continue to monitor for urinary urgency and GI side effects. 6. GERD: pantoprazole 40mg PO daily. Please continue to monitor for S/S of GERD. 7. Iron deficiency anemia (Hgb 8.2 g/dL): Ferrex 150mg PO DAILYCM. Please continue to monitor hemoglobin and for dark stools. 8. Congestion/allergic rhinitis: guaifenesin 1200mg PO BID and fluticasone 0.05% 2 sprays nasally daily. Please continue to monitor. 9. Folate deficiency: folic acid 1mg PO DAILYCM. Folate is 65.9 ng/mL which is slightly high. Please continue to monitor. Psychotropic Medications: *1. Depression: paroxetine 20mg PO BID. Total daily dose remained the same but order just changed from 40mg PO daily to 20mg PO BID. Please consider GDR by 05/2020 if clinically appropriate. Thanks. Unnecessary Medications: None *Bowel Regimen: Miralax 17gm PO daily, senna/docusate 1T PO BID, bisacodyl 10mg PO daily PRN constipation. Patient has refused 2/3 doses of Miralax and 4/6 doses of senna/docusate. Please consider changing from scheduled to PRN constipation. Thanks. Please continue to monitor for constipation, diarrhea, and PRN usage. Date of Note:: 12/03/19 - Provider Comments Provider responsibility: Provider responsible to enter orders to implement recommendations <Linwood Harris Chi - Last Filed: 12/03/19 17:27> Progress Note - Pharmacy Subjective: [] Objective: Allergies doxycycline Allergy (Verified 11/24/19 21:02) Rash lisinopril Allergy (Verified 11/24/19 21:02) Rash Current Medications Generic Name Dose Route Start Last Admin Trade Name Freq PRN Reason Stop Dose Admin Acetaminophen 1,000 mg 11/30/19 18:26 12/03/19 12:51 Tylenol PO 1,000 mg Q6H PRN PRN Administration Pain Score 1-3/10 Albuterol Sulfate 2 mg 11/30/19 17:58 Ventolin Aerosols INHALATION Q4H PRN PRN WHEEZING Atorvastatin Calcium 20 mg 11/30/19 22:00 12/02/19 20:40 Lipitor PO 20 mg QHS [facility] Administration Bisacodyl 10 mg 11/30/19 18:20 Dulcolax PO DAILY PRN Constipation Calamine/Phenol 1 applic 11/30/19 22:00 12/03/19 06:02 Calmoseptine Ointment TOPICAL 1 applicatio 0600,2200 [facility] Administration Protocol Fluticasone Propionate 2 spray 12/03/19 08:00 12/03/19 08:04 Flonase Nasal [place] NASAL 2 spray DAILY@0800 [facility] Administration Folic Acid 1 mg 12/03/19 08:00 12/03/19 08:05 Folic Acid PO 1 mg DAILYCM [facility] Administration Guaifenesin 1,200 mg 12/03/19 08:00 12/03/19 16:52 Mucinex PO 1,200 mg BID@0800,1800 [facility] Administration Heparin Sodium (Beef Lung) 50 units 11/30/19 18:15 IV UD PRN PICC Line Heparin Flush Isosorbide Mononitrate 30 mg 12/03/19 08:00 12/03/19 08:05 Imdur PO 30 mg DAILY@0800 [facility] Administration Montelukast Sodium 10 mg 11/30/19 22:00 12/02/19 20:40 Singulair PO 10 mg QHS [facility] Administration Nutritional Formula 1 packet 12/01/19 08:00 12/03/19 16:52 Jameson - Craven Flavor PO 1 packet BIDCM [facility] Administration Nystatin 1 applic 11/30/19 18:00 12/03/19 16:52 Mycostatin Powder TOPICAL 1 applicatio BID [facility] Administration Protocol Oxybutynin Chloride 2.5 mg 12/03/19 08:00 12/03/19 08:05 Ditropan PO 2.5 mg DAILY@0800 [facility] Administration Oxycodone HCl 5 mg 12/02/19 08:14 12/03/19 12:51 Oxyir PO 5 mg Q4H PRN PRN Administration Pain Score 4-10/10 Pantoprazole Sodium 40 mg 12/03/19 08:00 12/03/19 08:06 Protonix PO 40 mg DAILY@0800 [facility] Administration Paroxetine HCl 20 mg 12/02/19 18:00 12/03/19 16:52 Paxil PO 20 mg BID [facility] Administration Polyethylene Glycol 17 gm 12/01/19 06:00 12/03/19 06:03 Miralax PO Not Given DAILY [facility] Polysaccharide Iron Complex 150 mg 12/01/19 08:00 12/03/19 08:05 Ferrex 150 PO 150 mg DAILYCM [facility] Administration Prednisone 2.5 mg 12/01/19 08:00 12/03/19 08:06 PO 2.5 mg DAILYCM [facility] Administration Senna/Docusate Sodium 1 tablet 12/03/19 08:00 12/03/19 16:52 Senokot-S, Jane-Colace PO 1 tablet BID@0800,1800 [facility] Administration Sodium Chloride 10 - 40 ml 11/30/19 18:15 12/01/19 15:41 IV 10 ml UD PRN Administration Open End PICC Flush Sodium Chloride 10 - 40 ml 11/30/19 18:15 0.9% Nacl (Sterile) Posiflush IV UD PRN Port access or dressing change Tuberculin PPD 5 tu 12/08/19 10:00 Tubersol, Aplisol, Ppd ID 12/08/19 10:01 X1 ONE Problem List Debility (Acute) Shortness of breath (Acute) Fall (Acute) Weakness (Acute) MRSA (methicillin resistant staph aureus) culture positive (Chronic) Chronic diastolic (congestive) heart failure (Chronic) Depression (Chronic) Anxiety (Chronic) Body mass index (bmi) 30.0-30.9, adult (Chronic) Allergic rhinitis (Chronic) Asthma (Chronic) GERD (gastroesophageal reflux disease) (Chronic) OAB (overactive bladder) (Chronic) Iron deficiency anemia (Chronic) Dysphagia (Acute) Vital Signs Temp Pulse Resp BP Pulse Ox 96.8 F L 73 18 104/61 96 12/03/19 14:43 12/03/19 14:43 12/03/19 14:43 12/03/19 14:43 12/03/19 14:43 Oxygen Delivery Method Room Air Weight: 86.772 kg Body Mass Index (BMI) 30.9 Sodium 142 mmol/L (136-145) 12/01/19 05:20 Potassium 4.5 mmol/L (3.5-5.1) 12/01/19 05:20 Chloride 114 mmol/L (98-107) H 12/01/19 05:20 Carbon Dioxide 26.0 mmol/L (21.0-32.0) 12/01/19 05:20 Anion Gap 2 (5-15) L 12/01/19 05:20 BUN 36 mg/dL (7-18) H 12/01/19 05:20 Creatinine 0.96 mg/dL (0.55-1.02) 12/01/19 05:20 Est GFR (MDRD) Af Amer 74 mL/min (>60) 12/01/19 05:20 Est GFR (MDRD) Non-Af 61 mL/min (>60) 12/01/19 05:20 BUN/Creatinine Ratio 37.5 RATIO (10-20) H 12/01/19 05:20 Glucose 104 mg/dL (74-106) 12/01/19 05:20 Assessment/Plan: Psychotropic Medications: Unnecessary Medications: Bowel Regimen: - Provider Comments Provider responsibility: Provider responsible to enter orders to implement recommendations Provider Comments to Recommendations by Pharmacy: Agree
[2019-12-03] MEDS: oxyCODONE 5 MG Tablet PO ×2 (12:51→23:08)
[2019-12-03] MEDS: Acetaminophen 500 MG Tablet 1000 MG PO ×2 (12:51→23:12)
[2019-12-03 14:43] VITALS: BP 104/61; PULSE 73; RESP 18; TEMP 36; O2SAT 96
[2019-12-03] MEDS: Atorvastatin Calcium 20 MG Tablet PO (22:00)
[2019-12-03] MEDS: Montelukast 10 MG Tablet PO (22:00)
[2019-12-04] MEDS: Nystatin Powder 15gm Bottle 1 APPLIC TOPICAL ×2 (05:53→17:40)
[2019-12-04] MEDS: Menthol/Lanolin/Calamine/Znox 113 GM Tube 1 APPLIC TOPICAL ×2 (05:53→20:10)
[2019-12-04] MEDS: predniSONE 5 MG Tablet 2.5 MG PO (08:41)
[2019-12-04] MEDS: Senna/Docusate Sodium 1 Tablet PO (08:41)
[2019-12-04] MEDS: Iron Polysaccharide Complex 150 MG CAPSULE PO (08:41)
[2019-12-04] MEDS: Polyethylene Glycol 3350 17 GM PACKET PO (08:42)
[2019-12-04] MEDS: Fluticasone 0.05% 1 SPRAY NASAL.SRY 2 SPRAY NASAL (08:46)
[2019-12-04] MEDS: Isosorbide Mononitrate 30 MG Tablet PO (10:22)
[2019-12-04] MEDS: Oxybutynin 5 MG Tablet 2.5 MG PO (10:22)
[2019-12-04] MEDS: Folic Acid 1 MG Tablet PO (10:23)
[2019-12-04] MEDS: guaiFENesin 1,200 MG Tablet 1200 MG PO ×2 (10:23→17:25)
[2019-12-04] MEDS: Paroxetine 20 MG Tablet PO ×2 (10:24→17:27)
[2019-12-04] MEDS: Pantoprazole Sodium 40 MG Tablet PO (10:24)
[2019-12-04] MEDS: oxyCODONE 5 MG Tablet PO ×2 (11:00→23:48)
[2019-12-04] MEDS: Acetaminophen 500 MG Tablet 1000 MG PO ×2 (11:00→23:49)
--- NOTE | 2019-12-04 12:25 | NURSING ---
Resident remains in isolation for droplet and contact precautions. All care provided in room.
[2019-12-04 13:48] VITALS: BP 108/50; PULSE 75; RESP 16; TEMP 36.6; O2SAT 92
--- NOTE | 2019-12-04 15:12 | NURSING ---
wound photo: left 3rd toe
--- NOTE | 2019-12-04 15:14 | NURSING ---
wound photo: right lateral ankle
--- NOTE | 2019-12-04 15:24 | NURSING ---
DR. ARAUZ'S OFFICE CALLED FOR APPT. DR. ZAMAN CALLED, WILL BE IN TOMORROW TO SEE R'.
--- NOTE | 2019-12-04 16:30 | CASEMGMT ---
Social Work IDT met with pt and pt for care plan meeting. Pt on cardiac diet, mech soft and thin liquids. Pt min to mod assist for sit to stand transfers and dependant on bed mobility, toileting tasks and LE ADLS. Educated pt on [facility] coverage, pt aware that she may have co-pays that would be self pay. Pt agreeable to tentative DC 12/19. No DME needs at this time. Inna Dunbar, social work campus recruiting intern Rasheeda Fink, PLAN CONSULTANT BACK OFFICE MEDICAL ASSISTANT
--- NOTE | 2019-12-04 17:30 | NURSING ---
ASKED DR. DE LA FUENTE IF DR. BENITEZ NEEDS C/S AT THIS TIME. NO CONSULT AT THIS TIME.
[2019-12-04] MEDS: Montelukast 10 MG Tablet PO (20:08)
[2019-12-04] MEDS: Atorvastatin Calcium 20 MG Tablet PO (20:08)
[2019-12-05] MEDS: Menthol/Lanolin/Calamine/Znox 113 GM Tube 1 APPLIC TOPICAL ×2 (05:30→20:10)
[2019-12-05] MEDS: Nystatin Powder 15gm Bottle 1 APPLIC TOPICAL ×2 (05:31→17:05)
[2019-12-05] MEDS: Polyethylene Glycol 3350 17 GM PACKET PO (08:38)
[2019-12-05] MEDS: guaiFENesin 1,200 MG Tablet 1200 MG PO ×2 (08:38→17:07)
[2019-12-05] MEDS: Senna/Docusate Sodium 1 Tablet PO (08:38)
[2019-12-05] MEDS: Pantoprazole Sodium 40 MG Tablet PO (08:38)
[2019-12-05] MEDS: Isosorbide Mononitrate 30 MG Tablet PO (08:39)
[2019-12-05] MEDS: Paroxetine 20 MG Tablet PO ×2 (08:39→17:07)
[2019-12-05] MEDS: Oxybutynin 5 MG Tablet 2.5 MG PO (08:39)
[2019-12-05] MEDS: Folic Acid 1 MG Tablet PO (08:39)
[2019-12-05] MEDS: Iron Polysaccharide Complex 150 MG CAPSULE PO (08:40)
[2019-12-05] MEDS: predniSONE 5 MG Tablet 2.5 MG PO (08:40)
[2019-12-05] MEDS: Fluticasone 0.05% 1 SPRAY NASAL.SRY 2 SPRAY NASAL (08:51)
[2019-12-05 14:39] VITALS: BP 101/59; PULSE 75; RESP 16; TEMP 36.3; O2SAT 93
[2019-12-05] MEDS: Montelukast 10 MG Tablet PO (20:05)
[2019-12-05] MEDS: Atorvastatin Calcium 20 MG Tablet PO (20:05)
[2019-12-05] MEDS: oxyCODONE 5 MG Tablet PO (23:26)
[2019-12-05] MEDS: Acetaminophen 500 MG Tablet 1000 MG PO (23:26)
--- NOTE | 2019-12-05 23:28 | PCM.CONS.GEN ---
Problem List (1) Chronic ulcer of left foot with fat layer exposed Status: Chronic (2) Eschar of foot Status: Acute (3) Ulcer of right lower extremity Status: Acute (4) Eschar of lower leg Status: Acute (5) Other specified peripheral vascular diseases Status: Acute (6) Edema of both lower extremities Status: Acute Reason for Consult Date of Consultation: 12/05/19 Reason for Consultation: right ankle and left third toe scabs History of Present Illness: The patient is a 69 year old F was seen bedside for wounds of the right ankle and left third toe. She was admited for acute kidney injury, hyperkalemia and deconditioning and resides in the transitional care unit. She was previously seen by Dr. Mills for these stable ulcer sites and is still waiting for her contact precaution status to be completed prior to getting the previously recommended non invasive vascular studies. She denies recent injury or current rest pain. She does not recall claudication symptoms but it is noted she is not ambulating a lot. She refuses debridement today and requests additional time to consider santyl enzymatic debridement. Past Medical History Past Medical History (Chronic Problems): Chronic Problems CHF (congestive heart failure) (Chronic) HTN (hypertension) (Chronic) HLD (hyperlipidemia) (Chronic) Anxiety and depression (Chronic) Wound of right ankle (Chronic) Obesity (BMI 30.0-34.9) (Chronic) MRSA (methicillin resistant staph aureus) culture positive (Chronic) Chronic diastolic (congestive) heart failure (Chronic) Depression (Chronic) Anxiety (Chronic) Body mass index (bmi) 30.0-30.9, adult (Chronic) Allergic rhinitis (Chronic) Asthma (Chronic) GERD (gastroesophageal reflux disease) (Chronic) OAB (overactive bladder) (Chronic) Iron deficiency anemia (Chronic) Chronic ulcer of left foot with fat layer exposed (Chronic) Allergies doxycycline Allergy (Verified 11/24/19 21:02) Rash lisinopril Allergy (Verified 11/24/19 21:02) Rash Home Medications: Ambulatory Orders Medication Instructions Recorded Albuterol Inhaler [Ventolin Hfa] 2 puff INHALATION Q4H PRN PRN 11/24/19 Atorvastatin Calcium [Lipitor] 20 mg PO QHS 11/24/19 Calcium Carbonate/Vitamin D3 1 ea PO DAILY 11/24/19 [Calcium 600-Vit D3 800 Caplet] Fluticasone 0.05% [Flonase Nasal 2 spray NASAL DAILY 11/24/19 [place]] Folic Acid 1 mg PO DAILY 11/24/19 Isosorbide Mononitrate [Imdur] 30 mg PO DAILY 11/24/19 Lactobacillus Acidophilus 1 ea PO TID 11/24/19 [Acidophilus] Montelukast [Singulair] 10 mg PO DAILY 11/24/19 Multivitamin with Minerals 1 ea PO DAILY 11/24/19 [Multiple Vitamin] Omeprazole 40 mg PO DAILY 11/24/19 Oxybutynin [Ditropan] 2.5 mg PO DAILY 11/24/19 Prednisone 2.5 mg PO DAILY 11/24/19 Acetaminophen [Tylenol Tablet] 650 mg PO Q6H PRN PRN tab 11/28/19 Psyllium [Metamucil] 1 packet PO DAILY PRN PRN packet 11/28/19 Senna/Docusate Sodium [Senokot-S] 2 tab PO BID PRN PRN tab 11/28/19 Guaifenesin [Mucinex] 1,200 mg PO BID 11/30/19 Nutritional Supplement [Jameson - 1 packet PO BIDCM 11/30/19 ORANGE FLAVOR] Nystatin Powder [Mycostatin Powder] 1 applic TOPICAL BID 11/30/19 Paroxetine [Paxil] 40 mg PO DAILY 11/30/19 Surgical History: - - x1. Psychiatric History: Anxiety, Depression HANDLING TECH History: No pertinent HANDLING TECH history Lives: Spouse/ Significant Other Smoking Status: Never smoker Tobacco Use: Non-smoker, Cigarettes Drugs: None - *Family History Maternal History Items: High Cholesterol, Heart Disease, Hypertension Paternal History Items: High Cholesterol, Heart Disease, Hypertension Review of Systems Constitutional: Denies: Chills, Fever Cardiovascular: Denies: Claudication Gastrointestinal: Denies: Nausea Musculoskeletal: Denies: Joint Tenderness, Leg Pain Skin: Reports: Skin Changes, Wounds Hematologic/ Lymphatic: Reports: Easy Bruising Patient Problems: Active and Suspected Problems Debility (Acute) Shortness of breath (Acute) Fall (Acute) Weakness (Acute) Dysphagia (Acute) Eschar of foot (Acute) Ulcer of right lower extremity (Acute) Eschar of lower leg (Acute) Other specified peripheral vascular diseases (Acute) Edema of both lower extremities (Acute) Diarrhea (Acute) Abnormal abdominal x-ray (Acute) - Physical Exam Vitals/I&O's: Vital Signs Temp Pulse Resp BP Pulse Ox 97.4 F L 75 16 101/59 L 93 12/05/19 14:39 12/05/19 14:39 12/05/19 14:39 12/05/19 14:39 12/05/19 14:39 Oxygen Delivery Method Room Air Weight: 86.772 kg Body Mass Index (BMI) 30.9 Intake and Output for Last 24 Hours 12/03/19 12/04/19 12/05/19 23:59 23:59 23:59 Intake Total 600 / 600 600 / 600 360 / 360 Output Total Balance 600 / 600 599 / 599 360 / 360 General: Alert, Cooperative Extremities: No cyanosis, Capillary Refill Less than 3 Seconds, No Calf Tenderness - negative jose carlos and golden signs bilateral, Diminished Peripheral Pulses, Edema - bilateral lower extremities with ca wraps in place, - - bilateral dorsal contraction of lesser digits consistent with hammer toe deformities Skin: Ulcer/ Wound - no purulence, no erythema, no streaking, no infection. eschar well adhered to lateral ankle (right) no deeper than subcutaneous level. The dorsal lateral third toe is eschar with bone probed. skin is atrophic and hairless. Musculoskeletal: No Tenderness to Palpation of Joints or Extremities, Muscle Wasting, Tenderness - pain to palpate ulcer sites; no fluctuance or bogginess noted on palpation. AROM ankle and digits noted bilateral lower extremities Neurological: Sensory exam intact to light touch and pain Psych/Mental Status: Normal Affect, Appropriate Current Medications Acetaminophen (Tylenol) 1,000 mg PO Q6H PRN PRN PRN Reason: Pain Score 1-3/10 Last Admin: 12/04/19 23:49 Dose: 1,000 mg Documented by: Albuterol Sulfate (Ventolin Aerosols) 2 mg INHALATION Q4H PRN PRN PRN Reason: WHEEZING Atorvastatin Calcium (Lipitor) 20 mg PO QHS [facility] Last Admin: 12/05/19 20:05 Dose: 20 mg Documented by: Bisacodyl (Dulcolax) 10 mg PO DAILY PRN PRN Reason: Constipation Calamine/Phenol (Calmoseptine Ointment) 1 applic TOPICAL 0600,2200 [facility]; Protocol Last Admin: 12/05/19 20:10 Dose: 1 applicatio Documented by: Fluticasone Propionate (Flonase Nasal [place]) 2 spray NASAL DAILY@0800 [facility] Last Admin: 12/05/19 08:51 Dose: 2 spray Documented by: [facility]) [facility] Last Admin: 12/05/19 08:39 Dose: 1 mg Documented by: Guaifenesin (Mucinex) 1,200 mg PO BID@0800,1800 [facility] Last Admin: 12/05/19 17:07 Dose: 1,200 mg Documented by: Heparin Sodium (Beef Lung) () 50 units IV UD PRN PRN Reason: PICC Line Heparin Flush Isosorbide Mononitrate (Imdur) 30 mg PO DAILY@0800 [facility] Last Admin: 12/05/19 08:39 Dose: 30 mg Documented by: Montelukast Sodium (Singulair) 10 mg PO QHS [facility] Last Admin: 12/05/19 20:05 Dose: 10 mg Documented by: Nutritional Formula (Jameson - [place] Flavor) [facility] Last Admin: 12/05/19 17:05 Dose: 1 packet Documented by: Nystatin (Mycostatin Powder) 1 applic TOPICAL BID [facility]; Protocol Last Admin: 12/05/19 17:05 Dose: 1 applicatio Documented by: Oxybutynin Chloride (Ditropan) 2.5 mg PO DAILY@0800 [facility] Last Admin: 12/05/19 08:39 Dose: 2.5 mg Documented by: Oxycodone HCl (Oxyir) 5 mg PO Q4H PRN PRN PRN Reason: Pain Score 4-10/10 Last Admin: 12/04/19 23:48 Dose: 5 mg Documented by: Pantoprazole Sodium (Protonix) 40 mg PO DAILY@0800 [facility] Last Admin: 12/05/19 08:38 Dose: 40 mg Documented by: Paroxetine HCl (Paxil) 20 mg PO 0800,1800 [facility] Last Admin: 12/05/19 17:07 Dose: 20 mg Documented by: Polyethylene Glycol (Miralax) 17 gm PO DAILY@0800 [facility] Last Admin: 12/05/19 08:38 Dose: 17 gm Documented by: Polysaccharide Iron Complex (Ferrex 150) [facility] Last Admin: 12/05/19 08:40 Dose: 150 mg Documented by: Prednisone () 2.[facility] Last Admin: 12/05/19 08:40 Dose: 2.5 mg Documented by: Senna/Docusate Sodium (Senokot-S, Jane-Colace) 1 tablet PO BID@0800,1800 [facility] Last Admin: 12/05/19 17:05 Dose: Not Given Documented by: Sodium Chloride () 10 - 40 ml IV UD PRN PRN Reason: Open End PICC Flush Last Admin: 12/01/19 15:41 Dose: 10 ml Documented by: Sodium Chloride (0.9% Nacl (Sterile) Posiflush) 10 - 40 ml IV UD PRN PRN Reason: Port access or dressing change Tuberculin PPD (Tubersol, Aplisol, Ppd) 5 tu ID [id number] ONE Stop: 12/08/19 10:01 Assessment/Plan All Active Problems Hyperkalemia (Acute) Dyspnea (Acute) TENZIN (acute kidney injury) (Acute) Debility (Acute) Shortness of breath (Acute) Fall (Acute) Weakness (Acute) Dysphagia (Acute) Eschar of foot (Acute) Ulcer of right lower extremity (Acute) Eschar of lower leg (Acute) Other specified peripheral vascular diseases (Acute) Edema of both lower extremities (Acute) Diarrhea (Acute) Abnormal abdominal x-ray (Acute) Ulceration right lateral ankle down to deep subcutaneous tissue layer Ulceration left dorsal 3rd toe down to bone/joint (PIPJ) Peripheral vascular disease Lower extremity edema / suspected venous insufficiency Hammer toes Multiple co-morbidities (h/o mrsa, CHF, depression, obesity, asthma, GERD, anemia Deconditioning following recent acute illness Reviewed diagnostic data. No acute evidence of infection to ankle or foot at this time. Reviewed Dr. Mills's prior assessment and work up including MRI images and radiology reports - no evidence of right ankle osteomyelitis or left foot osteomyelitis. Reviewed Dr. Be's notes and no need for antibiotics from foot/ankle standpoint at this time. Noninvasive lower extremity arterial studies ordered for further evaluation of arterial flow - she is still on contact precautions due to colonoziation of sputum and urine and will not be able to have the test completed at this time. There is still no evidence of acute ischemia and will need to re order once contact precautions has been lifted. Wound care right ankle: Aquacel ag w/ overlying dressing - change daily. Wound care left 3rd toe: Aquacel Ag w/ overlying dressing - change daily. I recommend changing this to santyl and she wants some time to think about this. The purpose and indication was explained. She defers debridement of non adhered eschar today. I do not recommend aggressive debridement until vascular status is better defined. To keep pressure off of these sites by wearing a left surgical shoe and by avoiding direct pressure to the right ankle. To continue ca wrap bilateral lower extremities and elevate the limbs at rest to better control her edema. More aggressive compression therapy is not recommended at this time until her vascular status is better defined. No critical limb ischemia is suspected. Medical management per primary team is greatly appreciated. To continue nutritional supplementation to optimize healing. I answered all of her questions. Podiatry will continue to follow weekly. To follow up at wound center within 1 week after discharge for continued wound care. Kadi iVllareal DPM, [facility] [phone]
--- NOTE | 2019-12-05 23:46 | NURSING ---
Pt remains in contact isolation d/t MRSA and droplet precautions d/t pseudomonas in sputum. All care provided in room.
[2019-12-06] MEDS: Nystatin Powder 15gm Bottle 1 APPLIC TOPICAL ×2 (04:52→17:28)
[2019-12-06] MEDS: Menthol/Lanolin/Calamine/Znox 113 GM Tube 1 APPLIC TOPICAL ×2 (04:52→21:18)
[2019-12-06] MEDS: Oxybutynin 5 MG Tablet 2.5 MG PO (08:20)
[2019-12-06] MEDS: guaiFENesin 1,200 MG Tablet 1200 MG PO ×2 (08:20→17:28)
[2019-12-06] MEDS: Iron Polysaccharide Complex 150 MG CAPSULE PO (08:20)
[2019-12-06] MEDS: Isosorbide Mononitrate 30 MG Tablet PO (08:20)
[2019-12-06] MEDS: Pantoprazole Sodium 40 MG Tablet PO (08:20)
[2019-12-06] MEDS: predniSONE 5 MG Tablet 2.5 MG PO (08:21)
[2019-12-06] MEDS: Folic Acid 1 MG Tablet PO (08:21)
[2019-12-06] MEDS: Paroxetine 20 MG Tablet PO ×2 (08:21)
[2019-12-06] MEDS: Fluticasone 0.05% 1 SPRAY NASAL.SRY 2 SPRAY NASAL (08:22)
--- NOTE | 2019-12-06 08:25 | NURSING ---
pt remains in droplet and contact isolations, all care & treatments provided in room
[2019-12-06] MEDS: oxyCODONE 5 MG Tablet PO ×2 (08:32→21:19)
[2019-12-06] MEDS: Acetaminophen 500 MG Tablet 1000 MG PO ×2 (08:38→21:19)
--- NOTE | 2019-12-06 09:33 | CASEMGMT ---
Social Work Completed BIMS and PHQ-9 for MDS assessment. Inna Dunbar, social work supply chain intern Rasheeda Fink, MENAGERIE CARETAKER DIRECTOR TELEVISION NEWS
--- NOTE | 2019-12-06 10:17 | MDS.RN ---
Pain interview for jen 12/07/19 completed.
--- NOTE | 2019-12-06 11:05 | NURSING ---
pt noted to have very strong odor to stool consistency of greenish brown watery stool. new order to send sample to lab.
--- NOTE | 2019-12-06 11:06 | NURSING ---
Nursing staff changed dressing to the right lateral ankle.
--- NOTE | 2019-12-06 14:08 | RAD_ITS ---
STUDY: X-RAY - ABDOMEN/PELVIS REASON FOR EXAM: Female, 69 years old. Diarrhea. TECHNIQUE: Two AP supine views of the abdomen and pelvis. COMPARISON: None. FINDINGS: There is elevation right hemidiaphragm. Left lung base appears clear. There is a nonspecific bowel gas pattern. Air is seen throughout nondistended colon. In the central abdomen, there is a distended small bowel loop findings suggestive of thumbprinting. Ischemic bowel is considered. There is no demonstrated free abdominal air. The visualized liver, spleen and kidneys are grossly normal in size and morphology. Normal soft tissue structures. Normal visualized osseous structures. RAD/Abdomen Single View IMPRESSION: Dilated small bowel loop in the central abdomen. Question small bowel ischemia. Electronically Signed: Jose Evans DO at 16:52 EST Tel [phone], Service support ,
[2019-12-06 15:40] VITALS: BP 138/72; PULSE 77; RESP 12; TEMP 36.3; O2SAT 97
--- NOTE | 2019-12-06 17:59 | NURSING ---
Addendum entered by Maria C Santana 12/06/19 18:34: henrik zavala notified dr. medrano of kub results. order to c/s dr. jama. Original Note: LAB CALLED. R' POSITIVE FOR NOROVIRUS. DR. MEDRANO NOTIFIED. ORDERED IVF 75CC/HR. NOTIFIED MARKETING COORDINATOR.
[2019-12-06] MEDS: 0.9% Normal Saline 1,000 ML 75 ML IV (19:15)
[2019-12-06] MEDS: Atorvastatin Calcium 20 MG Tablet PO (21:18)
[2019-12-06] MEDS: Montelukast 10 MG Tablet PO (21:18)
--- NOTE | 2019-12-06 23:10 | NURSING ---
Pt remains in special contact isolation d/t norovirus and droplet precautions d/t pseudomonas in sputum. All care provided in room.
[2019-12-07] MEDS: Nystatin Powder 15gm Bottle 1 APPLIC TOPICAL ×2 (05:16→17:40)
[2019-12-07] MEDS: Menthol/Lanolin/Calamine/Znox 113 GM Tube 1 APPLIC TOPICAL ×2 (05:16→22:18)
[2019-12-07] MEDS: 0.9% Normal Saline 1,000 ML 75 ML IV ×2 (07:05→22:16)
--- NOTE | 2019-12-07 07:19 | NURSING ---
Dr Giang into see pt this AM, feels there is no surgical intervention needed.
[2019-12-07] MEDS: Oxybutynin 5 MG Tablet 2.5 MG PO (08:36)
[2019-12-07] MEDS: Iron Polysaccharide Complex 150 MG CAPSULE PO (08:37)
[2019-12-07] MEDS: Folic Acid 1 MG Tablet PO (08:37)
[2019-12-07] MEDS: Isosorbide Mononitrate 30 MG Tablet PO (08:45)
[2019-12-07] MEDS: guaiFENesin 1,200 MG Tablet 1200 MG PO ×2 (08:46→17:30)
[2019-12-07] MEDS: predniSONE 5 MG Tablet 2.5 MG PO (09:03)
[2019-12-07] MEDS: Pantoprazole Sodium 40 MG Tablet PO (09:05)
--- NOTE | 2019-12-07 09:06 | PCM.CONS.GEN ---
Problem List (1) Diarrhea Status: Acute Qualifiers: Diarrhea type: presumed infectious Qualified Code(s): R19.7 - Diarrhea, unspecified (2) Abnormal abdominal x-ray Status: Acute Reason for Consult Date of Consultation: 12/07/19 History of Present Illness: The patient is a 69 year old F who was admitted to TCU for rehabilitation from an infection. She subsequently developed significant amounts of diarrhea and abdominal x-ray was obtained. This x-ray was read as possible ischemic event of the small intestine. Patient is not complaining of any abdominal pain she is complaining of significant amounts of diarrhea. She has been tested and has been found to have the norovirus. Past Medical History Past Medical History (Chronic Problems): Chronic Problems CHF (congestive heart failure) (Chronic) HTN (hypertension) (Chronic) HLD (hyperlipidemia) (Chronic) Anxiety and depression (Chronic) Wound of right ankle (Chronic) Obesity (BMI 30.0-34.9) (Chronic) MRSA (methicillin resistant staph aureus) culture positive (Chronic) Chronic diastolic (congestive) heart failure (Chronic) Depression (Chronic) Anxiety (Chronic) Body mass index (bmi) 30.0-30.9, adult (Chronic) Allergic rhinitis (Chronic) Asthma (Chronic) GERD (gastroesophageal reflux disease) (Chronic) OAB (overactive bladder) (Chronic) Iron deficiency anemia (Chronic) Chronic ulcer of left foot with fat layer exposed (Chronic) Allergies doxycycline Allergy (Verified 11/24/19 21:02) Rash lisinopril Allergy (Verified 11/24/19 21:02) Rash Home Medications: Ambulatory Orders Medication Instructions Recorded Albuterol Inhaler [Ventolin Hfa] 2 puff INHALATION Q4H PRN PRN 11/24/19 Atorvastatin Calcium [Lipitor] 20 mg PO QHS 11/24/19 Calcium Carbonate/Vitamin D3 1 ea PO DAILY 11/24/19 [Calcium 600-Vit D3 800 Caplet] Fluticasone 0.05% [Flonase Nasal 2 spray NASAL DAILY 11/24/19 [place]] Folic Acid 1 mg PO DAILY 11/24/19 Isosorbide Mononitrate [Imdur] 30 mg PO DAILY 11/24/19 Lactobacillus Acidophilus 1 ea PO TID 11/24/19 [Acidophilus] Montelukast [Singulair] 10 mg PO DAILY 11/24/19 Multivitamin with Minerals 1 ea PO DAILY 11/24/19 [Multiple Vitamin] Omeprazole 40 mg PO DAILY 11/24/19 Oxybutynin [Ditropan] 2.5 mg PO DAILY 11/24/19 Prednisone 2.5 mg PO DAILY 11/24/19 Acetaminophen [Tylenol Tablet] 650 mg PO Q6H PRN PRN tab 11/28/19 Psyllium [Metamucil] 1 packet PO DAILY PRN PRN packet 11/28/19 Senna/Docusate Sodium [Senokot-S] 2 tab PO BID PRN PRN tab 11/28/19 Guaifenesin [Mucinex] 1,200 mg PO BID 11/30/19 Nutritional Supplement [Jameson - 1 packet PO BIDCM 11/30/19 ORANGE FLAVOR] Nystatin Powder [Mycostatin Powder] 1 applic TOPICAL BID 11/30/19 Paroxetine [Paxil] 40 mg PO DAILY 11/30/19 Surgical History: - - x1. 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 pertinent SALES REPRESENTATIVE PUBLICATIONS history Lives: Spouse/ Significant Other Smoking Status: Never smoker Tobacco Use: Non-smoker, Cigarettes Drugs: None - *Family History Maternal History Items: High Cholesterol, Heart Disease, Hypertension Paternal History Items: High Cholesterol, Heart Disease, Hypertension Review of Systems Constitutional: Denies: Chills, Fever, Weight Change Cardiovascular: Denies: Chest Pain, Chest Pressure, Chest Tightness, Palpitations Respiratory: Denies: Cough, Hemoptysis, Shortness of breath at rest, Shortness of breath upon exertion, Wheezing Gastrointestinal: Denies: Abdominal Pain, Constipation, Diarrhea, Hematemesis, Nausea, Melena, Vomiting Patient Problems: Active and Suspected Problems Debility (Acute) Shortness of breath (Acute) Fall (Acute) Weakness (Acute) Dysphagia (Acute) Eschar of foot (Acute) Ulcer of right lower extremity (Acute) Eschar of lower leg (Acute) Other specified peripheral vascular diseases (Acute) Edema of both lower extremities (Acute) Diarrhea (Acute) Abnormal abdominal x-ray (Acute) - Physical Exam Vitals/I&O's: Vital Signs Temp Pulse Resp BP Pulse Ox 97.4 F L 77 12 138/72 H 97 12/06/19 15:40 12/06/19 15:40 12/06/19 15:40 12/06/19 15:40 12/06/19 15:40 Oxygen Delivery Method Room Air Weight: 191 lb 4.8 oz Body Mass Index (BMI) 30.9 Intake and Output for Last 24 Hours 12/05/19 12/06/19 12/07/19 23:59 23:59 23:59 Intake Total 360 / 360 360 / 360 887.5 / 887.5 Balance 360 / 360 360 / 360 887.5 / 887.5 General: Alert, Oriented x3 Lungs: Clear to auscultation Cardiovascular: Regular rate, Regular Rhythm, No murmurs Abdomen: Bowel Sounds Present, Soft, Non Tender, Non-Distended Microbiology Past 72 Hours 12/06/19 11:09 Stool Enteric Bacteriology - Final Norovirus Current Medications Acetaminophen (Tylenol) 1,000 mg PO Q6H PRN PRN PRN Reason: Pain Score 1-3/10 Last Admin: 12/06/19 21:19 Dose: 1,000 mg Documented by: Albuterol Sulfate (Ventolin Aerosols) 2 mg INHALATION Q4H PRN PRN PRN Reason: WHEEZING Atorvastatin Calcium (Lipitor) 20 mg PO QHS [facility] Last Admin: 12/06/19 21:18 Dose: 20 mg Documented by: Bisacodyl (Dulcolax) 10 mg PO DAILY PRN PRN Reason: Constipation Calamine/Phenol (Calmoseptine Ointment) 1 applic TOPICAL 0600,2200 [facility]; Protocol Last Admin: 12/07/19 05:16 Dose: 1 applicatio Documented by: Fluticasone Propionate (Flonase Nasal [place]) 2 spray NASAL DAILY@0800 [facility] Last Admin: 12/06/19 08:22 Dose: 2 spray Documented by: F[facility] ([facility] Acid) [facility] Last Admin: 12/06/19 08:21 Dose: 1 mg Documented by: Guaifenesin (Mucinex) 1,200 mg PO BID@0800,1800 [facility] Last Admin: 12/06/19 17:28 Dose: 1,200 mg Documented by: Heparin Sodium (Beef Lung) () 50 units IV UD PRN PRN Reason: PICC Line Heparin Flush Sodium Chloride () 1,000 mls @ 75 mls/hr IV .[id number] [facility] Last Admin: 12/07/19 07:05 Dose: 75 mls/hr Documented by: Isosorbide Mononitrate (Imdur) 30 mg PO DAILY@0800 [facility] Last Admin: 12/06/19 08:20 Dose: 30 mg Documented by: Montelukast Sodium (Singulair) 10 mg PO QHS [facility] Last Admin: 12/06/19 21:18 Dose: 10 mg Documented by: Nutritional Formula (Jameson - [place] Flavor) [facility] Last Admin: 12/06/19 17:28 Dose: 1 packet Documented by: Nystatin (Mycostatin Powder) 1 applic TOPICAL BID [facility]; Protocol Last Admin: 12/07/19 05:16 Dose: 1 applicatio Documented by: Oxybutynin Chloride (Ditropan) 2.5 mg PO DAILY@0800 [facility] Last Admin: 12/06/19 08:20 Dose: 2.5 mg Documented by: Oxycodone HCl (Oxyir) 5 mg PO Q4H PRN PRN PRN Reason: Pain Score 4-10/10 Last Admin: 12/06/19 21:19 Dose: 5 mg Documented by: Pantoprazole Sodium (Protonix) 40 mg PO DAILY@0800 [facility] Last Admin: 12/06/19 08:20 Dose: 40 mg Documented by: Paroxetine HCl (Paxil) 20 mg PO 0800,1800 [facility] Last Admin: 12/06/19 08:21 Dose: 20 mg Documented by: Polyethylene Glycol (Miralax) 17 gm PO DAILY@0800 [facility] Last Admin: 12/06/19 08:20 Dose: Not Given Documented by: Polysaccharide Iron Complex (Ferrex 150) [facility] Last Admin: 12/06/19 08:20 Dose: 150 mg Documented by: Prednisone () 2.[facility] mg [facility] Last Admin: 12/06/19 08:21 Dose: 2.5 mg Documented by: Senna/Docusate Sodium (Senokot-S, [place]-Colace) 1 tablet PO BID@0800,1800 [facility] Last Admin: 12/06/19 10:46 Dose: Not Given Documented by: Sodium Chloride () 10 - 40 ml IV UD PRN PRN Reason: Open End PICC Flush Last Admin: 12/01/19 15:41 Dose: 10 ml Documented by: Sodium Chloride (0.9% Nacl (Sterile) Posiflush) 10 - 40 ml IV UD PRN PRN Reason: Port access or dressing change Tuberculin PPD (Tubersol, Aplisol, Ppd) 5 tu ID [id number] Stop: 12/08/19 10:01 Assessment/Plan All Active Problems Hyperkalemia (Acute) Dyspnea (Acute) TENZIN (acute kidney injury) (Acute) Debility (Acute) Shortness of breath (Acute) Fall (Acute) Weakness (Acute) Dysphagia (Acute) Eschar of foot (Acute) Ulcer of right lower extremity (Acute) Eschar of lower leg (Acute) Other specified peripheral vascular diseases (Acute) Edema of both lower extremities (Acute) Diarrhea (Acute) Abnormal abdominal x-ray (Acute) I do not believe the x-ray represents any form of ischemia to the small intestine. At this point I have no surgical interventions planned for her. I do not think a colonoscopy is warranted. We will sign off please reconsult if clinical exam changes
[2019-12-07] MEDS: Fluticasone 0.05% 1 SPRAY NASAL.SRY 2 SPRAY NASAL (09:07)
[2019-12-07] MEDS: Paroxetine 20 MG Tablet PO ×2 (09:10→17:30)
[2019-12-07 13:51] VITALS: BP 110/62; PULSE 75; RESP 16; TEMP 36.7; O2SAT 96
--- NOTE | 2019-12-07 14:57 | NURSING ---
Pt remains in special contact isolation d/t norovirus and droplet precautions d/t pseudomonas in sputum. All care provided in room.
[2019-12-07] MEDS: Montelukast 10 MG Tablet PO (22:18)
[2019-12-07] MEDS: Atorvastatin Calcium 20 MG Tablet PO (22:18)
[2019-12-07] MEDS: oxyCODONE 5 MG Tablet PO (22:25)
[2019-12-07] MEDS: Acetaminophen 500 MG Tablet 1000 MG PO (22:25)
[2019-12-08 02:00] VITALS: PULSE 78; RESP 16
[2019-12-08] MEDS: Nystatin Powder 15gm Bottle 1 APPLIC TOPICAL ×2 (06:00→17:08)
[2019-12-08] MEDS: Menthol/Lanolin/Calamine/Znox 113 GM Tube 1 APPLIC TOPICAL ×2 (06:01→21:12)
[2019-12-08 07:50] LABS: Absolute Lymphocyte Count 0.84 X10^3/uL (0.83-4.51); Basophil# 0.03 X10^3/uL; Basophil% 1.2 % (0-1); Eosinophil# 0.25 X10^3/uL; Eosinophils% 9.6 % (0-5); Hematocrit 28.1 % (37-47); Hemoglobin 8.9 g/dL (12.0-15.0); Lymphocyte # 0.84 X10^3/ul (4.0); Lymphocyte % 32.3 % (19-41); Mean Corp Hgb Conc 31.7 g/dL (32-36); Mean Corpuscular Hgb 33.6 pg (27.0-32.0); Mean Platelet Vol. 11.4 fl (6.2-12.0); Monocyte% 19.2 % (0-10); NRBC Flagged by Analyzer 0 % (0-5); Neutrophil # 0.97 X10^3/uL (2.7-7.7); Neutrophil % 37.3 % (47-70); POSITIVE DIFFERENTIAL YES; POSITIVE MORPHOLOGY YES; Platelet Count 184 K/mm3 (150-450); RBC Distribution Width CV 18.5 % (11.6-14.6); RBC Distribution Width SD 71.2 fl (35.1-43.9); Red Blood Count 2.65 M/mm3 (4.2-5.4); White Blood Count 2.6 K/mm3 (4.4-11.0)
[2019-12-08 07:52] LABS: Differential Indicated SCAN CRITERIA MET
[2019-12-08 08:06] LABS: Anion Gap 4 (5-15); BUN 46 mg/dL (7-18); BUN/Creat Ratio 65.9 RATIO (10-20); Calcium,Total 7.4 mg/dL (8.5-10.1); Chloride 116 mmol/L (98-107); EST Glomerular Filtration Rate 89 mL/min (>60); Est Glom Filt Rate - Afr Amer 107 mL/min (>60); Estimated Creatinine Clearance 51.11 ml/min; Glucose 61 mg/dL (74-106); Potassium 3.7 mmol/L (3.5-5.1); Sodium Level 142 mmol/L (136-145)
[2019-12-08] MEDS: Oxybutynin 5 MG Tablet 2.5 MG PO (08:15)
[2019-12-08] MEDS: Folic Acid 1 MG Tablet PO (08:16)
[2019-12-08] MEDS: Iron Polysaccharide Complex 150 MG CAPSULE PO (08:16)
[2019-12-08] MEDS: Isosorbide Mononitrate 30 MG Tablet PO (08:17)
[2019-12-08] MEDS: Pantoprazole Sodium 40 MG Tablet PO (08:17)
[2019-12-08] MEDS: guaiFENesin 1,200 MG Tablet 1200 MG PO ×2 (08:17→17:08)
[2019-12-08] MEDS: Paroxetine 20 MG Tablet PO ×2 (08:19→17:09)
[2019-12-08] MEDS: predniSONE 5 MG Tablet 2.5 MG PO (08:20)
[2019-12-08] MEDS: Fluticasone 0.05% 1 SPRAY NASAL.SRY 2 SPRAY NASAL (08:22)
[2019-12-08] MEDS: Acetaminophen 500 MG Tablet 1000 MG PO ×2 (08:30→21:11)
[2019-12-08] MEDS: oxyCODONE 5 MG Tablet PO ×2 (08:30→21:11)
[2019-12-08 08:42] LABS: Anisocytosis 1+; Hypochromasia 2+; Platelet Estimate ADEQUATE (ADEQ); Polychromasia RARE; Target Cells RARE
[2019-12-08] MEDS: Tuberculin,Purif.prot.deriv. 50 TU/ML Vial 5 ML ID (11:16)
[2019-12-08] MEDS: 0.9% Normal Saline 1,000 ML 75 ML IV (11:24)
[2019-12-08 14:26] VITALS: BP 140/71; PULSE 81; RESP 16; TEMP 36.9; O2SAT 97
[2019-12-08] MEDS: Atorvastatin Calcium 20 MG Tablet PO (21:11)
[2019-12-08] MEDS: Montelukast 10 MG Tablet PO (21:12)
[2019-12-09] MEDS: 0.9% Normal Saline 1,000 ML 75 ML IV (00:24)
[2019-12-09] MEDS: Nystatin Powder 15gm Bottle 1 APPLIC TOPICAL ×2 (06:16→14:55)
[2019-12-09] MEDS: Menthol/Lanolin/Calamine/Znox 113 GM Tube 1 APPLIC TOPICAL ×2 (06:16→21:31)
[2019-12-09] MEDS: Oxybutynin 5 MG Tablet 2.5 MG PO (08:33)
[2019-12-09] MEDS: Iron Polysaccharide Complex 150 MG CAPSULE PO (08:33)
[2019-12-09] MEDS: predniSONE 5 MG Tablet 2.5 MG PO (08:34)
[2019-12-09] MEDS: guaiFENesin 1,200 MG Tablet 1200 MG PO ×2 (08:34→16:58)
[2019-12-09] MEDS: Folic Acid 1 MG Tablet PO (08:34)
[2019-12-09] MEDS: Isosorbide Mononitrate 30 MG Tablet PO (08:34)
[2019-12-09] MEDS: Fluticasone 0.05% 1 SPRAY NASAL.SRY 2 SPRAY NASAL (08:35)
[2019-12-09] MEDS: Paroxetine 20 MG Tablet PO ×2 (08:35→16:58)
[2019-12-09] MEDS: Pantoprazole Sodium 40 MG Tablet PO (08:36)
[2019-12-09 14:50] VITALS: BP 104/60; PULSE 71; RESP 18; TEMP 36.2; O2SAT 96
[2019-12-09] MEDS: oxyCODONE 5 MG Tablet PO ×2 (14:58→23:36)
[2019-12-09] MEDS: Acetaminophen 500 MG Tablet 1000 MG PO ×2 (14:58→23:35)
--- NOTE | 2019-12-09 16:26 | CASEMGMT ---
Social Work Reviewed and agreed with social work internal communications manager documentation on this date. Rasheeda Fink, FIRST COOK WATCH REPAIR PERSON
[2019-12-09] MEDS: Atorvastatin Calcium 20 MG Tablet PO (21:28)
[2019-12-09] MEDS: Montelukast 10 MG Tablet PO (21:28)
[2019-12-10] MEDS: Menthol/Lanolin/Calamine/Znox 113 GM Tube 1 APPLIC TOPICAL ×2 (05:46→20:16)
[2019-12-10] MEDS: Nystatin Powder 15gm Bottle 1 APPLIC TOPICAL ×2 (05:46→17:16)
--- NOTE | 2019-12-10 07:27 | NURSING ---
all nursing care provided in room d/t pt remains in contact and droplet isolation
[2019-12-10] MEDS: Oxybutynin 5 MG Tablet 2.5 MG PO (08:17)
[2019-12-10] MEDS: Folic Acid 1 MG Tablet PO (08:18)
[2019-12-10] MEDS: Isosorbide Mononitrate 30 MG Tablet PO (08:18)
[2019-12-10] MEDS: Iron Polysaccharide Complex 150 MG CAPSULE PO (08:18)
[2019-12-10] MEDS: guaiFENesin 1,200 MG Tablet 1200 MG PO ×2 (08:19→17:15)
[2019-12-10] MEDS: Paroxetine 20 MG Tablet PO ×2 (08:19→17:15)
[2019-12-10] MEDS: predniSONE 5 MG Tablet 2.5 MG PO (08:19)
[2019-12-10] MEDS: Pantoprazole Sodium 40 MG Tablet PO (08:19)
[2019-12-10] MEDS: Fluticasone 0.05% 1 SPRAY NASAL.SRY 2 SPRAY NASAL (08:22)
--- NOTE | 2019-12-10 10:44 | PN_ITS ---
Patient Problems: Active and Suspected Problems Debility (Acute) Shortness of breath (Acute) Fall (Acute) Weakness (Acute) Dysphagia (Acute) Eschar of foot (Acute) Ulcer of right lower extremity (Acute) Eschar of lower leg (Acute) Other specified peripheral vascular diseases (Acute) Edema of both lower extremities (Acute) Diarrhea (Acute) Abnormal abdominal x-ray (Acute) Subjective: The patient is a 69 year old F was seen bedside for wounds of the right ankle and left third toe. She is being continually monitored for stable ulcer sites and is still waiting for her contact precaution status to be completed prior to getting the previously recommended non invasive vascular studies. Patient still not interested in Santyl at this time. She currently denies any feelings of nausea, vomiting, fever, chills. - Physical Exam Vitals/I&O's: Vital Signs Temp Pulse Resp BP Pulse Ox 97.2 F L 71 18 104/60 96 12/09/19 14:50 12/09/19 14:50 12/09/19 14:50 12/09/19 14:50 12/09/19 14:50 Oxygen Delivery Method Room Air Weight: 86.772 kg Body Mass Index (BMI) 30.9 Intake and Output for Last 24 Hours 12/08/19 12/09/19 12/10/19 23:59 23:59 23:59 Intake Total 1705 / 1705 2662.5 / 2662.5 720 / 720 Balance 1705 / 1705 2662.5 / 2662.5 720 / 720 General: Alert, Oriented x3, Cooperative Extremities: No cyanosis, Capillary Refill Less than 3 Seconds, No Calf Tenderness - Negative Sriram Barahona signs bilateral, Diminished Peripheral Pulses, Edema - Slight bilateral lower extremity edema Skin: Ulcer/ Wound - There continues to be no purulence, no erythema, no streaking, no infection. Improved eschar to lateral right ankle no deeper than subcutaneous level. The dorsal lateral third toe is eschar with bone probed in the past. skin is atrophic and hairless. Musculoskeletal: No Tenderness to Palpation of Joints or Extremities, Muscle Wasting, Tenderness - Slight tenderness with palpation of ulcer sites with no bogginess or fluctuance noted., - - bilateral dorsal contraction of lesser digits consistent with hammer toe deformities Neurological: Sensory exam intact to light touch and pain Psych/Mental Status: Normal Affect, Appropriate Microbiology Past 72 Hours 12/06/19 11:09 Stool Enteric Bacteriology - Final Norovirus Current Medications Acetaminophen (Tylenol) 1,000 mg PO Q6H PRN PRN PRN Reason: Pain Score 1-3/10 Last Admin: 12/09/19 23:35 Dose: 1,000 mg Documented by: Albuterol Sulfate (Ventolin Aerosols) 2 mg INHALATION Q4H PRN PRN PRN Reason: WHEEZING Atorvastatin Calcium (Lipitor) [facility] Last Admin: 12/09/19 21:28 Dose: 20 mg Documented by: Bisacodyl (Dulcolax) 10 mg PO DAILY PRN PRN Reason: Constipation Calamine/Phenol (Calmoseptine Ointment) 1 applic TOPICAL 0600,2200 [facility]; Protocol Last Admin: 12/10/19 05:46 Dose: 1 applicatio Documented by: Fluticasone Propionate (Flonase Nasal [place]) 2 spray NASAL DAILY@0800 [facility] Last Admin: 12/10/19 08:22 Dose: 2 spray Documented by: Folic Acid (Folic Acid) [facility] Last Admin: 12/10/19 08:18 Dose: 1 mg Documented by: Guaifenesin (Mucinex) 1,200 mg PO BID@0800,1800 [facility] Last Admin: 12/10/19 08:19 Dose: 1,200 mg Documented by: Heparin Sodium (Beef Lung) () 50 units IV UD PRN PRN Reason: PICC Line Heparin Flush Isosorbide Mononitrate (Imdur) 30 mg PO DAILY@0800 [facility] Last Admin: 12/10/19 08:18 Dose: 30 mg Documented by: Montelukast Sodium (Singulair) 10 mg PO QHS [facility] Last Admin: 12/09/19 21:28 Dose: 10 mg Documented by: Nutritional Formula (Jameson - [place] Flavor) [facility] Last Admin: 12/10/19 08:12 Dose: 1 packet Documented by: Nystatin (Mycostatin Powder) 1 applic TOPICAL BID [facility]; Protocol Last Admin: 12/10/19 05:46 Dose: 1 applicatio Documented by: Oxybutynin Chloride (Ditropan) 2.5 mg PO DAILY@0800 [facility] Last Admin: 12/10/19 08:17 Dose: 2.5 mg Documented by: Oxycodone HCl (Oxyir) 5 mg PO Q4H PRN PRN PRN Reason: Pain Score 4-10/10 Last Admin: 12/09/19 23:36 Dose: 5 mg Documented by: Pantoprazole Sodium (Protonix) 40 mg PO DAILY@0800 [facility] Last Admin: 12/10/19 08:19 Dose: 40 mg Documented by: Paroxetine HCl (Paxil) 20 mg PO 0800,1800 [facility] Last Admin: 12/10/19 08:19 Dose: 20 mg Documented by: Polyethylene Glycol (Miralax) 17 gm PO DAILY@0800 [facility] Last Admin: 12/10/19 08:16 Dose: Not Given Documented by: Polysaccharide Iron Complex (Ferrex 150) [facility] Last Admin: 12/10/19 08:18 Dose: 150 mg Documented by: Prednisone () 2.5 [facility] Last Admin: 12/10/19 08:19 Dose: 2.5 mg Documented by: Senna/Docusate Sodium (Senokot-S, Jane-Colace) 1 tablet PO BID@0800,1800 [facility] Last Admin: 12/10/19 08:17 Dose: Not Given Documented by: Sodium Chloride () 10 - 40 ml IV UD PRN PRN Reason: Open End PICC Flush Last Admin: 12/01/19 15:41 Dose: 10 ml Documented by: Sodium Chloride (0.9% Nacl (Sterile) Posiflush) 10 - 40 ml IV UD PRN PRN Reason: Port access or dressing change Medical Necessity - Tobacco Use Smoking Status: Never smoker Tobacco Use: Non-smoker, Cigarettes Assessment/Plan All Active Problems Hyperkalemia (Acute) Dyspnea (Acute) TENZIN (acute kidney injury) (Acute) Debility (Acute) Shortness of breath (Acute) Fall (Acute) Weakness (Acute) Dysphagia (Acute) Eschar of foot (Acute) Ulcer of right lower extremity (Acute) Eschar of lower leg (Acute) Other specified peripheral vascular diseases (Acute) Edema of both lower extremities (Acute) Diarrhea (Acute) Abnormal abdominal x-ray (Acute) Ulceration right lateral ankle down to deep subcutaneous tissue layer Ulceration left dorsal 3rd toe down to bone/joint (PIPJ) Peripheral vascular disease Lower extremity edema / suspected venous insufficiency Hammer toes Multiple co-morbidities (h/o mrsa, CHF, depression, obesity, asthma, GERD, anemia Deconditioning following recent acute illness Reviewed diagnostic data. Patient currently afebrile with remaining vital signs stable. Again reviewed prior assessment and work up including MRI images and radiology reports - no evidence of right ankle osteomyelitis or left foot osteomyelitis. Noninvasive lower extremity arterial studies ordered for further evaluation of arterial flow - she is still on contact precautions due to colonoziation of sputum and urine and will not be able to have the test completed at this time. There is still no evidence of acute ischemia and will need to re order once contact precautions has been lifted. Wound care right ankle: Aquacel ag w/ overlying dressing - change daily. Wound care left 3rd toe: Aquacel Ag w/ overlying dressing - change daily. Patient still not interested in Santyl at this time. She defers debridement of non adhered eschar again today. Continue to not recommend aggressive debr idement until vascular status is better defined. To keep pressure off of these sites by wearing a left surgical shoe and by avoiding direct pressure to the right ankle. Patient is to continue with her offloading boots while in bed that she has been wearing. To continue ca wrap bilateral lower extremities and elevate the limbs at rest to better control her edema. More aggressive compression therapy is not recommended at this time until her vascular status is better defined. No critical limb ischemia is suspected. Medical management per primary team is greatly appreciated. Podiatry will continue to follow weekly. To follow up at wound center within 1 week after discharge for continued wound care.
--- NOTE | 2019-12-10 13:35 | NURSING ---
ALL NURSING CARE PROVIDED IN ROOM THIS SHIFT D/T CONTACT/DROPLET PRECAUTIONS.
[2019-12-10] MEDS: Acetaminophen 500 MG Tablet 1000 MG PO ×2 (15:13→22:39)
[2019-12-10] MEDS: oxyCODONE 5 MG Tablet PO ×2 (15:14→22:38)
[2019-12-10 15:58] VITALS: BP 134/75; PULSE 91; RESP 18; TEMP 36.4; O2SAT 99
[2019-12-10] MEDS: Montelukast 10 MG Tablet PO (20:15)
[2019-12-10] MEDS: Atorvastatin Calcium 20 MG Tablet PO (20:15)
[2019-12-11] MEDS: Nystatin Powder 15gm Bottle 1 APPLIC TOPICAL ×2 (05:09→17:22)
[2019-12-11] MEDS: Menthol/Lanolin/Calamine/Znox 113 GM Tube 1 APPLIC TOPICAL ×2 (05:09→20:14)
--- NOTE | 2019-12-11 08:26 | MDS.RN ---
Information for the mds was obtained from review of the clinical record, interview of resident, staff, and direct observation of resident's care.
[2019-12-11] MEDS: predniSONE 5 MG Tablet 2.5 MG PO (08:51)
[2019-12-11] MEDS: Iron Polysaccharide Complex 150 MG CAPSULE PO (08:52)
[2019-12-11] MEDS: Folic Acid 1 MG Tablet PO (08:52)
[2019-12-11] MEDS: Pantoprazole Sodium 40 MG Tablet PO (08:53)
[2019-12-11] MEDS: guaiFENesin 1,200 MG Tablet 1200 MG PO ×2 (08:53→17:22)
[2019-12-11] MEDS: Isosorbide Mononitrate 30 MG Tablet PO (08:53)
[2019-12-11] MEDS: Paroxetine 20 MG Tablet PO ×2 (08:53→17:26)
[2019-12-11] MEDS: Oxybutynin 5 MG Tablet 2.5 MG PO (08:54)
[2019-12-11] MEDS: Fluticasone 0.05% 1 SPRAY NASAL.SRY 2 SPRAY NASAL (08:55)
[2019-12-11 12:20] VITALS: PULSE 92; RESP 18
[2019-12-11 14:34] VITALS: BP 157/86; PULSE 88; RESP 18; TEMP 36.6; O2SAT 95
[2019-12-11] MEDS: Acetaminophen 500 MG Tablet 1000 MG PO ×2 (14:42→23:18)
[2019-12-11] MEDS: oxyCODONE 5 MG Tablet PO ×2 (14:43→23:20)
--- NOTE | 2019-12-11 15:12 | NURSING ---
Patient in isolation due to norovirus. All care provided to patient in room.
--- NOTE | 2019-12-11 15:40 | CASEMGMT ---
Social Work Met with pt to discuss DC plans. Pt to DC 12/19 home with . Pt previously used [facility], Pt requesting [facility]-PT/OT/ST/SN, referral made. No DME needs. Plan: DC 12/19 home with . [facility]-PT/OT/ST/SN, no DME needs Inna Dunbar, social work unpaid intern Rasheeda Fink, ANDRE TEMPLATE STORAGE CLERK
--- NOTE | 2019-12-11 17:03 | CASEMGMT ---
Social Work Reviewed and agreed with social work learning and development intern documentation on this date. Rasheeda Fink, [employer] SERVICE CAPTAIN NEWS DEPARTMENT INTERN
--- NOTE | 2019-12-11 19:41 | DCINST_ITS ---
- Discharge Diagnoses Current Active Problems: Current Active and Chronic Problems Debility (Acute) Shortness of breath (Acute) Fall (Acute) Weakness (Acute) MRSA (methicillin resistant staph aureus) culture positive (Chronic) Chronic diastolic (congestive) heart failure (Chronic) Depression (Chronic) Anxiety (Chronic) Body mass index (bmi) 30.0-30.9, adult (Chronic) Allergic rhinitis (Chronic) Asthma (Chronic) GERD (gastroesophageal reflux disease) (Chronic) OAB (overactive bladder) (Chronic) Iron deficiency anemia (Chronic) Dysphagia (Acute) Chronic ulcer of left foot with fat layer exposed (Chronic) Eschar of foot (Acute) Ulcer of right lower extremity (Acute) Eschar of lower leg (Acute) Other specified peripheral vascular diseases (Acute) Edema of both lower extremities (Acute) Diarrhea (Acute) Abnormal abdominal x-ray (Acute) You will use the following diet at home:: No restrictions, Regular Your food should be the consistency of: Regular Your liquids should be the consistency of: Regular/Thin Discharge Activity: Return to Normal Activity, May Shower, Use Walker Weight Bearing Status: Weight bearing as tolerated Call your doctor if you observe: Fever of 101 or Higher, Inability to urinate, Inability to have a bowel movement, Shortness of breath, Chest pain, Uncontrolled pain Allergies/Adverse Reactions: Allergies doxycycline Allergy (Verified 11/24/19 21:02) Rash lisinopril Allergy (Verified 11/24/19 21:02) Rash Medications to take at Discharge Albuterol Inhaler [Ventolin Hfa] 2 puff INHALATION Q4H PRN PRN 11/24/19 Atorvastatin Calcium [Lipitor] 20 mg PO QHS 11/24/19 Calcium Carbonate/Vitamin D3 [Calcium 600-Vit D3 800 Caplet] 1 ea PO DAILY 11/24/19 Fluticasone 0.05% [Flonase Nasal [place]] 2 spray NASAL DAILY 11/24/19 Folic Acid 1 mg PO DAILY 11/24/19 Isosorbide Mononitrate [Imdur] 30 mg PO DAILY 11/24/19 Lactobacillus Acidophilus [Acidophilus] 1 ea PO TID 11/24/19 Montelukast [Singulair] 10 mg PO DAILY 11/24/19 Multivitamin with Minerals [Multiple Vitamin] 1 ea PO DAILY 11/24/19 Omeprazole 40 mg PO DAILY 11/24/19 Oxybutynin [Ditropan] 2.5 mg PO DAILY 11/24/19 Prednisone 2.5 mg PO DAILY 11/24/19 Psyllium [Metamucil] 1 packet PO DAILY PRN PRN packet 11/28/19 Guaifenesin [Mucinex] 1,200 mg PO BID 11/30/19 Nystatin Powder [Mycostatin Powder] 1 applic TOPICAL BID 11/30/19 Paroxetine [Paxil] 40 mg PO DAILY 11/30/19 Acetaminophen [Tylenol] 1,000 mg PO Q6H PRN PRN tab 12/11/19 Iron Polysaccharide Complex [Ferrex 150] 150 mg PO DAILYCM #30 cap 12/11/19 Menthol/Lanolin/Calamine/Znox [Calmoseptine Ointment] 1 applic TOPICAL 0600,2200 tube 12/11/19 Nutritional Supplement [Jameson - ORANGE FLAVOR] 1 packet PO BIDCM #60 packet 12/11/19 Oxycodone [Oxyir] 5 mg PO Q4H PRN PRN 7 Days #42 tablet 12/11/19 The following prescriptions were given: Iron Polysaccharide Complex [Ferrex 150] 150 mg PO DAILYCM #30 cap Transmission Status: Pending to [facility] Nutritional Supplement [Jameson - ORANGE FLAVOR] 1 packet PO BIDCM #60 packet Transmission Status: Pending to [facility] Oxycodone [Oxyir] 5 mg PO Q4H PRN PRN 7 Days #42 tablet PRN Reason: Pain Score 4-10/10 Transmission Status: Sent to [facility] Primary Care Physician: Care Physician,No Primary [Primary Care Provider] - Please follow up with your Primary Care Physician in: 1 week. Test Results: Test results from this visit will be discussed in further detail at your follow- up appointment, if applicable. Please Follow Up With: Ivy Melendez DO When: 1-2 wks Please Follow Up With: Ronnie Edwards MD (will see Ivy Dolan BUILDING ENERGY RETROFIT TECHNICIAN) When: 2 wks Please Follow Up With: Venkatesh Mills DPM (Dr. Villareal will be here) When: 1-2 wks Please Follow Up With: Willie Be MD When: as needed for wound colonization Proposed Discharge Date: 12/20/19
--- NOTE | 2019-12-11 19:43 | DS.PCM_ITS ---
Discharge Date and Diagnosis - Problem List Patient Problems: Active and Suspected Problems Debility (Acute) Shortness of breath (Acute) Fall (Acute) Weakness (Acute) Dysphagia (Acute) Eschar of foot (Acute) Ulcer of right lower extremity (Acute) Eschar of lower leg (Acute) Other specified peripheral vascular diseases (Acute) Edema of both lower extremities (Acute) Diarrhea (Acute) Abnormal abdominal x-ray (Acute) Date of Admission: 11/30/19 Date of Discharge: 12/20/19 - Primary Discharge Diagnosis Active and Suspected Problems Debility (Acute) Shortness of breath (Acute) Fall (Acute) Weakness (Acute) Dysphagia (Acute) Eschar of foot (Acute) Ulcer of right lower extremity (Acute) Eschar of lower leg (Acute) Other specified peripheral vascular diseases (Acute) Edema of both lower extremities (Acute) Diarrhea (Acute) Abnormal abdominal x-ray (Acute) - Secondary Discharge Diagnosis Chronic Problems CHF (congestive heart failure) (Chronic) HTN (hypertension) (Chronic) HLD (hyperlipidemia) (Chronic) Anxiety and depression (Chronic) Wound of right ankle (Chronic) Obesity (BMI 30.0-34.9) (Chronic) MRSA (methicillin resistant staph aureus) culture positive (Chronic) Chronic diastolic (congestive) heart failure (Chronic) Depression (Chronic) Anxiety (Chronic) Body mass index (bmi) 30.0-30.9, adult (Chronic) Allergic rhinitis (Chronic) Asthma (Chronic) GERD (gastroesophageal reflux disease) (Chronic) OAB (overactive bladder) (Chronic) Iron deficiency anemia (Chronic) Chronic ulcer of left foot with fat layer exposed (Chronic) Hospital Course and Treatment Imaging Results: 11/30/19 17:27 Diet: Cardiac: Calorie-Controlled Food consistency:: Soft Liquid Consistency:: Regular/Thin Dietary Modifications:: Low Potassium Restriction Is pt able to select menu?: Yes Diet Comments: low sodium,distant supervision How many daily calories?: 1800 calorie Clinical Impression(s) from Imaging Studies KUB X-Ray 12/06/19 14:08 IMPRESSION: Dilated small bowel loop in the central abdomen. Question small bowel ischemia. Electronically Signed: Jose Evans DO at 16:52 EST Tel [phone], Service support , Consultations 11/30/19 17:39 Consult: Onc/Wound/vp & general counsel Routine Comment: Operations: None Procedures: None Summary of Care Provided: The patient is a 69 year old Female with below past medical history hospitalized for hyperkalemia, acute kidney injury, complicated by right ankle ulcer, colonization of both sputum, urine, admitted to TCU with debility, here for rehabilitation, strengthening, prior to discharge home with . Discharge home with , [facility] PT/OT/ST/SN. Patient Problems: Active and Suspected Problems Debility (Acute) Shortness of breath (Acute) Fall (Acute) Weakness (Acute) Dysphagia (Acute) Eschar of foot (Acute) Ulcer of right lower extremity (Acute) Eschar of lower leg (Acute) Other specified peripheral vascular diseases (Acute) Edema of both lower extremities (Acute) Diarrhea (Acute) Abnormal abdominal x-ray (Acute) - Physical Exam Vitals/I&O's: Vital Signs Temp Pulse Resp BP Pulse Ox 97.8 F 88 18 157/86 H 95 12/11/19 14:34 12/11/19 14:34 12/11/19 14:34 12/11/19 14:34 12/11/19 14:34 Oxygen Delivery Method Room Air Weight: 87.095 kg Body Mass Index (BMI) 30.9 Intake and Output for Last 24 Hours 12/09/19 12/10/19 12/11/19 23:59 23:59 23:59 Intake Total 2662.5 / 2662.5 1200 / 1200 280 / 280 Balance 2662.5 / 2662.5 1200 / 1200 280 / 280 Current Medications Acetaminophen (Tylenol) 1,000 mg PO Q6H PRN PRN PRN Reason: Pain Score 1-3/10 Last Admin: 12/11/19 14:42 Dose: 1,000 mg Documented by: Albuterol Sulfate (Ventolin Aerosols) 2 mg INHALATION Q4H PRN PRN PRN Reason: WHEEZING Atorvastatin Calcium (Lipitor) 20 mg PO QHS [facility] Last Admin: 12/10/19 20:15 Dose: 20 mg Documented by: Bisacodyl (Dulcolax) 10 mg PO DAILY PRN PRN Reason: Constipation Calamine/Phenol (Calmoseptine Ointment) 1 applic TOPICAL 0600,2200 [facility]; Protocol Last Admin: 12/11/19 05:09 Dose: 1 applicatio Documented by: Fluticasone Propionate (Flonase Nasal Evans) 2 spray NASAL DAILY@0800 [facility] Last Admin: 12/11/19 08:55 Dose: 2 spray Documented by: [facility] Last Admin: 12/11/19 08:52 Dose: 1 mg Documented by: Guaifenesin (Mucinex) 1,200 mg PO BID@0800,1800 [facility] Last Admin: 12/11/19 17:22 Dose: 1,200 mg Documented by: Heparin Sodium (Beef Lung) () 50 units IV UD PRN PRN Reason: PICC Line Heparin Flush Isosorbide Mononitrate (Imdur) 30 mg PO DAILY@0800 [facility] Last Admin: 12/11/19 08:53 Dose: 30 mg Documented by: Montelukast Sodium (Singulair) 10 mg PO QHS [facility] Last Admin: 12/10/19 20:15 Dose: 10 mg Documented by: Nutritional Formula (Jameson - [place] Flavor) [facility] Last Admin: 12/11/19 17:21 Dose: 1 packet Documented by: Nystatin (Mycostatin Powder) 1 applic TOPICAL BID [facility]; Protocol Last Admin: 12/11/19 17:22 Dose: 1 applicatio Documented by: Oxybutynin Chloride (Ditropan) 2.5 mg PO DAILY@0800 [facility] Last Admin: 12/11/19 08:54 Dose: 2.5 mg Documented by: Oxycodone HCl (Oxyir) 5 mg PO Q4H PRN PRN PRN Reason: Pain Score 4-10/10 Last Admin: 12/11/19 14:43 Dose: 5 mg Documented by: Pantoprazole Sodium (Protonix) 40 mg PO DAILY@0800 [facility] Last Admin: 12/11/19 08:53 Dose: 40 mg Documented by: Paroxetine HCl (Paxil) 20 mg PO 0800,1800 [facility] Last Admin: 12/11/19 17:26 Dose: 20 mg Documented by: Polyethylene Glycol (Miralax) 17 gm PO DAILY@0800 [facility] Last Admin: 12/11/19 08:54 Dose: Not Given Documented by: Polysaccharide Iron Complex (Ferrex 150) [facility] Last Admin: 12/11/19 08:52 Dose: 150 mg Documented by: Prednisone () 2.5 mg PO DAILYCM [facility] Last Admin: 12/11/19 08:51 Dose: 2.5 mg Documented by: Senna/Docusate Sodium (Senokot-S, Jane-Colace) 1 tablet PO BID@0800,1800 [facility] Last Admin: 12/11/19 17:23 Dose: Not Given Documented by: Sodium Chloride () 10 - 40 ml IV UD PRN PRN Reason: Open End PICC Flush Last Admin: 12/01/19 15:41 Dose: 10 ml Documented by: Sodium Chloride (0.9% Nacl (Sterile) Posiflush) 10 - 40 ml IV UD PRN PRN Reason: Port access or dressing change Discharge Diet: 2000 mg Sodium Diet, Renal Diet Discharge Activity: Return to Normal Activity, May Shower, Use Walker Weight Bearing Status: Weight bearing as tolerated Call your doctor if you observe: Fever of 101 or Higher, Inability to urinate, Inability to have a bowel movement, Shortness of breath, Chest pain, Uncontrolled pain Home Medications: Medications to take at Discharge Albuterol Inhaler [Ventolin Hfa] 2 puff INHALATION Q4H PRN PRN 11/24/19 Atorvastatin Calcium [Lipitor] 20 mg PO QHS 11/24/19 Calcium Carbonate/Vitamin D3 [Calcium 600-Vit D3 800 Caplet] 1 ea PO DAILY 11/24/19 Fluticasone 0.05% [Flonase Nasal Evans] 2 spray NASAL DAILY 11/24/19 Folic Acid 1 mg PO DAILY 11/24/19 Isosorbide Mononitrate [Imdur] 30 mg PO DAILY 11/24/19 Lactobacillus Acidophilus [Acidophilus] 1 ea PO TID 11/24/19 Montelukast [Singulair] 10 mg PO DAILY 11/24/19 Multivitamin with Minerals [Multiple Vitamin] 1 ea PO DAILY 11/24/19 Omeprazole 40 mg PO DAILY 11/24/19 Oxybutynin [Ditropan] 2.5 mg PO DAILY 11/24/19 Prednisone 2.5 mg PO DAILY 11/24/19 Psyllium [Metamucil] 1 packet PO DAILY PRN PRN packet 11/28/19 Guaifenesin [Mucinex] 1,200 mg PO BID 11/30/19 Nystatin Powder [Mycostatin Powder] 1 applic TOPICAL BID 11/30/19 Paroxetine [Paxil] 40 mg PO DAILY 11/30/19 Acetaminophen [Tylenol] 1,000 mg PO Q6H PRN PRN tab 12/11/19 Iron Polysaccharide Complex [Ferrex 150] 150 mg PO DAILYCM #30 cap 12/11/19 Menthol/Lanolin/Calamine/Znox [Calmoseptine Ointment] 1 applic TOPICAL 0600,2200 tube 12/11/19 Nutritional Supplement [Jameson - ORANGE FLAVOR] 1 packet PO BIDCM #60 packet 12/11/19 Oxycodone [Oxyir] 5 mg PO Q4H PRN PRN 7 Days #42 tablet 12/11/19 Following Prescrptions Were Given to Patient: Iron Polysaccharide Complex [Ferrex 150] 150 mg PO DAILYCM #30 cap Transmission Status: Pending to [facility] Nutritional Supplement [Jameson - ORANGE FLAVOR] 1 packet PO BIDCM #60 packet Transmission Status: Pending to [facility] Oxycodone [Oxyir] 5 mg PO Q4H PRN PRN 7 Days #42 tablet PRN Reason: Pain Score 4-10/10 Transmission Status: Sent to [facility] Primary Care Physician: Care Physician,No Primary [Primary Care Provider] - Please follow up with your Primary Care Physician in: 1 week. Please Follow Up With: Ivy Melendez DO When: 1-2 wks Please Follow Up With: Ronnie Edwards MD (will see Ivy Dolan MERCHANDISE STOCKER) When: 2 wks Please Follow Up With: Venkatesh Mills DPM (Dr. Villareal will be here) When: 1-2 wks Please Follow Up With: Willie Be MD When: as needed for wound colonization Disposition: Home with Home Health Minutes spent on discharge:: 35 Patient Condition:: Stable Medical Necessity - Tobacco Use Smoking Status: Never smoker Tobacco Use: Non-smoker, Cigarettes Meaningful Use Info Meaningful Use Diagnoses (Choose all that apply): None applicable
[2019-12-11] MEDS: Montelukast 10 MG Tablet PO (20:12)
[2019-12-11] MEDS: Atorvastatin Calcium 20 MG Tablet PO (20:13)
--- NOTE | 2019-12-12 04:39 | NURSING ---
All nursing care performed in room d/t pt remaining in contact and droplet precautions
[2019-12-12] MEDS: Menthol/Lanolin/Calamine/Znox 113 GM Tube 1 APPLIC TOPICAL ×2 (05:35→20:11)
[2019-12-12] MEDS: Nystatin Powder 15gm Bottle 1 APPLIC TOPICAL ×2 (05:36→15:16)
[2019-12-12] MEDS: Oxybutynin 5 MG Tablet 2.5 MG PO (08:36)
[2019-12-12] MEDS: Isosorbide Mononitrate 30 MG Tablet PO (08:36)
[2019-12-12] MEDS: Folic Acid 1 MG Tablet PO (08:36)
[2019-12-12] MEDS: Paroxetine 20 MG Tablet PO ×2 (08:38→16:54)
[2019-12-12] MEDS: Iron Polysaccharide Complex 150 MG CAPSULE PO (08:38)
[2019-12-12] MEDS: Pantoprazole Sodium 40 MG Tablet PO (08:38)
[2019-12-12] MEDS: predniSONE 5 MG Tablet 2.5 MG PO (08:38)
[2019-12-12] MEDS: guaiFENesin 1,200 MG Tablet 1200 MG PO ×2 (08:38→16:54)
[2019-12-12] MEDS: Fluticasone 0.05% 1 SPRAY NASAL.SRY 2 SPRAY NASAL (08:39)
--- NOTE | 2019-12-12 14:32 | NURSING ---
All patient care done in room due to being in special contact and droplet precautions
[2019-12-12] MEDS: oxyCODONE 5 MG Tablet PO ×2 (15:10→23:54)
[2019-12-12 15:22] VITALS: BP 113/55; PULSE 81; RESP 18; TEMP 36.2; O2SAT 97
--- NOTE | 2019-12-12 15:49 | NURSING ---
Resident was tearful and anxious at this time. 1 on 1 given with position change and made comfortable. Resident was questioning what medication she was taking and stated she was taking Prozac at home. Will notify Dr. Harris.
[2019-12-12] MEDS: Acetaminophen 500 MG Tablet 1000 MG PO ×2 (16:55→23:54)
[2019-12-12] MEDS: FLUoxetine 20 MG Capsule 40 MG PO (20:08)
[2019-12-12] MEDS: Atorvastatin Calcium 20 MG Tablet PO (20:09)
[2019-12-12] MEDS: Montelukast 10 MG Tablet PO (20:09)
[2019-12-12] MEDS: Cholestyramine/Sucrose 4 GM/PACKET PO (22:41)
[2019-12-13] MEDS: Menthol/Lanolin/Calamine/Znox 113 GM Tube 1 APPLIC TOPICAL ×2 (05:34→20:44)
[2019-12-13] MEDS: Nystatin Powder 15gm Bottle 1 APPLIC TOPICAL ×2 (05:34→19:03)
[2019-12-13] MEDS: FLUoxetine 20 MG Capsule 40 MG PO ×2 (05:34→17:45)
--- NOTE | 2019-12-13 06:16 | NURSING ---
all nursing care provided in room d/t pt remaining in contact and droplet precautions
[2019-12-13] MEDS: Iron Polysaccharide Complex 150 MG CAPSULE PO (09:38)
[2019-12-13] MEDS: guaiFENesin 1,200 MG Tablet 1200 MG PO ×2 (09:38→17:45)
[2019-12-13] MEDS: Pantoprazole Sodium 40 MG Tablet PO (09:38)
[2019-12-13] MEDS: predniSONE 5 MG Tablet 2.5 MG PO (09:38)
[2019-12-13] MEDS: Oxybutynin 5 MG Tablet 2.5 MG PO (09:38)
[2019-12-13] MEDS: Isosorbide Mononitrate 30 MG Tablet PO (09:39)
[2019-12-13] MEDS: Folic Acid 1 MG Tablet PO (09:39)
[2019-12-13] MEDS: Fluticasone 0.05% 1 SPRAY NASAL.SRY 2 SPRAY NASAL (09:50)
[2019-12-13 13:57] VITALS: BP 109/47; PULSE 90; RESP 18; TEMP 35.8; O2SAT 93
[2019-12-13] MEDS: oxyCODONE 5 MG Tablet PO (17:45)
[2019-12-13] MEDS: Acetaminophen 500 MG Tablet 1000 MG PO (17:48)
[2019-12-13] MEDS: Montelukast 10 MG Tablet PO (20:26)
[2019-12-13] MEDS: Atorvastatin Calcium 20 MG Tablet PO (20:26)
[2019-12-13] MEDS: Cholestyramine/Sucrose 4 GM/PACKET PO (20:26)
[2019-12-14] MEDS: Acetaminophen 500 MG Tablet 1000 MG PO ×2 (00:12→15:41)
[2019-12-14] MEDS: oxyCODONE 5 MG Tablet PO ×2 (00:12→15:44)
--- NOTE | 2019-12-14 04:54 | NURSING ---
All care provided to patient in patient room d/t patient being in precautions.
[2019-12-14] MEDS: Menthol/Lanolin/Calamine/Znox 113 GM Tube 1 APPLIC TOPICAL ×2 (06:27→20:44)
[2019-12-14] MEDS: FLUoxetine 20 MG Capsule 40 MG PO ×2 (06:28→17:53)
[2019-12-14] MEDS: Nystatin Powder 15gm Bottle 1 APPLIC TOPICAL ×2 (06:28→20:44)
[2019-12-14] MEDS: Oxybutynin 5 MG Tablet 2.5 MG PO (09:06)
[2019-12-14] MEDS: Iron Polysaccharide Complex 150 MG CAPSULE PO (09:07)
[2019-12-14] MEDS: Folic Acid 1 MG Tablet PO (09:07)
[2019-12-14] MEDS: predniSONE 5 MG Tablet 2.5 MG PO (09:07)
[2019-12-14] MEDS: Isosorbide Mononitrate 30 MG Tablet PO (09:07)
[2019-12-14] MEDS: Fluticasone 0.05% 1 SPRAY NASAL.SRY 2 SPRAY NASAL (09:08)
[2019-12-14] MEDS: guaiFENesin 1,200 MG Tablet 1200 MG PO ×2 (09:08→17:53)
[2019-12-14] MEDS: Pantoprazole Sodium 40 MG Tablet PO (09:08)
[2019-12-14 14:30] VITALS: BP 101/62; PULSE 69; RESP 16; TEMP 36.7; O2SAT 96
--- NOTE | 2019-12-14 15:05 | NURSING ---
Resident remains in special and droplet precautions.
[2019-12-14] MEDS: Atorvastatin Calcium 20 MG Tablet PO (20:43)
[2019-12-14] MEDS: Montelukast 10 MG Tablet PO (20:43)
[2019-12-14] MEDS: Cholestyramine/Sucrose 4 GM/PACKET PO (20:44)
[2019-12-15] MEDS: oxyCODONE 5 MG Tablet PO ×3 (03:49→23:47)
[2019-12-15] MEDS: Acetaminophen 500 MG Tablet 1000 MG PO ×3 (03:51→23:47)
[2019-12-15] MEDS: FLUoxetine 20 MG Capsule 40 MG PO ×2 (05:03→17:46)
[2019-12-15] MEDS: Nystatin Powder 15gm Bottle 1 APPLIC TOPICAL ×2 (05:05→18:04)
[2019-12-15] MEDS: Menthol/Lanolin/Calamine/Znox 113 GM Tube 1 APPLIC TOPICAL ×2 (05:05→19:54)
[2019-12-15 06:48] LABS: Absolute Lymphocyte Count 1.14 X10^3/uL (0.83-4.51); Absolute Neutrophil Count 3.4 X10^3/uL (2.0-7.7); Basophil# 0.06 X10^3/uL; Basophil% 1.1 % (0-1); Eosinophil# 0.36 X10^3/uL; Eosinophils% 6.4 % (0-5); Hematocrit 29.3 % (37-47); Hemoglobin 9.3 g/dL (12.0-15.0); Lymphocyte # 1.14 X10^3/ul (4.0); Lymphocyte % 20.2 % (19-41); Mean Corp Hgb Conc 31.7 g/dL (32-36); Mean Corpuscular Volume 103.9 fL (81-99); Mean Platelet Vol. 11.7 fl (6.2-12.0); Monocyte# 0.62 X10^3/uL; NRBC Flagged by Analyzer 0 % (0-5); Neutrophil # 3.44 X10^3/uL (2.7-7.7); Neutrophil % 60.9 % (47-70); POSITIVE MORPHOLOGY YES; Platelet Count 255 K/mm3 (150-450); RBC Distribution Width CV 17.5 % (11.6-14.6); RBC Distribution Width SD 67.2 fl (35.1-43.9); Red Blood Count 2.82 M/mm3 (4.2-5.4); White Blood Count 5.6 K/mm3 (4.4-11.0)
[2019-12-15 06:56] LABS: Differential Indicated SCAN CRITERIA MET
[2019-12-15 07:12] LABS: Anion Gap 6 (5-15); BUN 56 mg/dL (7-18); BUN/Creat Ratio 69.1 RATIO (10-20); Calcium,Total 7.9 mg/dL (8.5-10.1); Chloride 116 mmol/L (98-107); Creatinine, Serum 0.81 mg/dL (0.55-1.02); EST Glomerular Filtration Rate 75 mL/min (>60); Est Glom Filt Rate - Afr Amer 90 mL/min (>60); Estimated Creatinine Clearance 63.09 ml/min; Glucose 105 mg/dL (74-106); Potassium 4.1 mmol/L (3.5-5.1); Sodium Level 144 mmol/L (136-145)
[2019-12-15 07:34] LABS: Anisocytosis 2+; Hypochromasia 1+; Macrocytosis 1+; Platelet Estimate ADEQUATE (ADEQ); Target Cells 1+
[2019-12-15] MEDS: guaiFENesin 1,200 MG Tablet 1200 MG PO ×2 (08:20→17:46)
[2019-12-15] MEDS: Oxybutynin 5 MG Tablet 2.5 MG PO (08:20)
[2019-12-15] MEDS: Folic Acid 1 MG Tablet PO (08:20)
[2019-12-15] MEDS: Isosorbide Mononitrate 30 MG Tablet PO (08:20)
[2019-12-15] MEDS: Pantoprazole Sodium 40 MG Tablet PO (08:20)
[2019-12-15] MEDS: predniSONE 5 MG Tablet 2.5 MG PO (08:20)
[2019-12-15] MEDS: Iron Polysaccharide Complex 150 MG CAPSULE PO (08:20)
[2019-12-15] MEDS: Fluticasone 0.05% 1 SPRAY NASAL.SRY 2 SPRAY NASAL (08:21)
[2019-12-15 15:26] VITALS: BP 109/62; PULSE 82; RESP 18; TEMP 36.6; O2SAT 94
--- NOTE | 2019-12-15 18:08 | NURSING ---
All nursing care provided in room d/t pt remaining in contact and droplet precautions this shift
[2019-12-15] MEDS: Montelukast 10 MG Tablet PO (19:51)
[2019-12-15] MEDS: Atorvastatin Calcium 20 MG Tablet PO (19:51)
[2019-12-15] MEDS: Cholestyramine/Sucrose 4 GM/PACKET PO (19:52)
[2019-12-16] MEDS: FLUoxetine 20 MG Capsule 40 MG PO ×2 (05:38→17:09)
[2019-12-16] MEDS: Nystatin Powder 15gm Bottle 1 APPLIC TOPICAL ×2 (05:39→17:10)
[2019-12-16] MEDS: Menthol/Lanolin/Calamine/Znox 113 GM Tube 1 APPLIC TOPICAL ×2 (05:39→20:52)
[2019-12-16] MEDS: predniSONE 5 MG Tablet 2.5 MG PO (08:42)
[2019-12-16] MEDS: Pantoprazole Sodium 40 MG Tablet PO ×2 (08:42→18:04)
[2019-12-16] MEDS: Isosorbide Mononitrate 30 MG Tablet PO (08:42)
[2019-12-16] MEDS: Oxybutynin 5 MG Tablet 2.5 MG PO (08:42)
[2019-12-16] MEDS: Fluticasone 0.05% 1 SPRAY NASAL.SRY 2 SPRAY NASAL (08:42)
[2019-12-16] MEDS: Folic Acid 1 MG Tablet PO (08:42)
[2019-12-16] MEDS: guaiFENesin 1,200 MG Tablet 1200 MG PO ×2 (08:42→17:09)
[2019-12-16] MEDS: Mag Hydrox/Al Hydrox/Simeth 30 ML UDC 15 ML PO ×2 (08:42→12:43)
[2019-12-16] MEDS: Iron Polysaccharide Complex 150 MG CAPSULE PO (08:42)
--- NOTE | 2019-12-16 10:38 | NURSING ---
All nursing care provided in room d/t pt remaining in contact and droplet precautions this shift.
--- NOTE | 2019-12-16 11:38 | PCM.PROGNOTE ---
Patient Problems: Active and Suspected Problems Debility (Acute) Shortness of breath (Acute) Fall (Acute) Weakness (Acute) Dysphagia (Acute) Eschar of foot (Acute) Ulcer of right lower extremity (Acute) Eschar of lower leg (Acute) Other specified peripheral vascular diseases (Acute) Edema of both lower extremities (Acute) Diarrhea (Acute) Abnormal abdominal x-ray (Acute) Subjective: Patient was seen today for follow up on ulcer right ankle and left 3rd toe. She is resting in bed. No complaints of fever, chills, nausea or vomiting. No new complaints at this time. - Physical Exam Vitals/I&O's: Vital Signs Temp Pulse Resp BP Pulse Ox 97.8 F 82 18 109/62 94 12/15/19 15:26 12/15/19 15:26 12/15/19 15:26 12/15/19 15:26 12/15/19 15:26 Oxygen Delivery Method Room Air Weight: 87.095 kg Body Mass Index (BMI) 30.9 Intake and Output for Last 24 Hours 12/14/19 12/15/19 12/16/19 22:59 23:59 23:59 Intake Total 240 / 240 Balance 240 / 240 General: Alert, Oriented x3, Cooperative, No apparent distress Extremities: No cyanosis, Capillary Refill Less than 3 Seconds, No Calf Tenderness, - - There continues to be no purulence, no erythema, no streaking, no infection to right foot/ankle or left foot. There is ulceration to the lateral right ankle down to the subcutaneous tissue with overlying superficial nonviable tissue, otherwise base of wound is granular and margins viable, no evidence of infection. The dorsal lateral third toe is dry eschar w/ no evidence of infection. Skin is atrophic and hairless bilateral. Toes are contracted consistent with chronic hammer toes bilateral. There is no evidence of acute ischemia bilateral foot or ankle. Psych/Mental Status: Appropriate Current Medications Acetaminophen (Tylenol) 1,000 mg PO Q6H PRN PRN PRN Reason: Pain Score 1-3/10 Last Admin: 12/15/19 23:47 Dose: 1,000 mg Documented by: Al Hydroxide/Mg Hydroxide (Mylanta Ii) 15 ml PO Q4H PRN PRN PRN Reason: INDIGESTION Last Admin: 12/16/19 08:42 Dose: 15 ml Documented by: Albuterol Sulfate (Ventolin Aerosols) 2 mg INHALATION Q4H PRN PRN PRN Reason: WHEEZING Atorvastatin Calcium (Lipitor) 20 mg PO DAILY@1999 [facility] Last Admin: 12/15/19 19:51 Dose: 20 mg Documented by: Bisacodyl (Dulcolax) 10 mg PO DAILY PRN PRN Reason: Constipation Calamine/Phenol (Calmoseptine Ointment) 1 applic TOPICAL 0600,2200 [facility]; Protocol Last Admin: 12/16/19 05:39 Dose: 1 applicatio Documented by: Cholestyramine Resin (Questran 4gm Packet) 4 gm PO DAILY@2199 [facility] Last Admin: 12/15/19 19:52 Dose: 4 gm Documented by: Fluoxetine HCl (Prozac) 40 mg PO BID [facility] Last Admin: 12/16/19 05:38 Dose: 40 mg Documented by: Fluticasone Propionate (Flonase Nasal Gilman) 2 spray NASAL DAILY@0800 [facility] Last Admin: 12/16/19 08:42 Dose: 2 spray Documented by: [facility] Last Admin: 12/16/19 08:42 Dose: 1 mg Documented by: Guaifenesin (Mucinex) 1,200 mg PO BID@0800,1800 [facility] Last Admin: 12/16/19 08:42 Dose: 1,200 mg Documented by: Heparin Sodium (Beef Lung) () 50 units IV UD PRN PRN Reason: PICC Line Heparin Flush Isosorbide Mononitrate (Imdur) 30 mg PO DAILY@0800 [facility] Last Admin: 12/16/19 08:42 Dose: 30 mg Documented by: Montelukast Sodium (Singulair) 10 mg PO DAILY@1999 [facility] Last Admin: 12/15/19 19:51 Dose: 10 mg Documented by: Nutritional Formula (Jameson - [place] Flavor) [facility] Last Admin: 12/16/19 08:42 Dose: 1 packet Documented by: Nystatin (Mycostatin Powder) 1 applic TOPICAL BID [facility]; Protocol Last Admin: 12/16/19 05:39 Dose: 1 applicatio Documented by: Oxybutynin Chloride (Ditropan) 2.5 mg PO DAILY@0800 [facility] Last Admin: 12/16/19 08:42 Dose: 2.5 mg Documented by: Oxycodone HCl (Oxyir) 5 mg PO Q4H PRN PRN PRN Reason: Pain Score 4-10/10 Last Admin: 12/15/19 23:47 Dose: 5 mg Documented by: Pantoprazole Sodium (Protonix) 40 mg PO DAILY@0800 [facility] Last Admin: 12/16/19 08:42 Dose: 40 mg Documented by: Polysaccharide Iron Complex (Ferrex 150) [facility] Last Admin: 12/16/19 08:42 Dose: 150 mg Documented by: Pred[facility]one () [facility] Last Admin: 12/16/19 08:42 Dose: 2.5 mg Documented by: Sodium Chloride () 10 - 40 ml IV UD PRN PRN Reason: Open End PICC Flush Last Admin: 12/01/19 15:41 Dose: 10 ml Documented by: Sodium Chloride (0.9% Nacl (Sterile) Posiflush) 10 - 40 ml IV UD PRN PRN Reason: Port access or dressing change Medical Necessity - Tobacco Use Smoking Status: Never smoker Tobacco Use: Non-smoker, Cigarettes Assessment/Plan All Active Problems Hyperkalemia (Acute) Dyspnea (Acute) TENZIN (acute kidney injury) (Acute) Debility (Acute) Shortness of breath (Acute) Fall (Acute) Weakness (Acute) Dysphagia (Acute) Eschar of foot (Acute) Ulcer of right lower extremity (Acute) Eschar of lower leg (Acute) Other specified peripheral vascular diseases (Acute) Edema of both lower extremities (Acute) Diarrhea (Acute) Abnormal abdominal x-ray (Acute) Ulceration right lateral ankle down to deep subcutaneous tissue layer Ulceration left dorsal 3rd toe with eschar Peripheral vascular disease Lower extremity edema / suspected venous insufficiency Hammer toes Multiple co-morbidities (h/o mrsa, CHF, depression, obesity, asthma, GERD, anemia Deconditioning following recent acute illness Reviewed diagnostic data. Patient currently afebrile with remaining vital signs stable. Again reviewed prior assessment and work up including MRI images and radiology reports - no evidence of right ankle osteomyelitis or left foot osteomyelitis. Noninvasive lower extremity arterial studies ordered for further evaluation of arterial flow - she is still on contact precautions due to colonization of sputum and urine and will not be able to have the test completed at this time. There is still no evidence of acute ischemia and will need to re order once contact precautions has been lifted. Wound care right ankle: Wound was debrided in selective fashion using a 10 blade removing superficial nonviable tissue, post debridement ulcer measured 7mm x 6mm and down to superficial subcutaneous tissue. Overall this wound is healing. Continue with Aquacel ag w/ overlying dressing - change daily. Wound care left 3rd toe: Aquacel Ag w/ overlying dressing - change daily. She refused selective debridement. Patient has refused Santyl. To keep pressure off of these sites by wearing a left surgical shoe and by avoiding direct pressure to the right ankle. Patient is to continue with her offloading foam boots while in bed that she has been wearing. To continue ca wrap bilateral lower extremities and elevate the limbs at rest to better control her edema. More aggressive compression therapy is not recommended at this time until her vascular status is better defined. No critical limb ischemia is suspected. Medical management per primary team is greatly appreciated. Podiatry will continue to follow weekly. To follow up at wound center within 1 week after discharge for continued wound care.
--- NOTE | 2019-12-16 13:35 | NURSING ---
Dressings were changed by Dr Mills this am after debridement of the right lateral ankle wound. will follow as needed.
[2019-12-16 14:08] VITALS: BP 121/77; PULSE 89; RESP 18; TEMP 36.2; O2SAT 97
[2019-12-16] MEDS: oxyCODONE 5 MG Tablet PO ×2 (15:30→23:22)
[2019-12-16] MEDS: Acetaminophen 500 MG Tablet 1000 MG PO ×2 (15:30→23:22)
--- NOTE | 2019-12-16 18:06 | NURSING ---
R' UPDATED ON NEW ORDER FOR PROTONIX BID, PER HOME REGIMEN. GIVEN AT THIS TIME.
[2019-12-16] MEDS: Atorvastatin Calcium 20 MG Tablet PO (20:44)
[2019-12-16] MEDS: Cholestyramine/Sucrose 4 GM/PACKET PO (20:44)
[2019-12-16] MEDS: Montelukast 10 MG Tablet PO (20:44)
[2019-12-17] MEDS: Pantoprazole Sodium 40 MG Tablet PO ×2 (05:01→17:46)
[2019-12-17] MEDS: FLUoxetine 20 MG Capsule 40 MG PO ×2 (05:01→16:05)
[2019-12-17] MEDS: Nystatin Powder 15gm Bottle 1 APPLIC TOPICAL ×2 (05:01→17:44)
[2019-12-17] MEDS: Menthol/Lanolin/Calamine/Znox 113 GM Tube 1 APPLIC TOPICAL ×2 (05:02→21:18)
[2019-12-17] MEDS: predniSONE 5 MG Tablet 2.5 MG PO (08:37)
[2019-12-17] MEDS: Folic Acid 1 MG Tablet PO (08:37)
[2019-12-17] MEDS: Oxybutynin 5 MG Tablet 2.5 MG PO (08:37)
[2019-12-17] MEDS: guaiFENesin 1,200 MG Tablet 1200 MG PO ×2 (08:37→16:05)
[2019-12-17] MEDS: Iron Polysaccharide Complex 150 MG CAPSULE PO (08:37)
[2019-12-17] MEDS: Fluticasone 0.05% 1 SPRAY NASAL.SRY 2 SPRAY NASAL (08:38)
[2019-12-17] MEDS: Isosorbide Mononitrate 30 MG Tablet PO (08:38)
[2019-12-17] MEDS: Mag Hydrox/Al Hydrox/Simeth 30 ML UDC 15 ML PO (08:47)
--- NOTE | 2019-12-17 11:57 | NURSING ---
RESIDENT REMAINS IN CONTACT/ DROPLET PRECAUTIONS. ALL CARE PROVIDED IN ROOM.
[2019-12-17 14:09] VITALS: BP 101/53; PULSE 84; RESP 17; TEMP 36.4; O2SAT 90
[2019-12-17] MEDS: oxyCODONE 5 MG Tablet PO (16:04)
[2019-12-17] MEDS: Acetaminophen 500 MG Tablet 1000 MG PO (16:05)
[2019-12-17 17:59] VITALS: O2SAT 98
[2019-12-17] MEDS: Montelukast 10 MG Tablet PO (21:17)
[2019-12-17] MEDS: Atorvastatin Calcium 20 MG Tablet PO (21:17)
[2019-12-18] MEDS: oxyCODONE 5 MG Tablet PO ×2 (02:14→16:47)
[2019-12-18] MEDS: Acetaminophen 500 MG Tablet 1000 MG PO ×2 (02:14→16:48)
--- NOTE | 2019-12-18 04:46 | NURSING ---
All nursing care provided in room d/t pt remains in droplet and contact precautions.
[2019-12-18] MEDS: Pantoprazole Sodium 40 MG Tablet PO ×2 (06:59→16:48)
[2019-12-18] MEDS: FLUoxetine 20 MG Capsule 40 MG PO ×2 (06:59→16:49)
[2019-12-18] MEDS: Nystatin Powder 15gm Bottle 1 APPLIC TOPICAL ×2 (07:00→16:48)
[2019-12-18] MEDS: Menthol/Lanolin/Calamine/Znox 113 GM Tube 1 APPLIC TOPICAL ×2 (07:01→22:48)
[2019-12-18] MEDS: Isosorbide Mononitrate 30 MG Tablet PO (07:53)
[2019-12-18] MEDS: Oxybutynin 5 MG Tablet 2.5 MG PO (07:54)
[2019-12-18] MEDS: guaiFENesin 1,200 MG Tablet 1200 MG PO ×2 (07:54→16:48)
[2019-12-18] MEDS: predniSONE 5 MG Tablet 2.5 MG PO (07:55)
[2019-12-18] MEDS: Iron Polysaccharide Complex 150 MG CAPSULE PO (07:55)
[2019-12-18] MEDS: Folic Acid 1 MG Tablet PO (07:55)
[2019-12-18] MEDS: Fluticasone 0.05% 1 SPRAY NASAL.SRY 2 SPRAY NASAL (07:56)
[2019-12-18 13:34] VITALS: BP 125/75; PULSE 95; RESP 17; TEMP 36.6; O2SAT 100
[2019-12-18] MEDS: Montelukast 10 MG Tablet PO (21:55)
[2019-12-18] MEDS: Atorvastatin Calcium 20 MG Tablet PO (21:55)
[2019-12-19] MEDS: Acetaminophen 500 MG Tablet 1000 MG PO ×3 (02:47→20:29)
[2019-12-19] MEDS: Nystatin Powder 15gm Bottle 1 APPLIC TOPICAL ×2 (05:35→17:00)
[2019-12-19] MEDS: Menthol/Lanolin/Calamine/Znox 113 GM Tube 1 APPLIC TOPICAL ×2 (05:35→22:10)
--- NOTE | 2019-12-19 06:25 | NURSING ---
all nursing care provided in room d/t pt remaining in contact and droplet precautions
[2019-12-19] MEDS: FLUoxetine 20 MG Capsule 40 MG PO ×2 (07:47→20:23)
[2019-12-19] MEDS: Isosorbide Mononitrate 30 MG Tablet PO (07:47)
[2019-12-19] MEDS: Iron Polysaccharide Complex 150 MG CAPSULE PO (07:47)
[2019-12-19] MEDS: Fluticasone 0.05% 1 SPRAY NASAL.SRY 2 SPRAY NASAL (07:47)
[2019-12-19] MEDS: predniSONE 5 MG Tablet 2.5 MG PO (07:47)
[2019-12-19] MEDS: Folic Acid 1 MG Tablet PO (07:47)
[2019-12-19] MEDS: Oxybutynin 5 MG Tablet 2.5 MG PO (07:47)
[2019-12-19] MEDS: guaiFENesin 1,200 MG Tablet 1200 MG PO ×2 (07:47→17:00)
[2019-12-19] MEDS: Pantoprazole Sodium 40 MG Tablet PO ×2 (07:47→20:23)
[2019-12-19] MEDS: oxyCODONE 5 MG Tablet PO ×2 (12:24→20:28)
[2019-12-19 14:14] VITALS: BP 136/72; PULSE 81; RESP 16; TEMP 36.6; O2SAT 98
[2019-12-19] MEDS: Atorvastatin Calcium 20 MG Tablet PO (20:23)
[2019-12-19] MEDS: Montelukast 10 MG Tablet PO (20:23)
[2019-12-20] MEDS: Nystatin Powder 15gm Bottle 1 APPLIC TOPICAL (04:46)
[2019-12-20] MEDS: Menthol/Lanolin/Calamine/Znox 113 GM Tube 1 APPLIC TOPICAL (04:46)
[2019-12-20] MEDS: Pantoprazole Sodium 40 MG Tablet PO (08:27)
[2019-12-20] MEDS: Isosorbide Mononitrate 30 MG Tablet PO (08:27)
[2019-12-20] MEDS: Iron Polysaccharide Complex 150 MG CAPSULE PO (08:27)
[2019-12-20] MEDS: Oxybutynin 5 MG Tablet 2.5 MG PO (08:27)
[2019-12-20] MEDS: Folic Acid 1 MG Tablet PO (08:27)
[2019-12-20] MEDS: FLUoxetine 20 MG Capsule 40 MG PO (08:27)
[2019-12-20] MEDS: guaiFENesin 1,200 MG Tablet 1200 MG PO (08:27)
[2019-12-20] MEDS: predniSONE 5 MG Tablet 2.5 MG PO (08:28)
[2019-12-20 10:00] VITALS: RESP 16
[2019-12-20] MEDS: oxyCODONE 5 MG Tablet PO (10:39)
[2019-12-20] MEDS: Acetaminophen 500 MG Tablet 1000 MG PO (10:41)
--- NOTE | 2019-12-20 10:42 | NURSING ---
all nursing care provided in room d/t pt remaining in contact and droplet precaution
--- NOTE | 2019-12-20 14:10 | NURSING ---
VS temp 98.2, pulse 86, resp 16, O2 99%, BP 101/45
== END 2019-12-20 14:30 | disposition home health service (06) | DRG 641 ==
PROVIDERS: Admitting Provider Family Medicine Geriatric Medicine; Visit Provider Family Medicine Geriatric Medicine
DX: E87.5 Hyperkalemia (principal); I50.32 Chronic diastolic (congestive) heart failure; L97.312 Non-pressure chronic ulcer of right ankle with fat layer exposed; E78.5 Hyperlipidemia, unspecified; J45.909 Unspecified asthma, uncomplicated; I25.10 Atherosclerotic heart disease of native coronary artery without angina pectoris; K21.9 Gastro-esophageal reflux disease without esophagitis; F32.9 Major depressive disorder, single episode, unspecified; N32.81 Overactive bladder; F41.9 Anxiety disorder, unspecified; I11.0 Hypertensive heart disease with heart failure; D50.9 Iron deficiency anemia, unspecified; B35.4 Tinea corporis; E66.9 Obesity, unspecified; Z68.31 Body mass index [BMI] 31.0-31.9, adult; I73.9 Peripheral vascular disease, unspecified; L97.522 Non-pressure chronic ulcer of other part of left foot with fat layer exposed
CPT/HCPCS: 36415; 74018; 80048; 85014; 85018; 85025; 87506; 92507; 92526; 92610; 97110; 97112; 97116; 97162; 97166; 97530; 97535; 97802; J2997; J7030; A4216